=== PATIENT | male | born 1950 | race Caucasian/White ===

== ENCOUNTER 2024-07-24 19:34 | Inpatient (IN) ==
[2024-07-24 21:12] LABS: Albumin Globulin Ratio 2.4 (0.9-2); Albumin Level 4.6 gm/dl (3.4-5.0); Bilirubin,Total 0.5 mg/dl (0.2-1.0); Creatinine Clr Calc Pharmacy 63.1 ml/min; Globulin 1.9 gm/dl (2.5-4.0); Potassium 4.2 mmol/L (3.5-5.1); Total Protein 6.5 gm/dl (6.0-8.3)
[2024-07-24 21:30] LABS: INR 0.9 (0.9-1.1); Partial Thromboplastin Ratio 0.8; Partial Thromboplastin Time 21 Seconds (21-31); Prothrombin Time 10.2 Seconds (9.0-12.0)
[2024-07-24 21:31] LABS: Hematocrit (blood only) 45.1 % (42.0-52.0); White Blood Count 13.13 K/ul (4.8-10.8)
[2024-07-24 21:32] LABS: Mean Corpuscular Hemoglobin 30.2 pg (25.0-34.0); Mean Corpuscular Hgb Conc 33.3 g/dL (32.0-36.0); Mean Corpuscular Volume 90.7 fL (80.0-100.0); RDW Coefficient of Variation 14.3 % (11.5-14.5); RDW Standard Deviation 47.5 fL (36.4-46.3); Red Blood Count 4.97 M/uL (4.70-6.10)
[2024-07-24 21:56] LABS: Basophils # (auto) 0.04 K/uL (0.00-0.20); Basophils % (auto) 0.3 %; Eosinophils # (auto) 0.38 K/uL (0.00-0.50); Eosinophils % (auto) 2.9 %; Immature Granulocytes # (auto) 0.04 K/uL (0.01-0.20); Immature Granulocytes % (auto) 0.3 %; Lymphocytes # (auto) 2.86 K/uL (1.20-3.40); Lymphocytes % (auto) 21.8 %; Monocytes # (auto) 1.56 K/uL (0.11-0.59); Monocytes % (auto) 11.9 %; Neutrophils # (auto) 8.25 K/uL (1.40-6.50); Neutrophils % (auto) 62.8 %; Platelet Estimate Signific. Decreased (Normal)
[2024-07-24 21:57] LABS: Platelet Count 0 K/uL (130-400)
--- NOTE | 2024-07-24 22:58 | Emergency Department Note ---
Impression & Plan Severe thrombocytopenia, Acute ITP, Petechiae ED Provider Note HISTORY OF PRESENT ILLNESS: Patient is a 73-year-old male presenting with petechiae and epistaxis. Patient reports that he developed a nosebleed yesterday evening. Reports that his nose has been spontaneously bleeding throughout the last 24 hours. He states that for the last few hours it seems like he cannot get the bleeding to stop. He states that today he woke up and had petechiae on his bilateral lower extremities. He has now developed petechia diffusely across his body. He states that he also noticed a "lump" on the inside of his left cheek and noticed blood on the gums of his lower teeth earlier this evening. He had a splenectomy in 2013 after having "an issue with my platelets." He states after his splenectomy his platelet count went back to normal and he is never had an issue since. He reports he had lab work done at the [facility] 3 weeks ago and his platelet count was in the 180s. He denies any recent steroids. Denies any recent fevers. Denies any chest pain or shortness of breath. ROS: as above PHYSICAL EXAM: Constitutional: Patient appears in no acute distress. HENT: Head: Normocephalic and atraumatic. Eyes: EOMI, PERRL Nose: Patient has no active epistaxis. He does have some dried blood in the left nare. Mouth/Throat: Mucous membranes moist. Uvula midline. No blood or clot noted in the posterior oropharynx. Patient noted to have some scant bleeding of the gums at the base of his front lower teeth. He is also noted to have a hematoma in the inside of his left cheek. Neck: Trachea midline. Neck supple. Cardiovascular: RRR, No murmurs, rubs or gallops. Intact distal pulses. Pulmonary/Chest: No respiratory distress. Breath sounds clear and equal bilaterally. No wheezes or rales. Abdominal: Abdomen soft, no tenderness, rebound or guarding. Musculoskeletal: No edema, tenderness or deformity noted. Skin: Warm and dry. Diffuse petechia noted on the bilateral lower extremities, trunk and bilateral upper extremities. Psychiatric: Appropriate mood and affect for situation. Neurological: Alert and keenly responsive. CN II-XII grossly intact, moving all extremities equally and fully. MDM: - Vitals signs showed hypertension - History obtained via patient. History as above. - Chronic conditions affecting care: HTN; HLD - Differential diagnoses include, but are not limited to: leukemia; ITP; coagulopathy - Order placed for continuous cardiac monitoring. At this time, monitor showed rate of 69 bpm with normal sinus rhythm, per my interpretation. - External medical records reviewed. - Laboratory workup interpreted by myself showed leukocytosis (WBC 13.13); thrombocytopenia (plt 0); normal PT/INR; stable electrolytes - Type and screen obtained - Discussed patient's case with metal mine inspector division plant engineer, Dr. Gutierrez, at 23:21. She recommended that the patient get a transfusion of platelets, be started on IVIG 1 g/kg now and continued for the next 2 days, and be given a dose of methylprednisolone 1 g now and continue daily. Reports that the patient can be admitted to medicine service here with hematology/oncology on his consult. - Methylprednisolone 1g IV, IVIG 1 g/kg, 20 mg IV pepcid and a transfusion of platelets ordered. - Discussion was had with family service caseworker about patient's case and need for admission - Hospitalist, Dr. Conway, consulted for admission - [facility]. I have personally spent 41 minutes of critical care time in the direct management of this patient. This includes bedside care, interpretation of diagnostic studies, and testing, discussion with consultants, patient, and family members, and other required patient management activities. This 41 minutes is in excess of all separately billable procedures. ASSESSMENT AND PLAN: Diagnosis: severe thrombocytopenia; ITP; petechiae Plan: admit Past Med/Surg History Problem List (Updated 07/24/24 @ 23:37 by Tricia Mike MD) Petechiae (Acute) Acute ITP (Acute) Severe thrombocytopenia (Acute) Social History Smoking Status: Never smoker Feels Safe at Home: Yes Allergies Allergies Allergy/AdvReac Type Severity Reaction Status Date / Time No Known Allergies Allergy Unverified 07/24/24 23:45 Results & Data (ED) Vital Signs Vital Signs - 24 hr 07/24/24 19:46 07/24/24 21:43 07/24/24 21:43 Temperature 36.6 C Temperature Source Temporal Artery Scan Pulse Rate 85 Pulse Rate [Apical] 72 Respiratory Rate 18 19 Respiratory Effort / Characteristics Non-Labored Spontaneous Non-Labored Spontaneous Respiratory Depth Normal Normal Respiratory Pattern Regular Blood Pressure 157/82 H Blood Pressure [Right Arm] 174/97 H Blood Pressure Mean 107 Blood Pressure Mean [Right Arm] 122 Blood Pressure Position [Right Arm] Semi-fowlers Pulse Oximetry 96 97 97 Oxygen Delivery Method Room Air Room Air Room Air Sepsis Recent Fever Within 48 Hours No Sepsis New/Unexplained Change in Mental Status No Sepsis Action Taken by Nursing No Action Required 07/24/24 21:45 07/24/24 22:47 Temperature Temperature Source Pulse Rate 66 Pulse Rate [Apical] 69 Respiratory Rate 20 Respiratory Effort / Characteristics Respiratory Depth Respiratory Pattern Blood Pressure Blood Pressure [Right Arm] 187/97 H Blood Pressure Mean Blood Pressure Mean [Right Arm] 127 Blood Pressure Position [Right Arm] Semi-fowlers Pulse Oximetry 98 Oxygen Delivery Method Room Air Sepsis Recent Fever Within 48 Hours Sepsis New/Unexplained Change in Mental Status Sepsis Action Taken by Nursing Laboratory Data 07/24/24 20:32 07/24/24 20:32 Lab Results 07/24/24 07/24/24 Range/Units 20:32 21:43 WBC 13.13 H (4.8-10.8) K/ul RBC 4.97 (4.70-6.10) M/uL Hgb 15.0 (14.0-18.0) g/dl Hct 45.1 (42.0-52.0) % MCV 90.7 (80.0-100.0) fL MCH 30.2 (25.0-34.0) pg MCHC 33.3 (32.0-36.0) g/dL RDW Std Deviation 47.5 H (36.4-46.3) fL RDW Coeff of Debbie 14.3 (11.5-14.5) % Plt Count 0 L* (130-400) K/uL Immature Gran % (Auto) 0.3 % Neut % (Auto) 62.8 % Lymph % (Auto) 21.8 % [place] % (Auto) 11.9 % Eos % (Auto) 2.9 % Baso % (Auto) 0.3 % Neut # (Auto) 8.25 H (1.40-6.50) K/uL Lymph # (Auto) 2.86 (1.20-3.40) K/uL [place] # (Auto) 1.56 H (0.11-0.59) K/uL Eos # (Auto) 0.38 (0.00-0.50) K/uL Baso # (Auto) 0.04 (0.00-0.20) K/uL Immature Gran # (Auto) 0.04 (0.01-0.20) K/uL Platelet Estimate Signific. Decreased L (Normal) PT 10.2 (9.0-12.0) Seconds INR 0.9 (0.9-1.1) APTT 21 (21-31) Seconds PTT Ratio 0.8 Sodium 140 (136-145) mmol/L Potassium 4.2 (3.5-5.1) mmol/L Chloride 109 H (98-107) mmol/L Carbon Dioxide 24 (21-32) mmol/L Anion Gap 7 (3-11) BUN 18 (6-23) mg/dl Creatinine 1.29 (0.6-1.4) mg/dl Est Cr Clr Drug Dosing 63.1 ml/min eGFR 58.55 BUN/Creatinine Ratio 14.0 (10-20) Glucose 113 H (70-99(Fasting)) mg/dl Calcium 9.0 (8.6-10.3) mg/dl Total Bilirubin 0.5 (0.2-1.0) mg/dl AST 14 (13-39) U/L ALT 15 (7-52) U/L Alkaline Phosphatase 87 (34-104) U/L Total Protein 6.5 (6.0-8.3) gm/dl Albumin 4.6 (3.4-5.0) gm/dl Globulin 1.9 L (2.5-4.0) gm/dl Albumin/Globulin Ratio 2.4 H (0.9-2) Blood Type A Positive Antibody Screen NEGATIVE Administered Medications Discontinued Medications Famotidine (Pepcid 20mg Iv Push) 20 mg in 5 mls @ 2.5 mls/min IV NOW STA Stop: 07/24/24 23:25 Last Admin: 07/24/24 23:46 Dose: 2.5 mls/min Documented By: LEANDRO Miscellaneous Information (Patient's Allergy Info Needs Entered) 1 each N/A NOW STA Stop: 07/24/24 23:36 Last Admin: 07/24/24 23:47 Dose: 1 each Documented By: LEANDRO Discharge Plan Visit Data Chief Complaint: Bleeding Stated Complaint: BLOOD PLATLETS LOW ED Provider: Tricia Mike Discharge Problem: Severe thrombocytopenia, Acute ITP, Petechiae Forms Stand Alone Forms: [facility] Referrals Referrals: Akbar JORDAN [Primary Care Provider] -
[2024-07-24] MEDS ORDERED: methylPREDNISolone 1000 MG/16 ML IV STA (23:24)
[2024-07-24] MEDS ORDERED: SODIUM CHLORIDE 0.9% 50 ML IV PRN ×3 (23:27→23:46)
[2024-07-24] MEDS ORDERED: SODIUM CHLORIDE 0.9% 100 ML IV PRN ×3 (23:27→23:46)
[2024-07-24] MEDS: FAMOTIDINE 20MG IV PUSH 20 MG/5 ML SYR IV STA (23:46)
[2024-07-24] MEDS: Patient's ALLERGY Info needs ENTERED STA (23:47)
[2024-07-25] MEDS: cloNIDine HCL 0.1 MG TAB PO ONE (00:13)
[2024-07-25 00:15] LABS: Adenovirus PCR Not Detected (NotDetected); Bordetella parapertussis PCR Not Detected (NotDetected); Bordetella pertussis PCR Not Detected (NotDetected); Chlamydia pneumoniae PCR Not Detected (NotDetected); Coronavirus 229E PCR Not Detected (NotDetected); Coronavirus CoV-2 (COVID19)PCR Not Detected (NotDetected); Coronavirus HKU1 PCR Not Detected (NotDetected); Coronavirus NL63 PCR Not Detected (NotDetected); Coronavirus OC43PCR Not Detected (NotDetected); Human Metapneumovirus PCR Not Detected (NotDetected); Influenza A PCR Not Detected (NotDetected); Influenza B PCR Not Detected (NotDetected); Mycoplasma pneumoniae PCR Not Detected (NotDetected); Parainfluenza Virus 1 PCR Not Detected (NotDetected); Parainfluenza Virus 2 PCR Not Detected (NotDetected); Parainfluenza Virus 3 PCR Not Detected (NotDetected); Parainfluenza Virus 4 PCR Not Detected (NotDetected); Respiratory Syncytial VirusPCR Not Detected (NotDetected); Rhinovirus/Enterovirus PCR DETECTED (NotDetected)
[2024-07-25] MEDS: methylPREDNISolone 1,000 MG in NSS 250 ML IV STA (00:29)
--- NOTE | 2024-07-25 00:46 | History & Physical Report ---
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 Gutierrez who recommends platelet transfusion, IVIG for 3 days, daily Solu-Medrol 1 g, and Pepcid for GI prophylaxis given high-dose steroids.) Retrieve records from [facility] [place], [place], [place]. Clonidine 1 dose now for hypertensive urgency Titrate home lisinopril as needed Supportive management for URTI DVT prophylaxis. SCDs re: thrombocytopenia resulting in bleeding Full code Text document was generated using Access [employer] voice recognition software. It may contain grammatical or spelling errors. Kindly contact undersigned for clarification of any documentation item in question. History of Present Illness Chief Complaint: Epistaxis, petechiae Primary Care Provider: [facility] History obtained from patient and records. Medical history significant for hypertension, hyperlipidemia, hypothyroidism, ITP status post splenectomy. Patient has history of ITP presenting as petechiae in 2013. Subsequent splenectomy following adverse reaction to unrecalled ITP medication when he was a resident of [place], [place].. 2 days ago, patient noted right-sided epistaxis and nasal congestion. Patient also noted sore throat symptoms and a blood blister on the left inner cheek. No headache. No chest pain, no SOB. No abdominal pain. No black no bloody stools. Patient later noted petechiae all over his body. Patient brought to ER for evaluation. IVIG, Solu-Medrol,, Pepcid, and platelet transfusion administered at the ER following Hematology recommendations. Highest SBP of 170s documented at the ER. 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 Allergies Allergy/AdvReac Type Severity Reaction Status Date / Time Penicillins Allergy Mild Rash Verified 07/25/24 00:47 Home Medications Medication Instructions Recorded Confirmed Type atorvastatin 20 mg tablet 20 mg PO HS 07/25/24 07/25/24 History levothyroxine 200 mcg tablet 50 mcg PO DAILY 07/25/24 07/25/24 History lisinopril 20 mg tablet 20 mg PO DAILY 07/25/24 07/25/24 History Past Med/Surg History Problem List (Updated 07/24/24 @ 23:37 by Tricia Mike MD) Petechiae (Acute) Acute ITP (Acute) Severe thrombocytopenia (Acute) Social History Smoking Status: Never smoker Hx Alcohol Use: No Hx Substance Use: No Preferred Language: Palauan Communication Ability: Effective Principal System Software Engineer Required: No Beliefs That Will Affect Care: None Current Living Situation: Other Current Living Situation Comment: correctional facility Feels Safe at Home: Yes Assistive Devices: None Review of Systems Review of Systems: As per HPI, all other systems reviewed and negative Physical Exam Physical Exam: GENERAL: Comfortable, pleasant, obese, tremulous, no respiratory distress SKIN: Normal color, warm HEENT: [place] palpebral conjunctivae, no ptosis, moist buccal mucosa, hematoma left inner cheek wall NECK : Supple, no tenderness CHEST : Scattered expiratory wheezes, no tenderness HEART : RRR, no obvious murmurs ABDOMEN: Some distention, nontender EXTREMITIES : Petechiae over upper and lower extremities, minimal LE swelling without tenderness, no other conspicuous deformities noted NEUROLOGIC : Coherent, no facial asymmetry, tremulous, no other gross focality Results & Data Results & Data Vital Signs (Past 12 Hours) Vital Signs Temp Pulse Pulse Resp BP BP Pulse Ox 07/25/24 00:08 37.2 C 67 18 153/81 H 97 07/25/24 00:01 64 17 147/85 H 97 07/24/24 23:56 36.5 C 63 17 183/100 H 96 07/24/24 22:47 69 20 187/97 H 98 07/24/24 21:45 66 07/24/24 21:43 72 19 174/97 H 97 07/24/24 21:43 97 07/24/24 19:46 36.6 C 85 18 157/82 H 96 O2 Del Method 07/25/24 00:08 07/25/24 00:01 07/24/24 23:56 07/24/24 22:47 Room Air 07/24/24 21:45 07/24/24 21:43 Room Air 07/24/24 21:43 Room Air 07/24/24 19:46 Room Air Laboratory Results Laboratory Results WBC 13.13 K/ul (4.8-10.8) H 07/24/24 20:32 RBC 4.97 M/uL (4.70-6.10) 07/24/24 20:32 Hgb 15.0 g/dl (14.0-18.0) 07/24/24 20:32 Hct 45.1 % (42.0-52.0) 07/24/24 20:32 MCV 90.7 fL (80.0-100.0) 07/24/24 20: MCH 30.2 pg (25.0-34.0) 07/24/24 20: MCHC 33.3 g/dL (32.0-36.0) 07/24/24 20: RDW Std Deviation 47.5 fL (36.4-46.3) H 07/24/24: RDW Coeff of Debbie 14.3 % (11.5-14.5) 07/24/24 20:32 Plt Count 0 K/uL (130-400) L* 07/24/24 20:32 Immature Gran % (Auto) 0.3 % 07/24/24 20:32 Neut % (Auto) 62.8 % 07/24/24 20:32 Lymph % (Auto) 21.8 % 07/24/24 20:32 [place] % (Auto) 11.9 % 07/24/24 20:32 Eos % (Auto) 2.9 % 07/24/24 20:32 Baso % (Auto) 0.3 % 07/24/24 20:32 Neut # (Auto) 8.25 K/uL (1.40-6.50) H 07/24/24 20:32 Lymph # (Auto) 2.86 K/uL (1.20-3.40) 07/24/24 20:32 [place] # (Auto) 1.56 K/uL (0.11-0.59) H 07/24/24 20:32 Eos # (Auto) 0.38 K/uL (0.00-0.50) 07/24/24 20:32 Baso # (Auto) 0.04 K/uL (0.00-0.20) 07/24/24 20:32 Immature Gran # (Auto) 0.04 K/uL (0.01-0.20) 07/24/24 20:32 Platelet Estimate Signific. Decreased (Normal) L 07/24/24 20:32 PT 10.2 Seconds (9.0-12.0) 07/24/24 20:32 INR 0.9 (0.9-1.1) 07/24/24 20:32 APTT 21 Seconds (21-31) 07/24/24 20:32 PTT Ratio 0.8 07/24/24 20:32 Sodium 140 mmol/L (136-145) 07/24/24 20:32 Potassium 4.2 mmol/L (3.5-5.1) 07/24/24 20:32 Chloride 109 mmol/L (98-107) H 07/24/24 20:32 Carbon Dioxide 24 mmol/L (21-32) 07/24/24 20:32 Anion Gap 7 (3-11) 07/24/24 20:32 BUN 18 mg/dl (6-23) 07/24/24 20:32 Creatinine 1.29 mg/dl (0.6-1.4) 07/24/24 20:32 Est Cr Clr Drug Dosing 63.1 ml/min 07/24/24 20:32 eGFR 58.55 07/24/24 20:32 BUN/Creatinine Ratio 14.0 (10-20) 07/24/24 20:32 Glucose 113 mg/dl (70-99(Fasting)) H 07/24/24 20:32 Calcium 9.0 mg/dl (8.6-10.3) 07/24/24 20:32 Total Bilirubin 0.5 mg/dl (0.2-1.0) 07/24/24 20:32 AST 14 U/L (13-39) 07/24/24 20:32 ALT 15 U/L (7-52) 07/24/24 20:32 Alkaline Phosphatase 87 U/L (34-104) 07/24/24 20:32 Total Protein 6.5 gm/dl (6.0-8.3) 07/24/24 20:32 Albumin 4.6 gm/dl (3.4-5.0) 07/24/24 20:32 Globulin 1.9 gm/dl (2.5-4.0) L 07/24/24 20:32 Albumin/Globulin Ratio 2.4 (0.9-2) H 07/24/24 20:32 Adenovirus (PCR) Not Detected (NotDetected) 07/24/24 22:53 B. pertussis DNA (PCR) Not Detected (NotDetected) 07/24/24 22:53 B.parapertussis DNA PCR Not Detected (NotDetected) 07/24/24 22:53 C. pneumoniae DNA (PCR) Not Detected (NotDetected) 07/24/24 22:53 Coronavirus OC43 (PCR) Not Detected (NotDetected) 07/24/24 22:53 Coronavirus HKU1 (PCR) Not Detected (NotDetected) 07/24/24 22:53 Coronavirus 229E (PCR) Not Detected (NotDetected) 07/24/24 22:53 SARS-CoV-2 (PCR) Not Detected (NotDetected) 07/24/24 22:53 Coronavirus NL63 (PCR) Not Detected (NotDetected) 07/24/24 22:53 Human Metapneumovir PCR Not Detected (NotDetected) 07/24/24 22:53 Influenza Type A (PCR) Not Detected (NotDetected) 07/24/24 22:53 Influenza Type B (PCR) Not Detected (NotDetected) 07/24/24 22:53 M. pneumoniae (PCR) Not Detected (NotDetected) 07/24/24 22:53 Parainfluenza 1 (PCR) Not Detected (NotDetected) 07/24/24 22:53 Parainfluenza 2 (PCR) Not Detected (NotDetected) 07/24/24 22:53 Parainfluenza 3 (PCR) Not Detected (NotDetected) 07/24/24 22:53 Parainfluenza 4 (PCR) Not Detected (NotDetected) 07/24/24 22:53 RSV (PCR) Not Detected (NotDetected) 07/24/24 22:53 Entero/Rhino (PCR) DETECTED (NotDetected) A 07/24/24 22:53 Blood Type A Positive 07/24/24 21:43 Antibody Screen NEGATIVE 07/24/24 21:43 Diagnostic Findings Chest x-ray as per my interpretation cardiomegaly, atelectasis
[2024-07-25] MEDS ORDERED: LORazepam 0.5 MG TAB PO PRN (00:49)
[2024-07-25] MEDS ORDERED: PROMETHAZINE 6.25 MG/50.25 ML BAG IV PRN (00:49)
[2024-07-25] MEDS: IMMUNE GLOBULIN (HUMAN) SOLN IV STA (00:55)
[2024-07-25 01:29] LABS: Magnesium 2.2 mg/dl (1.7-2.4)
[2024-07-25 01:45] LABS: Thyroid Stimulating Hormone 3.652 uIu/ml (0.300-4.500)
[2024-07-25] MEDS: ALBUT/IPRATROP 3MG/0.5MG NEB 3 ML VIAL NEB STA (01:56)
--- NOTE | 2024-07-25 02:20 | XRay Report ---
EXAM: XR chest 1V portable CLINICAL HISTORY: WHEEZE. TECHNIQUE: An X-ray image of the chest is obtained in AP projection. COMPARISON: No prior studies are available for comparison. FINDINGS: Pulmonary Parenchyma: Prominent central broncho vascular markings. No evidence of consolidation, collapse, or focal opacities. No evidence of pleural effusion or pleural thickening. Heart and Mediastinum: Apparent cardiomegaly. Could be projectional. Prominent hilar shadows. Bony Thorax: Mild degenerative changes of the visualized skeleton. Soft Tissues: Soft tissues overlying the chest wall are unremarkable. IMPRESSION: 1. No consolidation, pneumothorax or pleural effusion. 2. Prominent broncho vascular markings. Clinical correlation is advised to assess for pulmonary congestion/bronchitis. Electronically signed by Dash Chua 07-25-2024 02:19 AM
[2024-07-25] MEDS: Octagam 10% IVIG 20 gram bottle IV SCH ×2 (02:59→20:56)
[2024-07-25 05:02] LABS: BUN Creatinine Ratio 14.4 (10-20); Calcium 8.3 mg/dl (8.6-10.3); Creatinine Clr Calc Pharmacy 61.7 ml/min; Potassium 3.3 mmol/L (3.5-5.1)
[2024-07-25 05:04] LABS: Basophils # (auto) 0.02 K/uL (0.00-0.20); Basophils % (auto) 0.2 %; Eosinophils # (auto) 0.01 K/uL (0.00-0.50); Eosinophils % (auto) 0.1 %; Hematocrit (blood only) 40.9 % (42.0-52.0); Hemoglobin 13.8 g/dl (14.0-18.0); Immature Granulocytes # (auto) 0.04 K/uL (0.01-0.20); Immature Granulocytes % (auto) 0.4 %; Lymphocytes # (auto) 0.91 K/uL (1.20-3.40); Lymphocytes % (auto) 8.7 %; Mean Corpuscular Hemoglobin 30.5 pg (25.0-34.0); Mean Corpuscular Hgb Conc 33.7 g/dL (32.0-36.0); Mean Corpuscular Volume 90.3 fL (80.0-100.0); Monocytes # (auto) 0.07 K/uL (0.11-0.59); Monocytes % (auto) 0.7 %; Neutrophils # (auto) 9.41 K/uL (1.40-6.50); Neutrophils % (auto) 89.9 %; Platelet Estimate Signific. Decreased (Normal); RBC Morphology Unremarkable; RDW Coefficient of Variation 14.2 % (11.5-14.5); RDW Standard Deviation 47.2 fL (36.4-46.3); Red Blood Count 4.53 M/uL (4.70-6.10); White Blood Count 10.46 K/ul (4.8-10.8)
[2024-07-25 05:11] LABS: Platelet Count 0 K/uL (130-400)
--- NOTE | 2024-07-25 08:11 | Oncology Consultation ---
Date of Consultation July 25, 2024 Assessment & Plan (1) Acute ITP: (2) Severe thrombocytopenia: Plan Patient with history of ITP for which he is s/p splenectomy in 2012. Acute ITP likely triggered by viral infection. -Continue with methylprednisolone 1 g daily -IVIG 1 g/kg/day x 2 days. -If he does not respond to IVIG or steroids, we will plan to start him on TPO agonist(Nplate/eltrombopag) -Obtain hepatitis panel, B12, folate level, Peripheral smear review by pathology. Also urinalysis with reflex to culture Thank you for this consult. Will continue following patient while in the hospital. Please feel free to call if you have any other questions. History of Present Illness Reason for Consultation: ITP Attending Physician: Sonu Arnold MD History of Present Illness 73-year-old gentleman with medical history significant for chronic ITP for which he is s/p splenectomy in 2012. Patient presented with petechia and was found to have platelet count of 0. He was started on 1 g IV methylprednisolone daily, IVIG 1 g/kg/day and given platelet transfusion. He states that he was initially diagnosed with ITP in 2012 at which time he was treated with rituximab which he had a significant allergic reaction to necessitating its discontinuation. He subsequently underwent splenectomy with n ormalization of platelet count. States that he had upper respiratory tract infection which he noticed last week. Subsequently developed nosebleeds about 3 days ago and petechia was noted yesterday. He indicates that he self catheterizes and has a prior history of UTIs. Workup obtained in the ED revealed platelet count of 0, mild leukocytosis with white count of 13.13, normal hemoglobin of 15 with hematocrit of 45.1. Respiratory panel was positive for enterovirus infection. Allergies Allergy/AdvReac Type Severity Reaction Status Date / Time Penicillins Allergy Mild Rash Verified 07/25/24 00:47 Home Medications Medication Instructions Recorded Confirmed Type atorvastatin 20 mg tablet 20 mg PO HS 07/25/24 07/25/24 History levothyroxine 200 mcg tablet 50 mcg PO DAILY 07/25/24 07/25/24 History lisinopril 20 mg tablet 20 mg PO DAILY 07/25/24 07/25/24 History Patient History Social History Smoking Status: Never smoker Hx Alcohol Use: No Hx Substance Use: No Preferred Language: Croatian Communication Ability: Effective Senior Administrative Services Officer Required: No Beliefs That Will Affect Care: None Current Living Situation: Other Current Living Situation Comment: correctional facility Feels Safe at Home: Yes Assistive Devices: None Results & Data Vital Signs (Past 12 Hours) Vital Signs Temp Pulse Pulse Resp BP BP Pulse Ox 07/25/24 07:45 72 16 115/73 94 07/25/24 07:30 112/77 07/25/24 07:30 112/77 07/25/24 07:30 75 15 93 07/25/24 07:15 111/71 07/25/24 07:15 111/71 07/25/24 07:06 85 19 94 07/25/24 07:00 142/71 H 07/25/24 07:00 142/71 H 07/25/24 07:00 86 07/25/24 06:57 86 18 94 07/25/24 06:42 90 20 93 07/25/24 06:30 88 18 94 07/25/24 06:30 142/71 H 07/25/24 06:30 142/71 H 07/25/24 06:15 145/72 H 07/25/24 06:15 145/72 H 07/25/24 06:15 145/72 H 07/25/24 06:15 145/72 H 07/25/24 06:12 91 H 17 94 07/25/24 06:03 86 16 94 07/25/24 06:00 142/78 H 07/25/24 05:57 92 H 18 94 07/25/24 05:54 88 16 93 07/25/24 05:45 140/80 07/25/24 05:42 86 17 94 07/25/24 05:36 79 14 92 07/25/24 05:30 138/66 07/25/24 05:30 138/66 07/25/24 03:57 70 07/25/24 03:30 74 19 149/73 H 93 07/25/24 03:15 74 16 148/70 H 93 07/25/24 03:03 79 19 170/88 H 97 07/25/24 03:03 80 16 170/88 H 100 07/25/24 02:30 137/68 07/25/24 02:15 132/73 07/25/24 02:12 16 98 07/25/24 02:12 37.2 C 72 17 135/74 97 07/25/24 01:45 19 130/70 92 07/25/24 01:33 17 95 07/25/24 01:30 141/79 H 07/25/24 01:12 15 94 07/25/24 01:07 07/25/24 01:00 147/77 H 07/25/24 00:45 157/85 H 07/25/24 00:30 153/96 H 07/25/24 00:21 65 15 96 07/25/24 00:08 37.2 C 67 18 153/81 H 97 07/25/24 00:03 147/85 H 07/25/24 00:01 64 17 147/85 H 97 07/24/24 23:56 36.5 C 63 17 183/100 H 96 07/24/24 23:30 63 20 183/100 H 94 07/24/24 23:00 63 18 190/102 H 94 07/24/24 22:47 69 20 187/97 H 98 07/24/24 21:45 66 07/24/24 21:43 72 19 174/97 H 97 07/24/24 21:43 97 Pulse Ox O2 Del Method O2 Del Method 07/25/24 07:45 Room Air 07/25/24 07:30 07/25/24 07:30 07/25/24 07:30 07/25/24 07:15 07/25/24 07:15 07/25/24 07:06 07/25/24 07:00 07/25/24 07:00 07/25/24 07:00 07/25/24 06:57 07/25/24 06:42 07/25/24 06:30 07/25/24 06:30 07/25/24 06:30 07/25/24 06:15 07/25/24 06:15 07/25/24 06:15 07/25/24 06:15 07/25/24 06:12 07/25/24 06:03 07/25/24 06:00 07/25/24 05:57 07/25/24 05:54 07/25/24 05:45 07/25/24 05:42 07/25/24 05:36 07/25/24 05:30 07/25/24 05:30 07/25/24 03:57 07/25/24 03:30 Room Air 07/25/24 03:15 07/25/24 03:03 07/25/24 03:03 Room Air 07/25/24 02:30 07/25/24 02:15 07/25/24 02:12 Room Air 07/25/24 02:12 Room Air 07/25/24 01:45 Room Air 07/25/24 01:33 Room Air 07/25/24 01:30 07/25/24 01:12 Room Air 07/25/24 01:07 95 Room Air 07/25/24 01:00 07/25/24 00:45 07/25/24 00:30 07/25/24 00:21 Room Air 07/25/24 00:08 07/25/24 00:03 07/25/24 00:01 07/24/24 23:56 07/24/24 23:30 Room Air 07/24/24 23:00 Room Air 07/24/24 22:47 Room Air 07/24/24 21:45 07/24/24 21:43 Room Air 07/24/24 21:43 Room Air
[2024-07-25] MEDS ORDERED: lisinopril 20 MG TAB PO SCH (09:00)
[2024-07-25] MEDS ORDERED: LEVOTHYROXINE SODIUM 200 MCG TABLET PO SCH (09:00)
[2024-07-25] MEDS: LEVOTHYROXINE SODIUM 50 MCG TABLET PO SCH (09:53)
[2024-07-25] MEDS: ACETAMINOPHEN 325 MG TAB PO PRN (13:43)
--- NOTE | 2024-07-25 13:49 | Hospitalist Progress Note ---
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 Chronic conditions; Hypertensive urgencycontinue lisinopril Prediabetesdiet controlled Hyperlipidemiacontinue on statin DVT prophylaxis SCDs Full code Please note the above document was generated using voice recognition software. It may contain grammatical, syntax or spelling errors. Any formal questions or concerns about the content, text or information contained within the body of this dictation should be directly addressed to the provider for clarification Admission and Anticipated Discharge Date Admission Date: July 25, 2024 Subjective Patient seen and examined at bedside. Comfortable; not in distress. Denies fever, chills, chest pain, shortness of breath, abdominal pain or urinary symptoms. No significant overnight events Review of Systems Review of Systems: All systems reviewed & are unremarkable except as noted in Subjective Physical Exam Physical Exam: GENERAL: Comfortable, pleasant, tremulous, no respiratory distress SKIN: Normal color, warm HEENT: [place] palpebral conjunctivae, no ptosis, moist buccal mucosa, hematoma left inner cheek wall NECK : Supple, no tenderness CHEST : b/l vesicular breath sounds HEART : RRR, no obvious murmurs ABDOMEN: Some distention, nontender EXTREMITIES : Petechiae over upper and lower extremities, minimal LE swelling without tenderness, no other conspicuous deformities noted NEUROLOGIC : Coherent, no facial asymmetry, tremulous, no other gross focality Results & Data Results & Data Vital Signs (Past 12 Hours) Vital Signs Temp Pulse Pulse Resp BP BP Pulse Ox 07/25/24 11:40 36.5 C 79 18 141/71 H 94 07/25/24 10:30 07/25/24 10:03 88 07/25/24 08:51 36.5 C 18 158/84 H 93 07/25/24 07:45 72 16 115/73 94 07/25/24 07:30 112/77 07/25/24 07:30 112/77 07/25/24 07:30 75 15 93 07/25/24 07:15 111/71 07/25/24 07:15 111/71 07/25/24 07:06 85 19 94 07/25/24 07:00 142/71 H 07/25/24 07:00 142/71 H 07/25/24 07:00 86 07/25/24 06:57 86 18 94 07/25/24 06:42 90 20 93 07/25/24 06:30 88 18 94 07/25/24 06:30 142/71 H 07/25/24 06:30 142/71 H 07/25/24 06:15 145/72 H 07/25/24 06:15 145/72 H 07/25/24 06:15 145/72 H 07/25/24 06:15 145/72 H 07/25/24 06:12 91 H 17 94 07/25/24 06:03 86 16 94 07/25/24 06:00 142/78 H 07/25/24 05:57 92 H 18 94 07/25/24 05:54 88 16 93 07/25/24 05:45 140/80 07/25/24 05:42 86 17 94 07/25/24 05:36 79 14 92 07/25/24 05:30 138/66 07/25/24 05:30 138/66 07/25/24 03:57 70 07/25/24 03:30 74 19 149/73 H 93 07/25/24 03:15 74 16 148/70 H 93 07/25/24 03:03 79 19 170/88 H 97 07/25/24 03:03 80 16 170/88 H 100 07/25/24 02:30 137/68 07/25/24 02:15 132/73 07/25/24 02:12 16 98 07/25/24 02:12 37.2 C 72 17 135/74 97 O2 Del Method 07/25/24 11:40 Room Air 07/25/24 10:30 Room Air 07/25/24 10:03 07/25/24 08:51 Room Air 07/25/24 07:45 Room Air 07/25/24 07:30 07/25/24 07:30 07/25/24 07:30 07/25/24 07:15 07/25/24 07:15 07/25/24 07:06 07/25/24 07:00 07/25/24 07:00 07/25/24 07:00 07/25/24 06:57 07/25/24 06:42 07/25/24 06:30 07/25/24 06:30 07/25/24 06:30 07/25/24 06:15 07/25/24 06:15 07/25/24 06:15 07/25/24 06:15 07/25/24 06:12 07/25/24 06:03 07/25/24 06:00 07/25/24 05:57 07/25/24 05:54 07/25/24 05:45 07/25/24 05:42 07/25/24 05:36 07/25/24 05:30 07/25/24 05:30 07/25/24 03:57 07/25/24 03:30 Room Air 07/25/24 03:15 07/25/24 03:03 07/25/24 03:03 Room Air 07/25/24 02:30 07/25/24 02:15 07/25/24 02:12 Room Air 07/25/24 02:12 Room Air
[2024-07-25 16:38] LABS: Hep B Surface Ag with confirm Negative (Negative)
[2024-07-25 16:44] LABS: Hep C Ab Rflx HepCQuant RNA Negative (Negative)
[2024-07-25 17:42] LABS: Hematocrit (blood only) 38.6 % (42.0-52.0); Mean Corpuscular Hemoglobin 30.2 pg (25.0-34.0); Mean Corpuscular Hgb Conc 33.7 g/dL (32.0-36.0); Mean Corpuscular Volume 89.8 fL (80.0-100.0); Platelet Count 16 K/uL (130-400); RDW Coefficient of Variation 14.3 % (11.5-14.5); RDW Standard Deviation 46.9 fL (36.4-46.3); White Blood Count 12.18 K/ul (4.8-10.8)
[2024-07-25 17:44] LABS: Basophils # (auto) 0.02 K/uL (0.00-0.20); Basophils % (auto) 0.2 %; Immature Granulocytes # (auto) 0.07 K/uL (0.01-0.20); Immature Granulocytes % (auto) 0.6 %; Lymphocytes # (auto) 0.93 K/uL (1.20-3.40); Lymphocytes % (auto) 7.6 %; Monocytes % (auto) 0.8 %; Neutrophils # (auto) 11.06 K/uL (1.40-6.50); Neutrophils % (auto) 90.8 %; Platelet Estimate Signific. Decreased (Normal)
[2024-07-25] MEDS: methylPREDNISolone 1,000 MG in NSS 250 ML IV SCH (20:47)
[2024-07-25] MEDS: ATORVASTATIN 20 MG TAB PO SCH (21:14)
[2024-07-25] MEDS ORDERED: IMMUNE GLOBULIN (HUMAN) SOLN IV SCH (23:30)
[2024-07-26] MEDS ORDERED: methylPREDNISolone 125 MG/2 ML VIAL IV SCH (00:30)
[2024-07-26 01:48] LABS: Appearance Urine Clear (Clear); Bacteria Urine Automated None Seen (None Seen); Bilirubin Urine Negative (Negative); Blood Urine 2+ (Negative); Cast Urine Automated >20 /lpf (0-2); Color Urine Yellow; Epithelial Cell Urine Auto 0-2 /hpf (0-2); Glucose Urine UA 3+ (Negative); Ketones Urine Negative (Negative); Leukocyte Esterase Urine 2+ (Negative); Nitrite Urine Negative (Negative); Protein Urine Negative (Negative); RBC Urine Automated 0-2 /hpf (0-2); Specific Gravity Urine 1.021 (1.000-1.030); Urobilinogen Urine Negative (Negative); WBC Urine Automated 21-50 /hpf (0-5); pH Urine 5.5 (4.5-7.5)
[2024-07-26 06:47] LABS: Hematocrit (blood only) 35.9 % (42.0-52.0); Mean Corpuscular Hemoglobin 30.7 pg (25.0-34.0); Mean Corpuscular Hgb Conc 33.4 g/dL (32.0-36.0); Mean Corpuscular Volume 91.8 fL (80.0-100.0); Platelet Count 15 K/uL (130-400); RDW Coefficient of Variation 14.5 % (11.5-14.5); RDW Standard Deviation 47.7 fL (36.4-46.3); Red Blood Count 3.91 M/uL (4.70-6.10); White Blood Count 21.56 K/ul (4.8-10.8)
[2024-07-26 07:14] LABS: Folate (Folic Acid),Ser orPlas 10.03 ng/ml (>5.38)
[2024-07-26 07:22] LABS: BUN Creatinine Ratio 19.1 (10-20); Calcium 8.2 mg/dl (8.6-10.3); Creatinine Clr Calc Pharmacy 53.7 ml/min; Ferritin 214.1 ng/ml (8-388); Potassium 4.2 mmol/L (3.5-5.1)
[2024-07-26 07:31] LABS: Basophils # (auto) 0.03 K/uL (0.00-0.20); Basophils % (auto) 0.1 %; Immature Granulocytes % (auto) 0.9 %; Lymphocytes # (auto) 1.21 K/uL (1.20-3.40); Lymphocytes % (auto) 5.6 %; Monocytes # (auto) 0.31 K/uL (0.11-0.59); Monocytes % (auto) 1.4 %; Neutrophils # (auto) 19.81 K/uL (1.40-6.50)
[2024-07-26] MEDS: lisinopril 20 MG TAB PO SCH (07:36)
[2024-07-26] MEDS: FAMOTIDINE 20 MG TAB PO SCH (07:36)
--- NOTE | 2024-07-26 09:03 | Hospitalist Progress Note ---
Date of Service July 26, 2024 Assessment & Plan (1) Acute ITP: Plan: Recurrent ITP Secondary to rhinovirus infection History ITP status post splenectomy (2013) Patient with past medical history of ITP s/p splenectomy presented to the hospital with multiple petechiae from shelter Found to have severe thrombocytopenia Discussion Done by ED with hematology; recommended platelet transfusion, IVIG for 3 days, daily Solu-Medrol 1 g and Pepcid for GI prophylaxis. Urinalysis shows pyuria; started on empiric ceftriaxone for now. Platelet count improved to 15,000; continue on IVIG and methylprednisolone Appreciate hematology input. Started on vitamin B-12 supplement for vitamin B12 deficiency Chronic conditions; Hypertensive urgencycontinue lisinopril Prediabetesdiet controlled Hyperlipidemiacontinue on statin DVT prophylaxis SCDs Full code Please note the above document was generated using voice recognition software. It may contain grammatical, syntax or spelling errors. Any formal questions or concerns about the content, text or information contained within the body of this dictation should be directly addressed to the provider for clarification Admission and Anticipated Discharge Date Admission Date: July 25, 2024 Subjective Patient seen and examined at bedside. Comfortable; not in distress. Denies fever, chills, chest pain, shortness of breath, abdominal pain or urinary symptoms. No significant overnight events No any signs or symptoms of significant bleeding. Review of Systems Review of Systems: All systems reviewed & are unremarkable except as noted in Subjective Physical Exam Physical Exam: GENERAL: Comfortable, pleasant, no respiratory distress SKIN: Normal color, warm HEENT: [place] palpebral conjunctivae, no ptosis, moist buccal mucosa, hematoma left inner cheek wall NECK : Supple, no tenderness CHEST : b/l vesicular breath sounds HEART : RRR, no obvious murmurs ABDOMEN: Some distention, nontender EXTREMITIES : Petechiae over upper and lower extremities, minimal LE swelling without tenderness, no other conspicuous deformities noted NEUROLOGIC : Coherent, no facial asymmetry, tremulous, no other gross focality Results & Data Results & Data Vital Signs (Past 12 Hours) Vital Signs Temp Pulse Pulse Resp BP BP Pulse Ox 07/26/24 08:34 36.6 C 68 16 120/70 95 07/26/24 05:45 62 07/26/24 02:32 36.6 C 60 16 129/74 93 07/26/24 02:01 07/25/24 23:52 36.6 C 58 L 18 134/69 92 07/25/24 23:15 61 07/25/24 21:16 36.5 C 66 18 136/72 93 O2 Del Method 07/26/24 08:34 Room Air 07/26/24 05:45 07/26/24 02:32 Room Air 07/26/24 02:01 Room Air 07/25/24 23:52 Room Air 07/25/24 23:15 07/25/24 21:16 Room Air
[2024-07-26] MEDS: CYANOCOBALAMIN (B-12) 500 MCG TABLET PO SCH (09:10)
[2024-07-26] MEDS: cefTRIAXone SODIUM 2,000 MG/50 ML BAG IV SCH (10:11)
[2024-07-26 16:09] VITALS: O2SAT 94
[2024-07-27 06:50] LABS: Hematocrit (blood only) 34.1 % (42.0-52.0); Hemoglobin 11.6 g/dl (14.0-18.0); Mean Corpuscular Hemoglobin 31.7 pg (25.0-34.0); Mean Corpuscular Volume 93.2 fL (80.0-100.0); Platelet Count 27 K/uL (130-400); RDW Coefficient of Variation 14.6 % (11.5-14.5); RDW Standard Deviation 48.9 fL (36.4-46.3); Red Blood Count 3.66 M/uL (4.70-6.10); White Blood Count 20.05 K/ul (4.8-10.8)
[2024-07-27 06:59] LABS: Anisocytosis Present; Basophils # (auto) 0.01 K/uL (0.00-0.20); Giant Platelets 1+; Immature Granulocytes # (auto) 0.19 K/uL (0.01-0.20); Immature Granulocytes % (auto) 0.9 %; Monocytes # (auto) 0.32 K/uL (0.11-0.59); Monocytes % (auto) 1.6 %; Neutrophils # (auto) 18.53 K/uL (1.40-6.50); Neutrophils % (auto) 92.5 %; Platelet Estimate Signific. Decreased (Normal); Polychromasia 1+
[2024-07-27 08:03] VITALS: RESP 18; TEMP 97.7
--- NOTE | 2024-07-27 10:16 | Discharge Summary ---
Date of Service July 27, 2024 Admission HPI Per Admitting Provider History obtained from patient and records. Medical history significant for hypertension, hyperlipidemia, hypothyroidism, ITP status post splenectomy. Patient has history of ITP presenting as petechiae in 2013. Subsequent splenectomy following adverse reaction to unrecalled ITP medication when he was a resident of [place], [place].. 2 days ago, patient noted right-sided epistaxis and nasal congestion. Patient also noted sore throat symptoms and a blood blister on the left inner cheek. No headache. No chest pain, no SOB. No abdominal pain. No black no bloody stools. Patient later noted petechiae all over his body. Patient brought to ER for evaluation. IVIG, Solu-Medrol,, Pepcid, and platelet transfusion administered at the ER following Hematology recommendations. Highest SBP of 170s documented at the ER. 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 Principal Diagnosis Acute Immune thrombocytopenic purpura Discharge Exam GENERAL: Comfortable, pleasant, no respiratory distress SKIN: Normal color, warm HEENT: [place] palpebral conjunctivae, no ptosis, moist buccal mucosa, hematoma left inner cheek wall(stable) NECK : Supple, no tenderness CHEST : b/l vesicular breath sounds HEART : RRR, no obvious murmurs ABDOMEN: Some distention, nontender EXTREMITIES : Petechiae over upper and lower extremities, NEUROLOGIC : Coherent, no facial asymmetry, tremulous, no other gross focality Discharge Data Allergies Allergy/AdvReac Type Severity Reaction Status Date / Time Penicillins Allergy Mild Rash Verified 07/25/24 00:47 Consultations 07/24/24 23:33 Consult Hematology Routine ED Decision to Admit Stat 07/25/24 02:29 HIM [Consult Health Information Management] Routine Hospital Course (1) Acute ITP: 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 Patient was admitted to medical floor; was given IVIG for 3 days along with IV Solu-Medrol 1 mg for 3 days. Platelet count improved to 27,000. Patient was discharged back to nursing home on prednisone 80 mg once a day. Discussion was done with healthcare provider at the present to ensure that patient follows up with hematology in 1 week so that the patient can be started on Promacta. Patient was also started on vitamin B12 supplement for vitamin b12 deficiency Please note the above document was generated using voice recognition software. It may contain grammatical, syntax or spelling errors. Any formal questions or concerns about the content, text or information contained within the body of this dictation should be directly addressed to the provider for clarification Total Time Total Time Spent Total Time Spent (In Minutes): 45 Total Time Includes: Examination of the Patient, Discharge Planning, Medication Reconciliation, Communication With Other Providers and Other Discharge Plan Discharge Items [facility] Reason For Visit: HTN URG, THROBOCYTOPENIA Discharge Diagnosis: Immune thrombocytopenic purpura Activity: Resume your previous activity Non-emergency contact: Primary Care Provider Call non-emergency contact if: you have any medication questions and your symptoms worsen Follow-up/Referrals: Akbar JORDAN [Primary Care Provider] - Diet: Regular Addtl Attending Provider Instructions: You were admitted to the hospital due to low platelet count. You are treated with steroid and IVIG during the hospitalization. Please follow-up with hematology/oncology (Dr. Gutierrez) [facility] in 1 week for long-term management of ITP. You are started on prednisone 80 mg once a day. You are only provided prescription for 10 days. Please follow-up with hematology/oncology to determine the duration of the steroid treatment. You are also prescribed Pepcid 20 mg to be taken once a day. You are also prescribed vitamin B12 1000 mcg to be taken once a day Please repeat cbc in 3 days. Warning: Steroid cannot be stopped abruptly; in need to be tapered off with a gradual decrease in the dose. Pending Studies at Discharge: No Stand-Alone Forms: My [facility] [employer], Smoking Cessation Skilled Items Patient informed of condition?: No Discharge Level of Care: Other Communicable Disease: No Discharge Prognosis: Stable Lines: None Urinary Catheter: No Medications and DC Order Prescriptions: New famotidine 20 mg Tablet 20 mg PO QAM Qty: 30 0RF cyanocobalamin (vitamin B-12) 500 mcg Tablet 1,000 mcg PO QAM 60 Days Qty: 120 0RF prednisone 20 mg tablet 80 mg PO DAILY 10 Days Qty: 40 0RF Continued atorvastatin 20 mg Tablet 20 mg PO HS lisinopril 20 mg Tablet 20 mg PO DAILY levothyroxine 200 mcg Tablet 50 mcg PO DAILY Discharge Orders: Discharge Order (Routine); Ordered 07/27/24 Ordered By: Sonu Arnold Admission Data Admit Date/Time: 07/25/24 00:48 Attending Provider: Sonu Arnold Admit Provider: Jose Conway Primary Care Provider: Akbar JORDAN Other Providers: Jose Conway; Jane Gutierrez Other Interventions: Discharge Summary Assessment (RN) Last Done: 07/27/24 10:19
[2024-07-27 10:20] VITALS: BP 129/74; PULSE 53
[2024-07-27] MEDS: predniSONE 20 MG TAB PO STA (11:01)
[2024-07-27 12:27] LABS: Hepatitis A Antibody IgM NON-REACTIVE (NON-REACTIVE); Hepatitis B Core Antibody IgM NON-REACTIVE (NON-REACTIVE)
== END 2024-07-27 14:36 | DRG 813 ==
LOC: ED 19:34 → EDINP 07-25 00:48 → 2W 07-25 01:01

== ENCOUNTER 2024-08-22 15:46 | Inpatient (IN) ==
--- NOTE | 2024-08-22 15:53 | Emergency Department Note ---
ED Visit Note This patient was briefly evaluated while in triage. An abbreviated physical exam was performed. This patient is a 73-year-old Male who presents to the ED from [facility] [place] [facility] for evaluation of his abnormal labs. Patient states "no platelets again". Patient notes that he was here on 07/24/25 for same issues. Patient denies any shortness of breath, petechiae or complaints at this time. Patient notes that he had routine bloodwork and was told that his platelets were low. RESPIRATORY- Chest rise equal and symmetric, lung sounds clear throughout all tomas. CARDIAC- Regular rate and rhythm, no mumur or gallops noted. ABDOMEN- Soft, non-tender. Bowel sounds present in all four quadrants. No palpable mass. .
--- NOTE | 2024-08-22 16:41 | Emergency Department Note ---
Impression & Plan Thrombocytopenia, H/O splenectomy ED Provider Note NAME: LYLY [id number] SAURAV AGE: 73 SEX: M : 1950 ARRIVES VIA: Walk-In INFORMANT: [Patient] ED PROVIDER(S): [Seng Chu MD] CHIEF COMPLAINT: Abnormal laboratories HISTORY OF PRESENT ILLNESS: The patient is a 73-year-old male who has a history of thrombocytopenia. He is currently incarcerated. He has had a previous splenectomy. He was in our hospital in July for a low platelet count and things rebounded with treatment. Today, he went to the cancer center and was found to have a platelet count that was quite low at 1. He was referred to the ER for hospitalization and further treatment. Of note, he is still on oral prednisone as prescribed with his last hospitalization. The patient states that he has no complaints at the present time. Previously, he noticed petechiae when his platelet count was low, he has not noticed petechiae lately. There has been no easy bleeding, no bleeding when he shaves or brushes his teeth. He has not had cough or congestion or shortness of breath. PMHx/PSHx/Social Hx: See Below PHYSICAL EXAM: GENERAL: Patient is in no acute distress. HEENT: No acute trauma, normocephalic atraumatic, mucous membranes moist, no nasal congestion. NECK: No stridor, no adenopathy, no meningismus, trachea is midline. LUNGS: Clear to auscultation bilaterally, no wheeze, no rhonchi, breath sounds equal. HEART: Without murmurs gallops or rubs, regular rate and rhythm. ABDOMEN: Soft, nontender, no peritonitis. EXTREMITIES: No cyanosis, full range of motion of all the joints without pain or difficulty. NEUROLOGIC: Oriented x 3, no acute motor or sensory deficits, no focal weakness. SKIN: No jaundice, no diaphoresis. DIFFERENTIAL DIAGNOSIS: ITP, thrombocytopenia, marrow insufficiency, among others. EMERGENCY DEPARTMENT PROCEDURES: MEDICAL DECISION MAKING: There is a very subtle leukocytosis with a white count of 11,000, this could be consistent with infection or the stress of his presentation. No worrisome anemia. Platelet count undetectable. No renal failure or significant electrolyte abnormality. No concerning liver enzyme elevation. On exam, the patient was without complaints, he was not actively bleeding. There was no fever. Vital signs were unremarkable. I did speak with hematology. They recommended oral dexamethasone, 40 mg. They recommended a transfusion of platelets. They recommended hospitalization and IVIG during the hospitalization. I spoke with the guards and the patient. I did speak with case management. The on-call hospitalist was consulted. I did order for 40 mg of oral dexamethasone as well as 1 round of platelet plasmapheresis. Prior/Outside records/notes reviewed: Discharge summary note from 07/27/2024 discussing his presentation, care in the hospital and plan at discharge. Imaging/x-ray results per my interpretation: Chronic Medical/Social conditions affecting care: History of splenectomy. Currently incarcerated. Care/Management discussed with: Hematology-Dr. Matson. Case management and the on-call hospitalist. Level of care consideration(s): After review of the information above and other included data: --I believe the patient requires escalation of care to admission DISPOSITION: Admission Past Med/Surg History Problem List (Updated 08/22/24 @ 17:38 by Seng Chu MD) H/O splenectomy (Acute) Thrombocytopenia (Acute) Petechiae (Acute) Acute ITP (Acute) Medical History Severe thrombocytopenia Social History Smoking Status: Never smoker Hx Alcohol Use: No Hx Substance Use: No Preferred Language: Finnish Communication Ability: Effective Stroke Program Coordinator Required: No Beliefs That Will Affect Care: None Current Living Situation: Other Current Living Situation Comment: correctional facility Feels Safe at Home: Yes Assistive Devices: None Allergies Allergies Allergy/AdvReac Type Severity Reaction Status Date / Time Penicillins Allergy Mild Rash Verified 08/22/24 17:20 heparin Allergy Unknown Verified 08/22/24 17:18 Home Meds Home Medications Medication Instructions Recorded Confirmed atorvastatin 20 mg tablet 20 mg PO HS 07/25/24 08/22/24 levothyroxine 200 mcg tablet 50 mcg PO DAILY 07/25/24 07/25/24 lisinopril 20 mg tablet 20 mg PO DAILY 07/25/24 08/22/24 levothyroxine 50 mcg tablet 50 mcg PO DAILY 08/22/24 08/22/24 prednisone 20 mg tablet 20 mg PO UD 08/22/24 08/22/24 Previous Rx's Medication Instructions Recorded cyanocobalamin (vitamin B-12) 500 1,000 mcg (2 x 500 mcg) PO QAM 60 07/27/24 mcg tablet days #120 tabs famotidine 20 mg tablet 20 mg PO QAM #30 tabs 07/27/24 Results & Data (ED) Vital Signs Vital Signs - 24 hr 08/22/24 15:50 08/22/24 17:11 Temperature 36.3 C L Temperature Source Temporal Artery Scan Pulse Rate 73 Pulse Rate [Apical] 67 Pulse Rhythm [Apical] Regular Pulse Strength [Apical] Normal Respiratory Rate 20 24 Respiratory Effort / Characteristics Non-Labored Spontaneous Respiratory Depth Normal Respiratory Pattern Regular Blood Pressure 160/85 H Blood Pressure [Right Arm] 161/88 H Blood Pressure Mean 110 Blood Pressure Mean [Right Arm] 112 Blood Pressure Position [Right Arm] Lying Pulse Oximetry 94 94 Oxygen Delivery Method Room Air Room Air Sepsis Recent Fever Within 48 Hours No Sepsis New/Unexplained Change in Mental Status No Sepsis Action Taken by Nursing No Action Required Home Medications Current Medication List: was personally reviewed by me Laboratory Data Attestation: I reviewed the patient's lab results. 08/22/24 16:15 08/22/24 16:15 Lab Results 08/22/24 Range/Units 16:15 WBC 11.08 H (4.8-10.8) K/ul RBC 4.37 L (4.70-6.10) M/uL Hgb 13.8 L (14.0-18.0) g/dl Hct 41.1 L (42.0-52.0) % MCV 94.1 (80.0-100.0) fL MCH 31.6 (25.0-34.0) pg MCHC 33.6 (32.0-36.0) g/dL RDW Std Deviation 53.6 H (36.4-46.3) fL RDW Coeff of Debbie 15.4 H (11.5-14.5) % Plt Count 0 L* D (130-400) K/uL Immature Gran % (Auto) 0.5 % Neut % (Auto) 94.4 % Lymph % (Auto) 2.7 % [place] % (Auto) 2.3 % Eos % (Auto) 0.0 % Baso % (Auto) 0.1 % Neut # (Auto) 10.46 H (1.40-6.50) K/uL Lymph # (Auto) 0.30 L (1.20-3.40) K/uL [place] # (Auto) 0.25 (0.11-0.59) K/uL Eos # (Auto) 0.00 (0.00-0.50) K/uL Baso # (Auto) 0.01 (0.00-0.20) K/uL Immature Gran # (Auto) 0.06 (0.01-0.20) K/uL Platelet Estimate Signific. Decreased L (Normal) Polychromasia 1+ Pappenheimer Bodies 1+ Sodium 137 (136-145) mmol/L Potassium 4.6 (3.5-5.1) mmol/L Chloride 106 (98-107) mmol/L Carbon Dioxide 23 (21-32) mmol/L Anion Gap 8 (3-11) BUN 23 (6-23) mg/dl Creatinine 1.24 (0.6-1.4) mg/dl Est Cr Clr Drug Dosing 56.5 ml/min eGFR 61.39 BUN/Creatinine Ratio 18.5 (10-20) Glucose 229 H (70-99(Fasting)) mg/dl Calcium 8.9 (8.6-10.3) mg/dl Total Bilirubin 0.4 (0.2-1.0) mg/dl AST 20 (13-39) U/L ALT 49 (7-52) U/L Alkaline Phosphatase 51 (34-104) U/L Total Protein 6.2 (6.0-8.3) gm/dl Albumin 3.9 (3.4-5.0) gm/dl Globulin 2.3 L (2.5-4.0) gm/dl Albumin/Globulin Ratio 1.7 (0.9-2) Blood Type Cancelled Antibody Screen Cancelled Discharge Plan Visit Data Chief Complaint: Abnormal Labs/Diagnostic Testing Stated Complaint: L[facility] PALETTES [facility] Provider: Seng Chu Discharge Problem: Thrombocytopenia, H/O splenectomy Patient Disposition: Admitted As Inpatient Condition: Good Forms Stand Alone Forms: My [facility] [employer] Prescriptions Prescriptions: No Action atorvastatin 20 mg Tablet 20 mg PO HS lisinopril 20 mg Tablet 20 mg PO DAILY levothyroxine 200 mcg Tablet 50 mcg PO DAILY famotidine 20 mg Tablet 20 mg PO QAM Qty: 30 0RF cyanocobalamin (vitamin B-12) 500 mcg Tablet 1,000 mcg PO QAM 60 Days Qty: 120 0RF levothyroxine 50 mcg Tablet 50 mcg PO DAILY prednisone 20 mg Tablet 20 mg PO UD Referrals Referrals: Akbar JORDAN [Primary Care Provider] -
[2024-08-22 16:43] LABS: Albumin Globulin Ratio 1.7 (0.9-2); Albumin Level 3.9 gm/dl (3.4-5.0); BUN Creatinine Ratio 18.5 (10-20); Bilirubin,Total 0.4 mg/dl (0.2-1.0); Calcium 8.9 mg/dl (8.6-10.3); Creatinine Clr Calc Pharmacy 56.5 ml/min; Globulin 2.3 gm/dl (2.5-4.0); Potassium 4.6 mmol/L (3.5-5.1); Total Protein 6.2 gm/dl (6.0-8.3)
[2024-08-22] MEDS ORDERED: SODIUM CHLORIDE 0.9% 100 ML IV PRN (16:47)
[2024-08-22] MEDS ORDERED: SODIUM CHLORIDE 0.9% 50 ML IV PRN (16:47)
[2024-08-22 17:00] LABS: Basophils # (auto) 0.01 K/uL (0.00-0.20); Basophils % (auto) 0.1 %; Hematocrit (blood only) 41.1 % (42.0-52.0); Hemoglobin 13.8 g/dl (14.0-18.0); Immature Granulocytes # (auto) 0.06 K/uL (0.01-0.20); Immature Granulocytes % (auto) 0.5 %; Lymphocytes % (auto) 2.7 %; Mean Corpuscular Hemoglobin 31.6 pg (25.0-34.0); Mean Corpuscular Hgb Conc 33.6 g/dL (32.0-36.0); Mean Corpuscular Volume 94.1 fL (80.0-100.0); Monocytes # (auto) 0.25 K/uL (0.11-0.59); Monocytes % (auto) 2.3 %; Neutrophils # (auto) 10.46 K/uL (1.40-6.50); Neutrophils % (auto) 94.4 %; Pappenheimer Bodies 1+; Platelet Count 0 K/uL (130-400); Platelet Estimate Signific. Decreased (Normal); Polychromasia 1+; RDW Coefficient of Variation 15.4 % (11.5-14.5); RDW Standard Deviation 53.6 fL (36.4-46.3); Red Blood Count 4.37 M/uL (4.70-6.10); White Blood Count 11.08 K/ul (4.8-10.8)
[2024-08-22] MEDS: dexAMETHasone**PF** 10 MG/ML VIAL PO ONE (17:36)
--- NOTE | 2024-08-22 17:55 | History & Physical Report ---
Date of Service August 22, 2024 Assessment & Plan (1) H/O splenectomy: (2) Thrombocytopenia: (3) HTN (hypertension): (4) HLD (hyperlipidemia): (5) Urinary retention: Plan Patient is a 73-year-old male with a past medical history of HTN, HLD, ITP s/p splenectomy presents to the ED on 08/22/2024 with concerns of thrombocytopenia Assessment and plan: Severe thrombocytopenia s/p splenectomy: Received 1 unit of platelets in ER, recheck platelet count in a.m. Discussed with heme-onc, continue 40 mg Decadron and IVIG daily Consult heme-onc for further recommendations, closely monitor platelets Hx HTN/HLD: Continue statin/lisinopril Hx hypothyroidism: Continue levothyroxine Hyperglycemia: Secondary to steroids, check A1c, monitor sugars, consider sliding scale Hx urinary retention: Chronicstraight caths 3 times a day, indwelling Pena catheter while inpatient Full code DVT prophylaxis: SCDs, avoid AC with severe thrombocytopenia History of Present Illness Chief Complaint: Abnormal blood work Primary Care Provider: NIKKI Webber The patient is a 73-year-old male, current inmate, with a past medical history of ITP s/p splenectomy, HTN, GERD, hypothyroidism who presents to the ED on 08/22/2024 with complaints of abnormal blood work outpatient. Patient was recently hospitalized for similar complaints in July 2024 with severe thrombocytopenia. This time he was treated with IVIG and platelet transfusion. He was discharged on 80 mg of prednisone. He reports having outpatient blood work done about 2 weeks after discharge and did not hear anything back. He had blood work done today at the hematology clinic and reports he was told his platelets were 0. He denies any symptoms of thrombocytopenia including GI bleeding/abnormal bruising/nosebleeds/petechiae. He reports feeling okay. No abnormal bleeding while brushing his teeth. On exam, the patient denies any complaints including chest pain/shortness of breath/fever/chills/recent respiratory illness. On arrival to the ED, labs are remarkable for hemoglobin WBC 11, hemoglobin 13.8, platelet 0, neutrophils 10.46, glucose 229 After discussion with hematology it was recommended to give IVIG, platelet transfusion, and 40 mg p.o. Decadron and to admit to the hospital. Allergies Allergy/AdvReac Type Severity Reaction Status Date / Time Penicillins Allergy Mild Rash Verified 08/22/24 17:20 heparin Allergy Unknown Verified 08/22/24 17:18 Home Medications Medication Instructions Recorded Confirmed Type atorvastatin 20 mg tablet 20 mg PO HS 07/25/24 08/22/24 History lisinopril 20 mg tablet 20 mg PO DAILY 07/25/24 08/22/24 History cyanocobalamin (vitamin B-12) 500 1,000 mcg (2 x 500 mcg) PO QAM 60 07/27/24 08/22/24 Rx mcg tablet days #120 tabs famotidine 20 mg tablet 20 mg PO QAM #30 tabs 07/27/24 08/22/24 Rx levothyroxine 50 mcg tablet 50 mcg PO DAILY 08/22/24 08/22/24 History prednisone 20 mg tablet 20 mg PO UD 08/22/24 08/22/24 History Past Med/Surg History Problem List (Updated 08/22/24 @ 18:01 by DAVID Srinivasan) Urinary retention HLD (hyperlipidemia) HTN (hypertension) H/O splenectomy (Acute) Thrombocytopenia (Acute) Petechiae (Acute) Acute ITP (Acute) Medical History Severe thrombocytopenia Social History Smoking Status: Never smoker Hx Alcohol Use: No Hx Substance Use: No Preferred Language: Japanese Communication Ability: Effective Sole Stitcher Hand Required: No Beliefs That Will Affect Care: None Current Living Situation: Other Current Living Situation Comment: correctional facility Feels Safe at Home: Yes Assistive Devices: None Review of Systems Review of Systems: All systems reviewed & are unremarkable except as noted in HPI & below Physical Exam Constitutional: WD/WN, vitals as above Eyes: PERRL, conjunctivae normal, anicteric sclerae ENMT: external ear and nose normal, oropharynx normal Neck: trachea midline, no thyromegaly Respiratory: normal respiratory effort, lungs clear to auscultation Cardiovascular: RRR, no murmur, no edema Gastrointestinal (Abdomen): normal bowel sounds, soft, nontender, no hepa tosplenomegaly Musculoskeletal: no cyanosis or clubbing, extremities motor strength 5/5 Skin: no rashes, warm and dry Neurologic: PERRL, EOMI, accommodation nl, no face palsy, no dysarthria Psychiatric: A+Ox3, euthymic affect Lymphatic: no cervical or axillary lymphadenopathy Results & Data Results & Data Vital Signs (Past 12 Hours) Vital Signs Temp Pulse Pulse Resp BP BP Pulse Ox 08/22/24 17:11 67 24 161/88 H 94 08/22/24 15:50 36.3 C L 73 20 160/85 H 94 O2 Del Method 08/22/24 17:11 Room Air 08/22/24 15:50 Room Air Diagnostic Findings Laboratory Results WBC 11.08 K/ul (4.8-10.8) H 08/22/24 16:15 RBC 4.37 M/uL (4.70-6.10) L 08/22/24 16:15 Hgb 13.8 g/dl (14.0-18.0) L 08/22/24 16:15 Hct 41.1 % (42.0-52.0) L 08/22/24 16:15 MCV 94.1 fL (80.0-100.0) 08/22/24 16:15 MCH 31.6 pg (25.0-34.0) 08/22/24 16:15 MCHC 33.6 g/dL (32.0-36.0) 08/22/24 16:15 RDW Std Deviation 53.6 fL (36.4-46.3) H 08/22/24 16:15 RDW Coeff of Debbie 15.4 % (11.5-14.5) H 08/22/24 16:15 Plt Count 0 K/uL (130-400) L* D 08/22/24 16:15 Immature Gran % (Auto) 0.5 % 08/22/24 16:15 Neut % (Auto) 94.4 % 08/22/24 16:15 Lymph % (Auto) 2.7 % 08/22/24 16:15 Metcalfe % (Auto) 2.3 % 08/22/24 16:15 Eos % (Auto) 0.0 % 08/22/24 16:15 Baso % (Auto) 0.1 % 08/22/24 16:15 Neut # (Auto) 10.46 K/uL (1.40-6.50) H 08/22/24 16:15 Lymph # (Auto) 0.30 K/uL (1.20-3.40) L 08/22/24 16:15 Metcalfe # (Auto) 0.25 K/uL (0.11-0.59) 08/22/24 16:15 Eos # (Auto) 0.00 K/uL (0.00-0.50) 08/22/24 16:15 Baso # (Auto) 0.01 K/uL (0.00-0.20) 08/22/24 16:15 Immature Gran # (Auto) 0.06 K/uL (0.01-0.20) 08/22/24 16:15 Platelet Estimate Signific. Decreased (Normal) L 08/22/24 16:15 Polychromasia 1+ 08/22/24 16:15 Pappenheimer Bodies 1+ 08/22/24 16:15 Sodium 137 mmol/L (136-145) 08/22/24 16:15 Potassium 4.6 mmol/L (3.5-5.1) 08/22/24 16:15 Chloride 106 mmol/L (98-107) 08/22/24 16:15 Carbon Dioxide 23 mmol/L (21-32) 08/22/24 16:15 Anion Gap 8 (3-11) 08/22/24 16:15 BUN 23 mg/dl (6-23) 08/22/24 16:15 Creatinine 1.24 mg/dl (0.6-1.4) 08/22/24 16:15 Est Cr Clr Drug Dosing 56.5 ml/min 08/22/24 16:15 eGFR 61.39 08/22/24 16:15 BUN/Creatinine Ratio 18.5 (10-20) 08/22/24 16:15 Glucose 229 mg/dl (70-99(Fasting)) H 08/22/24 16:15 Calcium 8.9 mg/dl (8.6-10.3) 08/22/24 16:15 Total Bilirubin 0.4 mg/dl (0.2-1.0) 08/22/24 16:15 AST 20 U/L (13-39) 08/22/24 16:15 ALT 49 U/L (7-52) 08/22/24 16:15 Alkaline Phosphatase 51 U/L (34-104) 08/22/24 16:15 Total Protein 6.2 gm/dl (6.0-8.3) 08/22/24 16:15 Albumin 3.9 gm/dl (3.4-5.0) 08/22/24 16:15 Globulin 2.3 gm/dl (2.5-4.0) L 08/22/24 16:15 Albumin/Globulin Ratio 1.7 (0.9-2) 08/22/24 16:15 Supervising Physician Co-Signing Physician Notes Pt seen and examined by me, care coordinated w/ T. DAVID Zhou, pls see her note above for further detail. 73 yo M, current inmate, with a medical history of ITP s/p splenectomy, HTN, GERD, hypothyroidism who presents to the ED on 08/22/2024 with complaints of abnormal blood work outpatient. Patient was recently hospitalized for similar complaints in July 2024 with severe thrombocytopenia. He was treated with IVIG , solumedrol and discharged on 80 mg of prednisone. He had blood work done today at the hematology clinic and reports he was told his platelets were 0. He denies any symptoms of thrombocytopenia including GI bleeding/abnormal bruising/nosebleeds/petechiae. He reports feeling okay. Pt is sitting up in bed in NAD. He is awake, alert, answers appropriately. Lungs CTAB, heart sounds regular. Abdomen soft, nontender, No LE edema. Pt moves extremities. After discussion with hematology it was recommended to give IVIG, platelet transfusion, and 40 mg p.o. Decadron. Hematology will follow. MD Noemi
[2024-08-22] MEDS ORDERED: IMMUNE GLOBULIN (HUMAN) SOLN IV ONE (19:13)
[2024-08-22] MEDS ORDERED: ACETAMINOPHEN 325 MG TAB PO PRN (19:13)
[2024-08-22] MEDS: Octagam 10% IVIG 10 gram bottle IV SCH (21:20)
[2024-08-22] MEDS: ATORVASTATIN 20 MG TAB PO SCH (21:23)
[2024-08-22] MEDS: Octagam 10% IVIG 20 gram bottle IV SCH (23:09)
[2024-08-23] MEDS: LEVOTHYROXINE SODIUM 50 MCG TABLET PO SCH (06:00)
[2024-08-23 06:46] LABS: Howell-Jolly Bodies 1+
[2024-08-23] MEDS: CYANOCOBALAMIN (B-12) 500 MCG TABLET PO SCH (08:34)
[2024-08-23] MEDS: lisinopril 20 MG TAB PO SCH (08:34)
[2024-08-23] MEDS: FAMOTIDINE 20 MG TAB PO SCH (08:34)
[2024-08-23] MEDS: dexAMETHasone 4 MG TAB PO SCH (08:34)
[2024-08-23 08:47] LABS: Calcium 8.5 mg/dl (8.6-10.3); Potassium 4.3 mmol/L (3.5-5.1)
[2024-08-23 08:52] LABS: BUN Creatinine Ratio 18.6 (10-20); Creatinine Clr Calc Pharmacy 80.7 ml/min
[2024-08-23 09:34] LABS: Hemoglobin 12.1 g/dl (14.0-18.0); Mean Corpuscular Hemoglobin 31.2 pg (25.0-34.0); Mean Corpuscular Hgb Conc 33.6 g/dL (32.0-36.0); Mean Corpuscular Volume 92.8 fL (80.0-100.0); Platelet Count 14 K/uL (130-400); RDW Coefficient of Variation 15.5 % (11.5-14.5); RDW Standard Deviation 52.5 fL (36.4-46.3); Red Blood Count 3.88 M/uL (4.70-6.10); White Blood Count 7.64 K/ul (4.8-10.8)
[2024-08-23 09:51] LABS: Basophils # (auto) 0.01 K/uL (0.00-0.20); Basophils % (auto) 0.1 %; Immature Granulocytes # (auto) 0.07 K/uL (0.01-0.20); Immature Granulocytes % (auto) 0.9 %; Lymphocytes # (auto) 0.48 K/uL (1.20-3.40); Lymphocytes % (auto) 6.3 %; Monocytes % (auto) 2.6 %; Neutrophils # (auto) 6.88 K/uL (1.40-6.50); Neutrophils % (auto) 90.1 %; Pappenheimer Bodies 1+
--- NOTE | 2024-08-23 10:26 | Hospitalist Progress Note ---
Date of Service August 23, 2024 Assessment & Plan (1) Acute ITP: Plan: Recurrent ITP History ITP status post splenectomy (2013) Patient with past medical history of ITP s/p splenectomy presented to the hospital with Thrombocytopenia Recent hospitalization in July hemoglobin was treated with IVIG and steroid. Patient was started on prednisone and was recommended to follow-up with hematology as soon as possible. Platelet count of 0 on admission; improved to 14,000 Continue on IVIG 1 g/kg for 2 days. Also on Decadron 40 mg once a day for next 4 days. Continue vitamin B12 supplementation Appreciate hematology input for [facility] management of ITP Chronic conditions; Hypertensive urgencycontinue lisinopril Prediabetesdiet controlled Hyperlipidemiacontinue on statin Neurogenic bladder - history of self cath; currently has Pena. Will discontinue Pena at discharge. Full code DVT prophylaxis SCDs Time spent evaluating patient, direct bedside care, chart review, placing orders, interpretation of diagnostic studies, discussion with consultants, patient, and family members, as well as other required patient management activities is 50 minutes Please note the above document was generated using voice recognition software. It may contain grammatical, syntax or spelling errors. Any formal questions or concerns about the content, text or information contained within the body of this dictation should be directly addressed to the provider for clarification Admission and Anticipated Discharge Date Admission Date: August 22, 2024 Subjective Patient seen and examined at bedside. He is comfortable; not in distress Denies any bleeding/ increase in petechiae Vital signs are stable Review of Systems Review of Systems: All systems reviewed & are unremarkable except as noted in Subjective Physical Exam Physical Exam: Constitutional: WD/WN, vitals as above, NAD, sitting up in bed, pleasant, conversing easily Respiratory: normal respiratory effort, lungs clear to auscultation, no wheeze, rales, rhonchi. Normal insp/exp effort, no accessory muscle use Cardiovascular: RRR, no murmur, no edema Vessels: no JVD or carotid bruit Chest: normal inspection of chest Abdomen: normal bowel sounds, soft, nontender, no hepatosplenomegaly Musculoskeletal: no cyanosis or clubbing, extremities motor strength 5/5 Skin: no rashes, warm and dry normal turgor Neurologic: PERRL, EOMI, accommodation nl, no face palsy, no dysarthria CN's II- XI intact bilaterally and moves all extremities Psychiatric: A+Ox3, euthymic affect Results & Data Results & Data Vital Signs (Past 12 Hours) Vital Signs Temp Pulse Resp BP Pulse Ox O2 Del Method 08/23/24 07:19 36.8 C 77 18 138/75 94 Room Air
[2024-08-23 11:27] LABS: Estimated Average Glucose 146 mg/dl; Hemoglobin A1C 6.7 % (4.5-5.6)
--- NOTE | 2024-08-23 17:54 | Oncology Consultation ---
Date of Consultation August 23, 2024 Assessment & Plan (1) Acute ITP: Post dexamethasone and IVIG, platelet count is improved. Once the patient is discharged we will follow outpatient. Plan Outpatient appointment has been scheduled. The patient will follow-up once discharged in the clinic. He had History of Present Illness Reason for Consultation: ITP Attending Physician: Sonu Arnold MD History of Present Illness patient admitted for ITP from outpatient clinic. Platelet count was 0. Started on IVIG and dexamethasone led to an improvement in platelet count Allergies Allergy/AdvReac Type Severity Reaction Status Date / Time Penicillins Allergy Mild Rash Verified 08/22/24 17:20 heparin Allergy Unknown Verified 08/22/24 17:18 Home Medications Medication Instructions Recorded Confirmed Type atorvastatin 20 mg tablet 20 mg PO HS 07/25/24 08/22/24 History lisinopril 20 mg tablet 20 mg PO DAILY 07/25/24 08/22/24 History cyanocobalamin (vitamin B-12) 500 1,000 mcg (2 x 500 mcg) PO QAM 60 07/27/24 08/22/24 Rx mcg tablet days #120 tabs famotidine 20 mg tablet 20 mg PO QAM #30 tabs 07/27/24 08/22/24 Rx levothyroxine 50 mcg tablet 50 mcg PO DAILY 08/22/24 08/22/24 History prednisone 20 mg tablet See Taper PO DAILY #90 tabs 08/24/24 Rx Patient History Medical History Severe thrombocytopenia Social History Smoking Status: Never smoker Hx Alcohol Use: No Hx Substance Use: No Preferred Language: Sudanese Communication Ability: Effective Retail Coverage Merchandiser Required: No Beliefs That Will Affect Care: None Current Living Situation: Other Current Living Situation Comment: detention Feels Safe at Home: Yes Safety Concerns: Feels Safe At This Time Assistive Devices: None Review of Systems Review of Systems: All systems reviewed & are unremarkable except as noted in HPI & below Constitutional: as per Subjective / HPI Eyes: as per Subjective / HPI Ear, Nose, Mouth, Throat: as per Subjective / HPI Respiratory: as per Subjective / HPI Cardiovascular: as per Subjective / HPI Gastrointestinal: as per Subjective / HPI Genitourinary: + as per Subjective / HPI Musculoskeletal: as per Subjective / HPI Integumentary: as per Subjective / HPI Neurologic: as per Subjective / HPI Physical Exam Constitutional: WD/WN, vitals as above Eyes: PERRL, conjunctivae normal, anicteric sclerae ENMT: external ear and nose normal, oropharynx normal Neck: trachea midline, no thyromegaly Respiratory: normal respiratory effort, lungs clear to auscultation Cardiovascular: RRR, no murmur, no edema Gastrointestinal (Abdomen): normal bowel sounds, soft, nontender, no hepatosplenomegaly Musculoskeletal: no cyanosis or clubbing, extremities motor strength 5/5 Skin: no rashes, warm and dry Results & Data Vital Signs (Past 12 Hours) Vital Signs Temp Pulse Resp BP Pulse Ox O2 Del Method 08/23/24 15:34 36.7 C 94 H 18 158/67 H 95 Room Air 08/23/24 07:19 36.8 C 77 18 138/75 94 Room Air
[2024-08-24 07:15] VITALS: BP 158/83; RESP 16; TEMP 97.5; O2SAT 94
[2024-08-24 09:02] LABS: BUN Creatinine Ratio 21.1 (10-20); Calcium 8.3 mg/dl (8.6-10.3); Creatinine Clr Calc Pharmacy 72.2 ml/min; Potassium 4.2 mmol/L (3.5-5.1)
[2024-08-24 09:36] LABS: Hematocrit (blood only) 38.6 % (42.0-52.0); Hemoglobin 12.8 g/dl (14.0-18.0); Mean Corpuscular Hemoglobin 30.8 pg (25.0-34.0); Mean Corpuscular Hgb Conc 33.2 g/dL (32.0-36.0); Platelet Count 39 K/uL (130-400); RDW Coefficient of Variation 15.4 % (11.5-14.5); RDW Standard Deviation 52.1 fL (36.4-46.3); Red Blood Count 4.15 M/uL (4.70-6.10); White Blood Count 10.55 K/ul (4.8-10.8)
[2024-08-24 09:47] LABS: Basophils # (auto) 0.01 K/uL (0.00-0.20); Basophils % (auto) 0.1 %; Howell-Jolly Bodies 1+; Immature Granulocytes # (auto) 0.23 K/uL (0.01-0.20); Immature Granulocytes % (auto) 2.2 %; Lymphocytes # (auto) 0.71 K/uL (1.20-3.40); Lymphocytes % (auto) 6.7 %; Monocytes # (auto) 0.78 K/uL (0.11-0.59); Monocytes % (auto) 7.4 %; Neutrophils # (auto) 8.82 K/uL (1.40-6.50); Neutrophils % (auto) 83.6 %; Pappenheimer Bodies 1+
[2024-08-24 11:31] VITALS: PULSE 67
--- NOTE | 2024-08-24 15:15 | Discharge Summary ---
Date of Service August 24, 2024 Admission HPI Per Admitting Provider The patient is a 73-year-old male, current inmate, with a past medical history of ITP s/p splenectomy, HTN, GERD, hypothyroidism who presents to the ED on 08/22/2024 with complaints of abnormal blood work outpatient. Patient was recently hospitalized for similar complaints in July 2024 with severe thrombocytopenia. This time he was treated with IVIG and platelet transfusion. He was discharged on 80 mg of prednisone. He reports having outpatient blood work done about 2 weeks after discharge and did not hear anything back. He had blood work done today at the hematology clinic and reports he was told his platelets were 0. He denies any symptoms of thrombocytopenia including GI bleeding/abnormal bruising/nosebleeds/petechiae. He reports feeling okay. No abnormal bleeding while brushing his teeth. On exam, the patient denies any complaints including chest pain/shortness of breath/fever/chills/recent respiratory illness. On arrival to the ED, labs are remarkable for hemoglobin WBC 11, hemoglobin 13.8, platelet 0, neutrophils 10.46, glucose 229 After discussion with hematology it was recommended to give IVIG, platelet transfusion, and 40 mg p.o. Decadron and to admit to the hospital. Admission Exam Per Admitting Provider Constitutional: WD/WN, vitals as above Eyes: PERRL, conjunctivae normal, anicteric sclerae ENMT: external ear and nose normal, oropharynx normal Neck: trachea midline, no thyromegaly Respiratory: normal respiratory effort, lungs clear to auscultation Cardiovascular: RRR, no murmur, no edema Gastrointestinal (Abdomen): normal bowel sounds, soft, nontender, no hepatosplenomegaly Musculoskeletal: no cyanosis or clubbing, extremities motor strength 5/5 Skin: no rashes, warm and dry Neurologic: PERRL, EOMI, accommodation nl, no face palsy, no dysarthria Psychiatric: A+Ox3, euthymic affect Lymphatic: no cervical or axillary lymphadenopathy Principal Diagnosis Acute immune thrombocytopenic purpura Discharge Exam Constitutional: WD/WN, vitals as above, NAD, sitting up in bed, pleasant, conversing easily Respiratory: normal respiratory effort, lungs clear to auscultation, no wheeze, rales, rhonchi. Normal insp/exp effort, no accessory muscle use Cardiovascular: RRR, no murmur, no edema Vessels: no JVD or carotid bruit Chest: normal inspection of chest Abdomen: normal bowel sounds, soft, nontender, no hepatosplenomegaly Musculoskeletal: no cyanosis or clubbing, extremities motor strength 5/5 Skin: no rashes, warm and dry normal turgor Neurologic: PERRL, EOMI, accommodation nl, no face palsy, no dysarthria CN's II- XI intact bilaterally and moves all extremities Psychiatric: A+Ox3, euthymic affect Discharge Data Allergies Allergy/AdvReac Type Severity Reaction Status Date / Time Penicillins Allergy Mild Rash Verified 08/22/24 17:20 heparin Allergy Unknown Verified 08/22/24 17:18 Consultations 08/22/24 17:38 ED Decision to Admit Stat 08/22/24 19:13 Consult Hematology Routine Hospital Course (1) Acute ITP: Recurrent ITP History ITP status post splenectomy (2013) Patient with past medical history of ITP s/p splenectomy presented to the hospital with Thrombocytopenia Recent hospitalization in July hemoglobin was treated with IVIG and steroid. Patient was started on prednisone and was recommended to follow-up with hematology as soon as possible. Patient presented with platelet count of 0. Hematology was consulted; recommended IVIG which was given for 2 days. He was also started on Decadron. Patient showed significant improvement in platelet count. At the time of the discharge, discussion was again done with hematology; recommended tapering dose of prednisone. Hematology to follow-up with patient i n clinic after discharge. Please note the above document was generated using voice recognition software. It may contain grammatical, syntax or spelling errors. Any formal questions or c oncerns about the content, text or information contained within the body of this dictation should be directly addressed to the provider for clarification Total Time Total Time Spent Total Time Spent (In Minutes): 35 Total Time Includes: Examination of the Patient, Discharge Planning, Medication Reconciliation, Communication With Other Providers and Other Discharge Plan Discharge Items Patient Disposition: Home - Self-Care Reason For Visit: THROMBOCYTOPENIA Discharge Diagnosis: ITP Condition on Discharge: Good Activity: Resume your previous activity Non-emergency contact: Primary Care Provider Call non-emergency contact if: you have any medication questions and your symptoms worsen Follow-up/Referrals: Akbar JORDAN [Primary Care Provider] - Diet: Regular Addtl Attending Provider Instructions: You were admitted to the hospital with low platelet count. The cause for the low platelet count is immune thrombocytopenic purpura. You are prescribed prednisone to be taken as follows Take 80 mg once a day for 3 days Take 60 mg once a day for 3 days Take 40 mg once a day for 3 days Take 20 mg once a day for 3 days Take 10 mg once a day for 3 days Hematology will make an appointment for you for follow-up. Pending Studies at Discharge: No Stand-Alone Forms: My [facility], Smoking Cessation Medications and DC Order Prescriptions: New prednisone 20 mg tablet See Taper PO DAILY Qty: 90 0RF Taper: Taper, Blank 80 mg DAILY for 3 Days 60 mg DAILY for 3 Days 40 mg DAILY for 3 Days 20 mg DAILY for 3 Days 10 mg DAILY for 3 Days Continued atorvastatin 20 mg Tablet 20 mg PO HS lisinopril 20 mg Tablet 20 mg PO DAILY famotidine 20 mg Tablet 20 mg PO QAM Qty: 30 0RF cyanocobalamin (vitamin B-12) 500 mcg Tablet 1,000 mcg PO QAM 60 Days Qty: 120 0RF levothyroxine 50 mcg Tablet 50 mcg PO DAILY Discontinued prednisone 20 mg Tablet 20 mg PO UD Discharge Orders: Discharge Order (Routine); Ordered 08/24/24 Ordered By: Sonu Hays/Other Patient Handouts: A1C, 5 Steps for Eating Healthier Admission Data Admit Date/Time: 08/22/24 17:11 Attending Provider: Sonu Arnold Admit Provider: Darian Franklin Primary Care Provider: Akbar JORDAN Other Providers: Darian Franklin; Mohit Matson Other Interventions: Discharge Summary Assessment (RN) Last Done: 08/24/24 11:30
== END 2024-08-24 14:12 | disposition home or self-care (01) | DRG 813 ==
LOC: ED 15:46 → SUATTDRO 17:11 → EDINP 17:11 → 3W 19:13
DX: Z90.81 Acquired absence of spleen; K21.9 Gastro-esophageal reflux disease without esophagitis; E03.9 Hypothyroidism, unspecified; D69.3 Immune thrombocytopenic purpura; Z79.890 Hormone replacement therapy; I10 Essential (primary) hypertension; Z88.0 Allergy status to penicillin

== ENCOUNTER 2024-09-24 09:12 | Inpatient (IN) ==
--- NOTE | 2024-09-24 09:29 | Emergency Department Note ---
Impression & Plan Petechial rash, Thrombocytopenia, Leukocytosis ED Provider Note NAME: LYLY [id number] SAURAV AGE: 73 SEX: M : 1950 ARRIVES VIA: Walk-In INFORMANT: [Patient] ED PROVIDER(S): [Seng Chu MD] CHIEF COMPLAINT: Abnormal laboratories HISTORY OF PRESENT ILLNESS: The patient is a 73-year-old male with a history of splenectomy and ITP. He has been hospitalized at this facility a few times for extremely low platelet counts. He typically responds to IV steroids and IVIG. The patient 6 days ago was at the cancer center. He had a laboratory assessment and his platelet count was low at 13. He has been on prednisone 20 mg daily for 3 days. He took the medication Tuesday, Tuesday and Tuesday--he did not yet take today's prescribed 20 mg prednisone dose. The patient states that he has developed petechiae on his lower extremities and has had some nasal bleeding, primarily from the right. He has also noticed some blisters of blood within his mouth. He has no chest pain or shortness of breath. There has been no fall or trauma. He presents for evaluation. PMHx/PSHx/Social Hx: See Below PHYSICAL EXAM: GENERAL: Patient is in no acute distress. HEENT: No acute trauma, normocephalic atraumatic, mucous membranes moist, no nasal congestion. The patient does have blood blisters within the oral mucosa of his cheeks and also across his tongue. There is older appearing blood in the right naris. NECK: No stridor, no adenopathy, no meningismus, trachea is midline. LUNGS: Clear to auscultation bilaterally, no wheeze, no rhonchi, breath sounds equal. HEART: Without murmurs gallops or rubs, regular rate and rhythm. ABDOMEN: Soft, nontender, no peritonitis. EXTREMITIES: No cyanosis, full range of motion of all the joints without pain or difficulty. Scattered petechiae to the lower extremities noted. NEUROLOGIC: Oriented x 3, no acute motor or sensory deficits, no focal weakness. SKIN: No jaundice, no diaphoresis. DIFFERENTIAL DIAGNOSIS: ITP, thrombocytopenia, anemia, among others. EMERGENCY DEPARTMENT PROCEDURES: MEDICAL DECISION MAKING: There is a moderate leukocytosis, this could be from infection or just his recent steroid use. There was a mild anemia with a hemoglobin of 13. Platelet count was quite low at 1. No coagulopathy. No renal failure or significant electrolyte abnormality. No concerning liver enzyme elevation. Chest x-ray did not show findings of pneumonia. On exam, the patient did have some blisters filled with blood along the oral mucosa. He had evidence for some previous right nasal bleeding. He had lower extremity petechiae. He was not toxic or febrile. I did speak with on-call hematology. They recommended a large dose of IV Decadron, 40 mg. They recommended a platelet transfusion and admission to the hospital for IVIG. The patient did sign consent for the platelet transfusion. The dose of IV Decadron was ordered to be given here in the ED. I did speak with the patient and the long-term guards. I did speak with case management. The on-call hospitalist was consulted. Prior/Outside records/notes reviewed: Discharge summary note from 08/24/2024 discussing his presentation, hospital course and plan at discharge. Imaging/x-ray results per my interpretation: Chest x-ray does not show mediastinal widening, pneumonia or pneumothorax. Chronic Medical/Social conditions affecting care: Splenectomy and ITP Care/Management discussed with: Case management and the on-call hospitalist. Hematology-Dr. Matson. Level of care consideration(s): After review of the information above and other included data: --I believe the patient requires escalation of care to admission DISPOSITION: Admission Past Med/Surg History Problem List (Updated 09/24/24 @ 16:57 by Seng Chu MD) Leukocytosis (Acute) Thrombocytopenia (Acute) Petechial rash (Acute) Petechiae Severe thrombocytopenia Acute ITP (Acute) Medical History Urinary retention HLD (hyperlipidemia) HTN (hypertension) Surgical History (Updated 09/24/24 @ 11:53 by Felicitas Corral PA-C) H/O splenectomy Social History Smoking Status: Never smoker Hx Alcohol Use: No Hx Substance Use: No Preferred Language: Togolese Communication Ability: Effective L Tacker Required: No Beliefs That Will Affect Care: None Current Living Situation: Other Current Living Situation Comment: long-term Feels Safe at Home: Yes Assistive Devices: None Allergies Allergies Allergy/AdvReac Type Severity Reaction Status Date / Time Penicillins Allergy Mild Rash Verified 08/22/24 17:20 heparin Allergy Unknown Verified 08/22/24 17:18 Home Meds Home Medications Medication Instructions Recorded Confirmed atorvastatin 20 mg tablet 20 mg PO HS 07/25/24 09/24/24 lisinopril 20 mg tablet 20 mg PO DAILY 07/25/24 09/24/24 levothyroxine 50 mcg tablet 50 mcg PO DAILY 08/22/24 09/24/24 prednisone 20 mg tablet 20 mg PO DAILY 09/24/24 09/24/24 saliva stimulant comb. no.3 1 spray mucous membrane TID PRN 09/24/24 09/24/24 (Biotene Moisturizing Mouth Dry Mouth mucosal spray) Previous Rx's Medication Instructions Recorded cyanocobalamin (vitamin B-12) 500 1,000 mcg (2 x 500 mcg) PO QAM 60 07/27/24 mcg tablet days #120 tabs Results & Data (ED) Vital Signs Vital Signs - 24 hr 09/24/24 09:12 09/24/24 09:36 09/24/24 09:37 Temperature 36.5 C Temperature Source Temporal Artery Scan Pulse Rate 96 H 84 Pulse Rate [Apical] 85 Pulse Rate from SpO2 Sensor 78 Respiratory Rate 18 21 20 Respiratory Effort / Characteristics Non-Labored Spontaneous Respiratory Depth Normal Blood Pressure 175/90 H Blood Pressure [Left Arm] 143/83 H Blood Pressure Mean 118 Blood Pressure Mean [Left Arm] 103 Blood Pressure Position Sitting Pulse Oximetry 95 94 94 Oxygen Delivery Method Room Air Room Air Sepsis Recent Fever Within 48 Hours No Sepsis New/Unexplained Change in Mental Status No Sepsis Action Taken by Nursing No Action Required 09/24/24 09:39 09/24/24 09:39 09/24/24 09:45 Temperature Temperature Source Pulse Rate 84 79 Pulse Rate [Apical] Pulse Rate from SpO2 Sensor 79 Respiratory Rate 18 Respiratory Effort / Characteristics Respiratory Depth Blood Pressure 143/83 H Blood Pressure [Left Arm] Blood Pressure Mean 134 Blood Pressure Mean [Left Arm] Blood Pressure Position Pulse Oximetry 94 Oxygen Delivery Method Sepsis Recent Fever Within 48 Hours Sepsis New/Unexplained Change in Mental Status Sepsis Action Taken by Nursing 09/24/24 09:51 09/24/24 10:00 09/24/24 10:06 Temperature Temperature Source Pulse Rate 80 74 Pulse Rate [Apical] Pulse Rate from SpO2 Sensor 80 74 Respiratory Rate 18 12 Respiratory Effort / Characteristics Respiratory Depth Blood Pressure 153/92 H Blood Pressure [Left Arm] Blood Pressure Mean 98 Blood Pressure Mean [Left Arm] Blood Pressure Position Pulse Oximetry 93 95 Oxygen Delivery Method Sepsis Recent Fever Within 48 Hours Sepsis New/Unexplained Change in Mental Status Sepsis Action Taken by Nursing 09/24/24 10:15 09/24/24 10:21 09/24/24 10:30 Temperature Temperature Source Pulse Rate 69 70 Pulse Rate [Apical] Pulse Rate from SpO2 Sensor 69 67 Respiratory Rate 13 15 Respiratory Effort / Characteristics Respiratory Depth Blood Pressure 151/85 H Blood Pressure [Left Arm] Blood Pressure Mean 118 Blood Pressure Mean [Left Arm] Blood Pressure Position Pulse Oximetry 93 95 Oxygen Delivery Method Sepsis Recent Fever Within 48 Hours Sepsis New/Unexplained Change in Mental Status Sepsis Action Taken by Nursing 09/24/24 10:36 09/24/24 10:54 09/24/24 11:00 Temperature Temperature Source Pulse Rate 67 75 69 Pulse Rate [Apical] Pulse Rate from SpO2 Sensor 58 L 69 63 Respiratory Rate 12 21 22 Respiratory Effort / Characteristics Respiratory Depth Blood Pressure Blood Pressure [Left Arm] Blood Pressure Mean Blood Pressure Mean [Left Arm] Blood Pressure Position Pulse Oximetry 95 97 97 Oxygen Delivery Method Sepsis Recent Fever Within 48 Hours Sepsis New/Unexplained Change in Mental Status Sepsis Action Taken by Nursing 09/24/24 11:00 09/24/24 11:21 09/24/24 11:30 Temperature Temperature Source Pulse Rate 70 Pulse Rate [Apical] Pulse Rate from SpO2 Sensor 61 Respiratory Rate 17 Respiratory Effort / Characteristics Respiratory Depth Blood Pressure 155/81 H 152/87 H Blood Pressure [Left Arm] Blood Pressure Mean 106 113 Blood Pressure Mean [Left Arm] Blood Pressure Position Pulse Oximetry 96 Oxygen Delivery Method Sepsis Recent Fever Within 48 Hours Sepsis New/Unexplained Change in Mental Status Sepsis Action Taken by Nursing 09/24/24 11:30 09/24/24 11:42 09/24/24 11:57 Temperature Temperature Source Pulse Rate 66 65 Pulse Rate [Apical] Pulse Rate from SpO2 Sensor 59 L 55 L Respiratory Rate 14 14 Respiratory Effort / Characteristics Respiratory Depth Blood Pressure 152/87 H Blood Pressure [Left Arm] Blood Pressure Mean 113 Blood Pressure Mean [Left Arm] Blood Pressure Position Pulse Oximetry 96 97 Oxygen Delivery Method Sepsis Recent Fever Within 48 Hours Sepsis New/Unexplained Change in Mental Status Sepsis Action Taken by Nursing 09/24/24 12:00 09/24/24 12:00 09/24/24 12:02 Temperature Temperature Source Pulse Rate Pulse Rate [Apical] 70 Pulse Rate from SpO2 Sensor Respiratory Rate 20 Respiratory Effort / Characteristics Non-Labored Spontaneous Respiratory Depth Normal Blood Pressure 166/82 H 166/82 H Blood Pressure [Left Arm] 166/82 H Blood Pressure Mean 129 129 Blood Pressure Mean [Left Arm] 110 Blood Pressure Position Pulse Oximetry 96 Oxygen Delivery Method Room Air Sepsis Recent Fever Within 48 Hours Sepsis New/Unexplained Change in Mental Status Sepsis Action Taken by Nursing 09/24/24 12:03 09/24/24 12:12 09/24/24 12:21 Temperature Temperature Source Pulse Rate 70 74 67 Pulse Rate [Apical] Pulse Rate from SpO2 Sensor 63 72 69 Respiratory Rate 19 22 25 H Respiratory Effort / Characteristics Respiratory Depth Blood Pressure Blood Pressure [Left Arm] Blood Pressure Mean Blood Pressure Mean [Left Arm] Blood Pressure Position Pulse Oximetry 97 93 97 Oxygen Delivery Method Sepsis Recent Fever Within 48 Hours Sepsis New/Unexplained Change in Mental Status Sepsis Action Taken by Nursing 09/24/24 12:30 Temperature Temperature Source Pulse Rate Pulse Rate [Apical] Pulse Rate from SpO2 Sensor Respiratory Rate Respiratory Effort / Characteristics Respiratory Depth Blood Pressure 146/98 H Blood Pressure [Left Arm] Blood Pressure Mean 122 Blood Pressure Mean [Left Arm] Blood Pressure Position Pulse Oximetry Oxygen Delivery Method Sepsis Recent Fever Within 48 Hours Sepsis New/Unexplained Change in Mental Status Sepsis Action Taken by Half-Way Medications Current Medication List: was personally reviewed by me Laboratory Data Attestation: I reviewed the patient's lab results. 09/24/24 10:51 09/24/24 09:57 Lab Results 09/24/24 09/24/24 Range/Units 09:57 10:51 WBC Cancelled 16.94 H RBC Cancelled 4.20 L Hgb Cancelled 13.0 L Hct Cancelled 39.1 L MCV Cancelled 93.1 MCH Cancelled 31.0 MCHC Cancelled 33.2 RDW Std Deviation Cancelled 47.4 H RDW Coeff of Debbie Cancelled 14.1 Plt Count Cancelled 1 L* MPV Cancelled Immature Gran % (Auto) Cancelled 0.6 Neut % (Auto) Cancelled 63.6 Lymph % (Auto) Cancelled 22.8 [place] % (Auto) Cancelled 12.2 Eos % (Auto) Cancelled 0.4 Baso % (Auto) Cancelled 0.4 Neut # (Auto) Cancelled 10.78 H Lymph # (Auto) Cancelled 3.87 H [place] # (Auto) Cancelled 2.06 H Eos # (Auto) Cancelled 0.07 Baso # (Auto) Cancelled 0.06 Immature Gran # (Auto) Cancelled 0.10 Absolute Nucleated RBC Cancelled 0.15 H Nucleated RBC % (auto) Cancelled 0.9 Neutrophils % (Manual) Cancelled Band Neutrophils % Cancelled Lymphocytes % (Manual) Cancelled Prolymphocyte % Cancelled Reactive Lymphs % (Man) Cancelled Monocytes % (Manual) Cancelled Eosinophils % (Manual) Cancelled Basophils % (Manual) Cancelled Metamyelocytes % (Man) Cancelled Myelocytes % (Man) Cancelled Promyelocytes % (Man) Cancelled Blast Cells % (Manual) Cancelled Plasma Cell % (Manual) Cancelled Other Cells % Cancelled Nucleated RBC % Cancelled Neutrophils # (Manual) Cancelled Band Neutrophils # Cancelled Total Absolute Neuts Cancelled Lymphocytes # (Manual) Cancelled Prolymphocyte # Cancelled Reactive Lymphs # Cancelled Total Abs Lymphocytes Cancelled Monocytes # (Manual) Cancelled Eosinophils # (Manual) Cancelled Basophils # (Manual) Cancelled Metamyelocytes # (Man) Cancelled Myelocytes # (Manual) Cancelled Promyelocytes # (Man) Cancelled Blast Cells # (Man) Cancelled Plasma Cell # (Manual) Cancelled Other Cells # Cancelled Nucleated RBCs # (Man) Cancelled Hypersegmented Neuts Cancelled Hyposegmented Neuts Cancelled Hypogranular Neuts Cancelled Large Granular Lymphs Cancelled # Lrg Granular Lymphs Cancelled Hairy Cells Cancelled Smudge Cells Cancelled Toxic Granulation Cancelled Toxic Vacuolation Cancelled Dohle Bodies Cancelled Nohemy Rods Cancelled Platelet Estimate Cancelled Hypogranular Platelets Cancelled Giant Platelets Cancelled Platelet Satelliting Cancelled RBC Morphology Cancelled Polychromasia Cancelled 1+ Hypochromasia Cancelled Poikilocytosis Cancelled Basophilic Stippling Cancelled Anisocytosis Cancelled Microcytosis Cancelled Macrocytosis Cancelled Spherocytes Cancelled Pappenheimer Bodies Cancelled 1+ Sickle Cells Cancelled Target Cells Cancelled Tear Drop Cells Cancelled Ovalocytes Cancelled Stomatocytes Cancelled [place] Bodies Cancelled 1+ Echinocytes Cancelled Acanthocytes (Spur) Cancelled Rouleaux Cancelled RBC Agglutinates Cancelled Schistocytes Cancelled Sezary Cell Cancelled PT Cancelled 10.3 INR Cancelled 0.9 APTT Cancelled 22 PTT Ratio Cancelled 0.8 Sodium 142 (136-145) mmol/L Potassium 3.7 (3.5-5.1) mmol/L Chloride 110 H (98-107) mmol/L Carbon Dioxide 24 (21-32) mmol/L Anion Gap 8 (3-11) BUN 19 (6-23) mg/dl Creatinine 1.28 (0.6-1.4) mg/dl Est Cr Clr Drug Dosing 63.0 ml/min eGFR 59.10 BUN/Creatinine Ratio 14.8 (10-20) Glucose 110 H (70-99(Fasting)) mg/dl Calcium 8.7 (8.6-10.3) mg/dl Total Bilirubin 0.4 (0.2-1.0) mg/dl AST 22 (13-39) U/L ALT 30 (7-52) U/L Alkaline Phosphatase 70 (34-104) U/L Total Protein 6.6 (6.0-8.3) gm/dl Albumin 3.8 (3.4-5.0) gm/dl Globulin 2.8 (2.5-4.0) gm/dl Albumin/Globulin Ratio 1.4 (0.9-2) Blood Parasites ID Cancelled Blood Type A Positive Antibody Screen NEGATIVE Administered Medications Immune Globulin ([place] 10%) 200 mls @ 62.28 mls/hr IV Q1H JANIS; Protocol Stop: 09/24/24 17:29 Last Admin: 09/24/24 14:57 Dose: 1 mg/kg/min, 62.3 mls/hr Documented By: NATALIE Immune Globulin ([place]am 10%) 50 mls @ 62.28 mls/hr IV TODAY@1300 JANIS; Protocol Stop: 10/24/24 12:59 Last Titration: 09/24/24 14:55 Dose: Infused Documented By: Admin: 09/24/24 13:57 Dose: 1 mg/kg/min, 62.3 mls/hr Documented By: NATALIE Discontinued Medications Dexamethasone Sodium Phosphate (DexamethasonePf 10 Mg/Ml Vial) 40 mg IV NOW ONE Stop: 09/24/24 11:34 Last Admin: 09/24/24 12:04 Dose: 40 mg Documented By: [facility] Imaging Data Radiologist's Impression: Chest X-Ray 09/24/24 12:26 XR chest 2V PA/lateral CLINICAL HISTORY: leukocytosis COMPARISON STUDY: Chest radiograph August 29, 2024. FINDINGS: Lung volumes are normal. Lungs are clear. There is no pneumothorax or pleural effusion. Cardiac size is normal. Mediastinal contours are normal. There is no evidence for pulmonary edema. IMPRESSION: No acute cardiopulmonary findings. ACT 112: Negative or not required by law. Electronically signed by: Keith Norris M.D. 09/24/2024 2:18 PM Discharge Plan Visit Data Chief Complaint: Abnormal Labs/Diagnostic Testing Stated Complaint: LOW PLATELETS ED Provider: Seng Chu Discharge Problem: Petechial rash, Thrombocytopenia, Leukocytosis Patient Disposition: Admitted As Inpatient Condition: Fair Discharge Instructions Interventions: ED Discharge Assessment Last Done: 09/24/24 15:48 Discharge Problem: Leukocytosis Qualifiers: Leukocytosis type: unspecified Qualified Code(s): D72.829 - Elevated white blood cell count, unspecified
[2024-09-24 10:47] LABS: Potassium 3.7 mmol/L (3.5-5.1)
[2024-09-24 10:48] LABS: Albumin Globulin Ratio 1.4 (0.9-2); Albumin Level 3.8 gm/dl (3.4-5.0); BUN Creatinine Ratio 14.8 (10-20); Bilirubin,Total 0.4 mg/dl (0.2-1.0); Calcium 8.7 mg/dl (8.6-10.3); Globulin 2.8 gm/dl (2.5-4.0); Total Protein 6.6 gm/dl (6.0-8.3)
[2024-09-24 11:25] LABS: INR 0.9 (0.9-1.1); Partial Thromboplastin Ratio 0.8; Partial Thromboplastin Time 22 Seconds (21-31); Prothrombin Time 10.3 Seconds (9.0-12.0)
[2024-09-24 11:31] LABS: Hematocrit (blood only) 39.1 % (42.0-52.0); Mean Corpuscular Hgb Conc 33.2 g/dL (32.0-36.0); Mean Corpuscular Volume 93.1 fL (80.0-100.0); Nucleated RBC # (auto) 0.15 K/uL (0.00-0.12); Nucleated RBC % (auto) 0.9 %; Platelet Count 1 K/uL (130-400); RDW Coefficient of Variation 14.1 % (11.5-14.5); RDW Standard Deviation 47.4 fL (36.4-46.3); White Blood Count 16.94 K/ul (4.8-10.8)
[2024-09-24] MEDS ORDERED: SODIUM CHLORIDE 0.9% 100 ML IV PRN (11:31)
[2024-09-24] MEDS ORDERED: SODIUM CHLORIDE 0.9% 50 ML IV PRN (11:31)
[2024-09-24 11:45] LABS: Basophils # (auto) 0.06 K/uL (0.00-0.20); Basophils % (auto) 0.4 %; Eosinophils # (auto) 0.07 K/uL (0.00-0.50); Eosinophils % (auto) 0.4 %; Howell-Jolly Bodies 1+; Immature Granulocytes % (auto) 0.6 %; Lymphocytes # (auto) 3.87 K/uL (1.20-3.40); Lymphocytes % (auto) 22.8 %; Monocytes # (auto) 2.06 K/uL (0.11-0.59); Monocytes % (auto) 12.2 %; Neutrophils # (auto) 10.78 K/uL (1.40-6.50); Neutrophils % (auto) 63.6 %; Pappenheimer Bodies 1+; Polychromasia 1+
--- NOTE | 2024-09-24 11:54 | History & Physical Report ---
<Statement entered by Gian Ward, DO - 09/24/24 14:21> I have seen and examined the patient and have discussed the case with the advance practice provider. I have reviewed the advanced practitioner's documentation, and I agree with, and take responsibility for that plan of care. Patient seen evaluated with still in the ED. He reports he had a splenectomy in 2012. He said since that time his platelets have been within the normal range. It was just over the last 3 months he started having issues with severe thrombocytopenia. Patient also expressed concern that he was told he had "diabetes" when he was here last time. Suspect he does have some hyperglycemia due to the steroids he has been receiving for his ITP. Recent hemoglobin A1c from August 2024 was 6.5%. Which may be all a reflection of hyperglycemia due to steroids. Will continue to monitor as needed Patient aware of the plan for IVIG and steroids. Hematology consultation. He may be a candidate for evolocumab per previous hematology consultations. On exam, Patient does have some petechia on his lower extremities. Some hemorrhagic blisters on his tongue and cheeks, reported hematuria. This is all consistent with his severe thrombocytopenia. Does not give any history of severe hemorrhage/acute blood loss. Further plan of care as outlined below I spent a total of 20 minutes coordinating, documenting, and providing care for this patient excluding time spent by another provider/QHP. Date of Service September 24, 2024 Assessment & Plan (1) Acute ITP: (2) Severe thrombocytopenia: (3) Petechiae: (4) HTN (hypertension): (5) HLD (hyperlipidemia): (6) Urinary retention: Plan This is a 73 y/o male with ITP s/p splenectomy in 2012, HTN, hyperlipidemia, hypothyroidism, and chronic urinary retention who presents to the ED today from [facility] due to symptomatic low platelet count with petechiae, hematuria, and epistaxis. Prior records reviewed including discharge summaries from July and August, outpatient records from [facility]. #Acute ITP #Severe thrombocytopenia Admit to med surg for additional management ED provider spoke with hematology - recommended Decadron, platelet transfusion which were ordered in the ED. Will also add IVIG at 1 g/kg per their recommendation Consult hematology for additional assistance with management #Hematuria - likely due to severe thrombocytopenia #Urinary retention - reports history of frequent UTIs in the past, currently self-caths at least 2-3x/day Check UA and culture to rule out infection Indwelling Pena while admitted #Leukocytosis - likely related to recent prednisone but will evaluate for potential infection Urine culture, chest x-ray Hold antibiotics for now Daily CBC #Hypertension Continue lisinopril #Hyperlipidemia Continue atorvastatin #Hypothyroidism Continue levothyroxine Pt seen and reviewed with collaborating physician, Dr. Ward. Plan of care discussed and as outlined above. Code status: full code DVT prophylaxis: holding for now in view of severe thrombocytopenia with bleeding risk Aleks Corral PA-C History of Present Illness Chief Complaint: abnormal labs Primary Care Provider: [facility] This is a 73 y/o male with ITP s/p splenectomy in 2012, HTN, hyperlipidemia, hypothyroidism, and chronic urinary retention who presents to the ED today from [facility] due to symptomatic low platelet count with petechiae, hematuria, and epistaxis. Of note, pt was admitted to [facility] 07/25/24-07/27/24 when he presented to the ED with multiple petechiae and was found to have severe thrombocytopenia with a platelet count of 0; he was admitted and given IVIG x 3 days, IV Solu-Medrol x 3 days, and transfused one unit of platelets. He was readmitted on 08/22/24 when his outpatient labs again showed a platelet count of 0 although he denied any overt signs of bleeding at the time. He was given Decadron and IVIG and was transfused one unit of platelets before being discharged on prednisone taper. Since discharge, he reports that was doing okay until last week - saw hematology outpatient six days ago and reports labs showed platelet count of 13k at that time. He was started on oral prednisone for two weeks but has only received three doses of this thus far. Over the last two days, he has again developed petechiae and blood blisters in his mouth on his cheeks and tongue. He also notes bloody nasal discharge with associated sinus pressure. Yesterday, when he self-cathed, he noted hematuria with a few small clots. Urine also noted to have an odor. Pt reports a history of recurrent UTIs but states his last infection was prior to his incarceration in 2020. He denies chest pain, palpitations, dyspnea, syncope, dizziness, blood in stools, gingival bleeding, N/V, change in appetite, fevers. Allergies Allergy/AdvReac Type Severity Reaction Status Date / Time Penicillins Allergy Mild Rash Verified 08/22/24 17:20 heparin Allergy Unknown Verified 08/22/24 17:18 Home Medications Medication Instructions Recorded Confirmed Type atorvastatin 20 mg tablet 20 mg PO HS 07/25/24 09/24/24 History lisinopril 20 mg tablet 20 mg PO DAILY 07/25/24 09/24/24 History cyanocobalamin (vitamin B-12) 500 1,000 mcg (2 x 500 mcg) PO QAM 60 07/27/24 09/24/24 Rx mcg tablet days #120 tabs levothyroxine 50 mcg tablet 50 mcg PO DAILY 08/22/24 09/24/24 History prednisone 20 mg tablet 20 mg PO DAILY 09/24/24 09/24/24 History saliva stimulant comb. no.3 1 spray mucous membrane TID PRN 09/24/24 09/24/24 History (Biotene Moisturizing Mouth Dry Mouth mucosal spray) Past Med/Surg History Problem List (Updated 09/24/24 @ 13:43 by Felicitas Corral PA-C) Petechiae Severe thrombocytopenia Acute ITP (Acute) Medical History (Updated 09/24/24 @ 13:43 by Felicitas Corral PA-C) Urinary retention HLD (hyperlipidemia) HTN (hypertension) Surgical History (Updated 09/24/24 @ 11:53 by Felicitas Corral PA-C) H/O splenectomy Social History Smoking Status: Never smoker Hx Alcohol Use: No Hx Substance Use: No Preferred Language: Estonian Communication Ability: Effective Well Service Floor Worker Required: No Beliefs That Will Affect Care: None Current Living Situation: Other Current Living Situation Comment: [facility] Feels Safe at Home: Yes Assistive Devices: None Review of Systems Review of Systems: All systems reviewed & are unremarkable except as noted in Subjective Physical Exam Physical Exam: General: awake, alert, NAD HEENT: no scleral icterus, no subconjunctival hemorrhage, + blood blisters on tongue and oral mucosa Neck: supple, trachea midline Heart: RRR, no M/G/R Lungs: CTA bilaterally Abdomen: soft, NT, +BS Extremities: no pedal edema, distal pulses intact and equal; scattered petechiae bilateral LE Skin: warm, dry, no jaundice Neurologic: Ox3, no confusion or dysarthria, moving all extremities, no focal deficits Results & Data Results & Data Vital Signs (Past 12 Hours) Vital Signs Temp Pulse Pulse Resp BP BP Pulse Ox 09/24/24 09:39 84 09/24/24 09:37 85 20 143/83 H 94 09/24/24 09:12 36.5 C 96 H 18 175/90 H 95 O2 Del Method 09/24/24 09:39 09/24/24 09:37 Room Air 09/24/24 09:12 Room Air Laboratory Results Lab Results 09/24/24 09/24/24 Range/Units 09:57 10:51 WBC Cancelled 16.94 H RBC Cancelled 4.20 L Hgb Cancelled 13.0 L Hct Cancelled 39.1 L MCV Cancelled 93.1 MCH Cancelled 31.0 MCHC Cancelled 33.2 RDW Std Deviation Cancelled 47.4 H RDW Coeff of Debbie Cancelled 14.1 Plt Count Cancelled 1 L* MPV Cancelled Immature Gran % (Auto) Cancelled 0.6 Neut % (Auto) Cancelled 63.6 Lymph % (Auto) Cancelled 22.8 Metcalfe % (Auto) Cancelled 12.2 Eos % (Auto) Cancelled 0.4 Baso % (Auto) Cancelled 0.4 Neut # (Auto) Cancelled 10.78 H Lymph # (Auto) Cancelled 3.87 H Metcalfe # (Auto) Cancelled 2.06 H Eos # (Auto) Cancelled 0.07 Baso # (Auto) Cancelled 0.06 Immature Gran # (Auto) Cancelled 0.10 Absolute Nucleated RBC Cancelled 0.15 H Nucleated RBC % (auto) Cancelled 0.9 Neutrophils % (Manual) Cancelled Band Neutrophils % Cancelled Lymphocytes % (Manual) Cancelled Prolymphocyte % Cancelled Reactive Lymphs % (Man) Cancelled Monocytes % (Manual) Cancelled Eosinophils % (Manual) Cancelled Basophils % (Manual) Cancelled Metamyelocytes % (Man) Cancelled Myelocytes % (Man) Cancelled Promyelocytes % (Man) Cancelled Blast Cells % (Manual) Cancelled Plasma Cell % (Manual) Cancelled Other Cells % Cancelled Nucleated RBC % Cancelled Neutrophils # (Manual) Cancelled Band Neutrophils # Cancelled Total Absolute Neuts Cancelled Lymphocytes # (Manual) Cancelled Prolymphocyte # Cancelled Reactive Lymphs # Cancelled Total Abs Lymphocytes Cancelled Monocytes # (Manual) Cancelled Eosinophils # (Manual) Cancelled Basophils # (Manual) Cancelled Metamyelocytes # (Man) Cancelled Myelocytes # (Manual) Cancelled Promyelocytes # (Man) Cancelled Blast Cells # (Man) Cancelled Plasma Cell # (Manual) Cancelled Other Cells # Cancelled Nucleated RBCs # (Man) Cancelled Hypersegmented Neuts Cancelled Hyposegmented Neuts Cancelled Hypogranular Neuts Cancelled Large Granular Lymphs Cancelled # Lrg Granular Lymphs Cancelled Hairy Cells Cancelled Smudge Cells Cancelled Toxic Granulation Cancelled Toxic Vacuolation Cancelled Dohle Bodies Cancelled Nohemy Rods Cancelled Platelet Estimate Cancelled Hypogranular Platelets Cancelled Giant Platelets Cancelled Platelet Satelliting Cancelled RBC Morphology Cancelled Polychromasia Cancelled 1+ Hypochromasia Cancelled Poikilocytosis Cancelled Basophilic Stippling Cancelled Anisocytosis Cancelled Microcytosis Cancelled Macrocytosis Cancelled Spherocytes Cancelled Pappenheimer Bodies Cancelled 1+ Sickle Cells Cancelled Target Cells Cancelled Tear Drop Cells Cancelled Ovalocytes Cancelled Stomatocytes Cancelled Sims-[place] Bodies Cancelled 1+ Echinocytes Cancelled Acanthocytes (Spur) Cancelled Rouleaux Cancelled RBC Agglutinates Cancelled Schistocytes Cancelled Sezary Cell Cancelled PT Cancelled 10.3 INR Cancelled 0.9 APTT Cancelled 22 PTT Ratio Cancelled 0.8 Sodium 142 (136-145) mmol/L Potassium 3.7 (3.5-5.1) mmol/L Chloride 110 H (98-107) mmol/L Carbon Dioxide 24 (21-32) mmol/L Anion Gap 8 (3-11) BUN 19 (6-23) mg/dl Creatinine 1.28 (0.6-1.4) mg/dl Est Cr Clr Drug Dosing 63.0 ml/min eGFR 59.10 BUN/Creatinine Ratio 14.8 (10-20) Glucose 110 H (70-99(Fasting)) mg/dl Calcium 8.7 (8.6-10.3) mg/dl Total Bilirubin 0.4 (0.2-1.0) mg/dl AST 22 (13-39) U/L ALT 30 (7-52) U/L Alkaline Phosphatase 70 (34-104) U/L Total Protein 6.6 (6.0-8.3) gm/dl Albumin 3.8 (3.4-5.0) gm/dl Globulin 2.8 (2.5-4.0) gm/dl Albumin/Globulin Ratio 1.4 (0.9-2) Blood Parasites ID Cancelled Blood Type A Positive Antibody Screen NEGATIVE (4) HTN (hypertension) Hypertension type: unspecified Qualified Code(s): I10 - Essential (primary) hypertension (5) HLD (hyperlipidemia) Hyperlipidemia type: unspecified Qualified Code(s): E78.5 - Hyperlipidemia, unspecified
[2024-09-24] MEDS ORDERED: IMMUNE GLOBULIN (HUMAN) SOLN IV ONE (11:55)
[2024-09-24] MEDS: dexAMETHasone**PF** 10 MG/ML VIAL IV ONE (12:04)
[2024-09-24 13:21] LABS: Appearance Urine Cloudy (Clear); Bacteria Urine Automated 4+ (None Seen); Bilirubin Urine Negative (Negative); Blood Urine 2+ (Negative); Color Urine Yellow; Epithelial Cell Urine Auto 0-2 /hpf (0-2); Glucose Urine UA Negative (Negative); Ketones Urine Trace (Negative); Leukocyte Esterase Urine 3+ (Negative); Nitrite Urine Positive (Negative); Protein Urine Trace (Negative); Urobilinogen Urine Negative (Negative); WBC Urine Automated >50 /hpf (0-5); pH Urine 5.5 (4.5-7.5)
[2024-09-24] MEDS: Octagam 10% IVIG 5 gram bottle IV SCH (13:57)
--- NOTE | 2024-09-24 14:19 | XRay Report ---
XR chest 2V PA/lateral CLINICAL HISTORY: leukocytosis COMPARISON STUDY: Chest radiograph August 29, 2024. FINDINGS: Lung volumes are normal. Lungs are clear. There is no pneumothorax or pleural effusion. Car diac size is normal. Mediastinal contours are normal. There is no evidence for pulmonary edema. IMPRESSION: No acute cardiopulmonary findings. ACT 112: Negative or not required by law. Electronically signed by: Keith Norris M.D. 09/24/2024 2:18 PM
[2024-09-24] MEDS: Octagam 10% IVIG 20 gram bottle IV SCH (14:57)
[2024-09-24] MEDS ORDERED: ACETAMINOPHEN 325 MG TAB PO PRN (15:52)
--- NOTE | 2024-09-24 16:08 | Electrocardiogram Report ---
Test Reason : Blood Pressure : */* mmHG Vent. Rate : 71 BPM Atrial Rate : 71 BPM P-R Int : 142 ms QRS Dur : 90 ms QT Int : 384 ms P-R-T Axes : 30 -34 0 degrees QTcB Int : 417 ms Sinus rhythm with frequent Premature ventricular complexes and Fusion complexes Left axis deviation Moderate voltage criteria for LVH, may be normal variant Anteroseptal infarct (cited on or before 29-Aug-2024) When compared with ECG of 29-Aug-2024 09:40, Fusion complexes are now Present Premature atrial complexes are no longer Present T wave inversion now evident in Inferior leads Nonspecific T wave abnormality no longer evident in Lateral leads Confirmed by Gabe Sánchez ([id number]) on 09/24/2024 4:07:35 PM Referred By: [facility] Confirmed By: Gabe Sánchez
[2024-09-24] MEDS: cefTRIAXone SODIUM 2,000 MG/50 ML BAG IV SCH (21:35)
[2024-09-24] MEDS: ATORVASTATIN 20 MG TAB PO SCH (21:39)
[2024-09-25] MEDS: LEVOTHYROXINE SODIUM 50 MCG TABLET PO SCH (06:24)
[2024-09-25 07:13] LABS: Hematocrit (blood only) 38.1 % (42.0-52.0); Hemoglobin 12.8 g/dl (14.0-18.0); Mean Corpuscular Hemoglobin 31.1 pg (25.0-34.0); Mean Corpuscular Hgb Conc 33.6 g/dL (32.0-36.0); Mean Corpuscular Volume 92.5 fL (80.0-100.0); Nucleated RBC # (auto) 0.12 K/uL (0.00-0.12); Nucleated RBC % (auto) 0.7 %; Platelet Count 17 K/uL (130-400); RDW Standard Deviation 46.5 fL (36.4-46.3); Red Blood Count 4.12 M/uL (4.70-6.10); White Blood Count 18.25 K/ul (4.8-10.8)
[2024-09-25 07:32] LABS: Basophils # (auto) 0.02 K/uL (0.00-0.20); Basophils % (auto) 0.1 %; Immature Granulocytes # (auto) 0.16 K/uL (0.01-0.20); Immature Granulocytes % (auto) 0.9 %; Lymphocytes # (auto) 1.56 K/uL (1.20-3.40); Lymphocytes % (auto) 8.5 %; Monocytes # (auto) 0.23 K/uL (0.11-0.59); Monocytes % (auto) 1.3 %; Neutrophils # (auto) 16.28 K/uL (1.40-6.50); Neutrophils % (auto) 89.2 %
--- NOTE | 2024-09-25 07:39 | Oncology Consultation ---
Date of Consultation September 25, 2024 Assessment & Plan (1) Thrombocytopenia: The patient has refractory ITP which relapses while he is on steroids he has had multiple episodes over the last few weeks, Where his platelet count is less than 10,000/mcL. At this point I will give him 1 dose of rituximab while he is in the hospital. This is a complex situation as the patient is incarcerated so we have difficulty coordinating his care with the present. He will most likely be not a candidate for oral TPO mimetic's as he gets his medications through the correctional facility. I would plan to give him rituximab, with hope that that induces remission and his immune thrombocytopenic purpura. The first dose of rituximab will be given while the patient is in the hospital. Subsequent doses can be given outpatient. The patient has already been informed that that was a plan given that he was declining when I evaluated him in the clinic last week. Orders being prepared for inpatient administration of 1 dose of rituximab. Plan Thank you for this interesting hematological consult. Hematology will continue to follow the patient make appropriate recommendations. History of Present Illness Reason for Consultation: ITP, refractory Attending Physician: Rui Frederick MD History of Present Illness the patient is a very pleasant 73-year-old gentleman who is well-known to me, he has refractory ITP and has relapsed multiple times while being on steroids. Most recently, I evaluated him in the clinic on 09/18/2024 and his platelet count was 13, he was tapering off prednisone at that point. I continued prednisone and we planned to treat him with rituximab, how ever he comes to [facility] with increased petechiae, fatigue, bleeding. On admission in the ER his platelet count was 1000/mcL. I was called by the ER doctor and recommended IVIG and high-dose steroids including Decadron. Hematology has been consulted to assist in management of this patient with refractory ITP Allergies Allergy/AdvReac Type Severity Reaction Status Date / Time Penicillins Allergy Mild Rash Verified 08/22/24 17:20 heparin Allergy Unknown Verified 08/22/24 17:18 Home Medications Medication Instructions Recorded Confirmed Type atorvastatin 20 mg tablet 20 mg PO HS 07/25/24 09/24/24 History lisinopril 20 mg tablet 20 mg PO DAILY 07/25/24 09/24/24 History cyanocobalamin (vitamin B-12) 500 1,000 mcg (2 x 500 mcg) PO QAM 60 07/27/24 09/24/24 Rx mcg tablet days #120 tabs levothyroxine 50 mcg tablet 50 mcg PO DAILY 08/22/24 09/24/24 History prednisone 20 mg tablet 20 mg PO DAILY 09/24/24 09/24/24 History saliva stimulant comb. no.3 1 spray mucous membrane TID PRN 09/24/24 09/24/24 History (Biotene Moisturizing Mouth Dry Mouth mucosal spray) Patient History Medical History Urinary retention HLD (hyperlipidemia) HTN (hypertension) Surgical History (Updated 09/24/24 @ 11:53 by Felicitas Corral PA-C) H/O splenectomy Social History Smoking Status: Never smoker Tobacco Type: Declines Second Hand Exposure: No; Do You Dip or Chew Tobacco: No; Tobacco Cessation Education Requested by Patient: No Hx Alcohol Use: No Hx Substance Use: No Preferred Language: Italian Communication Ability: Effective Wide Area Network Engineer Required: No Beliefs That Will Affect Care: None Current Living Situation: Other Current Living Situation Comment: [facility] Feels Safe at Home: Yes Safety Concerns: Feels Safe At This Time Assistive Devices: Glasses Review of Systems Review of Systems: All systems reviewed & are unremarkable except as noted in HPI & below Constitutional: as per Subjective / HPI Eyes: as per Subjective / HPI Ear, Nose, Mouth, Throat: as per Subjective / HPI Respiratory: as per Subjective / HPI Cardiovascular: as per Subjective / HPI Gastrointestinal: as per Subjective / HPI Genitourinary: + as per Subjective / HPI Integumentary: as per Subjective / HPI Neurologic: as per Subjective / HPI Physical Exam Constitutional: WD/WN, vitals as above Eyes: PERRL, conjunctivae normal, anicteric sclerae ENMT: external ear and nose normal, oropharynx normal Neck: trachea midline, no thyromegaly Respiratory: normal respiratory effort, lungs clear to auscultation Cardiovascular: RRR, no murmur, no edema Gastrointestinal (Abdomen): normal bowel sounds, soft, nontender, no hepatosplenomegaly Musculoskeletal: no cyanosis or clubbing, extremities motor strength 5/5 Skin: no rashes, warm and dry Neurologic: patellar DTR's 2+ bilat, sensation intact Results & Data Vital Signs (Past 12 Hours) Vital Signs Temp Pulse Resp BP Pulse Ox O2 Del Method 09/25/24 07:23 36.5 C 68 16 149/76 H 96 Room Air 09/24/24 20:42 36.6 C 76 17 115/75 98 Room Air
[2024-09-25] MEDS: CYANOCOBALAMIN (B-12) 500 MCG TABLET PO SCH (09:24)
[2024-09-25] MEDS: lisinopril 20 MG TAB PO SCH (09:24)
--- NOTE | 2024-09-25 11:22 | Hospitalist Progress Note ---
Date of Service September 25, 2024 Assessment & Plan (1) Acute ITP: (2) Severe thrombocytopenia: (3) Petechiae: (4) HTN (hypertension): (5) HLD (hyperlipidemia): (6) Urinary retention: Plan This is a 73 y/o male with ITP s/p splenectomy in 2012, HTN, hyperlipidemia, hypothyroidism, and chronic urinary retention who presents to the ED today from [facility] due to symptomatic low platelet count with petechiae, hematuria, and epistaxis. Prior records reviewed including discharge summaries from July and August, outpatient records from [facility]. #Acute ITP #Severe thrombocytopenia -appreciate oncology recs -continue decadron, will get rituximab inpatient before discharge, discharge potentially tomorrow #Hematuria - likely due to severe thrombocytopenia #Urinary retention #UTI - reports history of frequent UTIs in the past -Indwelling Pena while admitted -continue ceftriaxone x5 days -of note, it is medically necessary for patient to have 3 straight caths avaliable per day at correction, will create UTIs if not avaliable #Leukocytosis -related to prednisone and UTI #Hypertension -Continue lisinopril #Hyperlipidemia -Continue atorvastatin #Hypothyroidism -Continue levothyroxine Feeding/fluids: regular Analgesia: tylenol Sedation: na Thromboprophylaxis: start SCD Head up position: na Ulcer prophylaxis: start protonix (decadron) Glycemic control: na Spontaneous breathing trial: na Bowel care: start miralax Indwelling catheter removal: straight cath Deescalation of antibiotics: ceftriaxone x5 days I spent a total of 50 minutes in direct patient care, including [id number] time with the patient and/or family, reviewing medical records, ordering and reviewing diagnostic tests, and coordinating care with other healthcare providers. This time includes: history taking, physical examination, medical decision making, counseling, ECG interpretation, imaging interpretation, lab interpretation, orders, and education, excluding time spent in the performance of separately billed services. Admission and Anticipated Discharge Date Admission Date: September 24, 2024 Subjective Patient seen and examined at bedside. Patient doing ok today. He states that he is not bleeding at this time. He states that he is glad he can straight cath here more than twice a day, as the correction does not permit him to straight cath more than twice a day (that is all the catheters he is provided). Discussed plan of care with him at this time, he is appreciative of the update. Review of Systems Review of Systems: CONSTITUTIONAL: Patient denies fevers, chills, sweats and weight changes. EYES: Patient denies any visual symptoms. EARS, NOSE, AND THROAT: No difficulties with hearing. No symptoms of rhinitis or sore throat. CARDIOVASCULAR: Patient denies chest pains, palpitations, orthopnea and paroxysmal nocturnal dyspnea. RESPIRATORY: No dyspnea on exertion, no wheezing or cough. GI: No nausea, vomiting, diarrhea, constipation, abdominal pain, hematochezia or melena. : No urinary hesitancy or dribbling. No nocturia or urinary frequency. No abnormal urethral discharge. MUSCULOSKELETAL: No myalgias or arthralgias. NEUROLOGIC: No chronic headaches, no seizures. Patient denies numbness, tingling or weakness. PSYCHIATRIC: Patient denies problems with mood disturbance. No problems with anxiety. ENDOCRINE: No excessive urination or excessive thirst. DERMATOLOGIC: Patient denies any rashes or skin changes. Physical Exam Physical Exam: Gen: A&O 3 NAD HEENT: NCAT, EOMI, not icteric. External ears normal. No rhinorrhea. Moist mucous membranes. Neck: Supple, full range of motion, no observable masses, No meningeal sign. Lungs: No Respiratory distress. CV: RRR, no edema. Abdomen: Soft, nondistended, No rebound tenderness. MSK: No joint swelling, no redness. Skin: No rashes, petechiae, lesions. Normal color per patient. Neuro: Normal Gait, Grossly intact. Psych: Appropriate for situation. Results & Data Results & Data Vital Signs (Past 12 Hours) Vital Signs Temp Pulse Resp BP Pulse Ox O2 Del Method 09/25/24 07:23 36.5 C 68 16 149/76 H 96 Room Air Laboratory Results -personally reviewed, platlets if 17 up from one and leukocytosis likely react bhavesh vs. UTI related Medications Administered Atorvastatin Calcium (Atorvastatin 20 Mg Tab) 20 mg PO HS JANIS Stop: 10/24/24 20:59 Last Admin: 09/24/24 21:39 Dose: 20 mg Documented By: CALVIN Cyanocobalamin (Cyanocobalamin (B-12) 500 Mcg Tablet) 1,000 mcg PO QAM JANIS Stop: 10/25/24 08:59 Last Admin: 09/25/24 09:24 Dose: 1,000 mcg Documented By: PAUL Immune Globulin (Octagam 10%) 50 mls @ 62.28 mls/hr IV TODAY@1300 JANIS; Protocol Stop: 10/24/24 12:59 Last Titration: 09/24/24 14:55 Dose: Infused Documented By: Admin: 09/24/24 13:57 Dose: 1 mg/kg/min, 62.3 mls/hr Documented By: NATALIE Ceftriaxone Sodium (Rocephin) 2,000 mg in 50 mls @ 100 mls/hr IV Q24H [facility] Stop: 10/04/24 16:59 Last Infusion: 09/24/24 22:31 Dose: Infused Documented By: Admin: 09/24/24 21:35 Dose: 100 mls/hr Documented By: CALVIN Levothyroxine Sodium (Levothyroxine Sodium 50 Mcg Tablet) 50 mcg PO DAILYBB [facility] Stop: 10/25/24 06:29 Last Admin: 09/25/24 06:24 Dose: 50 mcg Documented By: CALVIN Lisinopril (Lisinopril 20 Mg Tab) 20 mg PO DAILY [facility] Stop: 10/25/24 08:59 Last Admin: 09/25/24 09:24 Dose: 20 mg Documented By: PAUL Miscellaneous (*Biotene*Order Awaiting Action) 1 each N/A QS [facility] Stop: 10/24/24 15:59 Last Admin: 09/25/24 09:24 Dose: 1 each Documented By: Admin: 09/25/24 00:02 Dose: Not Given Documented By: Admin: 09/24/24 18:12 Dose: 1 each Documented By: ELIEZER (4) HTN (hypertension) Hypertension type: unspecified Qualified Code(s): I10 - Essential (primary) hypertension (5) HLD (hyperlipidemia) Hyperlipidemia type: unspecified Qualified Code(s): E78.5 - Hyperlipidemia, unspecified
[2024-09-25] MEDS ORDERED: POLYETHYLENE (MIRALAX) 17 GM PACK PO PRN (11:23)
[2024-09-25 11:29] LABS: Hep B Core Total Antibody Positive (Negative)
[2024-09-25 11:38] LABS: Act 87 Hepatitis C IgG Screen Negative (Negative); Hep B Surface Ag with confirm Prelim Positive (Negative)
[2024-09-25] MEDS: PANTOprazole 40 MG TAB PO SCH (12:31)
[2024-09-25] MEDS: Pre-Med ACETAMINOPHEN 325 MG TAB PO SCH (14:31)
[2024-09-25] MEDS: Pre-Med DiphenhydrAMINE 25 MG CAP PO SCH (14:32)
[2024-09-25] MEDS ORDERED: RITUXIMAB IV SCH (15:00)
[2024-09-25] MEDS ORDERED: SODIUM CHLORIDE 0.9% IV SCH (15:00)
[2024-09-25] MEDS: SODIUM CHLORIDE 0.9% IV SCH (15:10)
[2024-09-25] MEDS: RITUXIMAB IV SCH (15:10)
[2024-09-25 15:36] VITALS: TEMP 97.7
[2024-09-25] MEDS ORDERED: Nursing to Pharmacy Communication SCH (18:30)
[2024-09-25 20:43] VITALS: RESP 18
[2024-09-26] MEDS ORDERED: CEFDINIR 300 MG CAP HOME PACK PO SCH
[2024-09-26 07:18] LABS: BUN Creatinine Ratio 20.3 (10-20); Calcium 8.7 mg/dl (8.6-10.3); Creatinine Clr Calc Pharmacy 68.4 ml/min; Potassium 3.9 mmol/L (3.5-5.1)
[2024-09-26 07:20] LABS: Prothrombin Time 10.4 Seconds (9.0-12.0)
[2024-09-26 07:22] LABS: Hematocrit (blood only) 38.7 % (42.0-52.0); Hemoglobin 12.9 g/dl (14.0-18.0); Mean Corpuscular Hemoglobin 30.7 pg (25.0-34.0); Mean Corpuscular Hgb Conc 33.3 g/dL (32.0-36.0); Mean Corpuscular Volume 92.1 fL (80.0-100.0); Nucleated RBC # (auto) 0.16 K/uL (0.00-0.12); Nucleated RBC % (auto) 0.6 %; Platelet Count 34 K/uL (130-400); RDW Coefficient of Variation 14.2 % (11.5-14.5); RDW Standard Deviation 46.3 fL (36.4-46.3); White Blood Count 27.61 K/ul (4.8-10.8)
[2024-09-26 07:28] LABS: Basophils # (auto) 0.04 K/uL (0.00-0.20); Basophils % (auto) 0.1 %; Eosinophils # (auto) 0.04 K/uL (0.00-0.50); Eosinophils % (auto) 0.1 %; Howell-Jolly Bodies 1+; Immature Granulocytes # (auto) 0.32 K/uL (0.01-0.20); Immature Granulocytes % (auto) 1.2 %; Lymphocytes # (auto) 2.42 K/uL (1.20-3.40); Lymphocytes % (auto) 8.8 %; Monocytes # (auto) 1.54 K/uL (0.11-0.59); Monocytes % (auto) 5.6 %; Neutrophils # (auto) 23.25 K/uL (1.40-6.50); Neutrophils % (auto) 84.2 %; Pappenheimer Bodies 1+; Polychromasia 1+
[2024-09-26 08:43] VITALS: BP 159/89; PULSE 76; O2SAT 97
--- NOTE | 2024-09-26 12:38 | Discharge Summary ---
Discharge Summary Date of Service September 26, 2024 Principal Dx & Hospital Course #1 = Principal Diagnosis (1) Acute ITP: (2) Severe thrombocytopenia: (3) Petechiae: (4) HTN (hypertension): (5) HLD (hyperlipidemia): (6) Urinary retention: Plan This is a 73 y/o male with ITP s/p splenectomy in 2012, HTN, hyperlipidemia, hypothyroidism, and chronic urinary retention who presented to the ED from [facility] due to symptomatic low platelet count with petechiae, hematuria, and epistaxis. Prior records reviewed including discharge summaries from July and August, outpatient records from [facility]. Acute ITP Severe thrombocytopenia Pt presented with platelets in 1000 range hematology was consulted, recommended/stated the following: "...The patient has refractory ITP which relapses while he is on steroids he has had multiple episodes over the last few weeks, Where his platelet count is less than 10,000/mcL. At this point I will give him 1 dose of rituximab while he is in the hospital. This is a complex situation as the patient is incarcerated so we have difficulty coordinating his care with the present. He will most likely be not a candidate for oral TPO mimetic's as he gets his medications through the correctional facility. I would plan to give him rituximab, with hope that that induces remission and his immune thrombocytopenic purpura. The first dose of r ituximab will be given while the patient is in the hospital. Subsequent doses can be given outpatient. The patient has already been informed that that was a plan given that he was declining when I evaluated him in the clinic last week. Orders being prepared for inpatient administration of 1 dose of rituximab..." s/p 1 dose of rituximab on 09/26/24 with improvement in platelets to 34K on discharge Close Hematology followup after discharge Closely monitor platelet levels after discharge- CBC in 2 days. Close PCP follow up. Hematuria Urinary retention UTI reports history of frequent UTIs in the past Pt self caths UA suggestive of infection, urine cx grew pansensitive E coli of note, it is medically necessary for patient to have 3 straight caths availa ble per day at [facility], will create UTIs if not available Indwelling Pena while admitted Treated with Rocephin for 2 days Discussion with usp on discharge, has Bactrim on formulary. Continue with Caron trim DS BID x 5 more days after discharge starting evening of 09/26/24. Closely monitor potassium levels and kidney function while on Bactrim Leukocytosis likely related to prednisone and UTI Hypertension Continue lisinopril Hyperlipidemia Continue atorvastatin Hypothyroidism Continue levothyroxine Notes For Next Care Provider Follow platelet levels, closely repeat CBC in 2 days Please ensure close Hematology followup Follow K+ level while on Bactrim Medication Changes From Visit Bactrim DS for 5 more days Admission HPI Per Admitting Provider This is a 73 y/o male with ITP s/p splenectomy in 2012, HTN, hyperlipidemia, hypothyroidism, and chronic urinary retention who presents to the ED today from [facility] due to symptomatic low platelet count with petechiae, hematuria, and epistaxis. Of note, pt was admitted to [facility] 07/25/24-07/27/24 when he presented to the ED with multiple petechiae and was found to have severe thrombocytopenia with a platelet count of 0; he was admitted and given IVIG x 3 days, IV Solu-Medrol x 3 days, and transfused one unit of platelets. He was readmitted on 08/22/24 when his outpatient labs again showed a platelet count of 0 although he denied any overt signs of bleeding at the time. He was given Decadron and IVIG and was transfused one unit of platelets before being discharged on prednisone taper. Since discharge, he reports that was doing okay until last week - saw hematology outpatient six days ago and reports labs showed platelet count of 13k at that time. He was started on oral prednisone for two weeks but has only received three doses of this thus far. Over the last two days, he has again developed petechiae and blood blisters in his mouth on his ch eeks and tongue. He also notes bloody nasal discharge with associated sinus pressure. Yesterday, when he self-cathed, he noted hematuria with a few small clots. Urine also noted to have an odor. Pt reports a history of recurrent UTIs but states his last infection was prior to his incarceration in 2020. He denies chest pain, palpitations, dyspnea, syncope, dizziness, blood in stools, gingival bleeding, N/V, change in appetite, fevers. Admission Exam Per Admitting Provider General: awake, alert, NAD HEENT: no scleral icterus, no subconjunctival hemorrhage, + blood blisters on tongue and oral mucosa Neck: supple, trachea midline Heart: RRR, no M/G/R Lungs: CTA bilaterally Abdomen: soft, NT, +BS Extremities: no pedal edema, distal pulses intact and equal; scattered petechiae bilateral LE Skin: warm, dry, no jaundice Neurologic: Ox3, no confusion or dysarthria, moving all extremities, no focal deficits Discharge Exam General: Alert, oriented. No acute distress Skin: bruises appreciated on extremities HEENT: NC/AT CV: RRR Resp: Breath sounds clear bilaterally, no increased effort of breathing Abdomen: Soft, nontender Extremities: No edema in lower extremities bilaterally. Updated Medication List Medication Instructions Recorded Confirmed Type atorvastatin 20 mg tablet 20 mg PO HS 07/25/24 09/24/24 History lisinopril 20 mg tablet 20 mg PO DAILY 07/25/24 09/24/24 History cyanocobalamin (vitamin B-12) 500 1,000 mcg (2 x 500 mcg) PO QAM 60 07/27/24 09/24/24 Rx mcg tablet days #120 tabs levothyroxine 50 mcg tablet 50 mcg PO DAILY 08/22/24 09/24/24 History saliva stimulant comb. no.3 1 spray mucous membrane TID PRN 09/24/24 09/24/24 History (Biotene Moisturizing Mouth Dry Mouth mucosal spray) sulfamethoxazole 800 1 tab PO BID #10 tabs 09/26/24 Rx mg-trimethoprim 160 mg tablet (Bactrim DS) Hospital Stay Data Consultations 09/24/24 11:45 ED Decision to Admit Stat 09/24/24 12:32 Consult Hematology Routine Diagnostic Imagining Performed Chest X-Ray 09/24/24 12:26 XR chest 2V PA/lateral CLINICAL HISTORY: leukocytosis COMPARISON STUDY: Chest radiograph August 29, 2024. FINDINGS: Lung volumes are normal. Lungs are clear. There is no pneumothorax or pleural effusion. Cardiac size is normal. Mediastinal contours are normal. There is no evidence for pulmonary edema. IMPRESSION: No acute cardiopulmonary findings. ACT 112: Negative or not required by law. Electronically signed by: Keith Norrsi M.D. 09/24/2024 2:18 PM Discharge Instructions Given to Patient (Per Discharging Provider) Wicho Tramaine were admitted and treated for very low platelet levels. You were seen by the Tool And Machine Maintainer and your numbers improved. Hematology recommends discharge with close followup with Hematology as an outpatient. You were also treated for a urinary tract infection and we are discharging you with an additional 5 days of the antibiotic Bactrim to help. Please keep close follow up with your primary care provider and Hematology after discharge. Please do not hesitate to come back to the emergency room if your symptoms worsen or return. It was a pleasure taking care of you while you were here. Total Time Total Time Spent Total Time Spent (In Minutes): 60
== END 2024-09-26 15:13 | DRG 813 ==
LOC: ED 09:12 → SUATTDRO 12:32 → 3E 12:32

== ENCOUNTER 2024-09-28 10:38 | Inpatient (IN) ==
--- NOTE | 2024-09-28 11:19 | Emergency Department Note ---
Impression & Plan Acute ITP, Severe thrombocytopenia ED Provider Note NAME: LYLY [id number] SAURAV AGE: 73 SEX: M : 1950 ARRIVES VIA: Walk-In INFORMANT: Patient, ED PROVIDER(S): Washington Biswas MD CHIEF COMPLAINT: Low platelet count MEDICAL DECISION MAKING: Patient presents to concern for low platelet count. The patient did have blood work that was completed prior to arrival which showed a platelet count of 5. I did speak with the livestock inspector given the patient's prior history of ITP Rubik and IVIG at 1 g/kg and also to give dexamethasone 40 mg. These were both ordered. Blood work shows a white count of 12 with a hemoglobin 13.3 platelet count of 3. The patient's kidney function with creatinine 1.6. This is slightly worse compared to his baseline. Patient was ordered IV fluids. I did speak the on-call hospitalist service. DEONTE Jaiver and the patient was admitted by Dr. Franklin. Critical Care: I have personally spent 41 minutes of critical care time in direct management of this patient. This includes bedside care, interpretation of diagnostic studies, and testing, discussion with consultants, patient, and family members, and other require inpatient management activities. This 41 minutes is in excess of all separately billable procedures. Discussion w/ other healthcare providers: Dr. Matson hematology Radha Javier PA-C and Dr. Franklin inpatient medicine service Prior /Outside records reviewed: I reviewed the patient's most recent discharge summary from Dr. Schaefer show the patient did have ITP Differential diagnosis: ITP, infection, dehydration, metabolic abnormality, hypo/hyperglycemia, electrolyte imbalance, anemia, UTI, pneumonia, thyroid dysfunction among others were considered. Diagnostics, as interpreted by me: ECG: None Cardiac monitoring: An order was placed for continuous cardiac monitoring. The monitor shows a rate of 76 with sinus rhythm. Patient was placed on pulse oximetry Medical decision rules: None Imaging studies: None HPI: Patient presents due to concern for low platelet count. The patient did have a recent admission and subsequent discharge due to concern for ITP and thrombocytopenia. The patient does return as his outpatient numbers were low and seen by Dr. Matson in clinic and referred here for further evaluation and treatment. Patient reportedly has had a prior history of ITP states that he had low platelet count back in the but had his spleen removed in 2012 and that because of that he was doing quite well and his numbers were up. Patient states he did have a recent inpatient stay and subsequently was taken off of steroids back at the intermediate and believes that this is why this recurred. Patient states that he has no symptoms but he has had some easy bruising although he does have low platelets. Patient was seen in the outpatient setting today was told that his most recent platelet count was normal but had labs drawn today which were shown to be abnormal and thus he was referred here for further evaluation and treatment by the patient's primary livestock inspector Dr. Matson. PAST MEDICAL HISTORY: See Below PAST SURGICAL HISTORY: See Below SOCIAL HISTORY: See Below HOME MEDICATIONS: See Below ALLERGIES: See Below VITALS: See Below PHYSICAL EXAMINATION: GENERAL: NAD, non-toxic. Wearing glasses. EYE EXAM: Normal conjunctiva. PERRL, no anisocoria and EOM's grossly intact w/o pain. OROPHARYNX: Moist mucus membranes, grossly normal dentition. NECK: Trachea midline, no stridor. Supple, no nuchal rigidity, no adenopathy, non-tender. No signs of meningismus. FROM of the neck with good chin to chest and neck extension. LUNGS: Clear to auscultation. Normal chest wall mechanics. HEART: NSR, no MRG. ABDOMEN: Abdomen soft, non-tender, reducible umbilical hernia, no masses, no rebound or guarding. BACK: No CVA TTP. SKIN: No scattered bruising on the upper extremities. UPPER EXTREMITIES: Upper extremities are grossly normal. Scant bruise noted at the back of the base of the left thumb. Bruising also noted to the right forearm. LOWER EXTREMITIES: Grossly normal, no edema. NEURO EXAM: A&O x3, cranial nerves II-XII grossly intact, normal speech, moves all 4 extremities. Past Med/Surg History Problem List KATELYNN (acute kidney injury) Hypothyroidism Urinary tract infection associated with catheterization of urinary tract Leukocytosis (Acute) Thrombocytopenia (Acute) Petechial rash (Acute) Petechiae Severe thrombocytopenia (Acute) Acute ITP (Acute) Medical History Urinary retention HLD (hyperlipidemia) HTN (hypertension) Surgical History H/O splenectomy Social History Smoking Status: Never smoker Tobacco Type: Declines Second Hand Exposure: No; Do You Dip or Chew Tobacco: No; Hx Alcohol Use: No Hx Substance Use: No Preferred Language: Argentine Communication Ability: Effective Hydraulic And Plumbing Installer Required: No Beliefs That Will Affect Care: None Current Living Situation: Other Current Living Situation Comment: [facility] Feels Safe at Home: Yes Assistive Devices: Glasses Allergies Allergies Allergy/AdvReac Type Severity Reaction Status Date / Time Penicillins Allergy Mild Rash Verified 08/22/24 17:20 heparin Allergy Unknown Verified 08/22/24 17:18 Home Meds Home Medications Medication Instructions Recorded Confirmed atorvastatin 20 mg tablet 20 mg PO DAILY 07/25/24 09/28/24 lisinopril 20 mg tablet 20 mg PO DAILY 07/25/24 09/28/24 levothyroxine 50 mcg tablet 50 mcg PO DAILY 08/22/24 09/28/24 saliva stimulant comb. no.3 2 spray mucous membrane TID PRN 09/24/24 09/28/24 (Biotene Moisturizing Mouth Dry Mouth mucosal spray) cyanocobalamin (vitamin B-12) 1,000 mcg PO DAILY 09/28/24 09/28/24 1,000 mcg tablet (Vitamin B-12) Previous Rx's Medication Instructions Recorded sulfamethoxazole 800 1 tab PO BID #10 tabs 09/26/24 mg-trimethoprim 160 mg tablet (Bactrim DS) Results & Data (ED) Vital Signs Vital Signs - 24 hr 09/28/24 10:48 09/28/24 12:40 09/28/24 12:47 Temperature 36.6 C Temperature Source Temporal Artery Scan Pulse Rate 96 H 66 Pulse Rate [Apical] 76 Respiratory Rate 16 20 Respiratory Effort / Characteristics Non-Labored Respiratory Depth Normal Respiratory Pattern Regular Blood Pressure 135/83 Blood Pressure [Right Arm] 148/89 H Blood Pressure Mean 100 Blood Pressure Mean [Right Arm] 108 Blood Pressure Position [Right Arm] Semi-fowlers Pulse Oximetry 96 98 Oxygen Delivery Method Room Air Room Air Sepsis Recent Fever Within 48 Hours No Sepsis New/Unexplained Change in Mental Status N/A Sepsis Action Taken by Nursing No Action Required 09/28/24 12:51 Temperature Temperature Source Pulse Rate 69 Pulse Rate [Apical] Respiratory Rate 16 Respiratory Effort / Characteristics Respiratory Depth Respiratory Pattern Blood Pressure Blood Pressure [Right Arm] Blood Pressure Mean Blood Pressure Mean [Right Arm] Blood Pressure Position [Right Arm] Pulse Oximetry 100 Oxygen Delivery Method Room Air Sepsis Recent Fever Within 48 Hours Sepsis New/Unexplained Change in Mental Status Sepsis Action Taken by [facility] Medications Current Medication List: was personally reviewed by me Laboratory Data Attestation: I reviewed the patient's lab results. 09/29/24 05:47 09/29/24 05:47 Lab Results 09/28/24 Range/Units 11:15 WBC 12.88 H (4.8-10.8) K/ul RBC 4.34 L (4.70-6.10) M/uL Hgb 13.3 L (14.0-18.0) g/dl Hct 40.4 L (42.0-52.0) % MCV 93.1 (80.0-100.0) fL MCH 30.6 (25.0-34.0) pg MCHC 32.9 (32.0-36.0) g/dL RDW Std Deviation 49.1 H (36.4-46.3) fL RDW Coeff of Debbie 14.7 H (11.5-14.5) % Plt Count 3 L* (130-400) K/uL Absolute Nucleated RBC 0.52 H (0.00-0.12) K/uL Nucleated RBC % (auto) 4.0 % Platelet Estimate Signific. Decreased L (Normal) PT 10.4 (9.0-12.0) Seconds INR 1.0 (0.9-1.1) APTT 22 (21-31) Seconds PTT Ratio 0.8 Sodium 139 (136-145) mmol/L Potassium 4.0 (3.5-5.1) mmol/L Chloride 107 (98-107) mmol/L Carbon Dioxide 26 (21-32) mmol/L Anion Gap 6 (3-11) BUN 23 (6-23) mg/dl Creatinine 1.60 H (0.6-1.4) mg/dl Est Cr Clr Drug Dosing 50.3 ml/min eGFR 45.21 BUN/Creatinine Ratio 14.4 (10-20) Glucose 107 H (70-99(Fasting)) mg/dl Calcium 8.9 (8.6-10.3) mg/dl Total Bilirubin 0.6 (0.2-1.0) mg/dl AST 26 (13-39) U/L ALT 41 (7-52) U/L Alkaline Phosphatase 68 (34-104) U/L Troponin I High Sens 7.6 (0-20) pg/ml Total Protein 7.5 (6.0-8.3) gm/dl Albumin 3.9 (3.4-5.0) gm/dl Globulin 3.6 (2.5-4.0) gm/dl Albumin/Globulin Ratio 1.1 (0.9-2) Blood Type A Positive Antibody Screen NEGATIVE Administered Medications Pantoprazole Sodium (Pantoprazole 40 Mg Tab) 40 mg PO BID JANIS Stop: 10/28/24 20:59 Last Admin: 09/28/24 22:15 Dose: 40 mg Documented By: [facility] [place]continued Medications Dexamethasone Sodium Phosphate (DexamethasonePf 10 Mg/Ml Vial) 40 mg IV NOW ONE Stop: 09/28/24 12:15 Last Admin: 09/28/24 13:22 Dose: 40 mg Documented By: MORTEZA Immune Globulin (Octagam 10%) 200 mls @ 51.876 mls/hr IV TODAY@1500,1600,1700,1800 JANIS; Protocol Stop: 09/28/24 21:52 Last Titration: 09/28/24 23:35 Dose: Infused Documented By: [facility] [place] Admin: 09/28/24 22:25 Dose: 3.86 mg/kg/min, 200 mls/hr Documented By: [facility] [place] Titration: 09/28/24 22:17 Dose: Infused Documented By: [facility] [place] Admin: 09/28/24 21:11 Dose: 3.86 mg/kg/min, 200 mls/hr Documented By: [facility] [place] Titration: 09/28/24 21:08 Dose: Infused Documented By: [facility] [place] Admin: 09/28/24 19:43 Dose: 3.86 mg/kg/min, 200 mls/hr Documented By: [facility] [place] Titration: 09/28/24 19:23 Dose: Infused Documented By: [facility] [place] Admin: 09/28/24 15:31 Dose: 1 mg/kg/min, 51.9 mls/hr Documented By: LEON Immune Globulin (Octagam 10%) 50 mls @ 51.876 mls/hr IV TODAY@1400 JANIS; Protocol Stop: 09/28/24 14:58 Last Titration: 09/28/24 15:54 Dose: Infused Documented By: Admin: 09/28/24 14:52 Dose: 1 mg/kg/min, 51.9 mls/hr Documented By: LEON Sodium Chloride (Nss) 1,000 mls @ 80 mls/hr IV .[id number] JANIS Stop: 09/29/24 05:29 Last Infusion: 09/29/24 06:15 Dose: Infused Documented By: Admin: 09/28/24 17:30 Dose: 80 mls/hr Documented By: LEON Discharge Plan Visit Data Chief Complaint: Abnormal Labs/Diagnostic Testing Stated Complaint: CRITICAL PLATELET COUNT OF 5 ED Provider: Washington Biswas Discharge Problem: Acute ITP, Severe thrombocytopenia Patient Disposition: Admitted As Inpatient Discharge Instructions Interventions: ED Discharge Assessment Last Done: 09/28/24 14:13
[2024-09-28 11:53] LABS: Albumin Globulin Ratio 1.1 (0.9-2); Albumin Level 3.9 gm/dl (3.4-5.0); BUN Creatinine Ratio 14.4 (10-20); Bilirubin,Total 0.6 mg/dl (0.2-1.0); Calcium 8.9 mg/dl (8.6-10.3); Creatinine Clr Calc Pharmacy 50.3 ml/min; Globulin 3.6 gm/dl (2.5-4.0); Total Protein 7.5 gm/dl (6.0-8.3)
[2024-09-28 11:59] LABS: Troponin I High Sensitivity 7.6 pg/ml (0-20)
[2024-09-28 12:01] LABS: Hematocrit (blood only) 40.4 % (42.0-52.0); Hemoglobin 13.3 g/dl (14.0-18.0); Mean Corpuscular Hemoglobin 30.6 pg (25.0-34.0); Mean Corpuscular Hgb Conc 32.9 g/dL (32.0-36.0); Mean Corpuscular Volume 93.1 fL (80.0-100.0); Nucleated RBC # (auto) 0.52 K/uL (0.00-0.12); Partial Thromboplastin Ratio 0.8; Partial Thromboplastin Time 22 Seconds (21-31); Platelet Count 3 K/uL (130-400); Prothrombin Time 10.4 Seconds (9.0-12.0); RDW Coefficient of Variation 14.7 % (11.5-14.5); RDW Standard Deviation 49.1 fL (36.4-46.3); Red Blood Count 4.34 M/uL (4.70-6.10); White Blood Count 12.88 K/ul (4.8-10.8)
[2024-09-28 12:12] LABS: Platelet Estimate Signific. Decreased (Normal)
--- NOTE | 2024-09-28 12:52 | History & Physical Report ---
Date of Service September 28, 2024 Assessment & Plan (1) Acute ITP: (2) Severe thrombocytopenia: Plan: Wicho Patel is a 73y/o M with PMHx significant for refractory ITP s/p splenectomy in 2012, HTN, HLD, hypothyroidism and chronic urinary retention who presented to the ED from [facility] after routine lab work performed at the [facility] today revealed a critical platelet count of 5k. Known refractory ITP with prior admissions under our service for inpatient management. Patient recently admitted under our service from 09/24/24 to 09/26/24 with acute ITP and severe thrombocytopenia. Required 1U platelets. Received IV Decadron in addition to IVIG as well per the recommendation and guidance of the patient's primary die cast supervisor, Dr. Matson. Also received 1 dose of rituximab. ED labs personally reviewed. Platelet count 3k. Hgb stable. Complete bedrest. Fall precautions. ED provider, Dr. Biswas, spoke directly with Dr. Matson for his recommendations. Need to start IVIG at 1 mg/kg and 40mg IV Decadron daily. Continue IVIG and Decadron as guided by hematology. Formal hematology consult pending. Closely monitor platelet count and signs/symptoms of bleeding. (3) KATELYNN (acute kidney injury): Plan: Cr 1.60 on admission. Appears baseline Cr around 1.1-1.4 per chart review. Will give 1L NSS for now. Avoid nephrotoxic agents when able. Monitor renal function closely and renally dose medications when able. (4) Urinary retention: Plan: Noted chronic urinary retention issues requiring self catheterization EAR NOSE AND THROAT SPECIALIST. Place Pena catheter while admitted. UA negative. Bladder scan PRN. Of note, it is medically necessary for patient to have 3 straight caths available per day at [facility] - will create UTIs if not available. (5) Leukocytosis: Plan: WBC 12.8k on admission. UA negative. Procalcitonin negative. Will check respiratory BioFire panel. Likely still elevated from recent Decadron use last admission. Low suspicion for underlying bacterial infection. (6) HTN (hypertension): Plan: Stable on admission. Continue lisinopril and monitor BP closely. (7) HLD (hyperlipidemia): Plan: Chronic, stable. Continue atorvastatin. (8) Hypothyroidism: Plan: Check TSH in AM. Continue levothyroxine. DVT Prophylaxis: SCDs/TEDs only. Holding chemical anticoagulation ISO severe thrombocytopenia with spontaneous bleeding risk. Code Status: FULL CODE PCP: NIKKI Webber Disposition: Admit to PCU/Telemetry for further inpatient evaluation and management. Patient seen in collaboration with Dr. Franklin. Please see addendum. I spent a total of 60 minutes coordinating, documenting, and providing care for this patient excluding time spent in the performance of separately billed services or time spent by another provider/QHP. This included personally reviewing all current laboratories and imaging studies, medical reconciliation, outpatient chart review and discussion with specialists. This chart was completed in part utilizing Speech Voice Recognition Software. Grammatical errors, random word insertions, pronoun errors, and incomplete sentences are an occasional consequence of this system due to software limitations, ambient noise, and hardware issues. Any formal questions or concerns about the content, text, or information contained within the body of this dictation should be directly addressed to the provider for clarification. History of Present Illness Chief Complaint: Critical Platelet Count, H/O ITP Primary Care Provider: NIKKI Webber Pt seen and examined by me, care coordinated with DEONTE as above, pls refer to her note for further detail. 73y/o M with med hx significant for refractory ITP s/p splenectomy in 2012, HTN, HLD, hypothyroidism and chronic urinary retention who presents after lab work at the [facility] today revealed a critical platelet count of 5k. Patient recently hospitalized from 09/24/24 to 09/26/24 with acute ITP and severe thrombocytopenia. Pt follows w/die cast supervisor, Dr. Matson. During last admission was also started on rituximab. Pt denies any signs or symptoms of bleeding, also denies any fever, chills, dysuria, cough, chest pain or shortness of breath. Pt is alert oriented, answers appropriately, lungs are clear to auscultation, heart sounds regular, abdomen soft, nontender , + ventral hernia, moves extremities. ED in contact with Dr. Matson for his recommendations. Plan to start IVIG at 1 mg/kg and 40mg IV Decadron daily. Hematology consulted. MD Noemi Allergies Allergy/AdvReac Type Severity Reaction Status Date / Time Penicillins Allergy Mild Rash Verified 08/22/24 17:20 heparin Allergy Unknown Verified 08/22/24 17:18 Home Medications Medication Instructions Recorded Confirmed Type atorvastatin 20 mg tablet 20 mg PO DAILY 07/25/24 09/28/24 History lisinopril 20 mg tablet 20 mg PO DAILY 07/25/24 09/28/24 History levothyroxine 50 mcg tablet 50 mcg PO DAILY 08/22/24 09/28/24 History saliva stimulant comb. no.3 2 spray mucous membrane TID PRN 09/24/24 09/28/24 History (Biotene Moisturizing Mouth Dry Mouth mucosal spray) sulfamethoxazole 800 1 tab PO BID #10 tabs 09/26/24 09/28/24 Rx mg-trimethoprim 160 mg tablet (Bactrim DS) cyanocobalamin (vitamin B-12) 1,000 mcg PO DAILY 09/28/24 09/28/24 History 1,000 mcg tablet (Vitamin B-12) Past Med/Surg History Problem List KATELYNN (acute kidney injury) Hypothyroidism Urinary tract infection associated with catheterization of urinary tract Leukocytosis (Acute) Thrombocytopenia (Acute) Petechial rash (Acute) Petechiae Severe thrombocytopenia (Acute) Acute ITP (Acute) Medical History Urinary retention HLD (hyperlipidemia) HTN (hypertension) Surgical History H/O splenectomy Social History Smoking Status: Never smoker Tobacco Type: Declines Second Hand Exposure: No; Do You Dip or Chew Tobacco: No; Hx Alcohol Use: No Hx Substance Use: No Preferred Language: Upper Sorbian Communication Ability: Effective Air Cargo Specialist Supervisor Required: No Beliefs That Will Affect Care: None Current Living Situation: Other Current Living Situation Comment: [facility] Feels Safe at Home: Yes Assistive Devices: Glasses Review of Systems Review of Systems: At least ten systems reviewed and negative, except as noted in the HPI. Physical Exam Physical Exam: Please refer to Dr. Franklin's addendum for physical examination findings. Results & Data Results & Data Vital Signs (Past 12 Hours) Vital Signs Temp Pulse Resp BP Pulse Ox O2 Del Method 09/28/24 12:40 66 09/28/24 10:48 36.6 C 96 H 16 135/83 96 Room Air Laboratory Results Short CBC 09/28/24 Range/Units 11:15 WBC 12.88 H (4.8-10.8) K/ul Hgb 13.3 L (14.0-18.0) g/dl Hct 40.4 L (42.0-52.0) % Plt Count 3 L* (130-400) K/uL BMP 09/28/24 11:15 Sodium 139 Potassium 4.0 Chloride 107 Carbon Dioxide 26 BUN 23 Creatinine 1.60 H Glucose 107 H Calcium 8.9 Liver Function 09/28/24 Range/Units 11:15 Total Bilirubin 0.6 (0.2-1.0) mg/dl AST 26 (13-39) U/L ALT 41 (7-52) U/L Alkaline Phosphatase 68 (34-104) U/L Albumin 3.9 (3.4-5.0) gm/dl Medications Administered Immune Globulin (Octagam 10%) 200 mls @ 51.876 mls/hr IV TODAY@1500,1600,1700,1800 JANIS; Protocol Stop: 09/28/24 21:52 Last Admin: 09/28/24 15:31 Dose: 1 mg/kg/min, 51.9 mls/hr Documented By: LEON Discontinued Medications Dexamethasone Sodium Phosphate (DexamethasonePf 10 Mg/Ml Vial) 40 mg IV NOW ONE Stop: 09/28/24 12:15 Last Admin: 09/28/24 13:22 Dose: 40 mg Documented By: MORTEZA Immune Globulin (Octagam 10%) 50 mls @ 51.876 mls/hr IV TODAY@1400 JANIS; Protocol Stop: 09/28/24 14:58 Last Titration: 09/28/24 15:54 Dose: Infused Documented By: Admin: 09/28/24 14:52 Dose: 1 mg/kg/min, 51.9 mls/hr Documented By: LEON Code Status & VTE Plan Code Status FULL CODE (5) Leukocytosis Leukocytosis type: unspecified Qualified Code(s): D72.829 - Elevated white blood cell count, unspecified (6) HTN (hypertension) Hypertension type: unspecified Qualified Code(s): I10 - Essential (primary) hypertension (7) HLD (hyperlipidemia) Hyperlipidemia type: unspecified Qualified Code(s): E78.5 - Hyperlipidemia, unspecified (8) Hypothyroidism Hypothyroidism type: unspecified Qualified Code(s): E03.9 - Hypothyroidism, unspecified
[2024-09-28] MEDS: dexAMETHasone**PF** 10 MG/ML VIAL IV ONE (13:22)
[2024-09-28] MEDS ORDERED: POLYETHYLENE (MIRALAX) 17 GM PACK PO PRN (14:28)
[2024-09-28] MEDS ORDERED: ACETAMINOPHEN 325 MG TAB PO PRN (14:28)
[2024-09-28] MEDS ORDERED: ONDANSETRON INJ 2 MG/ML 2 ML VIAL IV PRN (14:28)
[2024-09-28] MEDS ORDERED: MAGNESIUM HYDROXIDE SUSP 30 ML UDC PO PRN (14:28)
[2024-09-28] MEDS: Octagam 10% IVIG 5 gram bottle IV SCH (14:52)
[2024-09-28] MEDS: IMMUN GLOBG(IGG)/MALT/IGA OV50 200 ML IV SCH (15:31)
[2024-09-28 16:49] LABS: Appearance Urine Clear (Clear); Bilirubin Urine Negative (Negative); Blood Urine Negative (Negative); Color Urine Yellow; Glucose Urine UA Negative (Negative); Ketones Urine Negative (Negative); Leukocyte Esterase Urine Negative (Negative); Nitrite Urine Negative (Negative); Protein Urine Negative (Negative); Specific Gravity Urine 1.021 (1.000-1.030); Urobilinogen Urine Negative (Negative); pH Urine 5.5 (4.5-7.5)
[2024-09-28] MEDS: SODIUM CHLORIDE 0.9% 1,000 ML IV SCH (17:30)
[2024-09-28 18:37] LABS: Adenovirus PCR Not Detected (NotDetected); Bordetella parapertussis PCR Not Detected (NotDetected); Bordetella pertussis PCR Not Detected (NotDetected); Chlamydia pneumoniae PCR Not Detected (NotDetected); Coronavirus 229E PCR Not Detected (NotDetected); Coronavirus CoV-2 (COVID19)PCR Not Detected (NotDetected); Coronavirus HKU1 PCR Not Detected (NotDetected); Coronavirus NL63 PCR Not Detected (NotDetected); Coronavirus OC43PCR Not Detected (NotDetected); Human Metapneumovirus PCR Not Detected (NotDetected); Influenza A PCR Not Detected (NotDetected); Influenza B PCR Not Detected (NotDetected); Mycoplasma pneumoniae PCR Not Detected (NotDetected); Parainfluenza Virus 1 PCR Not Detected (NotDetected); Parainfluenza Virus 2 PCR Not Detected (NotDetected); Parainfluenza Virus 3 PCR Not Detected (NotDetected); Parainfluenza Virus 4 PCR Not Detected (NotDetected); Respiratory Syncytial VirusPCR Not Detected (NotDetected); Rhinovirus/Enterovirus PCR Not Detected (NotDetected)
[2024-09-28] MEDS: PANTOprazole 40 MG TAB PO SCH (22:15)
[2024-09-29 06:26] LABS: Hematocrit (blood only) 34.8 % (42.0-52.0); Hemoglobin 11.5 g/dl (14.0-18.0); Mean Corpuscular Hemoglobin 30.5 pg (25.0-34.0); Mean Corpuscular Volume 92.3 fL (80.0-100.0); Nucleated RBC # (auto) 0.36 K/uL (0.00-0.12); Nucleated RBC % (auto) 1.9 %; Platelet Count 26 K/uL (130-400); RDW Coefficient of Variation 14.5 % (11.5-14.5); RDW Standard Deviation 47.1 fL (36.4-46.3); Red Blood Count 3.77 M/uL (4.70-6.10); White Blood Count 18.63 K/ul (4.8-10.8)
[2024-09-29 06:34] LABS: Albumin Globulin Ratio 0.6 (0.9-2); Albumin Level 2.9 gm/dl (3.4-5.0); BUN Creatinine Ratio 19.4 (10-20); Bilirubin,Total 0.5 mg/dl (0.2-1.0); Creatinine Clr Calc Pharmacy 64.6 ml/min; Globulin 5.1 gm/dl (2.5-4.0); Magnesium 2.2 mg/dl (1.7-2.4); Phosphorus 2.9 mg/dl (2.5-4.9); Potassium 4.3 mmol/L (3.5-5.1)
[2024-09-29 07:57] LABS: Basophils # (auto) 0.03 K/uL (0.00-0.20); Basophils % (auto) 0.2 %; Eosinophils # (auto) 0.02 K/uL (0.00-0.50); Eosinophils % (auto) 0.1 %; Immature Granulocytes # (auto) 0.23 K/uL (0.01-0.20); Immature Granulocytes % (auto) 1.2 %; Lymphocytes # (auto) 1.18 K/uL (1.20-3.40); Lymphocytes % (auto) 6.3 %; Monocytes # (auto) 0.12 K/uL (0.11-0.59); Monocytes % (auto) 0.6 %; Neutrophils # (auto) 17.05 K/uL (1.40-6.50); Neutrophils % (auto) 91.6 %; Pappenheimer Bodies 1+; Polychromasia 1+
[2024-09-29] MEDS ORDERED: DEXAMETHASONE SOD INJ 4 MG/ML VIAL IV SCH (09:00)
[2024-09-29] MEDS: CYANOCOBALAMIN (B-12) 500 MCG TABLET PO SCH (09:33)
[2024-09-29] MEDS: lisinopril 20 MG TAB PO SCH (09:33)
[2024-09-29] MEDS: ATORVASTATIN 20 MG TAB PO SCH (09:33)
[2024-09-29] MEDS: LEVOTHYROXINE SODIUM 50 MCG TABLET PO SCH (09:34)
[2024-09-29] MEDS: dexAMETHasone 40 MG in DEXTROSE 5% 25 ML IV SCH (09:41)
--- NOTE | 2024-09-29 15:44 | Oncology Consultation ---
Date of Consultation September 29, 2024 Assessment & Plan (1) Thrombocytopenia: Status post IVIG, rituximab, steroids. At this time the platelet count is again recovered and is greater than 30,000. Recommend discharging the patient on a tapered course of prednisone, 60 mg for 5 days, 50 mg for 5 days, 40 mg for 5 days, 30 mg for 5 days, 20 mg for 5 days then 10 mg for 5 days. Subsequently we will initiate outpatient rituximab therapy and continue to monitor her his platelet counts closely. He can be discharged to the present Plan . Thank you for this interesting hematological consult. Total of 60 minutes were spent counseling, coordination of care, review of prior records. Hematology will continue to follow the patient make appropriate recommendations. 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 He received first dose of rituximab last week in the hospital. Subsequently he went back to the present and was followed up in the clinic for repeat CBC testing and was found to be thrombocytopenic again with a platelet count of 5000/mcL. Reports no active bleeding at this point. No fever or chills. No nausea vomiting. Currently he is not bleeding or bruising. Allergies Allergy/AdvReac Type Severity Reaction Status Date / Time Penicillins Allergy Mild Rash Verified 08/22/24 17:20 heparin Allergy Unknown Verified 08/22/24 17:18 Home Medications Medication Instructions Recorded Confirmed Type atorvastatin 20 mg tablet 20 mg PO DAILY 07/25/24 09/28/24 History lisinopril 20 mg tablet 20 mg PO DAILY 07/25/24 09/28/24 History levothyroxine 50 mcg tablet 50 mcg PO DAILY 08/22/24 09/28/24 History saliva stimulant comb. no.3 2 spray mucous membrane TID PRN 09/24/24 09/28/24 History (Biotene Moisturizing Mouth Dry Mouth mucosal spray) sulfamethoxazole 800 1 tab PO BID #10 tabs 09/26/24 09/28/24 Rx mg-trimethoprim 160 mg tablet (Bactrim DS) cyanocobalamin (vitamin B-12) 1,000 mcg PO DAILY 02/21/25 02/21/25 History 1,000 mcg tablet (Vitamin B-12) Patient History Medical History Urinary retention HLD (hyperlipidemia) HTN (hypertension) Surgical History H/O splenectomy Social History Smoking Status: Never smoker Tobacco Type: Declines Second Hand Exposure: No; Do You Dip or Chew Tobacco: No; Hx Alcohol Use: No Hx Substance Use: No Preferred Language: Yakut Communication Ability: Effective Clinical Account Specialist Required: No Beliefs That Will Affect Care: None Current Living Situation: Other Current Living Situation Comment: [facility] Feels Safe at Home: Yes Assistive Devices: Glasses Review of Systems Review of Systems: A complete review of systems was done and was negative. Constitutional: as per Subjective / HPI Eyes: as per Subjective / HPI Ear, Nose, Mouth, Throat: as per Subjective / HPI Respiratory: as per Subjective / HPI Cardiovascular: as per Subjective / HPI Gastrointestinal: as per Subjective / HPI Genitourinary: + as per Subjective / HPI Musculoskeletal: as per Subjective / HPI Integumentary: as per Subjective / HPI Neurologic: as per Subjective / HPI Psychiatric: as per Subjective / HPI Endocrine: as per Subjective / HPI Hematologic / Lymphatic: as per Subjective / HPI Allergy / Immunological: as per Subjective / HPI Physical Exam Constitutional: WD/WN, vitals as above Eyes: PERRL, conjunctivae normal, anicteric sclerae ENMT: external ear and nose normal, oropharynx normal Neck: trachea midline, no thyromegaly Respiratory: normal respiratory effort, lungs clear to auscultation Cardiovascular: RRR, no murmur, no edema Gastrointestinal (Abdomen): normal bowel sounds, soft, nontender, no hepatosplenomegaly Musculoskeletal: no cyanosis or clubbing, extremities motor strength 5/5 Skin: no rashes, warm and dry Neurologic: patellar DTR's 2+ bilat, sensation intact Psychiatric: A+Ox3, euthymic affect Genitourinary: no testicular masses, no penis abnormality Results & Data Vital Signs (Past 12 Hours) Vital Signs Temp Pulse Pulse Resp BP Pulse Ox O2 Del Method 09/29/24 15:12 36.7 C 80 18 149/76 H 97 Room Air 09/29/24 13:00 75 09/29/24 12:35 36.9 C 88 18 141/82 H 96 Room Air 09/29/24 08:56 36.7 C 74 18 147/82 H 97 Room Air 09/29/24 05:59 76
--- NOTE | 2024-09-29 15:49 | Hospitalist Progress Note ---
Date of Service September 29, 2024 Assessment & Plan (1) KATELYNN (acute kidney injury): (2) Hypothyroidism: (3) Severe thrombocytopenia: (4) Acute ITP: Plan Wicho Patel is a 73y/o M with PMHx significant for refractory ITP s/p splenectomy in 2012, HTN, HLD, hypothyroidism and chronic urinary retention who presented to the ED from [facility] after routine lab work performed at the [facility] on 09/28/24 revealed a critical platelet count of 5k. Acute ITP Severe thrombocytopenia Pt presented with platelets in 5000 range hematology was consulted, recommended/stated the following: - IVIG and Decadron initially -prednisone 60mg taper every 5 days Continue to monitor platelet levels Improving Acute Kidney Injury Cr 1.60 on admission. Appears baseline Cr around 1.1-1.4 per chart review. s/p NSS Avoid nephrotoxic agents when able Continue to monitor Hematuria Urinary retention reports history of frequent UTIs in the past Pt self caths Indwelling Pena while admitted Continue to monitor Leukocytosis UA negative Procalcitonin negative respiratory BioFire negative likely related to steroid use Continue to monitor Hypertension Continue lisinopril Hyperlipidemia Continue atorvastatin Hypothyroidism Continue levothyroxine Diet: regular, safe tray DVT Prophylaxis: SCDs/TEDs due to severe thrombocytopenia Dispo: Back to [facility] once medically stable Admission and Anticipated Discharge Date Admission Date: September 28, 2024 Subjective Pt was seen with guards at bedside Denied any bruising or bleeding Concerned about nasal congestion Review of Systems Review of Systems: All systems reviewed & are unremarkable except as noted in Subjective Physical Exam Physical Exam: General: Alert, oriented. No acute distress HEENT: NC/AT CV: RRR Resp: Breath sounds clear bilaterally, no increased effort of breathing Abdomen: Soft, nontender Extremities: No edema in lower extremities bilaterally. Results & Data Results & Data Vital Signs (Past 12 Hours) Vital Signs Temp Pulse Pulse Resp BP Pulse Ox O2 Del Method 09/29/24 15:12 36.7 C 80 18 149/76 H 97 Room Air 09/29/24 13:00 75 09/29/24 12:35 36.9 C 88 18 141/82 H 96 Room Air 09/29/24 08:56 36.7 C 74 18 147/82 H 97 Room Air 09/29/24 05:59 76 (2) Hypothyroidism Hypothyroidism type: unspecified Qualified Code(s): E03.9 - Hypothyroidism, unspecified
[2024-09-30 06:29] LABS: Hematocrit (blood only) 35.5 % (42.0-52.0); Hemoglobin 11.9 g/dl (14.0-18.0); Mean Corpuscular Hemoglobin 31.2 pg (25.0-34.0); Mean Corpuscular Hgb Conc 33.5 g/dL (32.0-36.0); Mean Corpuscular Volume 92.9 fL (80.0-100.0); Nucleated RBC # (auto) 0.19 K/uL (0.00-0.12); Nucleated RBC % (auto) 0.6 %; Platelet Count 55 K/uL (130-400); RDW Coefficient of Variation 14.6 % (11.5-14.5); RDW Standard Deviation 48.8 fL (36.4-46.3); Red Blood Count 3.82 M/uL (4.70-6.10); White Blood Count 29.56 K/ul (4.8-10.8)
[2024-09-30 06:46] LABS: Basophilic Stippling 1+; Basophils # (auto) 0.04 K/uL (0.00-0.20); Basophils % (auto) 0.1 %; Eosinophils # (auto) 0.01 K/uL (0.00-0.50); Immature Granulocytes # (auto) 0.37 K/uL (0.01-0.20); Immature Granulocytes % (auto) 1.3 %; Lymphocytes # (auto) 1.36 K/uL (1.20-3.40); Lymphocytes % (auto) 4.6 %; Monocytes # (auto) 0.74 K/uL (0.11-0.59); Monocytes % (auto) 2.5 %; Neutrophils # (auto) 27.04 K/uL (1.40-6.50); Neutrophils % (auto) 91.5 %; Polychromasia 1+
[2024-09-30 06:49] LABS: Albumin Globulin Ratio 0.7 (0.9-2); BUN Creatinine Ratio 23.3 (10-20); Bilirubin,Total 0.6 mg/dl (0.2-1.0); Calcium 8.3 mg/dl (8.6-10.3); Creatinine Clr Calc Pharmacy 77.4 ml/min; Globulin 4.6 gm/dl (2.5-4.0); Magnesium 2.3 mg/dl (1.7-2.4); Phosphorus 2.9 mg/dl (2.5-4.9); Potassium 4.4 mmol/L (3.5-5.1); Total Protein 7.6 gm/dl (6.0-8.3)
[2024-09-30] MEDS: predniSONE 20 MG TAB PO SCH (09:08)
--- NOTE | 2024-09-30 10:10 | Electrocardiogram Report ---
Test Reason : Blood Pressure : */* mmHG Vent. Rate : 76 BPM Atrial Rate : 76 BPM P-R Int : 138 ms QRS Dur : 92 ms QT Int : 372 ms P-R-T Axes : 33 -34 43 degrees QTcB Int : 418 ms Normal sinus rhythm Left axis deviation Moderate voltage criteria for LVH, may be normal variant ( R in aVL ) Septal infarct (cited on or before 29-Aug-2024) Abnormal ECG When compared with ECG of 24-Sep-2024 12:50, Fusion complexes are no longer Present Premature ventricular complexes are no longer Present T wave inversion no longer evident in Inferior leads Confirmed by Gerard Alejandre ([id number]) on 09/30/2024 10:10:18 AM Referred By: Mohit Matson Confirmed By: Gerard Alejandre
--- NOTE | 2024-09-30 12:35 | Hospitalist Progress Note ---
Date of Service September 30, 2024 Assessment & Plan (1) KATELYNN (acute kidney injury): (2) Hypothyroidism: (3) Severe thrombocytopenia: (4) Acute ITP: Plan Wicho Patel is a 73y/o M with PMHx significant for refractory ITP s/p splenectomy in 2012, HTN, HLD, hypothyroidism and chronic urinary retention who presented to the ED from [facility] after routine lab work performed at the [facility] on 09/28/24 revealed a critical platelet count of 5k. Acute ITP Severe thrombocytopenia Pt presented with platelets in 5000 range hematology was consulted, recommended/stated the following: - IVIG and Decadron initially -prednisone 60mg taper with decrease in dose every 5 days Continue to monitor platelet levels Improving Acute Kidney Injury Cr 1.60 on admission. Appears baseline Cr around 1.1-1.4 per chart review. s/p NSS Avoid nephrotoxic agents when able Continue to monitor Improving Hematuria Urinary retention reports history of frequent UTIs in the past Pt self caths Indwelling Pena while admitted Continue to monitor Leukocytosis UA negative Procalcitonin negative respiratory BioFire negative likely related to steroid use Continue to monitor Hypertension Continue lisinopril Hyperlipidemia Continue atorvastatin Hypothyroidism Continue levothyroxine Diet: regular, safe tray DVT Prophylaxis: SCDs/TEDs due to severe thrombocytopenia Dispo: Back to [facility] once medically stable Admission and Anticipated Discharge Date Admission Date: September 28, 2024 Subjective Pt was seen with guards at bedside Denied any bruising or bleeding Concerned about nasal congestion once more, would like nasal sprays Conerned about going back to the nursing home and not having his medications available causing return Review of Systems Review of Systems: All systems reviewed & are unremarkable except as noted in Subjective Physical Exam Physical Exam: General: Alert, oriented. No acute distress HEENT: NC/AT CV: RRR Resp: Breath sounds clear bilaterally, no increased effort of breathing Abdomen: Soft, nontender Extremities: No edema in lower extremities bilaterally. Results & Data Results & Data Vital Signs (Past 12 Hours) Vital Signs Temp Pulse Resp BP BP Pulse Ox O2 Del Method 09/30/24 12:20 36.8 C 72 19 157/82 H 98 Room Air 09/30/24 07:56 36.7 C 83 18 143/83 H 97 Room Air 09/30/24 04:33 36.3 C L 75 18 146/74 H 96 Room Air (2) Hypothyroidism Hypothyroidism type: unspecified Qualified Code(s): E03.9 - Hypothyroidism, unspecified
[2024-09-30] MEDS: FLUTICASONE PROPIONATE NA SPR 16 GM BTL SCH (21:05)
[2024-10-01 06:30] LABS: Albumin Globulin Ratio 0.7 (0.9-2); Albumin Level 2.9 gm/dl (3.4-5.0); BUN Creatinine Ratio 23.6 (10-20); Bilirubin,Total 0.5 mg/dl (0.2-1.0); Creatinine Clr Calc Pharmacy 63.1 ml/min; Globulin 4.2 gm/dl (2.5-4.0); Hemoglobin 12.1 g/dl (14.0-18.0); Magnesium 2.4 mg/dl (1.7-2.4); Mean Corpuscular Hemoglobin 31.2 pg (25.0-34.0); Mean Corpuscular Hgb Conc 33.6 g/dL (32.0-36.0); Mean Corpuscular Volume 92.8 fL (80.0-100.0); Nucleated RBC # (auto) 0.11 K/uL (0.00-0.12); Nucleated RBC % (auto) 0.4 %; Phosphorus 3.5 mg/dl (2.5-4.9); Platelet Count 47 K/uL (130-400); Potassium 4.3 mmol/L (3.5-5.1); RDW Coefficient of Variation 14.7 % (11.5-14.5); RDW Standard Deviation 48.8 fL (36.4-46.3); Red Blood Count 3.88 M/uL (4.70-6.10); Total Protein 7.1 gm/dl (6.0-8.3); White Blood Count 26.38 K/ul (4.8-10.8)
[2024-10-01 06:31] LABS: Basophils # (auto) 0.04 K/uL (0.00-0.20); Basophils % (auto) 0.2 %; Eosinophils # (auto) 0.07 K/uL (0.00-0.50); Eosinophils % (auto) 0.3 %; Immature Granulocytes % (auto) 1.1 %; Lymphocytes # (auto) 2.13 K/uL (1.20-3.40); Lymphocytes % (auto) 8.1 %; Monocytes # (auto) 1.46 K/uL (0.11-0.59); Monocytes % (auto) 5.5 %; Neutrophils # (auto) 22.38 K/uL (1.40-6.50); Neutrophils % (auto) 84.8 %; Pappenheimer Bodies 1+; Platelet Estimate Decreased (Normal); Polychromasia 1+
--- NOTE | 2024-10-01 13:00 | Hospitalist Progress Note ---
Date of Service October 01, 2024 Assessment & Plan (1) KATELYNN (acute kidney injury): (2) Hypothyroidism: (3) Severe thrombocytopenia: (4) Acute ITP: Plan Wicho Patel is a 73y/o M with PMHx significant for refractory ITP s/p splenectomy in 2012, HTN, HLD, hypothyroidism and chronic urinary retention who presented to the ED from [facility] after routine lab work performed at the [facility] on 09/28/24 revealed a critical platelet count of 5k. Acute ITP Severe thrombocytopenia Pt presented with platelets in 5000 range hematology was consulted, recommended/stated the following: - IVIG and Decadron initially -prednisone 60mg taper with decrease in dose every 5 days Continue to monitor platelet levels Platelets currently decreasing Acute Kidney Injury Cr 1.60 on admission. Appears baseline Cr around 1.1-1.4 per chart review. s/p NSS Avoid nephrotoxic agents when able Continue to monitor Improving Hematuria Urinary retention reports history of frequent UTIs in the past Pt self caths Indwelling Pena while admitted Continue to monitor Leukocytosis UA negative Procalcitonin negative respiratory BioFire negative likely related to steroid use Continue to monitor Hypertension Continue lisinopril Hyperlipidemia Continue atorvastatin Hypothyroidism Continue levothyroxine Diet: regular, safe tray DVT Prophylaxis: SCDs/TEDs due to severe thrombocytopenia Dispo: Back to [facility] once medically stable Admission and Anticipated Discharge Date Admission Date: September 28, 2024 Subjective Pt was seen sitting up in bed. No acute concerns. Platelets once more decreasing. Review of Systems Review of Systems: All systems reviewed & are unremarkable except as noted in Subjective Physical Exam Physical Exam: General: Alert, oriented. No acute distress Skin: bruising noted HEENT: NC/AT CV: RRR Resp: Breath sounds clear bilaterally, no increased effort of breathing Abdomen: Soft, nontender Extremities: No edema in lower extremities bilaterally. Results & Data Results & Data Vital Signs (Past 12 Hours) Vital Signs Temp Pulse Pulse Resp BP Pulse Ox O2 Del Method 10/01/24 12:06 36.7 C 80 18 153/79 H 98 Room Air 10/01/24 08:09 36.8 C 70 18 160/72 H 94 Room Air 10/01/24 06:37 67 10/01/24 03:44 36.5 C 70 18 145/86 H 95 Room Air (2) Hypothyroidism Hypothyroidism type: unspecified Qualified Code(s): E03.9 - Hypothyroidism, unspecified
[2024-10-01] MEDS: IMMUNE GLOBULIN (HUMAN) SOLN IV ONE (17:44)
[2024-10-02 07:24] LABS: Albumin Globulin Ratio 0.7 (0.9-2); Bilirubin,Total 0.7 mg/dl (0.2-1.0); Calcium 7.6 mg/dl (8.6-10.3); Creatinine Clr Calc Pharmacy 63.5 ml/min; Globulin 4.3 gm/dl (2.5-4.0); Magnesium 2.4 mg/dl (1.7-2.4); Phosphorus 2.9 mg/dl (2.5-4.9); Potassium 4.3 mmol/L (3.5-5.1); Total Protein 7.3 gm/dl (6.0-8.3)
[2024-10-02 07:47] LABS: Basophils # (auto) 0.05 K/uL (0.00-0.20); Basophils % (auto) 0.2 %; Eosinophils # (auto) 0.09 K/uL (0.00-0.50); Eosinophils % (auto) 0.4 %; Hematocrit (blood only) 38.1 % (42.0-52.0); Hemoglobin 12.7 g/dl (14.0-18.0); Immature Granulocytes # (auto) 0.43 K/uL (0.01-0.20); Immature Granulocytes % (auto) 1.8 %; Lymphocytes # (auto) 5.38 K/uL (1.20-3.40); Lymphocytes % (auto) 22.5 %; Mean Corpuscular Hemoglobin 31.3 pg (25.0-34.0); Mean Corpuscular Hgb Conc 33.3 g/dL (32.0-36.0); Mean Corpuscular Volume 93.8 fL (80.0-100.0); Monocytes % (auto) 11.7 %; Neutrophils # (auto) 15.15 K/uL (1.40-6.50); Neutrophils % (auto) 63.4 %; Nucleated RBC # (auto) 0.18 K/uL (0.00-0.12); Nucleated RBC % (auto) 0.8 %; Pappenheimer Bodies 1+; Platelet Count 33 K/uL (130-400); Polychromasia 1+; RDW Coefficient of Variation 14.9 % (11.5-14.5); RDW Standard Deviation 50.3 fL (36.4-46.3); Red Blood Count 4.06 M/uL (4.70-6.10)
--- NOTE | 2024-10-02 12:17 | Hospitalist Progress Note ---
Date of Service October 02, 2024 Assessment & Plan (1) KATELYNN (acute kidney injury): (2) Hypothyroidism: (3) Severe thrombocytopenia: (4) Acute ITP: Plan Wicho Patel is a 73y/o M with PMHx significant for refractory ITP s/p splenectomy in 2012, HTN, HLD, hypothyroidism and chronic urinary retention who presented to the ED from [facility] after routine lab work performed at the [facility] on 09/28/24 revealed a critical platelet count of 5k. Acute ITP Severe thrombocytopenia Pt presented with platelets in 5000 range hematology was consulted, recommended/stated the following: - IVIG and Decadron initially -prednisone 60mg taper with decrease in dose every 5 days Continue to monitor platelet levels Platelets currently decreasing 10/02- case discussed with jitterbug operator Dr Matson once more today. he states he will see the pt today and give further recommendations. Acute Kidney Injury Cr 1.60 on admission. Appears baseline Cr around 1.1-1.4 per chart review. s/p NSS Avoid nephrotoxic agents when able Continue to monitor Improving Hematuria Urinary retention reports history of frequent UTIs in the past Pt self caths Indwelling Pena while admitted Continue to monitor Leukocytosis UA negative Procalcitonin negative respiratory BioFire negative likely related to steroid use Continue to monitor Hypertension Continue lisinopril Hyperlipidemia Continue atorvastatin Hypothyroidism Continue levothyroxine Diet: regular, safe tray DVT Prophylaxis: SCDs/TEDs due to severe thrombocytopenia Dispo: Back to [facility] once medically stable Admission and Anticipated Discharge Date Admission Date: September 28, 2024 Subjective Pt was seen sitting up in bed. No acute concerns. Platelets once more decreasing. Anxious for discharge Hematology to reevaluate today Review of Systems Review of Systems: All systems reviewed & are unremarkable except as noted in Subjective Physical Exam Physical Exam: General: Alert, oriented. No acute distress Skin: bruising noted HEENT: NC/AT CV: RRR Resp: Breath sounds clear bilaterally, no increased effort of breathing Abdomen: Soft, nontender Extremities: No edema in lower extremities bilaterally. Results & Data Results & Data Vital Signs (Past 12 Hours) Vital Signs Temp Pulse Resp BP Pulse Ox O2 Del Method 10/02/24 11:53 36.7 C 66 18 143/87 H 95 Room Air 10/02/24 08:00 36.7 C 70 18 146/83 H 97 Room Air 10/02/24 02:56 36.5 C 63 18 131/71 95 Room Air (2) Hypothyroidism Hypothyroidism type: unspecified Qualified Code(s): E03.9 - Hypothyroidism, unspecified
--- NOTE | 2024-10-02 17:33 | Hematology/Oncology Prog Note ---
Date of Service October 02, 2024 Assessment & Plan (1) Acute ITP: Plan: Given the refractoriness of ITP have written orders for avatrombopag to be initiated on an outpatient basis. Will fax the prescription to the [place] [facility] for the medication to be initiated when he is discharged. He needs to be discharged on a prednisone taper as previously outlined. If his platelet count is declining then can give another dose of IVIG to prepare him for discharge. Plan Hematology will continue to follow the patient make appropriate recommendations. Admission and Anticipated Discharge Date Admission Date: September 28, 2024 Subjective Clinically the patient continues to do the same, no active bleeding at this point. However his platelet count is declining while he is in the hospital. Reports no bleeding or bruising. No fever chills or night sweats. Review of Systems Review of Systems: All systems reviewed & are unremarkable except as noted in HPI & below Constitutional: as per Subjective / HPI Eyes: as per Subjective / HPI Ear, Nose, Mouth, Throat: as per Subjective / HPI Respiratory: as per Subjective / HPI Cardiovascular: as per Subjective / HPI Gastrointestinal: as per Subjective / HPI Genitourinary: + as per Subjective / HPI Musculoskeletal: as per Subjective / HPI Integumentary: as per Subjective / HPI Neurologic: as per Subjective / HPI Psychiatric: as per Subjective / HPI Endocrine: as per Subjective / HPI Hematologic / Lymphatic: as per Subjective / HPI Allergy / Immunological: as per Subjective / HPI Physical Exam Constitutional: WD/WN, vitals as above Eyes: PERRL, conjunctivae normal, anicteric sclerae ENMT: external ear and nose normal, oropharynx normal Neck: trachea midline, no thyromegaly Respiratory: normal respiratory effort, lungs clear to auscultation Cardiovascular: RRR, no murmur, no edema Gastrointestinal (Abdomen): normal bowel sounds, soft, nontender, no hepatosplenomegaly Musculoskeletal: no cyanosis or clubbing, extremities motor strength 5/5 Skin: no rashes, warm and dry Neurologic: patellar DTR's 2+ bilat, sensation intact Psychiatric: A+Ox3, euthymic affect Lymphatic: no cervical or axillary lymphadenopathy Results & Data Vital Signs (Past 12 Hours) Vital Signs Temp Pulse Resp BP Pulse Ox O2 Del Method 10/02/24 16:00 36.7 C 69 20 136/76 96 Room Air 10/02/24 11:53 36.7 C 66 18 143/87 H 95 Room Air 10/02/24 08:00 36.7 C 70 18 146/83 H 97 Room Air
[2024-10-03 09:08] LABS: Hematocrit (blood only) 41.9 % (42.0-52.0); Hemoglobin 13.9 g/dl (14.0-18.0); Mean Corpuscular Hemoglobin 30.5 pg (25.0-34.0); Mean Corpuscular Hgb Conc 33.2 g/dL (32.0-36.0); Mean Corpuscular Volume 92.1 fL (80.0-100.0); Platelet Count 32 K/uL (130-400); Red Blood Count 4.55 M/uL (4.70-6.10)
[2024-10-03 09:11] LABS: White Blood Count 23.98 K/ul (4.8-10.8)
[2024-10-03 09:33] LABS: Basophils # (auto) 0.05 K/uL (0.00-0.20); Basophils % (auto) 0.2 %; Howell-Jolly Bodies Occasional; Immature Granulocytes # (auto) 0.53 K/uL (0.01-0.20); Immature Granulocytes % (auto) 2.2 %; Lymphocytes # (auto) 5.67 K/uL (1.20-3.40); Lymphocytes % (auto) 23.6 %; Monocytes # (auto) 1.94 K/uL (0.11-0.59); Monocytes % (auto) 8.1 %; Neutrophils # (auto) 15.79 K/uL (1.40-6.50); Neutrophils % (auto) 65.9 %; Nucleated RBC # (auto) 0.42 K/uL (0.00-0.12); Nucleated RBC % (auto) 1.8 %; Polychromasia 1+
[2024-10-03 10:46] VITALS: PULSE 68; RESP 18; TEMP 97.5; O2SAT 95
--- NOTE | 2024-10-03 12:46 | Discharge Summary ---
Date of Service October 03, 2024 Admission HPI Per Admitting Provider Pt seen and examined by me, care coordinated with DEONTE as above, pls refer to her note for further detail. 73y/o M with med hx significant for refractory ITP s/p splenectomy in 2012, HTN, HLD, hypothyroidism and chronic urinary retention who presents after lab work at the [facility] today revealed a critical platelet count of 5k. Patient recently hospitalized from 09/24/24 to 09/26/24 with acute ITP and severe thrombocytopenia. Pt follows w/learning technologies specialist, Dr. Matson. During last admission was also started on rituximab. Pt denies any signs or symptoms of bleeding, also denies any fever, chills, dysuria, cough, chest pain or shortness of breath. Pt is alert oriented, answers appropriately, lungs are clear to auscultation, heart sounds regular, abdomen soft, nontender , + ventral hernia, moves extremit ies. ED in contact with Dr. Matson for his recommendations. Plan to start IVIG at 1 mg/kg and 40mg IV Decadron daily. Hematology consulted. MD Noemi Admission Exam Per Admitting Provider GENERAL: NAD, non-toxic. Wearing glasses. EYE EXAM: Normal conjunctiva. PERRL, no anisocoria and EOM's grossly intact w/o pain. OROPHARYNX: Moist mucus membranes, grossly normal dentition. NECK: Trachea midline, no stridor. Supple, no nuchal rigidity, no adenopathy, non-tender. No signs of meningismus. FROM of the neck with good chin to chest and neck extension. LUNGS: Clear to auscultation. Normal chest wall mechanics. HEART: NSR, no MRG. ABDOMEN: Abdomen soft, non-tender, reducible umbilical hernia, no masses, no rebound or guarding. BACK: No CVA TTP. SKIN: No scattered bruising on the upper extremities. UPPER EXTREMITIES: Upper extremities are grossly normal. Scant bruise noted at the back of the base of the left thumb. Bruising also noted to the right forearm. LOWER EXTREMITIES: Grossly normal, no edema. NEURO EXAM: A&O x3, cranial nerves II-XII grossly intact, normal speech, moves all 4 extremities. Principal Diagnosis Severe thrombocytopenia Acute ITP Discharge Exam Constitutional: WD/WN, vitals as above, NAD, sitting up in bed, pleasant, conversing easily Respiratory: normal respiratory effort, lungs clear to auscultation, no wheeze, rales, rhonchi. Normal insp/exp effort, no accessory muscle use Cardiovascular: RRR, no murmur, no edema Vessels: no JVD or carotid bruit Chest: normal inspection of chest Abdomen: normal bowel sounds, soft, nontender, no hepatosplenomegaly Musculoskeletal: no cyanosis or clubbing, extremities motor strength 5/5 Skin: no rashes, warm and dry normal turgor Neurologic: PERRL, EOMI, accommodation nl, no face palsy, no dysarthria CN's II- XI intact bilaterally and moves all extremities Psychiatric: A+Ox3, euthymic affect Discharge Data Allergies Allergy/AdvReac Type Severity Reaction Status Date / Time Penicillins Allergy Mild Rash Verified 08/22/24 17:20 heparin Allergy Unknown Verified 08/22/24 17:18 Consultations 09/28/24 12:33 ED Decision to Admit Stat 09/28/24 12:47 Consult Hematology Routine Hospital Course (1) KATELYNN (acute kidney injury): (2) Hypothyroidism: (3) Severe thrombocytopenia: (4) Acute ITP: Rosa Patel is a 73y/o M with PMHx significant for refractory ITP s/p splenectomy in 2012, HTN, HLD, hypothyroidism and chronic urinary retention who presented to the ED from [facility] after routine lab work performed at the [facility] on 09/28/24 revealed a critical platelet count of 5k. Acute ITP Severe thrombocytopenia Pt presented with platelets in 5000 range Hematology was consulted; Was started on IVIG and Decadron with improvement in platelet count. Hematology was consulted; given the refractoriness of ITP; orders for Eltrombopag to be initiated as outpatient. Patient was discharged on tapering dose of steroid. Discussion was done with provider at the present regarding the plan going forward. Acute Kidney Injury Cr 1.60 on admission. Appears baseline Cr around 1.1-1.4 per chart review. Improved with IV hydration Please note the above document was generated using voice recognition software. It may contain grammatical, syntax or spelling errors. Any formal questions or concerns about the content, text or information contained within the body of this dictation should be directly addressed to the provider for clarification Total Time Total Time Spent Total Time Spent (In Minutes): 35 Total Time Includes: Examination of the Patient, Discharge Planning, Medication Reconciliation, Communication With Other Providers and Other Discharge Plan Discharge Items [facility] Disposition: [facility] Reason For Visit: ACUTE ITP, SEVERE THROMBOCYTOSIS Discharge Diagnosis: Acute ITP Severe thrombocytopenia Activity: Resume your previous activity Non-emergency contact: Primary Care Provider Call non-emergency contact if: you have any medication questions and your symptoms worsen Follow-up/Referrals: Akbar JORDAN [Primary Care Provider] - Diet: Regular Addtl Attending Provider Instructions: You were admitted to the hospital due to low platelets. You were evaluated by hematology during the hospitalization who recommended prednisone taper and close follow-up. The prednisone taper is as follows; 60 mg daily for 2 days 50 mg daily for 5 days 40 mg daily for 5 days 30 mg daily for 5 days 20 mg daily for 5 days 10 mg daily for 5 days Pending Studies at Discharge: No Stand-Alone Forms: My [facility] Skilled Items Patient informed of condition?: Yes Discharge Level of Care: Other Communicable Disease: No Discharge Prognosis: Stable Lines: None Urinary Catheter: No Medications and DC Order Prescriptions: New prednisone 10 mg tablet See Taper PO DAILY Qty: 90 0RF Taper: Taper, Blank 60 mg DAILY for 2 Days 50 mg DAILY for 5 Days 40 mg DAILY for 5 Days 30 mg DAILY for 5 Days 20 mg DAILY for 5 Days 10 mg DAILY for 5 Days Continued atorvastatin 20 mg Tablet 20 mg PO DAILY lisinopril 20 mg Tablet 20 mg PO DAILY levothyroxine 50 mcg Tablet 50 mcg PO DAILY Biotene Moisturizing Mouth [place],Non-Aerosol 2 spray MUCOUS MEMBRANE TID PRN (Reason: Dry Mouth) cyanocobalamin (vitamin B-12) [Vitamin B-12] 1,000 mcg Tablet 1,000 mcg PO DAILY Discontinued sulfamethoxazole-trimethoprim [Bactrim DS] 800-160 mg tablet 1 tab PO BID Qty: 10 0RF Rx Instructions: Start Date 09/26/24 - End Date 10/01/24 Discharge Orders: Discharge Order (Routine); Ordered 10/03/24 Ordered By: Sonu Arnold Admission Data Admit Date/Time: 09/28/24 13:11 Attending Provider: Sonu Arnold Admyvette Provider: Darian Franklin Primary Care Provider: Akbar JORDAN Other Providers: Darian Franklin; Mohit Matson
[2024-10-03 12:54] VITALS: BP 146/74
== END 2024-10-03 13:44 | DRG 813 ==
LOC: ED 10:38 → 2E 13:11 → SUATTDRO 13:11 → 2E 14:13

== ENCOUNTER 2024-10-08 12:30 | Inpatient (IN) ==
[2024-10-08 14:26] LABS: Hematocrit (blood only) 37.6 % (42.0-52.0); Hemoglobin 12.4 g/dl (14.0-18.0); Mean Corpuscular Hemoglobin 31.1 pg (25.0-34.0); Mean Corpuscular Volume 94.2 fL (80.0-100.0); RDW Coefficient of Variation 15.5 % (11.5-14.5); RDW Standard Deviation 51.9 fL (36.4-46.3); Red Blood Count 3.99 M/uL (4.70-6.10)
[2024-10-08 14:28] LABS: Albumin Globulin Ratio 1.1 (0.9-2); Albumin Level 3.6 gm/dl (3.4-5.0); BUN Creatinine Ratio 16.8 (10-20); Bilirubin,Total 0.6 mg/dl (0.2-1.0); Calcium 8.8 mg/dl (8.6-10.3); Creatinine Clr Calc Pharmacy 54.5 ml/min; Globulin 3.2 gm/dl (2.5-4.0); Potassium 4.9 mmol/L (3.5-5.1); Total Protein 6.8 gm/dl (6.0-8.3)
[2024-10-08 14:36] LABS: Platelet Count 0 K/uL (130-400)
[2024-10-08 14:47] LABS: Basophils # (auto) 0.03 K/uL (0.00-0.20); Basophils % (auto) 0.2 %; Eosinophils # (auto) 0.01 K/uL (0.00-0.50); Eosinophils % (auto) 0.1 %; Immature Granulocytes % (auto) 1.6 %; Lymphocytes # (auto) 0.79 K/uL (1.20-3.40); Lymphocytes % (auto) 4.3 %; Monocytes % (auto) 1.6 %; Neutrophils # (auto) 16.77 K/uL (1.40-6.50); Neutrophils % (auto) 92.2 %; Nucleated RBC # (auto) 0.63 K/uL (0.00-0.12); Nucleated RBC % (auto) 3.5 %; Polychromasia 1+
--- NOTE | 2024-10-08 16:05 | Emergency Department Note ---
Impression & Plan Severe thrombocytopenia, Acute ITP ED Provider Note Provider: Rodney Rabago MD CHIEF COMPLAINT: Low platelets HISTORY OF PRESENT ILLNESS: Patient is a 73-year-old gentleman history of ITP s/p splenectomy, hypertension, thyroidism, and urine retention presenting today after outpatient blood work showed an outpatient critically low platelet count of 0 then repeated at 1 today. Was admitted twice in the last several weeks here and got IVIG and steroids. Is currently on prednisone taper. Has been started on immunosuppression. Outpatient blood work today showed without significant new anemia and some chronic leukocytosis compared to previous. Has been getting prednisone but no other immunosuppression due to approval process at the present by his report. Denies any headache chest pain or abdominal pain. Does report occasionally a trace amount of bleeding from the right nose but minimal. Denies any significant petechiae or rash. States he does not really have any symptoms but while he is been taking the prednisone just never knows what his platelet count will be. States the steroid is making him eat quite a bit is not having significant bloating or swelling. PAST MEDICAL HISTORY: As noted above MEDICATIONS: Reviewed medications and has been on prednisone SOCIAL HISTORY: Inmate at the [facility] PHYSICAL EXAM: GENERAL: alert and oriented in no acute distress on stretcher guards at bedside, left handcuffed to the stretcher. Head: normocephalic and atraumatic EYES: No injection, discharge or icterus. EOMI. NECK: Trachea midline. Good range of motion ENT: Mucous membranes pink and moist. LUNGS: Airway patent. No retractions or tachypnea HEART: Regular rate and rhythm. No chest wall tenderness ABDOMEN: Soft and non-tender, without guarding or rebound. SKIN: Acyanotic, warm, dry with a few scattered bruises he reports 1 prior blood draws in particular the right upper extremity. No significant petechiae noted EXTREMITIES: Without swelling, tenderness or deformity moving all extremities. NEUROLOGICAL: No focal deficits moving all extremities. No aphasia. No facial droop or slurred speech. EK beats per minute. Normal sinus rhythm left axis. No PVC or PAC. A bit of baseline artifact but no acute ST segment elevation or depression appreciated. QTc 4 2 CONTINUOUS CARDIAC MONITORING: was ordered and showed a heart rate of 60s to 70s bpm in normal sinus rhythm Patient's laboratory studies reviewed. Differential includes Infection, dehydration, metabolic abnormality, hypo/hyperglycemia, electrolyte disturbance, anemia, hypoxia, cardiac sources, intracerebral event, toxicologic, neurologic, as well as other pathologies. IMPRESSION/MEDICAL DECISION MAKING: Repeat blood was obtained here compared to blood work from this morning as well as blood work from this past week. Improving leukocytosis. Minimal anemia but not severely off prior. 0 platelets on repeat here. Chemistries fairly similar to previous had significant abnormality and improving ALT elevation of 78 today. Bilirubin not elevated. He has been following with the cancer center. Has not gone additional immunosuppression beyond the prednisone due to approved p.o. at the [facility] by his report. Maybe a trace nosebleed but no other significant headache or neurological symptoms. Denies any significant chest pain abdominal pain to me. No significant respiratory problems reported to me. Some scattered bruising the right upper extremity from prior blood draws but no evidence compartment syndrome. Did reach out to the oncology/hematology center to discuss the patient has been following with them. Dr. Matson recommends restarting IVIG and dexamethasone at this time. I ordered this. Obviously need to work out the difficulties with him obtaining the appropriate medications at the correctional institution. Patient agreed with this plan and again no evidence of active bleeding at this time. Discussed with the hospitalist team here. DIAGNOSIS: ITP-acute thrombocytopenia DISPOSITION: Hospitalist will evaluate Patient was agreeable with this plan. Critical Care I have personally spent 34 minutes of critical care time in the direct management of this patient. This includes bedside care, interpretation of diagnostic studies, and testing, discussion with consultants, patient, and other required patient management activities. These 34 minutes is in excess of all separately billable procedures. Past Med/Surg History Problem List KATELYNN (acute kidney injury) Hypothyroidism Urinary tract infection associated with catheterization of urinary tract Leukocytosis (Acute) Thrombocytopenia (Acute) Petechial rash (Acute) Petechiae Severe thrombocytopenia (Acute) Acute ITP (Acute) Medical History Urinary retention HLD (hyperlipidemia) HTN (hypertension) Surgical History H/O splenectomy Social History Smoking Status: Never smoker Tobacco Type: Declines Second Hand Exposure: No; Do You Dip or Chew Tobacco: No; Hx Alcohol Use: No Hx Substance Use: No Preferred Language: Cymraes Communication Ability: Unable Gas Charger Required: No Beliefs That Will Affect Care: None Current Living Situation: Other Current Living Situation Comment: [facility] Feels Safe at Home: Yes Assistive Devices: Glasses Allergies Allergies Allergy/AdvReac Type Severity Reaction Status Date / Time Penicillins Allergy Mild Rash Verified 10/08/24 16:48 heparin Allergy Unknown Verified 10/08/24 16:48 Home Meds Home Medications Medication Instructions Recorded Confirmed atorvastatin 20 mg tablet 20 mg PO DAILY 07/25/24 10/08/24 lisinopril 20 mg tablet 20 mg PO DAILY 07/25/24 10/08/24 levothyroxine 50 mcg tablet 50 mcg PO DAILY 08/22/24 10/08/24 saliva stimulant comb. no.3 2 spray mucous membrane TID PRN 09/24/24 10/08/24 (Biotene Moisturizing Mouth Dry Mouth mucosal spray) cyanocobalamin (vitamin B-12) 1,000 mcg PO DAILY 09/28/24 10/08/24 1,000 mcg tablet (Vitamin B-12) eltrombopag olamine 50 mg tablet 50 mg PO DAILY 10/08/24 10/08/24 (Promacta) Previous Rx's Medication Instructions Recorded prednisone 10 mg tablet See Taper PO DAILY #90 tabs 10/03/24 Results & Data (ED) Vital Signs Vital Signs - 24 hr 10/08/24 12:35 10/08/24 16:00 10/08/24 16:18 Temperature 36.7 C Temperature Source Temporal Artery Scan Pulse Rate 92 H 63 Pulse Rate [Apical] 69 Pulse Rate from SpO2 Sensor Pulse Rhythm Regular Pulse Rhythm [Apical] Regular Pulse Strength Normal Respiratory Rate 20 21 Respiratory Effort / Characteristics Non-Labored Spontaneous Non-Labored Respiratory Depth Normal Normal Respiratory Pattern Regular Blood Pressure 152/78 H Blood Pressure [Right Arm] 160/87 H Blood Pressure Mean 102 Blood Pressure Mean [Right Arm] 111 Pulse Oximetry 96 98 Oxygen Delivery Method Room Air Room Air Sepsis Recent Fever Within 48 Hours No Sepsis New/Unexplained Change in Mental Status N/A Sepsis Action Taken by Nursing No Action Required 10/08/24 17:15 Temperature Temperature Source Pulse Rate 68 Pulse Rate [Apical] Pulse Rate from SpO2 Sensor 65 Pulse Rhythm Pulse Rhythm [Apical] Pulse Strength Respiratory Rate 19 Respiratory Effort / Characteristics Respiratory Depth Respiratory Pattern Blood Pressure 145/95 H Blood Pressure [Right Arm] Blood Pressure Mean 111 Blood Pressure Mean [Right Arm] Pulse Oximetry 98 Oxygen Delivery Method Sepsis Recent Fever Within 48 Hours Sepsis New/Unexplained Change in Mental Status Sepsis Action Taken by Nursing Laboratory Data 10/08/24 13:50 10/08/24 13:50 Lab Results 10/08/24 10/08/24 Range/Units 13:50 16:58 WBC 18.20 H (4.8-10.8) K/ul RBC 3.99 L (4.70-6.10) M/uL Hgb 12.4 L (14.0-18.0) g/dl Hct 37.6 L (42.0-52.0) % MCV 94.2 (80.0-100.0) fL MCH 31.1 (25.0-34.0) pg MCHC 33.0 (32.0-36.0) g/dL RDW Std Deviation 51.9 H (36.4-46.3) fL RDW Coeff of Debbie 15.5 H (11.5-14.5) % Plt Count 0 L* D (130-400) K/uL Immature Gran % (Auto) 1.6 % Neut % (Auto) 92.2 % Lymph % (Auto) 4.3 % Pike % (Auto) 1.6 % Eos % (Auto) 0.1 % Baso % (Auto) 0.2 % Neut # (Auto) 16.77 H (1.40-6.50) K/uL Lymph # (Auto) 0.79 L (1.20-3.40) K/uL Pike # (Auto) 0.30 (0.11-0.59) K/uL Eos # (Auto) 0.01 (0.00-0.50) K/uL Baso # (Auto) 0.03 (0.00-0.20) K/uL Immature Gran # (Auto) 0.30 H (0.01-0.20) K/uL Absolute Nucleated RBC 0.63 H (0.00-0.12) K/uL Nucleated RBC % (auto) 3.5 % Polychromasia 1+ Sodium 137 (136-145) mmol/L Potassium 4.9 (3.5-5.1) mmol/L Chloride 105 (98-107) mmol/L Carbon Dioxide 24 (21-32) mmol/L Anion Gap 8 (3-11) BUN 25 H (6-23) mg/dl Creatinine 1.49 H (0.6-1.4) mg/dl Est Cr Clr Drug Dosing 54.5 ml/min eGFR 49.25 BUN/Creatinine Ratio 16.8 (10-20) Glucose 248 H (70-99(Fasting)) mg/dl Calcium 8.8 (8.6-10.3) mg/dl Total Bilirubin 0.6 (0.2-1.0) mg/dl AST 29 (13-39) U/L ALT 78 H (7-52) U/L Alkaline Phosphatase 48 (34-104) U/L Total Protein 6.8 (6.0-8.3) gm/dl Albumin 3.6 (3.4-5.0) gm/dl Globulin 3.2 (2.5-4.0) gm/dl Albumin/Globulin Ratio 1.1 (0.9-2) Urine Color Yellow Urine Appearance Clear (Clear) Urine pH 5.0 (4.5-7.5) Ur Specific [place] 1.025 (1.000-1.030) Urine Protein Trace H (Negative) Urine Glucose (UA) 2+ H (Negative) Urine Ketones Negative (Negative) Urine Blood Trace H (Negative) Urine Nitrite Negative (Negative) Urine Bilirubin Negative (Negative) Urine Urobilinogen Negative (Negative) Ur Leukocyte Esterase Negative (Negative) Urine WBC (Auto) 0-5 (0-5) /hpf Urine RBC (Auto) 0-2 (0-2) /hpf U Hyaline Cast (Auto) 0-2 (0-2) /lpf U Epithel Cells (Auto) 0-2 (0-2) /hpf Urine Bacteria (Auto) None Seen (None Seen) Administered Medications Immune Globulin (Octagam 10%) 200 mls @ 52.332 mls/hr IV TODAY@1800,1900,2000,2100 [facility]; Protocol Stop: 10/09/24 00:50 Last Admin: 10/08/24 20:42 Dose: 1 mg/kg/min, 52.3 mls/hr Documented By: EM Sodium Chloride (Nss) 1,000 mls @ 80 mls/hr IV .[id number] JANIS Stop: 10/09/24 06:44 Last Admin: 10/08/24 21:34 Dose: 80 mls/hr Documented By: JONATHAN Lisinopril (Lisinopril 20 Mg Tab) 20 mg PO DAILY JANIS Stop: 11/07/24 17:44 Last Admin: 10/08/24 20:31 Dose: 20 mg Documented By: JONATHAN Discontinued Medications Dexamethasone 40 mg/ Dextrose 35 mls @ 50 mls/hr IV NOW STA Stop: 10/08/24 17:15 Last Infusion: 10/08/24 18:43 Dose: Infused Documented By: Admin: 10/08/24 18:00 Dose: 50 mls/hr Documented By: AUGUSTA Immune Globulin (Octagam 10%) 50 mls @ 52.332 mls/hr IV TODAY@1700 JANIS; Protocol Stop: 10/08/24 17:58 Last Titration: 10/08/24 19:30 Dose: Infused Documented By: Admin: 10/08/24 18:40 Dose: 1 mg/kg/min, 52.3 mls/hr Documented By: AUGUSTA Immune Globulin (Immune Globulin (Human) Soln ) 1 each IV NOW ONE Stop: 10/08/24 16:31 Last Admin: 10/08/24 19:53 Dose: Not Given Documented By: AZUCENA Discharge Plan Visit Data Chief Complaint: Abnormal Labs/Diagnostic Testing Stated Complaint: CRITICAL LAB PATLET COUNT 1 ED Provider: Rodney Rabago Discharge Problem: Severe thrombocytopenia, Acute ITP Patient Disposition: Admitted As Inpatient Discharge Instructions Interventions: ED Discharge Assessment Last Done: 10/08/24 19:50
[2024-10-08] MEDS ORDERED: dexAMETHasone**PF** 10 MG/ML VIAL IV ONE (16:30)
[2024-10-08 17:13] LABS: Appearance Urine Clear (Clear); Bacteria Urine Automated None Seen (None Seen); Bilirubin Urine Negative (Negative); Blood Urine Trace (Negative); Cast Urine Automated 0-2 /lpf (0-2); Color Urine Yellow; Epithelial Cell Urine Auto 0-2 /hpf (0-2); Glucose Urine UA 2+ (Negative); Ketones Urine Negative (Negative); Leukocyte Esterase Urine Negative (Negative); Nitrite Urine Negative (Negative); Protein Urine Trace (Negative); RBC Urine Automated 0-2 /hpf (0-2); Specific Gravity Urine 1.025 (1.000-1.030); Urobilinogen Urine Negative (Negative); WBC Urine Automated 0-5 /hpf (0-5)
--- NOTE | 2024-10-08 17:35 | History & Physical Report ---
<Statement entered by Gian Ward, - 10/08/24 19:12> I have seen and examined the patient and have discussed the case with the advance practice provider. I have reviewed the advanced practitioner's documentation, and I agree with, and take responsibility for that plan of care. Patient seen with CABRERA in ED. Nontoxic in appearance. Reports that he has been taking the prednisone. Patient is failing oral steroids for management of his thrombocytopenia. At this point have been unable to start Eltrombopag as outpatient as well as plan to manage his severe ITP. Patient has been on rituximab previously. Plan of care with IVIG and dexamethasone here in the hospital. Will need to coordinate a viable plan for treatment of his ITP outpatient prior to discharge. I spent a total of 18 minutes coordinating, documenting, and providing care for this patient excluding time spent by another provider/QHP. Date of Service October 08, 2024 Assessment & Plan (1) Acute ITP: (2) Severe thrombocytopenia: Plan: Wicho Patel is a 73y/o M with PMHx significant for refractory ITP s/p splenectomy in 2012, HTN, HLD, hypothyroidism and chronic urinary retention who presented to the ED from [facility] after routine lab work performed at the alf today revealed a critical platelet count of 1k. Follows with Dr. Matson from [facility]. Patient was recently hospitalized under our service from 09/28/24 to 10/03/24 with severe thrombocytopenia in the setting of refractory ITP. Treated with IVIG and IV Decadron with improvement of his platelet count to 32k on discharge. Was also started on a prednisone taper course. Given the refractoriness of his ITP, Dr. aMtson also gave written orders for eltrombopag (Promacta) to be initiated on an outpatient basis at [facility]. Per discussion with the patient today, he has yet to start the Promacta as the alf could not obtain this medication. He does however endorse taking the prednisone as prescribed. ED labs personally reviewed. Platelet count 0k on admission. Suspect leukocytosis 2/2 steroid use. ED provider discussed case with Dr. Matson. Starting IVIG @ 1mg/kg and IV Decadron 40mg daily for now. Appreciate formal hematology consult. Complete bedrest. Fall precautions. Continue to monitor platelet count and for any signs/symptoms of bleeding. (3) KATELYNN (acute kidney injury): Plan: Cr 1.49 on admission. Appears baseline Cr around 1.1-1.4 per chart review. Will give 1L NSS now. Avoid nephrotoxic agents when able. Monitor renal function closely and renally dose medications when able. 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 Place Pena catheter while admitted. UA reviewed and negative for infection. Bladder scan PRN. Of note, it is medically necessary for patient to have 3 straight caths available per day at [facility] - will create UTIs if not available. (5) HTN (hypertension): Plan: BP slightly elevated on admission. Did not receive dose of lisinopril this morning therefore will give dose now. Continue routine BP checks. (6) HLD (hyperlipidemia): Plan: Chronic, stable. Continue atorvastatin. (7) Hypothyroidism: Plan: Chronic, stable. Continue levothyroxine. DVT Prophylaxis: SCDs/TEDs only. Holding chemical AC due to spontaneous bleeding risk ISO severe thrombocytopenia. Code Status: FULL CODE PCP: NIKKI [place] Disposition: Admit to Med/Surg for further inpatient evaluation and management. Patient seen in collaboration with Dr. Ward. Please see addendum. I spent a total of 50 minutes coordinating, documenting, and providing care for this patient excluding time spent in the performance of separately billed services or time spent by another provider/QHP. This included personally reviewing all current laboratories and imaging studies, medical reconciliation, outpatient chart review and discussion with specialists. This chart was completed in part utilizing Speech Voice Recognition Software. Grammatical errors, random word insertions, pronoun errors, and incomplete sentences are an occasional consequence of this system due to software limitations, ambient noise, and hardware issues. Any formal questions or concerns about the content, text, or information contained within the body of this dictation should be directly addressed to the provider for clarification. History of Present Illness Chief Complaint: Critical Platelet Count, H/O Refractory ITP Primary Care Provider: [facility] Wicho Patel is a 73y/o M with PMHx significant for refractory ITP s/p splenectomy in 2012, HTN, HLD, hypothyroidism and chronic urinary retention who presented to the ED from [facility] after routine lab work performed at the alf today revealed a critical platelet count of 1k. History obtained from the patient, discussion with ED provider, documentation provided by [facility] and associated chart review. Follows with Dr. Matson from [facility]. Patient was recently hospitalized under our service from 09/28/24 to 10/03/24 with severe thrombocytopenia in the setting of refractory ITP. Treated with IVIG and IV Decadron with improvement of his platelet count to 32k on discharge. Was also started on a prednisone taper course. Given the refractoriness of his ITP, Dr. Matson also gave written orders for eltrombopag (Promacta) to be initiated on an outpatient basis at [facility]. Per discussion with the patient today, he has yet to start the Promacta as the alf could not obtain this medication. He does however endorse taking the prednisone as prescribed. He was notified by staff at the alf today that his routine lab work drawn this morning revealed a platelet count of 1k - therefore prompting his arrival to the ED for evaluation. Platelet count 0k in the ED. Did have a very mild nosebleed this morning out of the right nare however he reports this resolved within minutes and has not recurred. No recent trauma or falls. Denies any hematuria or hematochezia/melena. Has issues with chronic urinary retention requiring routine self-catheterization at the alf. He requested a Pena catheter to be placed in the ED. UA reviewed and unremarkable. Leukocytosis noted on ED labs however this is likely related to his tapered steroid use. No reported fever, chills, dysuria, cough, chest pain or SOB. Hgb stable at 12.4. Baseline Cr around 1.1-1.4 per chart review. Cr slightly bumped at 1.49 today, was previously 1.26 on 10/02/24. Patient endorses good appetite and hydration level. Did not take any of his medications today, including the prednisone. ED provider discussed his case with Dr. Matson - recommendation to begin IVIG and IV Decadron at this time. Allergies Allergy/AdvReac Type Severity Reaction Status Date / Time Penicillins Allergy Mild Rash Verified 10/08/24 16:48 heparin Allergy Unknown Verified 10/08/24 16:48 Home Medications Medication Instructions Recorded Confirmed Type atorvastatin 20 mg tablet 20 mg PO DAILY 07/25/24 10/08/24 History lisinopril 20 mg tablet 20 mg PO DAILY 07/25/24 10/08/24 History levothyroxine 50 mcg tablet 50 mcg PO DAILY 08/22/24 10/08/24 History saliva stimulant comb. no.3 2 spray mucous membrane TID PRN 09/24/24 10/08/24 History (Biotene Moisturizing Mouth Dry Mouth mucosal spray) cyanocobalamin (vitamin B-12) 1,000 mcg PO DAILY 09/28/24 10/08/24 History 1,000 mcg tablet (Vitamin B-12) prednisone 10 mg tablet See Taper PO DAILY #90 tabs 10/03/24 10/08/24 Rx eltrombopag olamine 50 mg tablet 50 mg PO DAILY 10/08/24 10/08/24 History (Promacta) Past Med/Surg History Problem List KATELYNN (acute kidney injury) Hypothyroidism Urinary tract infection associated with catheterization of urinary tract Leukocytosis (Acute) Thrombocytopenia (Acute) Petechial rash (Acute) Petechiae Severe thrombocytopenia (Acute) Acute ITP (Acute) Medical History Urinary retention HLD (hyperlipidemia) HTN (hypertension) Surgical History H/O splenectomy Social History Smoking Status: Never smoker Tobacco Type: Declines Second Hand Exposure: No; Do You Dip or Chew Tobacco: No; Hx Alcohol Use: No Hx Substance Use: No Preferred Language: Japanese Communication Ability: Unable 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 Physical Exam Physical Exam: General: WD/WN, NAD, sitting up in bed, pleasant, conversing appropriately. A+Ox3. Half-Way guards at bedside. HEENT: Normocephalic, atraumatic. Conjunctivae normal. External ear and nose normal, oropharynx normal. Respiratory: Normal respiratory effort, lungs clear to auscultation, no wheeze/rales. No accessory muscle use. Cardiovascular: Regular rate/rhythm, normal peripheral pulses, no BLE edema. Abdomen/GI: Normal bowel sounds, soft, nontender to palpation in all quadrants. Extremities/Musculoskeletal: No cyanosis or clubbing, extremities motor strength intact, moves all extremities. Neurologic: No overt focal deficits, CN's II-XI not formally tested but appear grossly intact bilaterally. Results & Data Results & Data Vital Signs (Past 12 Hours) Vital Signs Temp Pulse Pulse Resp BP BP Pulse Ox 10/08/24 16:18 63 10/08/24 16:00 69 21 160/87 H 98 10/08/24 12:35 36.7 C 92 H 20 152/78 H 96 O2 Del Method 10/08/24 16:18 10/08/24 16:00 Room Air 10/08/24 12:35 Room Air Laboratory Results Short CBC 10/08/24 Range/Units 13:50 WBC 18.20 H (4.8-10.8) K/ul Hgb 12.4 L (14.0-18.0) g/dl Hct 37.6 L (42.0-52.0) % Plt Count 0 L* D (130-400) K/uL BMP 10/08/24 13:50 Sodium 137 Potassium 4.9 Chloride 105 Carbon Dioxide 24 BUN 25 H Creatinine 1.49 H Glucose 248 H Calcium 8.8 Liver Function 10/08/24 Range/Units 13:50 Total Bilirubin 0.6 (0.2-1.0) mg/dl AST 29 (13-39) U/L ALT 78 H (7-52) U/L Alkaline Phosphatase 48 (34-104) U/L Albumin 3.6 (3.4-5.0) gm/dl Urine 10/08/24 Range/Units 16:58 Urine Color Yellow Urine Appearance Clear (Clear) Urine pH 5.0 (4.5-7.5) Ur Specific [place] 1.025 (1.000-1.030) Urine Protein Trace H (Negative) Urine Glucose (UA) 2+ H (Negative) Code Status & VTE Plan Code Status FULL CODE VTE Prophylaxis Plan VTE Prophylaxis will be ordered: Yes (5) HTN (hypertension) Hypertension type: unspecified Qualified Code(s): I10 - Essential (primary) hypertension (6) HLD (hyperlipidemia) Hyperlipidemia type: unspecified Qualified Code(s): E78.5 - Hyperlipidemia, unspecified (7) Hypothyroidism Hypothyroidism type: unspecified Qualified Code(s): E03.9 - Hypothyroidism, unspecified
[2024-10-08] MEDS: dexAMETHasone 40 MG in DEXTROSE 5% 25 ML IV STA (18:00)
[2024-10-08] MEDS: Octagam 10% IVIG 5 gram bottle IV SCH (18:40)
[2024-10-08] MEDS: IMMUNE GLOBULIN (HUMAN) SOLN IV ONE (19:53)
[2024-10-08] MEDS ORDERED: POLYETHYLENE (MIRALAX) 17 GM PACK PO PRN (20:23)
[2024-10-08] MEDS: lisinopril 20 MG TAB PO SCH (20:31)
[2024-10-08] MEDS: Octagam 10% IVIG 20 gram bottle IV SCH (20:42)
[2024-10-08] MEDS: SODIUM CHLORIDE 0.9% 1,000 ML IV SCH (21:34)
--- NOTE | 2024-10-09 07:14 | Oncology Consultation ---
Date of Consultation October 09, 2024 Assessment & Plan (1) Acute ITP: Continue IVIG plus dexamethasone. At this point would recommend to discharge him to the correction only when his platelet count is greater than 100,000. For this we would have to continue to give him IVIG 1 g/kg over the next 2 to 3 days. Discharge him on prednisone taper then. Subsequently, will hope that the correction approves this as a trauma bag so that he does not have recurrent admissions to the hospital. Plan Thank you for this interesting hematological consult. Hematology will continue to follow the patient make appropriate recommendations. History of Present Illness Reason for Consultation: Refractory ITP Attending Physician: Gian Ward, DO History of Present Illness patient coming from the correction again because the patient has had refractory ITP. He is a resident of the recent has had multiple admissions into the hospital over the last 1 month. We improve his platelet count with dexamethasone and IVIG and send him on a prednisone taper and he bounces right back in. This time around I had recommended that the patient be started on eltrombopag, however he never got eltrombopag through the correction. Previously he has difficulty getting prednisone taper through the correction as well. He came with a platelet count of 0 through the ER. Allergies Allergy/AdvReac Type Severity Reaction Status Date / Time Penicillins Allergy Mild Rash Verified 10/08/24 16:48 heparin Allergy Unknown Verified 10/08/24 16:48 Home Medications Medication Instructions Recorded Confirmed Type atorvastatin 20 mg tablet 20 mg PO DAILY 07/25/24 10/08/24 History lisinopril 20 mg tablet 20 mg PO DAILY 07/25/24 10/08/24 History levothyroxine 50 mcg tablet 50 mcg PO DAILY 08/22/24 10/08/24 History saliva stimulant comb. no.3 2 spray mucous membrane TID PRN 09/24/24 10/08/24 History (Biotene Moisturizing Mouth Dry Mouth mucosal spray) cyanocobalamin (vitamin B-12) 1,000 mcg PO DAILY 09/28/24 10/08/24 History 1,000 mcg tablet (Vitamin B-12) prednisone 10 mg tablet See Taper PO DAILY #90 tabs 10/03/24 10/08/24 Rx eltrombopag olamine 50 mg tablet 50 mg PO DAILY 10/08/24 10/08/24 History (Promacta) Patient History Medical History Urinary retention HLD (hyperlipidemia) HTN (hypertension) Surgical History H/O splenectomy Social History Smoking Status: Never smoker Tobacco Type: Declines Second Hand Exposure: No; Do You Dip or Chew Tobacco: No; Hx Alcohol Use: No Hx Substance Use: No Preferred Language: Algerian Communication Ability: Effective Personal Support Worker Required: No Beliefs That Will Affect Care: None Current Living Situation: Other Current Living Situation Comment: [facility] Feels Safe at Home: Yes Assistive Devices: None Review of Systems Review of Systems: All systems reviewed & are unremarkable except as noted in HPI & below Constitutional: as per Subjective / HPI Eyes: as per Subjective / HPI Ear, Nose, Mouth, Throat: as per Subjective / HPI Respiratory: as per Subjective / HPI Cardiovascular: as per Subjective / HPI Gastrointestinal: as per Subjective / HPI Genitourinary: + as per Subjective / HPI Musculoskeletal: as per Subjective / HPI Integumentary: as per Subjective / HPI Neurologic: as per Subjective / HPI Psychiatric: as per Subjective / HPI Endocrine: as per Subjective / HPI Physical Exam Constitutional: WD/WN, vitals as above Eyes: PERRL, conjunctivae normal, anicteric sclerae ENMT: external ear and nose normal, oropharynx normal Neck: trachea midline, no thyromegaly Respiratory: normal respiratory effort, lungs clear to auscultation Cardiovascular: RRR, no murmur, no edema Gastrointestinal (Abdomen): normal bowel sounds, soft, nontender, no hepatosplenomegaly Musculoskeletal: no cyanosis or clubbing, extremities motor strength 5/5 Skin: no rashes, warm and dry Neurologic: patellar DTR's 2+ bilat, sensation intact Psychiatric: A+Ox3, euthymic affect Results & Data Vital Signs (Past 12 Hours) Vital Signs Temp Pulse Pulse Resp BP BP Pulse Ox 10/09/24 07:00 36.7 C 66 18 159/83 H 96 10/09/24 03:23 36.5 C 66 18 160/85 H 97 10/09/24 00:37 36.5 C 66 20 153/74 H 94 10/08/24 20:42 36.4 C L 56 L 18 173/78 H 95 10/08/24 20:15 36.6 C 57 L 18 184/99 H 97 10/08/24 19:30 63 26 H 176/94 H 97 O2 Del Method 10/09/24 07:00 Room Air 10/09/24 03:23 Room Air 10/09/24 00:37 Room Air 10/08/24 20:42 Room Air 10/08/24 20:15 Room Air 10/08/24 19:30 Room Air
--- NOTE | 2024-10-09 07:35 | Hospitalist Progress Note ---
Date of Service October 09, 2024 Assessment & Plan (1) Acute ITP: (2) Severe thrombocytopenia: Plan: Wicho Patel is a 73y/o M with PMHx significant for refractory ITP s/p splenectomy in 2012, HTN, HLD, hypothyroidism and chronic urinary retention who presented to the ED from [facility] after [facility] today revealed a critical platelet count of 1k. Follows with Dr. Matson from [facility]. Patient was recently hospitalized under our service from 09/28/24 to 10/03/24 with severe thrombocytopenia in the setting of refractory ITP. Treated with IVIG and IV Decadron with improvement of his platelet count to 32k on discharge. Was also started on a prednisone taper course. Given the refractoriness of his ITP, Dr. Matson also gave written orders for eltrombopag (Promacta) to be initiated on an outpatient basis at [facility]. Per discussion with the patient today, he has yet to start the Promacta as the penitentiary could not obtain this medication. He does however endorse taking the prednisone as prescribed. Platelet count 0k on admission. Suspect leukocytosis 2/2 steroid use. ED provider discussed case with Dr. Matson. Starting IVIG @ 1mg/kg and IV Decadron 40mg daily for now. Discussed with Dr. Matson who recommends giving additional dose of IVIG Today and continuing decadron for now Appreciate formal hematology consult. Complete bedrest. Fall precautions. Continue to monitor platelet count and for any signs/symptoms of bleeding. (3) KATELYNN (acute kidney injury): Plan: Cr 1.49 on admission. Appears baseline Cr around 1.1-1.4. Additional IVF x 1L repeat bmp today reveals cr 1.12 Avoid nephrotoxic agents when able. Monitor renal function closely and renally dose medications when able. 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 Place Valladares catheter while admitted. UA reviewed and negative for infection. Bladder scan PRN. Of note, it is medically necessary for patient to have 3 straight caths available per day at [facility] - will create UTIs if not available. (5) HTN (hypertension): Plan: BP remain slight elevated continue lisinopril and monitor will consider increasing if remains elevated (6) HLD (hyperlipidemia): Plan: Chronic, stable. Continue atorvastatin. (7) Hypothyroidism: Plan: Chronic, stable. Continue levothyroxine. DVT Prophylaxis: SCDs/TEDs only. Holding chemical AC due to spontaneous bleeding risk ISO severe thrombocytopenia. Code Status: FULL CODE PCP: NIKKI Web[place] Disposition: Admit to Med/Surg, not yet medically stable for discharge Patient seen in collaboration with Dr. Arnold. Please see addendum. I spent a total of42 minutes coordinating, documenting, and providing care for this patient excluding time spent in the performance of separately billed services or time spent by another provider/QHP. This included personally reviewing all current laboratories and imaging studies, medical reconciliation, outpatient chart review and discussion with specialists. Admission and Anticipated Discharge Date Admission Date: October 08, 2024 Subjective Pt seen in room 362 with guards at bedside. He c/o sinus pressure R>L. He denies bleeding or rash. He denies f/c/s, chest pain, sob, n/v/d. He is tolerating diet. He has a valladares cath in. He has bruising to his RUE. Review of Systems Review of Systems: All systems reviewed & are unremarkable except as noted in HPI & below Physical Exam Physical Exam: Gen: WD/WN, elderLY M, NAD, A&O x3 HEENT: Normocephalic, atraumatic, conjunctivae moist, sclerae anicteric, mucous membranes moist. Lung: Clear to Auscultation bilaterally, no wheezes/rales/rhonchi Heart: Regular rate, regular rhythm, no murmurs, rubs, or gallops Abdomen: Soft, NT, ND +BS x 4 Extremities: No edema, LUE bruising Skin: Warm, no rash, negative turgor. Results & Data Results & Data Vital Signs (Past 12 Hours) Vital Signs Temp Pulse Resp BP Pulse Ox O2 Del Method 10/09/24 07:00 36.7 C 66 18 159/83 H 96 Room Air 10/09/24 03:23 36.5 C 66 18 160/85 H 97 Room Air 10/09/24 00:37 36.5 C 66 20 153/74 H 94 Room Air 10/08/24 20:42 36.4 C L 56 L 18 173/78 H 95 Room Air 10/08/24 20:15 36.6 C 57 L 18 184/99 H 97 Room Air Laboratory Results Short CBC 10/08/24 10/09/24 Range/Units 13:50 07:25 WBC 18.20 H 15.64 H (4.8-10.8) K/ul Hgb 12.4 L 11.8 L (14.0-18.0) g/dl Hct 37.6 L 35.2 L (42.0-52.0) % Plt Count 0 L* D 9 L* D (130-400) K/uL BMP 10/08/24 10/09/24 13:50 07:25 Sodium 137 133 L Potassium 4.9 4.4 Chloride 105 103 Carbon Dioxide 24 26 BUN 25 H 21 Creatinine 1.49 H 1.12 D Glucose 248 H 218 H Calcium 8.8 8.4 L Liver Function 10/08/24 10/09/24 Range/Units 13:50 07:25 Total Bilirubin 0.6 0.6 (0.2-1.0) mg/dl AST 29 26 (13-39) U/L ALT 78 H 71 H (7-52) U/L Alkaline Phosphatase 48 45 (34-104) U/L Albumin 3.6 3.2 L (3.4-5.0) gm/dl Urine 10/08/24 Range/Units 16:58 Urine Color Yellow Urine Appearance Clear (Clear) Urine pH 5.0 (4.5-7.5) Ur Specific [place] 1.025 (1.000-1.030) Urine Protein Trace H (Negative) Urine Glucose (UA) 2+ H (Negative) I have independently reviewed and interpreted patient's cbc, bmp Medications Administered Current Inpatient Medications Atorvastatin Calcium (Atorvastatin 20 Mg Tab) 20 mg PO DAILY JANIS Stop: 11/08/24 08:59 Last Admin: 10/09/24 08:16 Dose: 20 mg Cyanocobalamin (Cyanocobalamin (B-12) 500 Mcg Tablet) 1,000 mcg PO DAILY JANIS Stop: 11/08/24 08:59 Last Admin: 10/09/24 08:16 Dose: 1,000 mcg Fluticasone Propionate (Fluticasone Propionate Na Spr 16 Gm Btl) 1 sprays NA DAILY JANIS Stop: 11/09/24 08:59 Dexamethasone 40 mg/ Dextrose 35 mls @ 50 mls/hr IV DAILY JANIS Stop: 11/08/24 08:59 Last Infusion: 10/09/24 10:01 Dose: Infused Sodium Chloride (Nss) 1,000 mls @ 80 mls/hr IV .[id number] [facility] Stop: 10/09/24 20:14 Last Admin: 10/09/24 10:28 Dose: 80 mls/hr Immune Globulin (Immune Globulin (Human) Soln ) 1 each IV NOW ONE Stop: 10/09/24 11:08 Levothyroxine Sodium (Levothyroxine Sodium 50 Mcg Tablet) 50 mcg PO DAILY JANIS Stop: 11/08/24 08:59 Last Admin: 10/09/24 08:16 Dose: 50 mcg Lisinopril (Lisinopril 20 Mg Tab) 20 mg PO DAILY [facility] Stop: 11/07/24 17:44 Last Admin: 10/09/24 08:16 Dose: 20 mg Magnesium Hydroxide (Magnesium Hydroxide Susp 30 Ml Udc) 30 ml PO Q6H PRN PRN Reason: Constipation Stop: 11/07/24 20:22 Ondansetron HCl (Ondansetron Inj 2 Mg/Ml 2 Ml Vial) 4 mg IV Q6H PRN PRN Reason: Nausea Stop: 11/07/24 20:22 Polyethylene Glycol (Polyethylene (Miralax) 17 Gm Pack) 17 gm PO DAILY PRN PRN Reason: Constipation Stop: 11/07/24 20:22 Sodium Chloride (Sodium Chloride 0.65% Na Soln 45 Ml ([place])) 1 sprays NA BID [facility] Stop: 11/08/24 20:59 (5) HTN (hypertension) Hypertension type: unspecified Qualified Code(s): I10 - Essential (primary) hypertension (6) HLD (hyperlipidemia) Hyperlipidemia type: unspecified Qualified Code(s): E78.5 - Hyperlipidemia, unspecified (7) Hypothyroidism Hypothyroidism type: unspecified Qualified Code(s): E03.9 - Hypothyroidism, unspecified
[2024-10-09 08:07] LABS: Hematocrit (blood only) 35.2 % (42.0-52.0); Hemoglobin 11.8 g/dl (14.0-18.0); Mean Corpuscular Hemoglobin 31.5 pg (25.0-34.0); Mean Corpuscular Hgb Conc 33.5 g/dL (32.0-36.0); Mean Corpuscular Volume 93.9 fL (80.0-100.0); Platelet Count 9 K/uL (130-400); RDW Coefficient of Variation 15.4 % (11.5-14.5); RDW Standard Deviation 51.4 fL (36.4-46.3); Red Blood Count 3.75 M/uL (4.70-6.10)
[2024-10-09] MEDS: CYANOCOBALAMIN (B-12) 500 MCG TABLET PO SCH (08:16)
[2024-10-09] MEDS: LEVOTHYROXINE SODIUM 50 MCG TABLET PO SCH (08:16)
[2024-10-09] MEDS: ATORVASTATIN 20 MG TAB PO SCH (08:16)
[2024-10-09 08:20] LABS: Albumin Globulin Ratio 0.7 (0.9-2); Albumin Level 3.2 gm/dl (3.4-5.0); BUN Creatinine Ratio 18.8 (10-20); Bilirubin,Total 0.6 mg/dl (0.2-1.0); Calcium 8.4 mg/dl (8.6-10.3); Creatinine Clr Calc Pharmacy 68.4 ml/min; Globulin 4.7 gm/dl (2.5-4.0); Magnesium 2.2 mg/dl (1.7-2.4); Potassium 4.4 mmol/L (3.5-5.1); Total Protein 7.9 gm/dl (6.0-8.3)
[2024-10-09 08:28] LABS: Nucleated RBC # (auto) 0.43 K/uL (0.00-0.12); Nucleated RBC % (auto) 2.7 %; White Blood Count 15.64 K/ul (4.8-10.8)
[2024-10-09 08:31] LABS: Basophils # (auto) 0.02 K/uL (0.00-0.20); Basophils % (auto) 0.1 %; Eosinophils % (auto) 0.6 %; Immature Granulocytes # (auto) 0.17 K/uL (0.01-0.20); Immature Granulocytes % (auto) 1.1 %; Lymphocytes # (auto) 0.96 K/uL (1.20-3.40); Lymphocytes % (auto) 6.1 %; Monocytes # (auto) 0.19 K/uL (0.11-0.59); Monocytes % (auto) 1.2 %; Neutrophils % (auto) 90.9 %
[2024-10-09] MEDS: dexAMETHasone 40 MG in DEXTROSE 5% 25 ML IV SCH (08:55)
[2024-10-09] MEDS ORDERED: DEXAMETHASONE SOD INJ 4 MG/ML VIAL IV SCH (09:00)
[2024-10-09] MEDS: SODIUM CHLORIDE 0.9% 1,000 ML IV SCH (10:28)
[2024-10-09] MEDS ORDERED: IMMUNE GLOBULIN (HUMAN) SOLN IV ONE (11:07)
[2024-10-09] MEDS: Octagam 10% IVIG 5 gram bottle IV SCH (17:50)
[2024-10-09] MEDS ORDERED: Octagam 10% IVIG 5 gram bottle IV SCH (18:00)
[2024-10-09] MEDS: Octagam 10% IVIG 20 gram bottle IV SCH (18:37)
[2024-10-09] MEDS: SODIUM CHLORIDE 0.65% NA SOLN 45 ML (OCEAN) SCH (21:22)
[2024-10-10 07:31] LABS: Hematocrit (blood only) 32.4 % (42.0-52.0); Hemoglobin 10.8 g/dl (14.0-18.0); Mean Corpuscular Hemoglobin 31.7 pg (25.0-34.0); Mean Corpuscular Hgb Conc 33.3 g/dL (32.0-36.0); Nucleated RBC # (auto) 0.24 K/uL (0.00-0.12); Nucleated RBC % (auto) 1.2 %; Platelet Count 36 K/uL (130-400); RDW Coefficient of Variation 15.6 % (11.5-14.5); RDW Standard Deviation 53.1 fL (36.4-46.3); Red Blood Count 3.41 M/uL (4.70-6.10); White Blood Count 20.54 K/ul (4.8-10.8)
[2024-10-10 07:45] LABS: Albumin Globulin Ratio 0.5 (0.9-2); Albumin Level 2.5 gm/dl (3.4-5.0); BUN Creatinine Ratio 18.2 (10-20); Bilirubin,Total 0.4 mg/dl (0.2-1.0); Creatinine Clr Calc Pharmacy 69.6 ml/min; Globulin 5.5 gm/dl (2.5-4.0); Magnesium 2.3 mg/dl (1.7-2.4); Potassium 4.6 mmol/L (3.5-5.1)
[2024-10-10 07:49] LABS: Basophils # (auto) 0.02 K/uL (0.00-0.20); Basophils % (auto) 0.1 %; Eosinophils # (auto) 0.07 K/uL (0.00-0.50); Eosinophils % (auto) 0.3 %; Howell-Jolly Bodies 1+; Immature Granulocytes # (auto) 0.19 K/uL (0.01-0.20); Immature Granulocytes % (auto) 0.9 %; Lymphocytes # (auto) 1.07 K/uL (1.20-3.40); Lymphocytes % (auto) 5.2 %; Monocytes # (auto) 0.97 K/uL (0.11-0.59); Monocytes % (auto) 4.7 %; Neutrophils # (auto) 18.22 K/uL (1.40-6.50); Neutrophils % (auto) 88.8 %
[2024-10-10] MEDS: Octagam 10% IVIG 5 gram bottle IV SCH (09:27)
[2024-10-10] MEDS: FLUTICASONE PROPIONATE NA SPR 16 GM BTL SCH (09:33)
[2024-10-10] MEDS: Octagam 10% IVIG 20 gram bottle IV SCH (10:19)
[2024-10-10] MEDS ORDERED: IMMUNE GLOBULIN (HUMAN) SOLN IV ONE (11:00)
[2024-10-10] MEDS: ONDANSETRON INJ 2 MG/ML 2 ML VIAL IV PRN (11:03)
--- NOTE | 2024-10-10 12:45 | Hospitalist Progress Note ---
Date of Service October 10, 2024 Assessment & Plan (1) Acute ITP: (2) Severe thrombocytopenia: Plan: Wicho Patel is a 73y/o M with PMHx significant for refractory ITP s/p splenectomy in 2012, HTN, HLD, hypothyroidism and chronic urinary retention who presented to the ED from [facility] after routine lab work performed at the [facility] today revealed a critical platelet count of 1k. Follows with Dr. Matson from [facility]. Patient was recently hospitalized under our service from 09/28/24 to 10/03/24 with severe thrombocytopenia in the setting of refractory ITP. Treated with IVIG and IV Decadron with improvement of his platelet count to 32k on discharge. Was also started on a prednisone taper course. Given the refractoriness of his ITP, Dr. Matson also gave written orders for eltrombopag (Promacta) to be initiated on an outpatient basis at [facility] iew. Per discussion with the patient today, he has yet to start the Promacta as the retirement could not obtain this medication. He does however endorse taking the prednisone as prescribed. Platelet count 0k on admission. Suspect leukocytosis 2/2 steroid use. Per formal Heme/onc consult "(1) Acute ITP: Continue IVIG plus dexamethasone. At this point would recommend to discharge him to the retirement only when his platelet count is greater than 100,000. For this we would have to continue to give him IVIG 1 g/kg over the next 2 to 3 days. Discharge him on prednisone taper then. Subsequently, will hope that the retirement approves this as a trauma bag so that he does not have recurrent admissions to the hospital." [facility] with [facility] Spoke to one of their PA-C's there. She states that Promacta was approved and they have it; therefore he will be able to start it when he returns to the retirement. (3) KATELYNN (acute kidney injury): Plan: Cr 1.49 on admission. Appears baseline Cr around 1.1-1.4. 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 Place Pena catheter while admitted. UA reviewed and negative for infection. Bladder scan PRN. Of note, it is medically necessary for patient to have 3 straight caths available per day at [facility] - will create UTIs if not available. (5) HTN (hypertension): Plan: BP improving today continue lisinopril and monitor will consider increasing if consistently remains elevated (6) HLD (hyperlipidemia): Plan: Chronic, stable. Continue atorvastatin. (7) Hypothyroidism: Plan: Chronic, stable. Continue levothyroxine. DVT Prophylaxis: SCDs/TEDs only. Holding chemical AC due to spontaneous bleeding risk ISO severe thrombocytopenia. Code Status: FULL CODE PCP: NIKKI Webber Disposition: Admit to Med/Surg, not yet medically stable for discharge Patient seen in collaboration with Dr. Byrne. Please see addendum. I spent a total of 45 minutes coordinating, documenting, and providing care for this patient excluding time spent in the performance of separately billed services or time spent by another provider/QHP. This included personally reviewing all current laboratories and imaging studies, medical reconciliation, outpatient chart review and discussion with specialists. Admission and Anticipated Discharge Date Admission Date: October 08, 2024 Supervising Physician Co-Signing Physician Notes Patient is seen and examined at bedside. Denies any bleeding issues. Platelet count improving. Patient denies any chest pain, dyspnea, nausea, vomiting, abdominal pain. Guards at bedside. On exam patient is obese, no apparent distress, normocephalic atraumatic, EOMI, normal breath sounds, clear to auscultation, S1-S2, no murmur, no pedal edema, abdomen soft, nontender, normal bowel sounds, alert, awake, oriented, grossly no focal deficits, left upper extremity ecchymosis noted. Patient is currently being managed for ITP. Continue IVIG's, dexamethasone. Appreciate hematology input. Monitor CBC. I personally interviewed and examined the patient at bedside. I have reviewed the advanced practitioner's documentation on the date of service referred in note and agree with plan. Patient's care is coordinated with Trini Martinez PA-C. Please refer to the documentation above for details of patient's presentation and for discussion of other issues. I spent a total [id number] coordinating, documenting, and providing care for this patient excluding time spent in the performance of separately billed services or time spent by another provider/QHP. Subjective Pt seen in room 362 with guards at bedside. He offers no acute concerns this morning. He wants to try to have a BM. Denies f/c/s, chest pain, sob,n/v. He denies bleeding. He feels his RUE bruising is improving. Review of Systems Review of Systems: All systems reviewed & are unremarkable except as noted in HPI & below Physical Exam Physical Exam: Gen: WD/WN, elderly M, NAD, A&O x3 HEENT: Normocephalic, atraumatic, conjunctivae moist, sclerae anicteric, mucous membranes moist. Lung: Clear to Auscultation bilaterally, no wheezes/rales/rhonchi Heart: Regular rate, regular rhythm, no murmurs, rubs, or gallops Abdomen: Soft, NT, ND +BS x 4 Extremities: No edema, LUE bruising Skin: Warm, no rash, negative turgor. Results & Data Results & Data Vital Signs (Past 12 Hours) Vital Signs Temp Pulse Resp BP Pulse Ox O2 Del Method 10/10/24 07:12 36.5 C 58 L 16 134/61 97 Room Air Laboratory Results I have independently reviewed and interpreted patient's CBC, CMP Short CBC 10/10/24 Range/Units 06:35 WBC 20.54 H (4.8-10.8) K/ul Hgb 10.8 L (14.0-18.0) g/dl Hct 32.4 L (42.0-52.0) % Plt Count 36 L D (130-400) K/uL BMP 10/10/24 06:35 Sodium 133 L Potassium 4.6 Chloride 107 Carbon Dioxide 26 BUN 20 Creatinine 1.10 Glucose 205 H Calcium 8.0 L Liver Function 10/10/24 Range/Units 06:35 Total Bilirubin 0.4 (0.2-1.0) mg/dl AST 18 (13-39) U/L ALT 52 (7-52) U/L Alkaline Phosphatase 35 (34-104) U/L Albumin 2.5 L (3.4-5.0) gm/dl Medications Administered Current Inpatient Medications Atorvastatin Calcium (Atorvastatin 20 Mg Tab) 20 mg PO DAILY JANIS Stop: 11/08/24 08:59 Last Admin: 10/10/24 09:33 Dose: 20 mg Cyanocobalamin (Cyanocobalamin (B-12) 500 Mcg Tablet) 1,000 mcg PO DAILY JANIS Stop: 11/08/24 08:59 Last Admin: 10/10/24 09:33 Dose: 1,000 mcg Fluticasone Propionate (Fluticasone Propionate Na Spr 16 Gm Btl) 1 sprays NA DAILY JANIS Stop: 11/09/24 08:59 Last Admin: 10/10/24 09:33 Dose: 1 sprays Dexamethasone 40 mg/ Dextrose 35 mls @ 50 mls/hr IV DAILY JANIS Stop: 11/08/24 08:59 Last Infusion: 10/10/24 10:17 Dose: Infused Immune Globulin (Octagam 10%) 200 mls @ 55.683 mls/hr IV Q2H JANIS; Protocol Stop: 10/10/24 16:59 Last Admin: 10/10/24 10:19 Dose: 1 mg/kg/min, 55.7 mls/hr Levothyroxine Sodium (Levothyroxine Sodium 50 Mcg Tablet) 50 mcg PO DAILY JANIS Stop: 11/08/24 08:59 Last Admin: 10/10/24 09:33 Dose: 50 mcg Lisinopril (Lisinopril 20 Mg Tab) 20 mg PO DAILY JANIS Stop: 11/07/24 17:44 Last Admin: 10/10/24 09:33 Dose: 20 mg Magnesium Hydroxide (Magnesium Hydroxide Susp 30 Ml Udc) 30 ml PO Q6H PRN PRN Reason: Constipation Stop: 11/07/24 20:22 Ondansetron HCl (Ondansetron Inj 2 Mg/Ml 2 Ml Vial) 4 mg IV Q6H PRN PRN Reason: Nausea Stop: 11/07/24 20:22 Last Admin: 10/10/24 11:03 Dose: 4 mg Polyethylene Glycol (Polyethylene (Miralax) 17 Gm Pack) 17 gm PO DAILY PRN PRN Reason: Constipation Stop: 11/07/24 20:22 Sodium Chloride (Sodium Chloride 0.65% Na Soln 45 Ml ([place])) 1 sprays NA BID JANIS Stop: 11/08/24 20:59 Last Admin: 10/10/24 09:33 Dose: Not Given (5) HTN (hypertension) Hypertension type: unspecified Qualified Code(s): I10 - Essential (primary) hypertension (6) HLD (hyperlipidemia) Hyperlipidemia type: unspecified Qualified Code(s): E78.5 - Hyperlipidemia, unspecified (7) Hypothyroidism Hypothyroidism type: unspecified Qualified Code(s): E03.9 - Hypothyroidism, unspecified
[2024-10-10] MEDS: SIMETHICONE 80 MG CHEW PO ONE (15:57)
[2024-10-10] MEDS: MAGNESIUM HYDROXIDE SUSP 30 ML UDC PO PRN (16:15)
--- NOTE | 2024-10-10 19:19 | Electrocardiogram Report ---
Test Reason : Blood Pressure : */* mmHG Vent. Rate : 72 BPM Atrial Rate : 72 BPM P-R Int : 126 ms QRS Dur : 84 ms QT Int : 368 ms P-R-T Axes : 27 -30 35 degrees QTcB Int : 402 ms Poor data quality, interpretation may be adversely affected Normal sinus rhythm Left axis deviation Minimal voltage criteria for LVH, may be normal variant ( R in aVL ) Septal infarct (cited on or before 29-Aug-2024) Abnormal ECG When compared with ECG of 28-Sep-2024 11:16, No significant change Confirmed by Alfonso Cartagena ([id number]) on 10/10/2024 7:19:08 PM Referred By: Confirmed By: Alfonso Cartagena
[2024-10-10] MEDS ORDERED: SIMETHICONE 80 MG CHEW PO PRN (20:00)
--- NOTE | 2024-10-11 07:02 | Hospitalist Progress Note ---
Date of Service October 11, 2024 Assessment & Plan (1) Acute ITP: (2) Severe thrombocytopenia: Plan: Wicho Patel is a 73y/o M with PMHx significant for refractory ITP s/p splenectomy in 2012, HTN, HLD, hypothyroidism and chronic urinary retention who presented to the ED from [facility] after routine lab work performed at the longterm revealed a critical platelet count of 1k. Follows with Dr. Matson from [facility]. Patient was recently hospitalized under our service from 09/28/24 to 10/03/24 with severe thrombocytopenia in the setting of refractory ITP. Treated with IVIG and IV Decadron with improvement of his platelet count to 32k on discharge. Was also started on a prednisone taper course. Given the refractoriness of his ITP, Dr. Matson also gave written orders for eltrombopag (Promacta) to be initiated on an outpatient basis at [facility]. Patient was not started on the Promacta following his discharge as the longterm could not obtain this medication. He does however endorse taking the prednisone as prescribed. Platelet count 0k on admission. Suspect leukocytosis 2/2 steroid use. Per formal hematology consult on 10/09/24: "Continue IVIG plus dexamethasone. At this point would recommend to discharge him to the longterm only when his platelet count is greater than 100,000. For this we would have to continue to give him IVIG 1 mg/kg over the next 2 to 3 days. Discharge him on prednisone taper then. Subsequently, will hope that the longterm approves this as a trauma bag so that he does not have recurrent admissions to the hospital." Platelet count improving to 54k today; discussed case with Dr. Matson via TT. Can stop IVIG and OK to discharge from Dr. Matson's end on a prednisone taper. Plan to keep him for at least 1 more day to continue close monitoring of his platelet count and to allow for another day of IV dexamethasone. Previous provider discussed case with DEONTE from the [facility]. Promacta was approved and they have it; therefore he will be able to start it when he returns to the longterm. (3) KATELYNN (acute kidney injury): Plan: Cr 1.49 on admission. Now improved s/p IVF. Baseline Cr around 1.1-1.4 per chart review. Avoid nephrotoxic agents when able. Monitor renal function closely and renally dose medications when able. (4) Hyponatremia: Plan: Na 132 today. Encouraged po intake. Recheck BMP tomorrow. May benefit from NSS if not improved. 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 Pena catheter placed in ED at time of admission. UA reviewed and negative for infection. Bladder scan PRN. Of note, it is medically necessary for the patient to have 3 straight caths available per day at [facility] - will create UTIs if not available. (6) HTN (hypertension): Plan: BP improving. Continue lisinopril and monitor. Could consider increasing lisinopril dose if BP were to become consistently elevated again. (7) HLD (hyperlipidemia): Plan: Chronic, stable. Continue atorvastatin. (8) Hypothyroidism: Plan: Chronic, stable. Continue levothyroxine. DVT Prophylaxis: SCDs/TEDs only. Holding chemical AC due to spontaneous bleeding risk ISO severe thrombocytopenia. Code Status: FULL CODE PCP: [facility] Disposition: Admitted in Med/Surg, not yet medically stable for discharge as per above. Patient seen in collaboration with Dr. Byrne. Please see addendum. I spent a total of 45 minutes coordinating, documenting, and providing care for this patient excluding time spent in the performance of separately billed services or time spent by another provider/QHP. This included personally reviewing all current laboratories and imaging studies, medical reconciliation, outpatient chart review and discussion with specialists. This chart was completed in part utilizing Speech Voice Recognition Software. Grammatical errors, random word insertions, pronoun errors, and incomplete sentences are an occasional consequence of this system due to software limi tations, ambient noise, and hardware issues. Any formal questions or concerns about the content, text, or information contained within the body of this dictation should be directly addressed to the provider for clarification. Admission and Anticipated Discharge Date Admission Date: October 08, 2024 Supervising Physician Co-Signing Physician Notes Patient is seen and examined at bedside. Offers no new complaints. Denies any bleeding issues. Platelet count improved to 54K. Patient denies any chest pain, dyspnea, nausea, vomiting, abdominal pain. Guards at bedside. On exam patient is obese, no apparent distress, normocephalic atraumatic, EOMI, normal breath sounds, clear to auscultation, S1-S2, no murmur, no pedal edema, abdomen soft, nontender, normal bowel sounds, alert, awake, oriented, grossly no focal deficits, left upper extremity ecchymosis noted. Patient is currently being managed for ITP. Received IVIG's. Continue dexamethasone. If platelet counts continue to improve, will likely plan to discharge on prednisone tapering course tomorrow. Appreciate hematology input. Monitor CBC. I personally interviewed and examined the patient at bedside. I have reviewed the advanced practitioner's documentation on the date of service referred in note and agree with plan. Patient's care is coordinated with Radha Horner PA-C. Please refer to the documentation above for details of patient's presentation and for discussion of other issues. I spent a total [id number] coordinating, documenting, and providing care for this patient excluding time spent in the performance of separately billed services or time spent by another provider/QHP. Subjective Patient seen in room 362-1 with longterm guards at bedside. Offers no complaints or concerns. Discussed his labs results from this morning. Denies any F/C, chest pain, SOB or N/V. Ate breakfast this morning without any issue. [facility]ed that [facility] confirm ed that they have his Promacta. Review of Systems Review of Systems: At least ten systems reviewed and negative, except as noted in the subjective section. Physical Exam Physical Exam: General: WD/WN, NAD, sitting up in bed, pleasant, conversing appropriately. A+Ox3. Intermediate guards at bedside. HEENT: Normocephalic, atraumatic. Conjunctivae normal. External ear and nose normal, oropharynx normal. Respiratory: Normal respiratory effort, lungs clear to auscultation, no wheeze/rales. No accessory muscle use. Cardiovascular: Regular rate/rhythm, normal peripheral pulses, no BLE edema. Abdomen/GI: Normal bowel sounds, soft, nondistended, nontender to palpation in all quadrants. Extremities/Musculoskeletal: No cyanosis or clubbing, extremities motor strength intact, moves all extremities. Neurologic: No overt focal deficits, CN's II-XI not formally tested but appear grossly intact bilaterally. Results & Data Results & Data Vital Signs (Past 12 Hours) Vital Signs Temp Pulse Resp BP Pulse Ox O2 Del Method 10/10/24 15:47 36.7 C 80 16 154/76 H 94 Room Air 10/10/24 07:12 36.5 C 58 L 16 134/61 97 Room Air Intake and Output 10/10/24 10/10/24 10/11/24 14:59 22:59 06:59 Intake Total 762.175 / 1319.008 356.833 / 1319.008 200 / 1319.008 Output Total 775 / 2875 2100 / 2875 Balance -12.825 / -1555.992 356.833 / -1555.992 -1900 / -1555.992 Intake: IV 522.175 / 1079.008 356.833 / 1079.008 200 / 1079.008 Immun Globg(IgG)/Malt/Iga Ov50 437.175 / 994.008 356.833 / 994.008 200 / 994.008 200 ml @ 1 MG/KG/MIN 55.683 mls /hr IV Q2H [facility] Rx#:[id number] Immun Globg(IgG)/Malt/Iga Ov50 50 / 50 50 ml @ 1 MG/KG/MIN 55.683 mls/ hr IV TODAY@0800 [facility] Rx#: [id number] dexAMETHasone 40 mg In Dextrose 35 / 35 5% 25 ml @ 50 mls/hr IV DAILY [facility] Rx#:[id number] Oral 240 / 240 Output: Urine Amount (Catheter) 775 / 2875 2100 / 2875 Pena/Indwelling 775 / 2875 2099 / 2875 Laboratory Results Short CBC 10/11/24 Range/Units 06:30 WBC 19.37 H (4.8-10.8) K/ul Hgb 10.5 L (14.0-18.0) g/dl Hct 31.9 L (42.0-52.0) % Plt Count 54 L (130-400) K/uL BMP 10/11/24 06:30 Sodium 132 L Potassium 4.6 Chloride 105 Carbon Dioxide 28 BUN 26 H Creatinine 1.16 Glucose 186 H Calcium 7.8 L (6) HTN (hypertension) Hypertension type: unspecified Qualified Code(s): I10 - Essential (primary) hypertension (7) HLD (hyperlipidemia) Hyperlipidemia type: unspecified Qualified Code(s): E78.5 - Hyperlipidemia, unspecified (8) Hypothyroidism Hypothyroidism type: unspecified Qualified Code(s): E03.9 - Hypothyroidism, unspecified
[2024-10-11 07:08] LABS: Hematocrit (blood only) 31.9 % (42.0-52.0); Hemoglobin 10.5 g/dl (14.0-18.0); Mean Corpuscular Hemoglobin 31.4 pg (25.0-34.0); Mean Corpuscular Hgb Conc 32.9 g/dL (32.0-36.0); Mean Corpuscular Volume 95.5 fL (80.0-100.0); Mean Platelet Volume 14.8 fL (9.4-12.4); Nucleated RBC # (auto) 0.13 K/uL (0.00-0.12); Nucleated RBC % (auto) 0.7 %; Platelet Count 54 K/uL (130-400); RDW Coefficient of Variation 15.5 % (11.5-14.5); RDW Standard Deviation 52.7 fL (36.4-46.3); Red Blood Count 3.34 M/uL (4.70-6.10); White Blood Count 19.37 K/ul (4.8-10.8)
[2024-10-11 07:20] LABS: Basophils # (auto) 0.03 K/uL (0.00-0.20); Basophils % (auto) 0.2 %; Eosinophils # (auto) 0.01 K/uL (0.00-0.50); Eosinophils % (auto) 0.1 %; Lymphocytes # (auto) 1.17 K/uL (1.20-3.40); Monocytes # (auto) 1.03 K/uL (0.11-0.59); Monocytes % (auto) 5.3 %; Neutrophils # (auto) 16.93 K/uL (1.40-6.50); Neutrophils % (auto) 87.4 %
[2024-10-11 07:28] LABS: BUN Creatinine Ratio 22.4 (10-20); Calcium 7.8 mg/dl (8.6-10.3); Potassium 4.6 mmol/L (3.5-5.1)
[2024-10-12 09:59] LABS: BUN Creatinine Ratio 26.8 (10-20); Creatinine Clr Calc Pharmacy 60.3 ml/min; Magnesium 2.2 mg/dl (1.7-2.4); Potassium 4.3 mmol/L (3.5-5.1)
[2024-10-12 10:04] LABS: Basophils # (auto) 0.02 K/uL (0.00-0.20); Basophils % (auto) 0.1 %; Eosinophils # (auto) 0.01 K/uL (0.00-0.50); Eosinophils % (auto) 0.1 %; Hematocrit (blood only) 36.2 % (42.0-52.0); Hemoglobin 11.7 g/dl (14.0-18.0); Howell-Jolly Bodies 1+; Immature Granulocytes # (auto) 0.19 K/uL (0.01-0.20); Immature Granulocytes % (auto) 1.1 %; Lymphocytes % (auto) 6.7 %; Mean Corpuscular Hgb Conc 32.3 g/dL (32.0-36.0); Mean Corpuscular Volume 95.8 fL (80.0-100.0); Monocytes % (auto) 6.7 %; Neutrophils # (auto) 15.24 K/uL (1.40-6.50); Neutrophils % (auto) 85.3 %; Nucleated RBC # (auto) 0.11 K/uL (0.00-0.12); Nucleated RBC % (auto) 0.6 %; Pappenheimer Bodies 1+; Platelet Count 80 K/uL (130-400); Polychromasia 1+; RDW Coefficient of Variation 15.3 % (11.5-14.5); RDW Standard Deviation 51.9 fL (36.4-46.3); Red Blood Count 3.78 M/uL (4.70-6.10); White Blood Count 17.86 K/ul (4.8-10.8)
--- NOTE | 2024-10-12 11:43 | Discharge Summary ---
Discharge Summary Date of Service October 12, 2024 Principal Dx & Hospital Course #1 = Principal Diagnosis (1) Acute ITP: (2) Severe thrombocytopenia: Wicho Patel is a 73y/o M with PMHx significant for refractory ITP s/p splenectomy in 2012, HTN, HLD, hypothyroidism and chronic urinary retention who presented to the ED from [facility] after [facility] at [facility] revealed a critical platelet count of 1k. Follows with Dr. Matson from [facility]. Patient was recently hospitalized under our service from 09/28/24 to 10/03/24 with severe thrombocytopenia in the setting of refractory ITP. Treated with IVIG and IV Decadron with improvement of his platelet count to 32k on discharge. Was also started on a prednisone taper course. Given the refractoriness of his ITP, Dr. Matson also gave written orders for eltrombopag (Promacta) to be initiated on an outpatient basis at [facility]. Patient was not started on the Promacta following his discharge as the [facility] could [facility] this medication. He does however endorse taking the prednisone as prescribed. Platelet count 0k on admission. Suspect leukocytosis 2/2 steroid use. Per formal hematology consult on 10/09/24: "Continue IVIG plus dexamethasone. At this point would recommend to discharge him to the [facility] only when his platelet count is greater than 100,000. For this we would have to continue to give him IVIG 1 mg/kg over the next 2 to 3 days. Discharge him on prednisone taper then. Subsequently, will hope that the [facility] approves this as a trauma bag so that he does not have recurrent admissions to the hospital." Platelet count improved to 80k at time of discharge; discussed case with Dr. Matson via TT on 10/11/24. Feels comfortable sending patient home with current platelet count even though it is <100k like initially recommended. Can discharge on the following prednisone taper per Dr. Matson to start tomorrow, 10/13/24: 60mg DAILY for 5 days, then 50mg DAILY for 5 days, then 40mg DAILY for 5 days, then 30mg DAILY for 5 days, then 20mg DAILY for 5 days, and then lastly 10mg DAILY for 5 days. Called over to the infirmary at [facility] again this morning. Sign out given. Confirmed Promacta is available at the facility; prescription to begin as per Dr. Matson. (3) KATELYNN (acute kidney injury): Cr 1.49 on admission. Now improved s/p IVF. Baseline Cr around 1.1-1.4 per chart review. (4) Hyponatremia: Na 132 on discharge. Encouraged po intake. Routine lab monitoring at [facility]. 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 Pena catheter placed in ED at time of admission; catheter removed prior to discharge. UA reviewed and negative for infection. Of note, it is medically necessary for the patient to have 3 straight caths available per day at [facility] - will create UTIs if not available. (6) HTN (hypertension): Continue lisinopril and monitor. Could consider increasing lisinopril dose if BP were to become consistently elevated again. (7) HLD (hyperlipidemia): Chronic, stable. Continue atorvastatin. (8) Hypothyroidism: Chronic, stable. Continue levothyroxine. PCP: [facility] Disposition: Patient is being discharged back to [facility] in stable condition with improved platelet count as per above. Patient seen in collaboration with Dr. Byrne. Please see addendum. I spent a total of 60 minutes coordinating, documenting, and providing care for this patient excluding time spent in the performance of separately billed services or time spent by another provider/QHP. This included personally reviewing all current laboratories and imaging studies, medical reconciliation, outpatient chart review and discussion with specialists. This chart was completed in part utilizing Speech Voice Recognition Software. Grammatical errors, random word insertions, pronoun errors, and incomplete sentences are an occasional consequence of this system due to software limitations, ambient noise, and hardware issues. Any formal questions or concerns about the content, text, or information contained within the body of this dictation should be directly addressed to the provider for clarification. Notes For Next Care Provider Please begin patient's Promacta as directed by his primary home care physical therapist, Dr. Matson. Prednisone taper course x 30 days as outlined above. It is medically necessary for the patient to have 3 straight caths available per day - will create UTIs if not available. Medication Changes From Visit Prednisone taper course as outlined above. Admission HPI Per Admitting Provider Wicho Patel is a 73y/o M with PMHx significant for refractory ITP s/p splenectomy in 2012, HTN, HLD, hypothyroidism and chronic urinary retention who presented to the ED from [facility] after routine lab work performed at the [facility] today revealed a critical platelet count of 1k. History obtained from the patient, discussion with ED provider, documentation provided by [facility] and associated chart review. Follows with Dr. Matson from [facility]. Patient was recently hospitalized under our service from 09/28/24 to 10/03/24 with severe thrombocytopenia in the setting of refractory ITP. Treated with IVIG and IV Decadron with improvement of his platelet count to 32k on discharge. Was also started on a prednisone taper course. Given the refractoriness of his ITP, Dr. Matson also gave written orders for eltrombopag (Promacta) to be initiated on an outpatient basis at [facility]. Per discussion with the patient today, he has yet to start the Promacta as the [facility] could not obtain this medication. He does however endorse taking the prednisone as prescribed. He was notified by staff at the [facility] today that his routine lab work drawn this morning revealed a platelet count of 1k - therefore prompting his arrival to the ED for evaluation. Platelet count 0k in the ED. Did have a very mild nosebleed this morning out of the right nare however he reports this resolved within minutes and has not recurred. No recent trauma or falls. Denies any hematuria or hematochezia/melena. Has issues with chronic urinary retention requiring routine self-catheterization at the [facility]. He requested a Pena catheter to be placed in the ED. UA reviewed and unremarkable. Leukocytosis noted on ED labs however this is likely related to his tapered steroid use. No reported fever, chills, dysuria, cough, chest pain or SOB. Hgb stable at 12.4. Baseline Cr around 1.1-1.4 per chart review. Cr slightly bumped at 1.49 today, was previously 1.26 on 10/02/24. Patient endorses good appetite and hydration level. Did not take any of his medications today, including the prednisone. ED provider discussed his case with Dr. Matson - recommendation to begin IVIG and IV Decadron at this time. Admission Exam Per Admitting Provider General: WD/WN, NAD, sitting up in bed, pleasant, conversing appropriately. A+Ox3. Penitentiary guards at bedside. HEENT: Normocephalic, atraumatic. Conjunctivae normal. External ear and nose normal, oropharynx normal. Respiratory: Normal respiratory effort, lungs clear to auscultation, no wheeze/rales. No accessory muscle use. Cardiovascular: Regular rate/rhythm, normal peripheral pulses, no BLE edema. Abdomen/GI: Normal bowel sounds, soft, nontender to palpation in all quadrants. Extremities/Musculoskeletal: No cyanosis or clubbing, extremities motor strength intact, moves all extremities. Neurologic: No overt focal deficits, CN's II-XI not formally tested but appear grossly intact bilaterally. Discharge Exam General: WD/WN, NAD, sitting up in bed, pleasant, conversing appropriately. A+Ox3. Penitentiary guards at bedside. HEENT: Normocephalic, atraumatic. Conjunctivae normal. External ear and nose normal, oropharynx normal. Respiratory: Normal respiratory effort, lungs clear to auscultation, no wheeze/rales. No accessory muscle use. Cardiovascular: Regular rate/rhythm, normal peripheral pulses, no BLE edema. Abdomen/GI: Normal bowel sounds, soft, nondistended, nontender to palpation in all quadrants. Extremities/Musculoskeletal: No cyanosis or clubbing, extremities motor strength intact, moves all extremities. Neurologic: No overt focal deficits, CN's II-XI not formally tested but appear grossly intact bilaterally. Updated Medication List Medication Instructions Recorded Confirmed Type atorvastatin 20 mg tablet 20 mg PO DAILY 07/25/24 10/08/24 History lisinopril 20 mg tablet 20 mg PO DAILY 07/25/24 10/08/24 History levothyroxine 50 mcg tablet 50 mcg PO DAILY 08/22/24 10/08/24 History saliva stimulant comb. no.3 2 spray mucous membrane TID PRN 09/24/24 10/08/24 History (Biotene Moisturizing Mouth Dry Mouth mucosal spray) cyanocobalamin (vitamin B-12) 1,000 mcg PO DAILY 09/28/24 10/08/24 History 1,000 mcg tablet (Vitamin B-12) eltrombopag olamine 50 mg tablet 50 mg PO DAILY 10/08/24 10/08/24 History (Promacta) prednisone 10 mg tablet See Taper PO DAILY #105 tabs 10/12/24 Rx Hospital Stay Data Consultations 10/08/24 16:59 ED Decision to Admit Stat 10/08/24 20:23 Consult Hematology Routine Discharge Instructions Given to Patient (Per Discharging Provider) Mr. Patel, fercho were admitted to [facility] due to a low platelet count. You were seen and evaluated by hematology during your hospitalization, whom recommended a prednisone taper course and close follow-up. You are also being started on a medication called eltrombopag (Promacta) when you return back to [facility] as guided by Dr. Matson. The prednisone taper is as follows: 60mg DAILY for 5 days, then 50mg DAILY for 5 days, then 40mg DAILY for 5 days, then 30mg DAILY for 5 days, then 20mg DAILY for 5 days, and then lastly 10mg DAILY for 5 days. Please complete the prednisone taper course in its entirety! Please take good care of yourself! It has been a pleasure taking care of you. Total Time Total Time Spent Total Time Spent (In Minutes): 60 Supervising Physician Co-Signing Physician Notes Patient is seen and examined at bedside. States feeling well. Platelet count improved to 80k. Patient denies any chest pain, dyspnea, nausea, vomiting, abdominal pain. Initially plan to be discharged to correctional facility today. While removing Pena catheter today, patient likely had traumatic catheter resulting in bleed. Given chronic bladder issues and low platelets we will hold discharge today. On exam patient is obese, no apparent distress, normocephalic atraumatic, EOMI, normal breath sounds, clear to auscultation, S1-S2, no murmur, no pedal edema, abdomen soft, nontender, normal bowel sounds, alert, awake, oriented, grossly no focal deficits, left upper extremity ecchymosis noted. Patient is currently being managed for ITP. Received IVIG's, dexamethasone. Platelet counts improved. Monitor H&H for traumatic catheter. Monitor platelet count. Plan to discharge on tapering prednisone course likely tomorrow. I personally interviewed and examined the patient at bedside. I have reviewed the advanced practitioner's documentation on the date of service referred in note and agree with plan. Patient's care is coordinated with Radha Horner PA-C. Please refer to the documentation above for details of patient's presentation and for discussion of other issues. I spent a total [id number] coordinating, documenting, and providing care for this patient excluding time spent in the performance of separately billed services or time spent by another provider/QHP.
--- NOTE | 2024-10-12 17:24 | Communication Note ---
Date of Service: October 12, 2024 Discharge got canceled due to traumatic urinary catheter. Will monitor H&H. Will consider to discharge tomorrow if remains stable. If recurrence of bleed ing, will request urology evaluation.
[2024-10-12 20:29] VITALS: O2SAT 96
[2024-10-12 20:29] LABS: Hematocrit (blood only) 34.7 % (42.0-52.0); Hemoglobin 11.5 g/dl (14.0-18.0)
[2024-10-13 06:52] LABS: Basophils # (auto) 0.02 K/uL (0.00-0.20); Basophils % (auto) 0.1 %; Eosinophils # (auto) 0.02 K/uL (0.00-0.50); Eosinophils % (auto) 0.1 %; Hematocrit (blood only) 35.8 % (42.0-52.0); Hemoglobin 11.9 g/dl (14.0-18.0); Immature Granulocytes # (auto) 0.13 K/uL (0.01-0.20); Immature Granulocytes % (auto) 0.7 %; Lymphocytes # (auto) 1.25 K/uL (1.20-3.40); Lymphocytes % (auto) 7.1 %; Mean Corpuscular Hemoglobin 31.1 pg (25.0-34.0); Mean Corpuscular Hgb Conc 33.2 g/dL (32.0-36.0); Mean Corpuscular Volume 93.5 fL (80.0-100.0); Monocytes # (auto) 1.24 K/uL (0.11-0.59); Neutrophils # (auto) 14.93 K/uL (1.40-6.50); Nucleated RBC % (auto) 0.6 %; Platelet Count 97 K/uL (130-400); RDW Standard Deviation 49.8 fL (36.4-46.3); Red Blood Count 3.83 M/uL (4.70-6.10); White Blood Count 17.59 K/ul (4.8-10.8)
[2024-10-13 07:11] LABS: BUN Creatinine Ratio 34.2 (10-20); Calcium 8.2 mg/dl (8.6-10.3); Creatinine Clr Calc Pharmacy 67.2 ml/min; Magnesium 2.2 mg/dl (1.7-2.4); Potassium 4.3 mmol/L (3.5-5.1)
--- NOTE | 2024-10-13 07:40 | Hospitalist Progress Note ---
Date of Service October 12, 2024 Assessment & Plan (1) Acute ITP: (2) Severe thrombocytopenia: Plan: Wicho Patel is a 73y/o M with PMHx significant for refractory ITP s/p splenectomy in 2012, HTN, HLD, hypothyroidism and chronic urinary retention who presented to the ED from [facility] after routine lab work performed at the assisted revealed a critical platelet count of 1k. Follows with Dr. Matson from [facility]. Patient was recently hospitalized under our service from 09/28/24 to 10/03/24 with severe thrombocytopenia in the setting of refractory ITP. Treated with IVIG and IV Decadron with improvement of his platelet count to 32k on discharge. Was also started on a prednisone taper course. Given the refractoriness of his ITP, Dr. Matson also gave written orders for eltrombopag (Promacta) to be initiated on an outpatient basis at [facility]. Patient was not started on the Promacta following his discharge as the assisted could not obtain this medication. He does however endorse taking the prednisone as prescribed. Platelet count 0k on admission. Suspect leukocytosis 2/2 steroid use. Per formal hematology consult on 10/09/24: "Continue IVIG plus dexamethasone. At this point would recommend to discharge him to the assisted only when his platelet count is greater than 100,000. For this we would have to continue to give him IVIG 1 mg/kg over the next 2 to 3 days. Discharge him on prednisone taper then. Subsequently, will hope that the assisted approves this as a trauma bag so that he does not have recurrent admissions to the hospital." Platelet count improved to 80k today; discussed case with Dr. Matson via TT on 10/11/24. Feels comfortable sending patient home with current platelet count even though it is <100k like initially recommended; however patient with penile bleeding s/p traumatic Pena catheter removal today as per below therefore discharge canceled. Continue IV Decadron for now, plan to transition to outlined prednisone taper course below tomorrow: 60mg DAILY for 5 days, then 50mg DAILY for 5 days, then 40mg DAILY for 5 days, then 30mg DAILY for 5 days, then 20mg DAILY for 5 days, and then lastly 10mg DAILY for 5 days. Called over to the infirmary at [facility] again this morning. Confirmed Promacta is available at the facility; prescription to begin as per Dr. Matson. (3) KATELYNN (acute kidney injury): Plan: Cr 1.49 on admission. Now improved s/p IVF. Baseline Cr around 1.1-1.4 per chart review. (4) Hyponatremia: Plan: Na 132 but remains stable. Encouraged po intake. Continue to monitor. 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 UA reviewed and negative for infection. Pena catheter placed in ED at time of admission; catheter removed today. Was initially planning for discharge however patient with penile bleeding s/p traumatic Pena catheter removal. Discharge canceled. Monitor H/H. Of note, it is medically necessary for the patient to have 3 straight caths available per day at [facility] - will create UTIs if not available. (7) HTN (hypertension): Plan: Continue lisinopril and monitor. Could consider increasing lisinopril dose if BP were to become consistently elevated again. (8) HLD (hyperlipidemia): Plan: Chronic, stable. Continue atorvastatin. (9) Hypothyroidism: Plan: Chronic, stable. Continue levothyroxine. PCP: [facility] Disposition: Continue to observe inpatient 2/2 penile bleeding s/p traumatic Pena catheter removal. If H/H remains stable and bleeding fully resolves, can possibly discharge back to [facility] tomorrow. If no resolution of the bleeding, will reach out to urology for assistance. Patient seen in collaboration with Dr. Byrne. Please see addendum. I spent a total of 55 minutes coordinating, documenting, and providing care for this patient excluding time spent in the performance of separately billed services or time spent by another provider/QHP. This included personally reviewing all current laboratories and imaging studies, medical reconciliation, outpatient chart review and discussion with specialists. This chart was completed in part utilizing Speech Voice Recognition Software. Grammatical errors, random word insertions, pronoun errors, and incomplete sentences are an occasional consequence of this system due to software limitations, ambient noise, and hardware issues. Any formal questions or concerns about the content, text, or information contained within the body of this dictation should be directly addressed to the provider for clarification. Admission and Anticipated Discharge Date Admission Date: October 08, 2024 Supervising Physician Co-Signing Physician Notes Patient is seen and examined at bedside. No acute bleeding issues today after patient self catheterized. Platelet count continues to improve. Patient offers no new complaints. Denies any chest pain, dyspnea, nausea, vomiting, abdominal pain. Initially plan to be discharged to correctional facility today. While removing Pena catheter today, patient likely had traumatic catheter resulting in bleed. Given chronic bladder issues and low platelets we will hold discharge today. On exam patient is obese, no apparent distress, normocephalic atraumatic, EOMI, normal breath sounds, clear to auscultation, S1-S2, no murmur, no pedal edema, abdomen soft, nontender, normal bowel sounds, alert, awake, oriented, grossly no focal deficits, left upper extremity ecchymosis noted. Patient is currently being managed for ITP. Received IVIG's, dexamethasone. Platelet counts improved to 97k. Hb stable. Plan to discharge on tapering prednisone course today. I personally interviewed and examined the patient at bedside. I have reviewed the advanced practitioner's documentation on the date of service referred in note and agree with plan. Patient's care is coordinated with Radha Horner PA-C. Please refer to the documentation above for details of patient's presentation and for discussion of other issues. I spent a total of34 minutes coordinating, documenting, and providing care for this patient excluding time spent in the performance of separately billed services or time spent by another provider/QHP. Subjective Patient seen in room 362-1 with assisted guards at bedside. Offers no complaints or concerns. Discussed his labs results from this morning. Denies any F/C, chest pain, SOB or N/V. Review of Systems Review of Systems: At least ten systems reviewed and negative, except as noted in the subjective section. Physical Exam Physical Exam: General: WD/WN, NAD, sitting up in bed, pleasant, conversing appropriately. A+Ox3. Care Home guards at bedside. HEENT: Normocephalic, atraumatic. Conjunctivae normal. External ear and nose normal, oropharynx normal. Respiratory: Normal respiratory effort, lungs clear to auscultation, no wheeze/rales. No accessory muscle use. Cardiovascular: Regular rate/rhythm, normal peripheral pulses, no BLE edema. Abdomen/GI: Normal bowel sounds, soft, nondistended, nontender to palpation in all quadrants. Extremities/Musculoskeletal: No cyanosis or clubbing, extremities motor strength intact, moves all extremities. Neurologic: No overt focal deficits, CN's II-XI not formally tested but appear grossly intact bilaterally. Results & Data Results & Data Vital Signs (Past 12 Hours) Vital Signs Temp Pulse Resp BP Pulse Ox O2 Del Method 10/12/24 20:24 36.4 C L 65 16 169/86 H 96 Room Air Laboratory Results Short CBC 10/12/24 10/12/24 10/13/24 Range/Units 09:20 20:07 06:28 WBC 17.86 H 17.59 H (4.8-10.8) K/ul Hgb 11.7 L 11.5 L 11.9 L (14.0-18.0) g/dl Hct 36.2 L 34.7 L 35.8 L (42.0-52.0) % Plt Count 80 L 97 L (130-400) K/uL BMP 10/12/24 10/13/24 09:20 06:28 Sodium 132 L 133 L Potassium 4.3 4.3 Chloride 103 106 Carbon Dioxide 26 25 BUN 34 H 39 H Creatinine 1.27 1.14 Glucose 224 H 178 H Calcium 8.0 L 8.2 L (7) HTN (hypertension) Hypertension type: unspecified Qualified Code(s): I10 - Essential (primary) hypertension (8) HLD (hyperlipidemia) Hyperlipidemia type: unspecified Qualified Code(s): E78.5 - Hyperlipidemia, unspecified (9) Hypothyroidism Hypothyroidism type: unspecified Qualified Code(s): E03.9 - Hypothyroidism, unspecified
[2024-10-13 08:17] VITALS: BP 169/84; RESP 18; TEMP 97.7
[2024-10-13] MEDS: predniSONE 20 MG TAB PO SCH (08:20)
[2024-10-13 12:56] VITALS: PULSE 69
== END 2024-10-13 15:04 | DRG 813 ==
LOC: ED 12:30 → SUATTDRO 17:28 → INTOOBSV 17:28 → OBSVTOIN 17:28 → 3W 17:28

== ENCOUNTER 2025-01-16 19:05 | Inpatient (IN) ==
[2025-01-16 19:58] LABS: Hemoglobin 13.1 g/dl (14.0-18.0); Mean Corpuscular Hemoglobin 29.8 pg (25.0-34.0); Mean Corpuscular Hgb Conc 33.6 g/dL (32.0-36.0); Mean Corpuscular Volume 88.8 fL (80.0-100.0); Platelet Count 8 K/uL (130-400); RDW Coefficient of Variation 13.6 % (11.5-14.5); RDW Standard Deviation 44.3 fL (36.4-46.3); Red Blood Count 4.39 M/uL (4.70-6.10); White Blood Count 11.08 K/ul (4.8-10.8)
[2025-01-16 20:01] LABS: BUN Creatinine Ratio 14.1 (10-20); Bilirubin,Total 0.4 mg/dl (0.2-1.0); Creatinine Clr Calc Pharmacy 50.6 ml/min; Potassium 3.9 mmol/L (3.5-5.1); Total Protein 6.1 gm/dl (6.0-8.3)
[2025-01-16 20:06] LABS: Basophils # (auto) 0.04 K/uL (0.00-0.20); Basophils % (auto) 0.4 %; Eosinophils # (auto) 0.21 K/uL (0.00-0.50); Eosinophils % (auto) 1.9 %; Immature Granulocytes # (auto) 0.03 K/uL (0.01-0.20); Immature Granulocytes % (auto) 0.3 %; Lymphocytes # (auto) 2.45 K/uL (1.20-3.40); Lymphocytes % (auto) 22.1 %; Monocytes # (auto) 1.48 K/uL (0.11-0.59); Monocytes % (auto) 13.4 %; Neutrophils # (auto) 6.87 K/uL (1.40-6.50); Neutrophils % (auto) 61.9 %; Platelet Estimate Signific. Decreased (Normal)
--- NOTE | 2025-01-16 20:11 | Emergency Department Note ---
Impression & Plan Severe thrombocytopenia, Acute ITP ED Provider Note NAME: LYLY [id number] SAURAV AGE: 74 SEX: M : 1950 ARRIVES VIA: Walk-In INFORMANT: Patient, ED PROVIDER(S): Gerard Scherer DO CHIEF COMPLAINT: Low platelets HPI: The patient is a 74-year-old male who presented to the emergency department because of low platelets. The patient denies having any headache nausea or vomiting. He denies have any rectal bleeding. The patient had routine labs which showed his platelets were low. He has a history of ITP. ROS: See above HPI for pertinent positives & negatives. A total of 10 systems reviewed and were otherwise negative. PAST MEDICAL HISTORY: See Below PAST SURGICAL HISTORY: See Below FAMILY HISTORY: See Below SOCIAL HISTORY: See Below HOME MEDICATIONS: See Below ALLERGIES: See Below VITALS: See Below PHYSICAL EXAMINATION: GENERAL: Patient is awake alert in no acute distress patient is resting comfortably and showing no signs of anxiety EYES: The conjunctivae are clear. The pupils are round and reactive. EARS, NOSE, MOUTH AND THROAT: The nose is without any evidence of any deformity. NECK: The neck is nontender and supple. RESPIRATORY: Normal respiratory effort is noted there is no evidence of wheezing rhonchi or rales CARDIOVASCULAR: Regular rate and rhythm noted there no murmurs rubs or gallops normal S1 normal S2. GASTROINTESTINAL: The abdomen is soft. Abdomen is nontender. MUSCULOSKELETAL/EXTREMITIES: There is no evidence of gross deformity full range of motion is noted in the hips and shoulders. SKIN: Skin was warm and dry. There is no significant pedal edema. Petechia was noted in both lower extremities. NEUROLOGIC: Patient is awake alert and oriented x3 MEDICAL DECISION MAKING: The patient is a 74-year-old male who presented to the emergency department for an evaluation of low platelets and petechial rash. The patient has a history of ITP. I discussed the patient's laboratory results with him. I discussed his condition with the on-call redrawer as well as the on-call [facility] hospitalist. Decadron as well as IVIG were also ordered in the emergency department. The patient was reevaluated multiple times. Triage Nursing notes reviewed. Prior medical records reviewed Vital Signs: reviewed and remarkable for no significant abnormalities Differential diagnosis: Infection, dehydration, metabolic abnormality, hypo/hyperglycemia, electrolyte disturbance, anemia, hypoxia, cardiac sources, intracerebral event, toxicologic, neurologic, as well as other pathologies. ER treatment provided: See below Diagnostics interpreted by me: ECG: none Cardiac Monitoring: An order was placed for continuous cardiac monitoring. The monitor shows a rate of 82 bpm with sinus rhythm. Laboratory studies: As stated above and show below. Imaging studies: See below. Radiographic imaging was reviewed by myself Consultation(s): I discussed this case with Dr. Collazo who is on for hematology. He recommends 40 mg of dexamethasone orally daily. He does recommend IVIG 1 g/kg. He would like to see the patient restarted on his Promacta. Repeat CBC in the morning. I discussed this case with Dr. Lombardo who is on-call for the [facility] hospitalist group. Past Med/Surg History Problem List (Updated 01/16/25 @ 21:50 by Gerard Scherer DO) Penile bleeding Hyponatremia Hypothyroidism Urinary tract infection associated with catheterization of urinary tract Leukocytosis (Acute) Thrombocytopenia (Acute) Petechial rash (Acute) Petechiae Severe thrombocytopenia (Acute) Acute ITP (Acute) Medical History KATELYNN (acute kidney injury) Urinary retention HLD (hyperlipidemia) HTN (hypertension) Surgical History H/O splenectomy Social History Smoking Status: Never smoker Tobacco Type: Declines Second Hand Exposure: No; Do You Dip or Chew Tobacco: No; Hx Alcohol Use: No Hx Substance Use: No Preferred Language: Frisian Communication Ability: Effective 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 Beliefs That Will Affect Care: None Current Living Situation: Other Current Living Situation Comment: [facility] Feels Safe at Home: Yes Assistive Devices: None Allergies Allergies Allergy/AdvReac Type Severity Reaction Status Date / Time Penicillins Allergy Mild Rash Verified 10/08/24 16:48 heparin Allergy Unknown Verified 10/08/24 16:48 Home Meds Home Medications Medication Instructions Recorded Confirmed atorvastatin 20 mg tablet 20 mg PO DAILY 07/25/24 01/16/25 lisinopril 20 mg tablet 20 mg PO DAILY 07/25/24 01/16/25 levothyroxine 50 mcg tablet 50 mcg PO DAILY 08/22/24 01/16/25 saliva stimulant comb. no.3 2 spray mucous membrane TID PRN 09/24/24 01/16/25 (Biotene Moisturizing Mouth Dry Mouth mucosal spray) cyanocobalamin (vitamin B-12) 1,000 mcg PO DAILY 09/28/24 01/16/25 1,000 mcg tablet (Vitamin B-12) eltrombopag olamine 50 mg tablet 50 mg PO DAILY 10/08/24 01/16/25 (Promacta) diphenhydramine HCl 25 mg capsule 25 mg PO BID 01/16/25 01/16/25 (Benadryl) glipizide 5 mg tablet 5 mg PO DAILY 01/16/25 01/16/25 Results & Data (ED) Vital Signs Vital Signs - 24 hr 01/16/25 19:07 01/16/25 19:57 01/16/25 20:38 Temperature 37 C Temperature Source Temporal Artery Scan Pulse Rate 126 H 95 H Pulse Rate [Right Finger] 87 Pulse Rhythm Regular Pulse Strength Normal Respiratory Rate 18 20 Respiratory Effort / Characteristics Non-Labored Spontaneous Non-Labored Spontaneous Respiratory Depth Normal Normal Respiratory Pattern Regular Blood Pressure 131/92 Blood Pressure [Right Arm] 153/91 H Blood Pressure Mean 105 Blood Pressure Mean [Right Arm] 111 Blood Pressure Position Sitting Pulse Oximetry 96 94 Oxygen Delivery Method Room Air Room Air Sepsis Recent Fever Within 48 Hours No Sepsis New/Unexplained Change in Mental Status N/A Sepsis Action Taken by Nursing No Action Required Home Medications Current Medication List: was personally reviewed by me Laboratory Data Attestation: I reviewed the patient's lab results. 01/16/25 19:35 01/16/25 19:35 Lab Results 01/16/25 01/16/25 Range/Units 19:35 19:47 WBC 11.08 H (4.8-10.8) K/ul RBC 4.39 L (4.70-6.10) M/uL Hgb 13.1 L (14.0-18.0) g/dl Hct 39.0 L (42.0-52.0) % MCV 88.8 (80.0-100.0) fL MCH 29.8 (25.0-34.0) pg MCHC 33.6 (32.0-36.0) g/dL RDW Std Deviation 44.3 (36.4-46.3) fL RDW Coeff of Debbie 13.6 (11.5-14.5) % Plt Count 8 L* (130-400) K/uL Immature Gran % (Auto) 0.3 % Neut % (Auto) 61.9 % Lymph % (Auto) 22.1 % [place] % (Auto) 13.4 % Eos % (Auto) 1.9 % Baso % (Auto) 0.4 % Neut # (Auto) 6.87 H (1.40-6.50) K/uL Lymph # (Auto) 2.45 (1.20-3.40) K/uL [place] # (Auto) 1.48 H (0.11-0.59) K/uL Eos # (Auto) 0.21 (0.00-0.50) K/uL Baso # (Auto) 0.04 (0.00-0.20) K/uL Immature Gran # (Auto) 0.03 (0.01-0.20) K/uL Platelet Estimate Signific. Decreased L (Normal) PT 10.8 (9.0-12.0) Seconds INR 1.0 (0.9-1.1) APTT 26 (21-31) Seconds PTT Ratio 1.0 Sodium 138 (136-145) mmol/L Potassium 3.9 (3.5-5.1) mmol/L Chloride 108 H (98-107) mmol/L Carbon Dioxide 20 L (21-32) mmol/L Anion Gap 10 (3-11) BUN 22 (6-23) mg/dl Creatinine 1.56 H (0.6-1.4) mg/dl Est Cr Clr Drug Dosing 50.6 ml/min eGFR 46.32 BUN/Creatinine Ratio 14.1 (10-20) Glucose 127 H (70-99(Fasting)) mg/dl Calcium 9.0 (8.6-10.3) mg/dl Total Bilirubin 0.4 (0.2-1.0) mg/dl AST 22 (13-39) U/L ALT 29 (7-52) U/L Alkaline Phosphatase 86 (34-104) U/L Lactate Dehydrogenase 178 (86-244) U/L Total Protein 6.1 (6.0-8.3) gm/dl Albumin 4.1 (3.4-5.0) gm/dl Globulin 2.0 L (2.5-4.0) gm/dl Albumin/Globulin Ratio 2.0 (0.9-2) Lipase 25 (11-82) U/L Blood Type A Positive Antibody Screen NEGATIVE Administered Medications Discontinued Medications Dexamethasone Sodium Phosphate (DexamethasonePf 10 Mg/Ml Vial) 40 mg PO NOW ONE Stop: 01/16/25 20:33 Last Admin: 01/16/25 21:35 Dose: 40 mg Documented By: CTK Discharge Plan Visit Data Chief Complaint: Abnormal Labs/Diagnostic Testing Stated Complaint: ABNORMAL LABS ED Provider: Gerard Scherer Discharge Problem: Severe thrombocytopenia, Acute ITP Patient Disposition: Being Evaluated by Hospitalist Condition: Fair Forms Stand Alone Forms: [facility] Prescriptions Prescriptions: No Action atorvastatin 20 mg Tablet 20 mg PO DAILY lisinopril 20 mg Tablet 20 mg PO DAILY levothyroxine 50 mcg Tablet 50 mcg PO DAILY Biotene Moisturizing Mouth [place],Non-Aerosol 2 spray MUCOUS MEMBRANE TID PRN (Reason: Dry Mouth) cyanocobalamin (vitamin B-12) [Vitamin B-12] 1,000 mcg Tablet 1,000 mcg PO DAILY eltrombopag olamine [Promacta] 50 mg Tablet 50 mg PO DAILY Rx Instructions: administer on an empty stomach, at least 1 hour before or 2 hours after food/meal(s) diphenhydramine HCl [Benadryl] 25 mg Capsule 25 mg PO BID glipizide 5 mg Tablet 5 mg PO DAILY Referrals Referrals: Akbar JORDAN [Primary Care Provider] -
[2025-01-16 20:26] LABS: Partial Thromboplastin Time 26 Seconds (21-31); Prothrombin Time 10.8 Seconds (9.0-12.0)
[2025-01-16] MEDS ORDERED: IMMUNE GLOBULIN (HUMAN) SOLN IV ONE (20:32)
[2025-01-16] MEDS: dexAMETHasone**PF** 10 MG/ML VIAL PO ONE (21:35)
[2025-01-16] MEDS: Octagam 10% IVIG 20 gram bottle IV SCH (21:45)
--- NOTE | 2025-01-16 22:26 | History & Physical Report ---
Date of Service January 16, 2025 Assessment & Plan (1) Severe thrombocytopenia: Plan: 74-year-old male coming from [facility] with past medical history significant for refractory ITP status post splenectomy in 2012, hypertension, hyperlipidemia, hypothyroidism and chronic urine retention was brought in because of thrombocytopenia. Patient was hospitalized in September and October 2024 with a severe thrombocytopenia. He was treated with steroids and IVIG and discharged on prednisone taper. Currently patient is also taking Promacta. Patient states his platelets improved to 600s in December. And he states he is taking Promacta daily, initially it was was blue pill currently a white pill. And today when platelets were checked were 14 and was brought to the hospital. In the ER the platelets were 8. ER talked with hematology Dr. Matson and was advised for Decadron 40 mg and IVIG which were ordered by ER. Patient denies any headache. No dizziness. No runny nose or sore throat. No epistaxis. No cough. No fever. Appetite is okay. No chest pain or shortness of breath. No nausea. No abdominal pain. Denies any blood in stools or black stools. Denies any hematuria. Hemodynamics okay. Severe thrombocytopenia History of refractory ITP status post splenectomy Currently on Promacta IV IgG and a dose of Decadron 40 mg ordered in the ER Will continue Decadron 40 mg daily Follow repeat labs Close monitor Consult heme-onc in a.m. for further recommendations KATELYNN Presented with creatinine 1.5 Baseline creatinine seems to be around 1.1-1.2 Holding lisinopril Gentle fluids Follow repeat labs Hypertension Holding lisinopril IV hydralazine as needed Close monitor Diabetes Hold glipizide Sliding scale Will monitor Will follow HbA1c levels Hyperlipidemia On statin Hypothyroidism On Synthyroid DVT prophylaxis SCDs Disposition Med/telemetry Full code. History of Present Illness Chief Complaint: Severe thrombocytopenia and ITP Primary Care Provider: NIKKI Webber 74-year-old male coming from [facility] with past medical history significant for refractory ITP status post splenectomy in 2012, hypertension, hyperlipidemia, hypothyroidism and chronic urine retention was brought in because of thrombocytopenia. Patient was hospitalized in September and October 2024 with a severe thrombocytopenia. He was treated with steroids and IVIG and discharged on prednisone taper. Currently patient is also taking Promacta. Patient states his platelets improved to 600s in December. And he states he is taking Promacta daily, initially it was was blue pill currently a white pill. And today when platelets were checked were 14 and was brought to the hospital. In the ER the platelets were 8. ER talked with hematology Dr. Matson and was advised for Decadron 40 mg and IVIG which were ordered by ER. Patient denies any headache. No dizziness. No runny nose or sore throat. No epistaxis. No cough. No fever. Appetite is okay. No chest pain or shortness of breath. No nausea. No abdominal pain. Denies any blood in stools or black stools. Denies any hematuria. Hemodynamics okay. Past medical history. As mentioned above Past surgical history. Splenectomy Social history. No smoking. No alcohol use. No drug use. Allergies Allergy/AdvReac Type Severity Reaction Status Date / Time Penicillins Allergy Mild Rash Verified 10/08/24 16:48 heparin Allergy Unknown Verified 10/08/24 16:48 Home Medications Medication Instructions Recorded Confirmed Type atorvastatin 20 mg tablet 20 mg PO DAILY 07/25/24 01/16/25 History lisinopril 20 mg tablet 20 mg PO DAILY 07/25/24 01/16/25 History levothyroxine 50 mcg tablet 50 mcg PO DAILY 08/22/24 01/16/25 History saliva stimulant comb. no.3 2 spray mucous membrane TID PRN 09/24/24 01/16/25 History (Biotene Moisturizing Mouth Dry Mouth mucosal spray) cyanocobalamin (vitamin B-12) 1,000 mcg PO DAILY 09/28/24 01/16/25 History 1,000 mcg tablet (Vitamin B-12) eltrombopag olamine 50 mg tablet 50 mg PO DAILY 10/08/24 01/16/25 History (Promacta) diphenhydramine HCl 25 mg capsule 25 mg PO BID 01/16/25 01/16/25 History (Benadryl) glipizide 5 mg tablet 5 mg PO DAILY 01/16/25 01/16/25 History Past Med/Surg History Problem List (Updated 01/16/25 @ 21:50 by Gerard Scherer DO) Penile bleeding Hyponatremia Hypothyroidism Urinary tract infection associated with catheterization of urinary tract Leukocytosis (Acute) Thrombocytopenia (Acute) Petechial rash (Acute) Petechiae Severe thrombocytopenia (Acute) Acute ITP (Acute) Medical History KATELYNN (acute kidney injury) Urinary retention HLD (hyperlipidemia) HTN (hypertension) Surgical History H/O splenectomy Social History Smoking Status: Never smoker Tobacco Type: Declines Second Hand Exposure: No; Do You Dip or Chew Tobacco: No; Hx Alcohol Use: No Hx Substance Use: No Preferred Language: Divehi Communication Ability: Effective 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 ENT- oropharynx clear Neck- supple, no JVD. Lungs- clear to auscultation no wheezing or crackles Heart- regular rate and rhythm; no murmur, no gallop. Abdomen- normal bowel sounds, soft, nontender, no distension. Extremities- no pretibial edema, mild petechial rash seen on lower extremities Neuro- alert, oriented PERRL, no facial palsy; no dysarthria; moves extremities Results & Data Results & Data Vital Signs (Past 12 Hours) Vital Signs Temp Pulse Pulse Resp BP BP Pulse Ox 01/16/25 20:38 87 20 153/91 H 94 01/16/25 19:57 95 H 01/16/25 19:07 37 C 126 H 18 131/92 96 O2 Del Method 01/16/25 20:38 Room Air 01/16/25 19:57 01/16/25 19:07 Room Air Diagnostic Findings Laboratory Results WBC 11.08 K/ul (4.8-10.8) H 01/16/25 19:35 RBC 4.39 M/uL (4.70-6.10) L 01/16/25 19:35 Hgb 13.1 g/dl (14.0-18.0) L 01/16/25 19:35 Hct 39.0 % (42.0-52.0) L 01/16/25 19:35 MCV 88.8 fL (80.0-100.0) 01/16/25 19:35 MCH 29.8 pg (25.0-34.0) 01/16/25 19:35 MCHC 33.6 g/dL (32.0-36.0) 01/16/25 19:35 RDW Std Deviation 44.3 fL (36.4-46.3) 01/16/25 19: RDW Coeff of Debbie 13.6 % (11.5-14.5) 01/16/25 19:35 Plt Count 8 K/uL (130-400) L* 01/16/25 19:35 Immature Gran % (Auto) 0.3 % 01/16/25 19:35 Neut % (Auto) 61.9 % 01/16/25 19:35 Lymph % (Auto) 22.1 % 01/16/25 19:35 [place] % (Auto) 13.4 % 01/16/25 19:35 Eos % (Auto) 1.9 % 01/16/25 19:35 Baso % (Auto) 0.4 % 01/16/25 19:35 Neut # (Auto) 6.87 K/uL (1.40-6.50) H 01/16/25 19:35 Lymph # (Auto) 2.45 K/uL (1.20-3.40) 01/16/25 19:35 [place] # (Auto) 1.48 K/uL (0.11-0.59) H 01/16/25 19:35 Eos # (Auto) 0.21 K/uL (0.00-0.50) 01/16/25 19:35 Baso # (Auto) 0.04 K/uL (0.00-0.20) 01/16/25 19:35 Immature Gran # (Auto) 0.03 K/uL (0.01-0.20) 01/16/25 19:35 Platelet Estimate Signific. Decreased (Normal) L 01/16/25 19:35 PT 10.8 Seconds (9.0-12.0) 01/16/25 19:35 INR 1.0 (0.9-1.1) 01/16/25 19:35 APTT 26 Seconds (21-31) 01/16/25 19:35 PTT Ratio 1.0 01/16/25 19:35 Sodium 138 mmol/L (136-145) 01/16/25 19:35 Potassium 3.9 mmol/L (3.5-5.1) 01/16/25 19:35 Chloride 108 mmol/L (98-107) H 01/16/25 19:35 Carbon Dioxide 20 mmol/L (21-32) L 01/16/25 19:35 Anion Gap 10 (3-11) 01/16/25 19:35 BUN 22 mg/dl (6-23) 01/16/25 19:35 Creatinine 1.56 mg/dl (0.6-1.4) H 01/16/25 19:35 Est Cr Clr Drug Dosing 50.6 ml/min 01/16/25 19:35 eGFR 46.32 01/16/25 19:35 BUN/Creatinine Ratio 14.1 (10-20) 01/16/25 19:35 Glucose 127 mg/dl (70-99(Fasting)) H 01/16/25 19:35 Calcium 9.0 mg/dl (8.6-10.3) 01/16/25 19:35 Total Bilirubin 0.4 mg/dl (0.2-1.0) 01/16/25 19:35 AST 22 U/L (13-39) 01/16/25 19:35 ALT 29 U/L (7-52) 01/16/25 19:35 Alkaline Phosphatase 86 U/L (34-104) 01/16/25 19:35 Lactate Dehydrogenase 178 U/L (86-244) 01/16/25 19:35 Total Protein 6.1 gm/dl (6.0-8.3) 01/16/25 19:35 Albumin 4.1 gm/dl (3.4-5.0) 01/16/25 19:35 Globulin 2.0 gm/dl (2.5-4.0) L 01/16/25 19:35 Albumin/Globulin Ratio 2.0 (0.9-2) 01/16/25 19:35 Lipase 25 U/L (11-82) 01/16/25 19:35 Blood Type A Positive 01/16/25 19:47 Antibody Screen NEGATIVE 01/16/25 19:47 Code Status & VTE Plan VTE Prophylaxis Plan VTE Prophylaxis will be ordered: Yes
[2025-01-16] MEDS ORDERED: POLYETHYLENE (MIRALAX) 17 GM PACK PO PRN (23:01)
[2025-01-16] MEDS ORDERED: GLUCAGON FOR INJ 1 MG VIAL SQ PRN (23:01)
[2025-01-16] MEDS ORDERED: NITROGLYCERIN SL 0.4 MG/TAB TAB SL PRN (23:01)
[2025-01-16] MEDS ORDERED: GLUCOSE 40% GEL 15 GM TUBE PO PRN (23:01)
[2025-01-16] MEDS ORDERED: DEXTROSE 50% 50 ML SYRINGE IV PRN (23:01)
[2025-01-16] MEDS ORDERED: CARBOHYDRATES FOR HYPOGLYCEMIA PO PRN (23:01)
[2025-01-16] MEDS ORDERED: hydrALAZINE HCL 20 MG/ML VIAL IV PRN (23:01)
[2025-01-16] MEDS ORDERED: ACETAMINOPHEN 325 MG TAB PO PRN (23:01)
[2025-01-16] MEDS ORDERED: GLUCOSE 10 TAB/TUBE PO PRN (23:01)
[2025-01-16] MEDS: SODIUM CHLORIDE 0.9% 1,000 ML IV SCH (23:41)
[2025-01-17 03:20] LABS: Appearance Urine Clear (Clear); Bilirubin Urine Negative (Negative); Blood Urine Negative (Negative); Color Urine Yellow; Glucose Urine UA 2+ (Negative); Ketones Urine Negative (Negative); Leukocyte Esterase Urine Negative (Negative); Nitrite Urine Negative (Negative); Protein Urine Negative (Negative); Specific Gravity Urine 1.012 (1.000-1.030); Urobilinogen Urine Negative (Negative); pH Urine 5.5 (4.5-7.5)
[2025-01-17] MEDS: LEVOTHYROXINE SODIUM 50 MCG TABLET PO SCH (06:08)
[2025-01-17 06:13] LABS: Hematocrit (blood only) 40.8 % (42.0-52.0); Hemoglobin 13.6 g/dl (14.0-18.0); Mean Corpuscular Hemoglobin 29.7 pg (25.0-34.0); Mean Corpuscular Hgb Conc 33.3 g/dL (32.0-36.0); Mean Corpuscular Volume 89.1 fL (80.0-100.0); Platelet Count 53 K/uL (130-400); RDW Coefficient of Variation 13.6 % (11.5-14.5); RDW Standard Deviation 44.2 fL (36.4-46.3); Red Blood Count 4.58 M/uL (4.70-6.10); White Blood Count 4.11 K/ul (4.8-10.8)
[2025-01-17 06:37] LABS: BUN Creatinine Ratio 14.3 (10-20); Basophils # (auto) 0.01 K/uL (0.00-0.20); Basophils % (auto) 0.2 %; Calcium 8.6 mg/dl (8.6-10.3); Creatinine Clr Calc Pharmacy 59.3 ml/min; Echinocytes 1+; Immature Granulocytes # (auto) 0.01 K/uL (0.01-0.20); Immature Granulocytes % (auto) 0.2 %; Lymphocytes # (auto) 0.48 K/uL (1.20-3.40); Lymphocytes % (auto) 11.7 %; Magnesium 2.1 mg/dl (1.7-2.4); Monocytes # (auto) 0.05 K/uL (0.11-0.59); Monocytes % (auto) 1.2 %; Neutrophils # (auto) 3.56 K/uL (1.40-6.50); Neutrophils % (auto) 86.7 %; Polychromasia 1+; Potassium 4.8 mmol/L (3.5-5.1)
[2025-01-17 07:52] LABS: Estimated Average Glucose 151 mg/dl; Hemoglobin A1C 6.9 % (4.5-5.6)
[2025-01-17] MEDS: CYANOCOBALAMIN (B-12) 500 MCG TABLET PO SCH (08:53)
[2025-01-17] MEDS: diphenhydrAMINE Capsule 25 MG CAP PO SCH (08:53)
[2025-01-17] MEDS: LANTUS PER UNIT CHARGE SQ SCH (08:53)
[2025-01-17] MEDS: INSULIN ASPART PER UNIT CHARGE SC SCH (08:53)
[2025-01-17] MEDS: ATORVASTATIN 20 MG TAB PO SCH (08:54)
--- NOTE | 2025-01-17 13:06 | Hospitalist Progress Note ---
Date of Service January 17, 2025 Assessment & Plan (1) Severe thrombocytopenia: Plan: 74-year-old male [facility] with past medical history significant for refractory ITP status post splenectomy in 2012, hypertension, hyperlipidemia, hypothyroidism and chronic urine retention was brought in because of thrombocytopenia. Patient was hospitalized in September and October 2024 with a severe thrombocytopenia. He was treated with steroids and IVIG and discharged on prednisone taper. Currently patient is also taking Promacta. Patient states his platelets improved to 600s in December. And he states he is taking Promacta daily, initially it was was blue pill currently a white pill. And today when platelets were checked were 14 and was brought to the hospital. In the ER the platelets were 8. ER talked with hematology Dr. Matson and was advised for Decadron 40 mg and IVIG which were ordered by ER. Patient denies any headache. No dizziness. No runny nose or sore throat. No epistaxis. No cough. No fever. Appetite is okay. No chest pain or shortness of breath. No nausea. No abdominal pain. Denies any blood in stools or black stools. Denies any hematuria. Hemodynamics okay. Severe thrombocytopenia H/O ITP S/P Splenectomy Currently on Promacta received IV IgG while in ED Continue Decadron 40 mg daily Currently no acute bleeding issues Hematology consulted Monitor CBC Acute Kidney Injury Cr:1.56>1.33 Continue to hold lisinopril Resume IV fluids Monitor renal function Avoid nephrotoxic agents as able Hypertension Hold lisinopril IV hydralazine as needed Monitor blood pressure DM II HbA1c 6.9 Hold glipizide Continue insulin per protocol Monitor blood glucose levels Hyperlipidemia Continue statin Hypothyroidism Continue levothyroxine DVT Px: SCDs Re: thrombocytopenia CODE STATUS Full code Admission and Anticipated Discharge Date Admission Date: January 16, 2025 Subjective Patient is seen and examined at bedside Denies any bleeding issues Also denies any chest pain, dyspnea, nausea, vomiting, abdominal pain No other complaints Review of Systems Review of Systems: All systems reviewed & are unremarkable except as noted in Subjective Physical Exam Physical Exam: Physical Exam: Vitals signs as noted above General Appearance:Moderately built and nourished, no apparent distress Head: normocephalic, Atraumatic Eyes: normal inspection, EOMI Neck: supple, Trachea midline Respiratory/Chest: Normal breath sounds, CTA, No accessory muscle use Cardiovascular: S1, S2, No murmur Abdomen/GI:Soft, Non tender, Bowel sounds present Extremities/Musculoskeletal:normal inspection, Trace edema Neurologic/Psych:AAOX3, grossly no focal neurological deficits Skin: normal color, warm Results & Data Results & Data Vital Signs (Past 12 Hours) Vital Signs Temp Pulse Pulse Resp BP Pulse Ox O2 Del Method 01/17/25 12:17 82 16 143/76 H 92 Room Air 01/17/25 07:56 36.4 C L 76 16 136/79 94 Room Air 01/17/25 07:19 78 01/17/25 04:46 36.4 C L 78 20 133/78 92 Room Air Laboratory Results Short CBC 01/16/25 01/17/25 Range/Units 19:35 05:45 WBC 11.08 H 4.11 L D (4.8-10.8) K/ul Hgb 13.1 L 13.6 L (14.0-18.0) g/dl Hct 39.0 L 40.8 L (42.0-52.0) % Plt Count 8 L* 53 L D (130-400) K/uL BMP 01/16/25 01/17/25 19:35 05:45 Sodium 138 132 L Potassium 3.9 4.8 D Chloride 108 H 107 Carbon Dioxide 20 L 19 L BUN 22 19 Creatinine 1.56 H 1.33 Glucose 127 H 252 H Calcium 9.0 8.6 Liver Function 01/16/25 Range/Units 19:35 Total Bilirubin 0.4 (0.2-1.0) mg/dl AST 22 (13-39) U/L ALT 29 (7-52) U/L Alkaline Phosphatase 86 (34-104) U/L Albumin 4.1 (3.4-5.0) gm/dl Urine 01/17/25 Range/Units 03:13 Urine Color Yellow Urine Appearance Clear (Clear) Urine pH 5.5 (4.5-7.5) Ur Specific [place] 1.012 (1.000-1.030) Urine Protein Negative (Negative) Urine Glucose (UA) 2+ H (Negative)
[2025-01-17] MEDS: dexAMETHasone 4 MG TAB PO SCH (20:02)
[2025-01-18 03:46] VITALS: TEMP 97.5; O2SAT 95
[2025-01-18 07:12] LABS: Hematocrit (blood only) 41.1 % (42.0-52.0); Hemoglobin 13.5 g/dl (14.0-18.0); Mean Corpuscular Hemoglobin 29.4 pg (25.0-34.0); Mean Corpuscular Hgb Conc 32.8 g/dL (32.0-36.0); Mean Corpuscular Volume 89.5 fL (80.0-100.0); Mean Platelet Volume 13.9 fL (9.4-12.4); Platelet Count 76 K/uL (130-400); RDW Coefficient of Variation 13.9 % (11.5-14.5); RDW Standard Deviation 45.1 fL (36.4-46.3); Red Blood Count 4.59 M/uL (4.70-6.10); White Blood Count 16.89 K/ul (4.8-10.8)
[2025-01-18 07:24] LABS: BUN Creatinine Ratio 19.5 (10-20); Calcium 8.7 mg/dl (8.6-10.3); Creatinine Clr Calc Pharmacy 61.5 ml/min; Potassium 4.5 mmol/L (3.5-5.1)
[2025-01-18 07:26] LABS: Basophils # (auto) 0.01 K/uL (0.00-0.20); Basophils % (auto) 0.1 %; Howell-Jolly Bodies Occasional; Immature Granulocytes # (auto) 0.11 K/uL (0.01-0.20); Immature Granulocytes % (auto) 0.7 %; Lymphocytes # (auto) 0.73 K/uL (1.20-3.40); Lymphocytes % (auto) 4.3 %; Monocytes # (auto) 0.08 K/uL (0.11-0.59); Monocytes % (auto) 0.5 %; Neutrophils # (auto) 15.96 K/uL (1.40-6.50); Neutrophils % (auto) 94.4 %
[2025-01-18 08:01] VITALS: BP 132/70; PULSE 80; RESP 20
--- NOTE | 2025-01-18 11:36 | Hospitalist Progress Note ---
Date of Service January 18, 2025 Assessment & Plan (1) Severe thrombocytopenia: Plan: 74-year-old male coming from [facility] home with past medical history significant for refractory ITP status post splenectomy in 2012, hypertension, hyperlipidemia, hypothyroidism and chronic urine retention was brought in because of thrombocytopenia. Patient was hospitalized in September and October 2024 with a severe thrombocytopenia. He was treated with steroids and IVIG and discharged on prednisone taper. Currently patient is also taking Promacta. Patient states his platelets improved to 600s in December. And he states he is taking Promacta daily, initially it was was blue pill currently a white pill. And today when platelets were checked were 14 and was brought to the hospital. In the ER the platelets were 8. ER talked with hematology Dr. Matson and was advised for Decadron 40 mg and IVIG which were ordered by ER. Patient denies any headache. No dizziness. No runny nose or sore throat. No epistaxis. No cough. No fever. Appetite is okay. No chest pain or shortness of breath. No nausea. No abdominal pain. Denies any blood in stools or black stools. Denies any hematuria. Hemodynamics okay. Severe thrombocytopenia H/O ITP S/P Splenectomy Currently on Promacta received IV IgG while in ED Continue Decadron 40 mg daily>> transition to prednisone tapering course on discharge Currently no acute bleeding issues Discussed with hematology Dr. Matson: Recommends to discharge on prednisone tapering course Prednisone 60 mg daily for 5 days, then 50 for 5 days, tapering down 10 mg every 5 days until complete Monitor CBC Needs follow-up with hematology on discharge Acute Kidney Injury Cr:1.56>1.33>1.2 Continue to hold lisinopril Resume IV fluids Monitor renal function Avoid nephrotoxic agents as able Hypertension Hold lisinopril IV hydralazine as needed Monitor blood pressure DM II HbA1c 6.9 Hold glipizide Continue insulin per protocol Monitor blood glucose levels Hyperlipidemia Continue statin Hypothyroidism Continue levothyroxine DVT Px: SCDs Re: thrombocytopenia CODE STATUS Full code Disposition [facility] Admission and Anticipated Discharge Date Admission Date: January 16, 2025 Subjective Patient is seen and examined at bedside No new complaints today Discussed with oncology today Denies any bleeding issues Platelet count continues to improve Denies any chest pain, dyspnea, nausea, vomiting, abdominal pain Plan to discharge back to correctional facility today Review of Systems Review of Systems: All systems reviewed & are unremarkable except as noted in Subjective Physical Exam Physical Exam: Physical Exam: Vitals signs as noted above General Appearance:Moderately built and nourished, no apparent distress Head: normocephalic, Atraumatic Eyes: normal inspection, EOMI Neck: supple, Trachea midline Respiratory/Chest: Normal breath sounds, CTA, No accessory muscle use Cardiovascular: S1, S2, No murmur Abdomen/GI:Soft, Non tender, Bowel sounds present Extremities/Musculoskeletal:normal inspection, Trace edema Neurologic/Psych:AAOX3, grossly no focal neurological deficits Skin: normal color, warm Results & Data Results & Data Vital Signs (Past 12 Hours) Vital Signs Temp Pulse Pulse Resp BP Pulse Ox O2 Del Method 01/18/25 08:00 36.4 C L 80 20 132/70 95 Room Air 01/18/25 07:19 69 01/18/25 03:25 36.4 C L 89 18 113/62 95 Room Air Laboratory Results Short CBC 01/18/25 Range/Units 06:17 WBC 16.89 H (4.8-10.8) K/ul Hgb 13.5 L (14.0-18.0) g/dl Hct 41.1 L (42.0-52.0) % Plt Count 76 L (130-400) K/uL BMP 01/18/25 06:17 Sodium 137 Potassium 4.5 Chloride 111 H Carbon Dioxide 19 L BUN 25 H Creatinine 1.28 Glucose 215 H Calcium 8.7
--- NOTE | 2025-01-18 11:49 | Discharge Summary ---
Date of Service January 18, 2025 Admission HPI Per Admitting Provider 74-year-old male coming from [facility] with past medical history significant for refractory ITP status post splenectomy in 2012, hypertension, hyperlipidemia, hypothyroidism and chronic urine retention was brought in because of thrombocytopenia. Patient was hospitalized in September and October 2024 with a severe thrombocytopenia. He was treated with steroids and IVIG and discharged on prednisone taper. Currently patient is also taking Promacta. Patient states his platelets improved to 600s in December. And he states he is taking Promacta daily, initially it was was blue pill currently a white pill. And today when platelets were checked were 14 and was brought to the hospital. In the ER the platelets were 8. ER talked with hematology Dr. Matson and was advised for Decadron 40 mg and IVIG which were ordered by ER. Patient denies any headache. No dizziness. No runny nose or sore throat. No epistaxis. No cough. No fever. Appetite is okay. No chest pain or shortness of breath. No nausea. No abdominal pain. Denies any blood in stools or black stools. Denies any hematuria. Hemodynamics okay. Past medical history. As mentioned above Past surgical history. Splenectomy Social history. No smoking. No alcohol use. No drug use. Admission Exam Per Admitting Provider General- Not in distress Head- atraumatic Eyes- PERRL. ENT- oropharynx clear Neck- supple, no JVD. Lungs- clear to auscultation no wheezing or crackles Heart- regular rate and rhythm; no murmur, no gallop. Abdomen- normal bowel sounds, soft, nontender, no distension. Extremities- no pretibial edema, mild petechial rash seen on lower extremities Neuro- alert, oriented PERRL, no facial palsy; no dysarthria; moves extremities Principal Diagnosis Severe thrombocytopenia Acute kidney injury Discharge Data Allergies Allergy/AdvReac Type Severity Reaction Status Date / Time Penicillins Allergy Mild Rash Verified 10/08/24 16:48 heparin Allergy Unknown Verified 10/08/24 16:48 Consultations 01/16/25 20:38 ED Decision to Admit Stat Procedures Performed Laboratory Results WBC 16.89 K/ul (4.8-10.8) H 01/18/25 06:17 RBC 4.59 M/uL (4.70-6.10) L 01/18/25 06:17 Hgb 13.5 g/dl (14.0-18.0) L 01/18/25 06:17 Hct 41.1 % (42.0-52.0) L 01/18/25 06:17 MCV 89.5 fL (80.0-100.0) 01/18/25 06:17 MCH 29.4 pg (25.0-34.0) 01/18/25 06:17 MCHC 32.8 g/dL (32.0-36.0) 01/18/25 06:17 RDW Std Deviation 45.1 fL (36.4-46.3) 01/18/25 06:17 RDW Coeff of Debbie 13.9 % (11.5-14.5) 01/18/25 06:17 Plt Count 76 K/uL (130-400) L 01/18/25 06:17 MPV 13.9 fL (9.4-12.4) H 01/18/25 06:17 Immature Gran % (Auto) 0.7 % 01/18/25 06:17 Neut % (Auto) 94.4 % 01/18/25 06:17 Lymph % (Auto) 4.3 % 01/18/25 06:17 [place] % (Auto) 0.5 % 01/18/25 06:17 Eos % (Auto) 0.0 % 01/18/25 06:17 Baso % (Auto) 0.1 % 01/18/25 06:17 Neut # (Auto) 15.96 K/uL (1.40-6.50) H 01/18/25 06:17 Lymph # (Auto) 0.73 K/uL (1.20-3.40) L 01/18/25 06:17 [place] # (Auto) 0.08 K/uL (0.11-0.59) L 01/18/25 06:17 Eos # (Auto) 0.00 K/uL (0.00-0.50) 01/18/25 06:17 Baso # (Auto) 0.01 K/uL (0.00-0.20) 01/18/25 06:17 Immature Gran # (Auto) 0.11 K/uL (0.01-0.20) 01/18/25 06:17 Platelet Estimate Signific. Decreased (Normal) L 01/16/25 19:35 Polychromasia 1+ 01/17/25 05:45 Sims-[place] Bodies Occasional 01/18/25 06:17 Echinocytes 1+ 01/17/25 05:45 PT 10.8 Seconds (9.0-12.0) 01/16/25 19:35 INR 1.0 (0.9-1.1) 01/16/25 19:35 APTT 26 Seconds (21-31) 01/16/25 19:35 PTT Ratio 1.0 01/16/25 19:35 Sodium 137 mmol/L (136-145) 01/18/25 06:17 Potassium 4.5 mmol/L (3.5-5.1) 01/18/25 06:17 Chloride 111 mmol/L (98-107) H 01/18/25 06:17 Carbon Dioxide 19 mmol/L (21-32) L 01/18/25 06:17 Anion Gap 7 (3-11) 01/18/25 06:17 BUN 25 mg/dl (6-23) H 01/18/25 06:17 Creatinine 1.28 mg/dl (0.6-1.4) 01/18/25 06:17 Est Cr Clr Drug Dosing 61.5 ml/min 01/18/25 06:17 eGFR 58.73 01/18/25 06:17 BUN/Creatinine Ratio 19.5 (10-20) 01/18/25 06:17 Glucose 215 mg/dl (70-99(Fasting)) H 01/18/25 06:17 POC Glucose 180 mg/dl (70-99) H 01/18/25 08:06 Estimat Average Glucose 151 mg/dl 01/17/25 05:45 Hemoglobin A1c 6.9 % (4.5-5.6) H 01/17/25 05:45 Calcium 8.7 mg/dl (8.6-10.3) 01/18/25 06:17 Magnesium 2.1 mg/dl (1.7-2.4) 01/17/25 05:45 Total Bilirubin 0.4 mg/dl (0.2-1.0) 01/16/25 19:35 AST 22 U/L (13-39) 01/16/25 19:35 ALT 29 U/L (7-52) 01/16/25 19:35 Alkaline Phosphatase 86 U/L (34-104) 01/16/25 19:35 Lactate Dehydrogenase 178 U/L (86-244) 01/16/25 19:35 Total Protein 6.1 gm/dl (6.0-8.3) 01/16/25 19:35 Albumin 4.1 gm/dl (3.4-5.0) 01/16/25 19:35 Globulin 2.0 gm/dl (2.5-4.0) L 01/16/25 19:35 Albumin/Globulin Ratio 2.0 (0.9-2) 01/16/25 19:35 Lipase 25 U/L (11-82) 01/16/25 19:35 Urine Color Yellow 01/17/25 03:13 Urine Appearance Clear (Clear) 01/17/25 03:13 Urine pH 5.5 (4.5-7.5) 01/17/25 03:13 Ur Specific [place] 1.012 (1.000-1.030) 01/17/25 03:13 Urine Protein Negative (Negative) 01/17/25 03:13 Urine Glucose (UA) 2+ (Negative) H 01/17/25 03:13 Urine Ketones Negative (Negative) 01/17/25 03:13 Urine Blood Negative (Negative) 01/17/25 03:13 Urine Nitrite Negative (Negative) 01/17/25 03:13 Urine Bilirubin Negative (Negative) 01/17/25 03:13 Urine Urobilinogen Negative (Negative) 01/17/25 03:13 Ur Leukocyte Esterase Negative (Negative) 01/17/25 03:13 Urine Comment 01/17/25 03:13 Nasal Screen MRSA (PCR) Negative (Negative) 01/16/25 23:47 Blood Type A Positive 01/16/25 19:47 Antibody Screen NEGATIVE 01/16/25 19:47 Hospital Course (1) Severe thrombocytopenia: 74-year-old male coming from [facility] with past medical history significant for refractory ITP status post splenectomy in 2012, hypertension, hyperlipidemia, hypothyroidism and chronic urine retention was brought in because of thrombocytopenia. Patient was hospitalized in September and October 2024 with a severe thrombocytopenia. He was treated with steroids and IVIG and discharged on prednisone taper. Currently patient is also taking Promacta. Patient states his platelets improved to 600s in December. And he states he is taking Promacta daily, initially it was was blue pill currently a white pill. And today when platelets were checked were 14 and was brought to the hospital. In the ER the platelets were 8. ER talked with hematology Dr. Matson and was advised for Decadron 40 mg and IVIG which were ordered by ER. Patient denies any headache. No dizziness. No runny nose or sore throat. No epistaxis. No cough. No fever. Appetite is okay. No chest pain or shortness of breath. No nausea. No abdominal pain. Denies any blood in stools or black stools. Denies any hematuria. Hemodynamics okay. Severe thrombocytopenia H/O ITP S/P Splenectomy Currently on Promacta received IV IgG while in ED Continue Decadron 40 mg daily>> transition to prednisone tapering course on discharge Currently no acute bleeding issues Discussed with hematology Dr. Matson: Recommends to discharge on prednisone tapering course Prednisone 60 mg daily for 5 days, then 50 for 5 days, tapering down 10 mg every 5 days until complete Monitor CBC Needs follow-up with hematology on discharge Acute Kidney Injury Cr:1.56>1.33>1.2 Continue to hold lisinopril Resume IV fluids Monitor renal function Avoid nephrotoxic agents as able Hypertension Hold lisinopril IV hydralazine as needed Monitor blood pressure DM II HbA1c 6.9 Hold glipizide Continue insulin per protocol Monitor blood glucose levels Hyperlipidemia Continue statin Hypothyroidism Continue levothyroxine DVT Px: SCDs Re: thrombocytopenia CODE STATUS Full code Disposition [facility] facility Total Time Total Time Spent Total Time Spent (In Minutes): 47 minutes Discharge Plan Discharge Items Patient Disposition: [facility] Reason For Visit: SEVERE THROMBOCYTOPENIA Discharge Diagnosis: Severe thrombocytopenia Acute kidney injury Condition on Discharge: Fair Activity: Per Instructions section Exercise/Sports: Gradually increase as tolerated Non-emergency contact: Primary Care Provider and Oncologist Call non-emergency contact if: you have any medication questions, your symptoms worsen, your pain is concerning for you and you have a fever Follow-up/Referrals: Akbar JORDAN [Primary Care Provider] - Diet: Carb Consistent or DM2 and Heart Healthy Addtl Attending Provider Instructions: Follow-up with your physician at correctional facility in 1 week Follow-up with your costuming supervisor/oncologist Dr. Matson in 2 to 3 weeks -- Get blood work (complete blood count, basic metabolic panel) in 1 week to monitor your platelet count and renal function. --Start taking prednisone tapering course as recommended by your costuming supervisor. Prednisone tapering course Start taking prednisone 60 mg daily for 5 days, then 50 mg daily for 5 days, then 40 mg daily for 5 days, then 30 mg daily for 5 days, then 20 mg daily for 5 days, then 10 mg daily for 5 days then stop. --Your lisinopril was held while you are in the hospital due to acute kidney injury. Continue to hold until evaluation by your physician at correctional facility. --Monitor your blood pressure regularly and discuss with your physician for adjust medications as needed Seek immediate medical attention if your symptoms reoccur or worsen Please review medication list provided on discharge for any medication changes as instructed. Please call if you have any questions or problems. You can reach a [facility] hospitalist on duty at [facility] 24 hours a day by calling [phone] Pending Studies at Discharge: No Stand-Alone Forms: My [facility] Skilled Items Patient informed of condition?: Yes Discharge Level of Care: Other Communicable Disease: No Discharge Prognosis: Stable Lines: None Urinary Catheter: No Medications and DC Order Prescriptions: New prednisone 10 mg tablet 10 mg PO DIRECTED Qty: 95 0RF Rx Instructions: Start taking prednisone 60 mg daily for 5 days, then 50 mg daily for 5 days, then 40 mg daily for 5 days, then 30 mg daily for 5 days, then 20 mg daily for 5 days, then 10 mg daily for 5 days then stop. Continued atorvastatin 20 mg Tablet 20 mg PO DAILY levothyroxine 50 mcg Tablet 50 mcg PO DAILY Biotene Moisturizing Mouth [place],Non-Aerosol 2 spray MUCOUS MEMBRANE TID PRN (Reason: Dry Mouth) cyanocobalamin (vitamin B-12) [Vitamin B-12] 1,000 mcg Tablet 1,000 mcg PO DAILY eltrombopag olamine [Promacta] 50 mg Tablet 50 mg PO DAILY Rx Instructions: administer on an empty stomach, at least 1 hour before or 2 hours after food/meal(s) diphenhydramine HCl [Benadryl] 25 mg Capsule 25 mg PO BID glipizide 5 mg Tablet 5 mg PO DAILY Held lisinopril 20 mg Tablet 20 mg PO DAILY Hold Instructions: Continue to hold until further recommendations from your physician at correctional facility Discharge Orders: Discharge Order (Routine); Ordered 01/18/25 Ordered By: Dilip Byrne Admission Data Admit Date/Time: 01/16/25 21:51 Attending Provider: Dilip Byrne Admit Provider: Andrea Lombardo Primary Care Provider: Akbar JORDAN Other Providers: Andrea Lombardo
== END 2025-01-18 12:41 | DRG 813 ==
LOC: ED 19:05 → 2W 22:39

== ENCOUNTER 2025-01-28 11:40 | Inpatient (IN) ==
--- NOTE | 2025-01-28 12:13 | Emergency Department Note ---
Impression & Plan Severe thrombocytopenia, Leukocytosis, Left hip pain ED Provider Note NAME: LYLY [id number] SAURAV AGE: 74 SEX: M : 1950 ARRIVES VIA: Walk-In INFORMANT: Patient ED PROVIDER(S): Jose Thomas DO CHIEF COMPLAINT: Thrombocytopenia and hip pain HPI: Patient is a 74-year-old male who presents to the ER for left hip pain. He has a history of refractory ITP status post splenectomy in 2012, hypertension, hyperlipidemia, hypothyroidism and chronic urine retention. Patient was hospitalized in September and October 2024 with a severe thrombocytopenia. [facility] today as well as left hip pain. Woke up and was having left lower back pain which radiates into the left hip. Denies any focal weakness or numbness. Pain has improved since sitting on the wheelchair. Able to urinate move his bowels. No other exacerbating or remitting factors. ADDITIONAL HISTORY OBTAINED: Per HPI Chronic Medical/Social Conditions Affecting Care: Per HPI PAST MEDICAL HISTORY:See Below PAST SURGICAL HISTORY:See Below FAMILY HISTORY:See Below SOCIAL HISTORY:See Below HOME MEDICATIONS:See Below ALLERGIES:See Below VITALS:See Below PHYSICAL EXAMINATION: GENERAL: Sitting up in bed, alert, well appearing, well nourished, no distress, non-toxic EYE EXAM: normal conjunctiva. OROPHARYNX: mucous membranes are moist NECK: supple, no nuchal rigidity, no adenopathy, non-tender LUNGS: Clear to auscultation. Normal chest wall mechanics HEART: no murmurs, S1 normal and S2 normal ABDOMEN: abdomen soft, non-tender, normo-active bowel sounds, no masses, no rebound or guarding. BACK: Back is symmetrical on inspection and there is no deformity, no midline tenderness, no CVA tenderness. UPPER EXTREMITIES: upper extremities are grossly normal. LOWER EXTREMITIES: Flexion and extension of the hips, knees, ankles, and EHL 5/5 bilaterally. Gross sensation is intact. DPs are 2/4 bilateral. NEURO EXAM: Normal sensorium, cranial nerves II-XII intact, normal speech. MEDICAL DECISION MAKING: Patient is a 74-year-old male who presents to the ER for thrombocytopenia. IV was established and blood work was obtained. Labs show leukocytosis of 18,000. No significant anemia. Thrombocytopenia at 9. BMP with a slightly elevated glucose of 205. LFTs and bilirubin were normal. UA was clean. X-rays of the lumbar spine showed no acute fracture or dislocation. Discussed the case with hematology oncology Dr. Matson. He recommended 1 mg/kg of IVIG in combination with 40 mg of Decadron. Discussed case with the hospitalist for further evaluation management treatment. Consults/Care Managements Discussions: Per MDM Triage Nursing notes reviewed. Limited review of prior medical records performed Vital Signs: reviewed and remarkable for HTN Differential diagnosis: Infection, dehydration, metabolic abnormality, hypo/hyperglycemia, electrolyte disturbance, anemia, hypoxia, cardiac sources, intracerebral event, toxicologic, neurologic, as well as other pathologies. ER treatment provided: See below Diagnostics interpreted by me include EKG and cardiac monitoring as listed below: -Cardiac Monitoring: An order was placed for continuous cardiac monitoring. The monitor shows a rate of 70 with sinus rhythm. -ECG: none -Laboratory studies:Interpreted by me as stated above in MDM and shown below. Imaging studies: Xrays: As interpreted by me: X-rays of the lumbar spine show no acute fracture or dislocation CTs show: none Procedures:none Critical Care: None Past Med/Surg History Problem List (Updated 01/28/25 @ 17:59 by Jose Thomas DO) Leukocytosis (Acute) Leukocytosis Left hip pain (Acute) Thrombocytopenia (Acute) Severe thrombocytopenia (Acute) Medical History (Updated 01/28/25 @ 17:59 by Jose Thomas DO) Type 2 diabetes mellitus Penile bleeding Hyponatremia Hypothyroidism Urinary tract infection associated with catheterization of urinary tract Petechial rash Petechiae Acute ITP KATELYNN (acute kidney injury) Urinary retention HLD (hyperlipidemia) HTN (hypertension) Surgical History H/O splenectomy Social History Smoking Status: Never smoker Tobacco Type: Declines Second Hand Exposure: No; Do You Dip or Chew Tobacco: No; Hx Alcohol Use: No Hx Substance Use: No Preferred Language: Wolof Communication Ability: Effective 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: No Beliefs That Will Affect Care: None Current Living Situation: Other Current Living Situation Comment: [facility] Feels Safe at Home: Yes Safety Concerns: Feels Safe At This Time Assistive Devices: None Allergies Allergies Allergy/AdvReac Type Severity Reaction Status Date / Time Penicillins Allergy Mild Rash Verified 10/08/24 16:48 heparin Allergy Unknown Verified 10/08/24 16:48 Home Meds Home Medications Medication Instructions Recorded Confirmed atorvastatin 20 mg tablet 20 mg PO DAILY 07/25/24 01/28/25 lisinopril 20 mg tablet 20 mg PO DAILY 07/25/24 01/28/25 levothyroxine 50 mcg tablet 50 mcg PO DAILY 08/22/24 01/28/25 saliva stimulant comb. no.3 2 spray mucous membrane TID PRN 09/24/24 01/28/25 (Biotene Moisturizing Mouth Dry Mouth mucosal spray) cyanocobalamin (vitamin B-12) 1,000 mcg PO DAILY 09/28/24 01/28/25 1,000 mcg tablet (Vitamin B-12) eltrombopag olamine 50 mg tablet 50 mg PO DAILY 10/08/24 01/28/25 (Promacta) diphenhydramine HCl 25 mg capsule 25 mg PO BID 01/16/25 01/28/25 (Benadryl) glipizide 5 mg tablet 5 mg PO DAILY 01/16/25 01/28/25 Previous Rx's Medication Instructions Recorded prednisone 10 mg tablet 10 mg PO DIRECTED #95 tabs 01/18/25 Results & Data (ED) Vital Signs Vital Signs - 24 hr 01/28/25 11:51 01/28/25 13:09 01/28/25 13:09 Temperature 37.1 C Temperature Source Temporal Artery Scan Pulse Rate 90 Pulse Rate [Apical] 74 Pulse Rate from SpO2 Sensor Respiratory Rate 18 18 Respiratory Effort / Characteristics Non-Labored Spontaneous Respiratory Depth Normal Respiratory Pattern Regular Blood Pressure 148/75 H Blood Pressure [Right Arm] 152/72 H Blood Pressure Mean 99 Blood Pressure Mean [Right Arm] 98 Pulse Oximetry 97 99 99 Oxygen Delivery Method Room Air Room Air Room Air Sepsis Recent Fever Within 48 Hours No Sepsis New/Unexplained Change in Mental Status N/A Sepsis Action Taken by Nursing No Action Required 01/28/25 13:15 01/28/25 13:16 01/28/25 13:24 Temperature Temperature Source Pulse Rate 63 71 75 Pulse Rate [Apical] Pulse Rate from SpO2 Sensor 65 76 Respiratory Rate 11 L 17 Respiratory Effort / Characteristics Respiratory Depth Respiratory Pattern Blood Pressure Blood Pressure [Right Arm] Blood Pressure Mean Blood Pressure Mean [Right Arm] Pulse Oximetry 96 95 Oxygen Delivery Method Sepsis Recent Fever Within 48 Hours Sepsis New/Unexplained Change in Mental Status Sepsis Action Taken by Nursing 01/28/25 13:36 01/28/25 13:42 01/28/25 13:48 Temperature Temperature Source Pulse Rate 82 83 62 Pulse Rate [Apical] Pulse Rate from SpO2 Sensor 79 80 62 Respiratory Rate 23 20 14 Respiratory Effort / Characteristics Respiratory Depth Respiratory Pattern Blood Pressure Blood Pressure [Right Arm] Blood Pressure Mean Blood Pressure Mean [Right Arm] Pulse Oximetry 99 100 95 Oxygen Delivery Method Sepsis Recent Fever Within 48 Hours Sepsis New/Unexplained Change in Mental Status Sepsis Action Taken by Nursing 01/28/25 13:53 01/28/25 13:53 01/28/25 13:53 Temperature Temperature Source Pulse Rate Pulse Rate [Apical] Pulse Rate from SpO2 Sensor Respiratory Rate Respiratory Effort / Characteristics Respiratory Depth Respiratory Pattern Blood Pressure 143/84 H 143/84 H 143/84 H Blood Pressure [Right Arm] Blood Pressure Mean 95 95 95 Blood Pressure Mean [Right Arm] Pulse Oximetry Oxygen Delivery Method Sepsis Recent Fever Within 48 Hours Sepsis New/Unexplained Change in Mental Status Sepsis Action Taken by Nursing 01/28/25 13:57 01/28/25 14:00 01/28/25 14:12 Temperature Temperature Source Pulse Rate 72 81 Pulse Rate [Apical] Pulse Rate from SpO2 Sensor 74 80 Respiratory Rate 17 14 Respiratory Effort / Characteristics Respiratory Depth Respiratory Pattern Blood Pressure 153/91 H Blood Pressure [Right Arm] Blood Pressure Mean 113 Blood Pressure Mean [Right Arm] Pulse Oximetry 97 98 Oxygen Delivery Method Sepsis Recent Fever Within 48 Hours Sepsis New/Unexplained Change in Mental Status Sepsis Action Taken by Nursing Laboratory Data 01/28/25 12:30 01/28/25 12:30 Lab Results 01/28/25 Range/Units 12:30 WBC 18.30 H (4.8-10.8) K/ul RBC 4.70 (4.70-6.10) M/uL Hgb 13.9 L (14.0-18.0) g/dl Hct 42.0 (42.0-52.0) % MCV 89.4 (80.0-100.0) fL MCH 29.6 (25.0-34.0) pg MCHC 33.1 (32.0-36.0) g/dL RDW Std Deviation 46.3 (36.4-46.3) fL RDW Coeff of Debbie 14.6 H (11.5-14.5) % Plt Count 9 L* (130-400) K/uL Immature Gran % (Auto) 0.9 % Neut % (Auto) 93.3 % Lymph % (Auto) 4.2 % Dixon % (Auto) 1.4 % Eos % (Auto) 0.0 % Baso % (Auto) 0.2 % Neut # (Auto) 17.09 H (1.40-6.50) K/uL Lymph # (Auto) 0.77 L (1.20-3.40) K/uL Dixon # (Auto) 0.25 (0.11-0.59) K/uL Eos # (Auto) 0.00 (0.00-0.50) K/uL Baso # (Auto) 0.03 (0.00-0.20) K/uL Immature Gran # (Auto) 0.16 (0.01-0.20) K/uL Sodium 138 (136-145) mmol/L Potassium 3.5 (3.5-5.1) mmol/L Chloride 106 (98-107) mmol/L Carbon Dioxide 23 (21-32) mmol/L Anion Gap 9 (3-11) BUN 23 (6-23) mg/dl Creatinine 1.22 (0.6-1.4) mg/dl Est Cr Clr Drug Dosing Not Reportable eGFR 62.21 BUN/Creatinine Ratio 18.9 (10-20) Glucose 205 H (70-99(Fasting)) mg/dl Calcium 8.5 L (8.6-10.3) mg/dl Total Bilirubin 0.6 (0.2-1.0) mg/dl AST 20 (13-39) U/L ALT 40 (7-52) U/L Alkaline Phosphatase 49 (34-104) U/L Total Protein 6.3 (6.0-8.3) gm/dl Albumin 3.8 (3.4-5.0) gm/dl Globulin 2.5 (2.5-4.0) gm/dl Albumin/Globulin Ratio 1.5 (0.9-2) Administered Medications Insulin Aspart (Insulin Aspart Per Unit Charge) 0 units SC ACHS JANIS Stop: 02/27/25 16:46 Last Admin: 01/28/25 17:55 Dose: 4 units Documented By: VU Co-signed By: DANIEL Discontinued Medications Dexamethasone Sodium Phosphate (DexamethasonePf 10 Mg/Ml Vial) 40 mg IV NOW ONE Stop: 01/28/25 12:51 Last Admin: 01/28/25 13:49 Dose: 40 mg Documented By: CEF Immune Globulin (Immune Globulin (Human) Soln ) 1 each IV NOW ONE Stop: 01/28/25 12:51 Last Admin: 01/28/25 17:51 Dose: Not Given Documented By: VU Miscellaneous (Patient's Weight Needed) 1 each N/A NOW STA Stop: 01/28/25 16:08 Last Admin: 01/28/25 17:34 Dose: 1 each Documented By: VU Imaging Data Radiologist's Impression: Lumbar Spine X-Ray 01/28/25 12:12 XR lumbar spine 2-3V CLINICAL HISTORY: lower back pain COMPARISON STUDY: None FINDINGS: IVC filter is present. There is mild diffuse degenerative disc disease and lower lumbar facet degeneration. No fracture or subluxation. IMPRESSION: Degenerative disc disease. ACT 112: Negative or not required by law. Electronically signed by: Vladimir Parikh M.D. 01/28/2025 1:12 PM Discharge Plan Visit Data Chief Complaint: Hip Pain Stated Complaint: PAIN IN R HIP ED Provider: Jose Thomas Discharge Problem: Severe thrombocytopenia, Leukocytosis, Left hip pain Condition: Fair Discharge Instructions Interventions: ED Discharge Assessment Last Done: 01/28/25 16:21 Discharge Problem: Leukocytosis Qualifiers: Leukocytosis type: unspecified Qualified Code(s): D72.829 - Elevated white blood cell count, unspecified
[2025-01-28 13:06] LABS: Alanine Aminotransferase 40 U/L (7-52); Albumin Globulin Ratio 1.5 (0.9-2); Albumin Level 3.8 gm/dl (3.4-5.0); Alkaline Phosphatase 49 U/L (34-104); Anion Gap 9 (3-11); Aspartate Aminotransferase 20 U/L (13-39); BUN Creatinine Ratio 18.9 (10-20); Bilirubin,Total 0.6 mg/dl (0.2-1.0); Blood Urea Nitrogen 23 mg/dl (6-23); Calcium 8.5 mg/dl (8.6-10.3); Carbon Dioxide 23 mmol/L (21-32); Chloride 106 mmol/L (98-107); Globulin 2.5 gm/dl (2.5-4.0); Glucose 205 mg/dl (70-99(Fasting)); Potassium 3.5 mmol/L (3.5-5.1); Sodium 138 mmol/L (136-145); Total Protein 6.3 gm/dl (6.0-8.3)
--- NOTE | 2025-01-28 13:06 | History & Physical Report ---
Date of Service January 28, 2025 Assessment & Plan (1) Severe thrombocytopenia: (2) Leukocytosis: (3) Urinary retention: (4) Left hip pain: (5) Type 2 diabetes mellitus: (6) HTN (hypertension): (7) HLD (hyperlipidemia): (8) Hypothyroidism: Plan 74 year old male inmate from [facility] with PMH significant for refractory ITP status post splenectomy in 2012, DMII, hypertension, hyperlipidemia, hypothyroidism and chronic urine retention who presents to the ED with thrombocytopenia and left hip pain and is being admitted for severe thrombocytopenia. Severe thrombocytopenia Platelets 8 on admission - could be secondary to toradol administration Hemodynamically stable with no signs of bleeding Received IVIG x1 and decadron 40mg in the ED Continue Promacta Consult hematology: appreciate recs Leukocytosis WBCs 18K Patient denies s/s of infection, afebrile, vitals stable Obtain UA and culture if indicated in setting of self catheterization Urinary retention Maintain valladares to minimize trauma/possible bleeding with self catheterization Left hip pain Lumbar spine x-ray revealed mild diffuse degenerative disc disease and lower lumbar facet degeneration Pain control with tylenol, lidocaine patch, oxycodone for severe pain PT consult DMII On glipizide - hold while inpt BSG ACHS and SSI Hypertension Continue lisinopril Hyperlipidemia Continue statin Hypothyroidism Continue levothyroxine DVT Prophylaxis: SCDs Code Status: FULL CODE - As per discussion at bedside with the patient. PCP: NIKKI Webber Disposition: admit to med surg Patient seen in collaboration with Dr Gomez. Please see addendum. I spent a total of 75 minutes coordinating, documenting and providing care for this patient excluding time spent in the performance of separately billed services or time spent by another provider/QHP. Admission and Anticipated Discharge Date Admission Date: 01/28/2025 History of Present Illness Chief Complaint: left hip pain Primary Care Provider: NIKKI Webber 74 year old male inmate from [facility] with PMH significant for refractory ITP status post splenectomy in 2012, DMII, hypertension, hyperlipidemia, hypothyroidism and chronic urine retention who presents to the ED with thrombocytopenia and left hip pain. Patient was recently admitted from 01/16-01/18/2025 for severe thrombocytopenia and received IVIG and decadron and was discharged on a prednisone taper. He reports that he developed debilitating left buttock pain in the middle of the night last night. He describes it as a constant pain with intermittent worsening in severity that radiates down his leg until his knee. He notes his left leg feels weak and the pain is worsened by laying on his left side, standing, and sitting. Current pain is rated 6/10. He denies any injuries, falls, or unusual activity. He went to the [facility] and was given toradol for pain. He was then transferred to us for low platelets. He denies hitting his head, hematuria, hematochezia, nosebleeds, gum bleeding. He reports he has been getting his Promacta and prednisone. He reports he self catheterizes 3-4 times a day and cannot urinate spontaneously. He denies fevers, chills, cloudy or odorous urine. Also denies chest pain, SOB, abdominal pain, N/V/D. Allergies Allergy/AdvReac Type Severity Reaction Status Date / Time Penicillins Allergy Mild Rash Verified 10/08/24 16:48 heparin Allergy Unknown Verified 10/08/24 16:48 Home Medications Medication Instructions Recorded Confirmed Type atorvastatin 20 mg tablet 20 mg PO DAILY 07/25/24 01/28/25 History lisinopril 20 mg tablet 20 mg PO DAILY 07/25/24 01/28/25 History levothyroxine 50 mcg tablet 50 mcg PO DAILY 08/22/24 01/28/25 History saliva stimulant comb. no.3 2 spray mucous membrane TID PRN 09/24/24 01/28/25 History (Biotene Moisturizing Mouth Dry Mouth mucosal spray) cyanocobalamin (vitamin B-12) 1,000 mcg PO DAILY 09/28/24 01/28/25 History 1,000 mcg tablet (Vitamin B-12) eltrombopag olamine 50 mg tablet 50 mg PO DAILY 10/08/24 01/28/25 History (Promacta) diphenhydramine HCl 25 mg capsule 25 mg PO BID 01/16/25 01/28/25 History (Benadryl) glipizide 5 mg tablet 5 mg PO DAILY 01/16/25 01/28/25 History prednisone 10 mg tablet 10 mg PO DIRECTED #95 tabs 01/18/25 01/28/25 Rx Past Med/Surg History Problem List (Updated 01/28/25 @ 14:03 by DAVID Hutchison) Leukocytosis Left hip pain Thrombocytopenia (Acute) Severe thrombocytopenia (Acute) Medical History (Updated 01/28/25 @ 14:03 by DAVID Hutchison) Type 2 diabetes mellitus Penile bleeding Hyponatremia Hypothyroidism Urinary tract infection associated with catheterization of urinary tract Petechial rash Petechiae Acute ITP KATELYNN (acute kidney injury) Urinary retention HLD (hyperlipidemia) HTN (hypertension) Surgical History H/O splenectomy Social History Smoking Status: Never smoker Tobacco Type: Declines Second Hand Exposure: No; Do You Dip or Chew Tobacco: No; Hx Alcohol Use: No Hx Substance Use: No Preferred Language: Palauan Communication Ability: Effective Certified Nursing Assistant Instructor Required: No Beliefs That Will Affect Care: None Current Living Situation: Other Current Living Situation Comment: [facility] Feels Safe at Home: Yes Assistive Devices: None Review of Systems Review of Systems: All systems reviewed & are unremarkable except as noted in HPI & below Physical Exam Physical Exam: General/Psych: WD/WN, laying in bed, NAD, conversing easily Head: normocephalic, atraumatic Eyes: normal inspection, PERRL, conjunctivae pink, anicteric sclerae ENT: external ear and nose normal, oropharynx normal Neck: normal visual inspection, trachea midline Respiratory: normal respiratory effort, lungs clear to auscultation, no wheeze/rales/rhonchi, no accessory muscle use Cardiovascular: regular rate and rhythm, no murmur/rub/gallop, no JVD Extremities: no cyanosis or clubbing, normal peripheral pulses, no BLE edema Abdomen/GI: normal bowel sounds, soft, nontender Neurologic/MSK: A+Ox3, motor strength 5/5, moves all extremities Skin: no rashes, normal color, warm and dry Results & Data Results & Data Vital Signs (Past 12 Hours) Vital Signs Temp Pulse Resp BP Pulse Ox O2 Del Method 01/28/25 11:51 37.1 C 90 18 148/75 H 97 Room Air Laboratory Results Short CBC 01/28/25 Range/Units 12:30 WBC 18.30 H (4.8-10.8) K/ul Hgb 13.9 L (14.0-18.0) g/dl Hct 42.0 (42.0-52.0) % Plt Count 9 L* (130-400) K/uL BMP 01/28/25 12:30 Sodium 138 Potassium 3.5 Chloride 106 Carbon Dioxide 23 BUN 23 Creatinine 1.22 Glucose 205 H Calcium 8.5 L Liver Function 01/28/25 Range/Units 12:30 Total Bilirubin 0.6 (0.2-1.0) mg/dl AST 20 (13-39) U/L ALT 40 (7-52) U/L Alkaline Phosphatase 49 (34-104) U/L Albumin 3.8 (3.4-5.0) gm/dl I have independently reviewed and interpreted patient's admitting labs including CBC and CMP. Diagnostic Findings Lumbar Spine X-Ray 01/28/25 12:12 XR lumbar spine 2-3V CLINICAL HISTORY: lower back pain COMPARISON STUDY: None FINDINGS: IVC filter is present. There is mild diffuse degenerative disc disease and lower lumbar facet degeneration. No fracture or subluxation. IMPRESSION: Degenerative disc disease. ACT 112: Negative or not required by law. Electronically signed by: Vladimir Parikh M.D. 01/28/2025 1:12 PM Code Status & VTE Plan Code Status Full Code Supervising Physician Co-Signing Physician Notes Attending addendum: You the patient was seen and examined in the emergency room He has ITP and was brought in with severe thrombocytopenia of 6 He complains to have some pain in the left hip but otherwise denies any other significant symptoms On examination Minimal distress due to left hip pain Hemodynamically stable with blood pressure on the upper side at 152/72 Chestclear to auscultate bilaterally HeartS1-S2, regular Abdomenhas a small ventral hernia otherwise benign Extremitiesnegative for any edema Left hipmoderate pain with movement General Examination did not show any bruising and/or petechiae His admission labs and imaging studies reviewed Noted to be platelet of 6 that went up to 9 on repeat examination all other labs and imaging studies are unremarkable Assessment and plan ITP with severe thrombocytopenia without any evidence of bleeding Received IV GI and also intravenous Decadron of 40 mg and will continue steroid as per recommendation from the squirt machine operator Will monitor platelet Likely not to be in platelet transfusion without any evidence of bleeding Retanner will be consulted Agree with assessment and plan as outlined above by Melany HERNANDEZ and take the full responsibility of care in the hospital DR Mitchell Gomez (2) Leukocytosis Leukocytosis type: unspecified Qualified Code(s): D72.829 - Elevated white blood cell count, unspecified (6) HTN (hypertension) Hypertension type: unspecified Qualified Code(s): I10 - Essential (primary) hypertension (7) HLD (hyperlipidemia) Hyperlipidemia type: unspecified Qualified Code(s): E78.5 - Hyperlipidemia, unspecified (8) Hypothyroidism Hypothyroidism type: unspecified Qualified Code(s): E03.9 - Hypothyroidism, unspecified
--- NOTE | 2025-01-28 13:13 | XRay Report ---
XR lumbar spine 2-3V CLINICAL HISTORY: lower back pain COMPARISON STUDY: None FINDINGS: IVC filter is present. There is mild diffuse degenerative disc disease and lower lumbar fac et degeneration. No fracture or subluxation. IMPRESSION: Degenerative disc disease. ACT 112: Negative or not required by law. Electronically signed by: Vladimir Parikh M.D. 01/28/2025 1:12 PM
[2025-01-28 13:22] LABS: Hemoglobin 13.9 g/dl (14.0-18.0); Mean Corpuscular Hemoglobin 29.6 pg (25.0-34.0); Mean Corpuscular Hgb Conc 33.1 g/dL (32.0-36.0); Mean Corpuscular Volume 89.4 fL (80.0-100.0); RDW Coefficient of Variation 14.6 % (11.5-14.5); RDW Standard Deviation 46.3 fL (36.4-46.3)
[2025-01-28 13:23] LABS: Platelet Count 9 K/uL (130-400)
[2025-01-28 13:30] LABS: Basophils # (auto) 0.03 K/uL (0.00-0.20); Basophils % (auto) 0.2 %; Immature Granulocytes # (auto) 0.16 K/uL (0.01-0.20); Immature Granulocytes % (auto) 0.9 %; Lymphocytes # (auto) 0.77 K/uL (1.20-3.40); Lymphocytes % (auto) 4.2 %; Monocytes # (auto) 0.25 K/uL (0.11-0.59); Monocytes % (auto) 1.4 %; Neutrophils # (auto) 17.09 K/uL (1.40-6.50); Neutrophils % (auto) 93.3 %
[2025-01-28] MEDS: dexAMETHasone**PF** 10 MG/ML VIAL IV ONE (13:49)
[2025-01-28 15:55] LABS: Appearance Urine Clear (Clear); Bacteria Urine Automated None Seen (None Seen); Bilirubin Urine Negative (Negative); Blood Urine Negative (Negative); Cast Urine Automated 0-2 /lpf (0-2); Color Urine Yellow; Epithelial Cell Urine Auto 0-2 /hpf (0-2); Glucose Urine UA 1+ (Negative); Ketones Urine Negative (Negative); Leukocyte Esterase Urine Trace (Negative); Nitrite Urine Negative (Negative); Protein Urine Negative (Negative); RBC Urine Automated 0-2 /hpf (0-2); Specific Gravity Urine 1.013 (1.000-1.030); Urobilinogen Urine Negative (Negative); WBC Urine Automated 0-5 /hpf (0-5); pH Urine 6.5 (4.5-7.5)
[2025-01-28] MEDS ORDERED: DEXTROSE 50% 50 ML SYRINGE IV PRN (16:47)
[2025-01-28] MEDS ORDERED: GLUCOSE 10 TAB/TUBE PO PRN (16:47)
[2025-01-28] MEDS ORDERED: NON-FORMULARY MEDICATION (Saliva Stimulant Comb. No.3 [Biotene Moisturizing Mouth] Spray,N MUCOUS MEMBRANE PRN (16:47)
[2025-01-28] MEDS ORDERED: ACETAMINOPHEN 325 MG TAB PO PRN (16:47)
[2025-01-28] MEDS ORDERED: CARBOHYDRATES FOR HYPOGLYCEMIA PO PRN (16:47)
[2025-01-28] MEDS ORDERED: GLUCAGON FOR INJ 1 MG VIAL SQ PRN (16:47)
[2025-01-28] MEDS ORDERED: GLUCOSE 40% GEL 15 GM TUBE PO PRN (16:47)
[2025-01-28] MEDS: Patient's WEIGHT Needed STA (17:34)
[2025-01-28] MEDS: IMMUNE GLOBULIN (HUMAN) SOLN IV ONE (17:51)
[2025-01-28] MEDS: INSULIN ASPART PER UNIT CHARGE SC SCH (17:55)
[2025-01-28] MEDS: oxyCODONE HCL IR 5 MG TAB (IMMEDIATE RELEASE) PO PRN (17:56)
[2025-01-28] MEDS: Octagam 10% IVIG 5 gram bottle IV SCH (17:56)
[2025-01-28] MEDS: Octagam 10% IVIG 20 gram bottle IV SCH (18:44)
[2025-01-28] MEDS: LIDOCAINE 5% 1 PATCH TD SCH (19:10)
[2025-01-28] MEDS: diphenhydrAMINE Capsule 25 MG CAP PO SCH (20:28)
[2025-01-29] MEDS: LEVOTHYROXINE SODIUM 50 MCG TABLET PO SCH (06:13)
[2025-01-29 07:24] LABS: Hematocrit (blood only) 42.2 % (42.0-52.0); Hemoglobin 14.1 g/dl (14.0-18.0); Mean Corpuscular Hemoglobin 29.5 pg (25.0-34.0); Mean Corpuscular Hgb Conc 33.4 g/dL (32.0-36.0); Mean Corpuscular Volume 88.3 fL (80.0-100.0); Platelet Count 25 K/uL (130-400); RDW Coefficient of Variation 14.2 % (11.5-14.5); RDW Standard Deviation 45.1 fL (36.4-46.3); Red Blood Count 4.78 M/uL (4.70-6.10); White Blood Count 24.66 K/ul (4.8-10.8)
[2025-01-29 07:27] LABS: Calcium 8.3 mg/dl (8.6-10.3); Potassium 4.4 mmol/L (3.5-5.1)
[2025-01-29] MEDS: ATORVASTATIN 20 MG TAB PO SCH (07:36)
[2025-01-29] MEDS: lisinopril 20 MG TAB PO SCH (07:36)
[2025-01-29 07:37] LABS: BUN Creatinine Ratio 21.4 (10-20); Creatinine Clr Calc Pharmacy 70.6 ml/min
[2025-01-29] MEDS: CYANOCOBALAMIN (B-12) 500 MCG TABLET PO SCH (07:37)
--- NOTE | 2025-01-29 16:12 | Hospitalist Progress Note ---
Date of Service January 29, 2025 Assessment & Plan (1) Severe thrombocytopenia: (2) Leukocytosis: (3) Urinary retention: (4) Left hip pain: (5) Type 2 diabetes mellitus: (6) HTN (hypertension): (7) HLD (hyperlipidemia): (8) Hypothyroidism: Plan 74 year old male inmate from [facility] with PMH significant for refractory ITP status post splenectomy in 2013, DMII, hypertension, hyperlipidemia, hypothyroidism and chronic urine retention who presents to the ED with thrombocytopenia and left hip pain and is being admitted for severe thrombocytopenia. Severe thrombocytopenia -Platelets 8 on admission - could be secondary to toradol administration -Hemodynamically stable with no signs of bleeding -Received IVIG x1 and decadron 40mg in the ED -platlets improving today Plan: -Continue Promacta -Consulted hematology: appreciate recs Leukocytosis -WBCs 18K -Patient denies s/s of infection, afebrile, vitals stable -Obtain UA and culture if indicated in setting of self catheterization Urinary retention -Maintain valladares to minimize trauma/possible bleeding with self catheterization Left hip pain Sacroiliitis -Lumbar spine x-ray revealed mild diffuse degenerative disc disease and lower lumbar facet degeneration -Pain control with tylenol, lidocaine patch, oxycodone for severe pain -PT/OT consulted, recommend PT while in hospital DMII -On glipizide - hold while inpt -BSG ACHS and SSI Hypertension -Continue lisinopril Hyperlipidemia -Continue statin Hypothyroidism -Continue levothyroxine I spent a total of 45 minutes in direct patient care, including [id number] time with the patient and/or family, reviewing medical records, ordering and reviewing diagnostic tests, and coordinating care with other healthcare providers. This time includes: history taking, physical examination, medical decision making, counseling, ECG interpretation, imaging interpretation, lab interpretation, orders, and education, excluding time spent in the performance of separately billed services. Admission and Anticipated Discharge Date Admission Date: January 28, 2025 Subjective Patient seen and examined at bedside. Patient having some left leg pain, that has improved. No bleeding, occasional bruising, noted on ankles bilaterally. Review of Systems Review of Systems: CONSTITUTIONAL: Patient denies fevers, chills, sweats and weight changes. EYES: Patient denies any visual symptoms. EARS, NOSE, AND THROAT: No difficulties with hearing. No symptoms of rhinitis or sore throat. CARDIOVASCULAR: Patient denies chest pains, palpitations, orthopnea and paroxysmal nocturnal dyspnea. RESPIRATORY: No dyspnea on exertion, no wheezing or cough. GI: No nausea, vomiting, diarrhea, constipation, abdominal pain, hematochezia or melena. : No urinary hesitancy or dribbling. No nocturia or urinary frequency. No abnormal urethral discharge. MUSCULOSKELETAL: No myalgias or arthralgias. NEUROLOGIC: No chronic headaches, no seizures. Patient denies numbness, tingling or weakness. PSYCHIATRIC: Patient denies problems with mood disturbance. No problems with anxiety. ENDOCRINE: No excessive urination or excessive thirst. DERMATOLOGIC: Patient denies any rashes or skin changes. Physical Exam Physical Exam: Gen: A&O 3 NAD HEENT: NCAT, EOMI, not icteric. External ears normal. No rhinorrhea. Moist mucous membranes. Neck: Supple, full range of motion, no observable masses, No meningeal sign. Lungs: No Respiratory distress. CV: RRR, no edema. Abdomen: Soft, nondistended, No rebound tenderness. MSK: No joint swelling, no redness. mild tenderness to palpation on left buttock Skin: No rashes, petechiae, lesions. Normal color per patient. Neuro: Normal Gait, Grossly intact. Psych: Appropriate for situation. Results & Data Results & Data Vital Signs (Past 12 Hours) Vital Signs Temp Pulse Pulse Resp BP Pulse Ox O2 Del Method 01/29/25 14:04 72 01/29/25 11:33 36.3 C L 73 20 166/54 H 95 Room Air 01/29/25 07:48 36.5 C 75 18 161/81 H 95 Room Air 01/29/25 06:49 90 01/29/25 04:19 36.4 C L 70 16 131/73 96 Room Air Laboratory Results -personally reviewed, WBC of 25, platlets improved to 25 improved from prior Medications Administered Atorvastatin Calcium (Atorvastatin 20 Mg Tab) 20 mg PO DAILY [facility] Stop: 02/28/25 08:59 Last Admin: 01/29/25 07:36 Dose: 20 mg Documented By: VU Cyanocobalamin (Cyanocobalamin (B-12) 500 Mcg Tablet) 1,000 mcg PO DAILY [facility] Stop: 02/28/25 08:59 Last Admin: 01/29/25 07:37 Dose: 1,000 mcg Documented By: VU Diphenhydramine HCl (Diphenhydramine Capsule 25 Mg Cap) 25 mg PO BID [facility]AN[facility] Stop: 02/27/25 20:59 Last Admin: 01/29/25 07:35 Dose: Not Given Documented By: Admin: 01/28/25 20:28 Dose: Not Given Documented By: NIKHIL Insulin Aspart (Insulin Aspart Per Unit Charge) 0 units SC ACHS [facility] Stop: 02/27/25 16:46 Last Admin: 01/29/25 13:06 Dose: 7 units Documented By: VU Co-signed By: AYLIN Admin: 01/29/25 09:11 Dose: 7 units Documented By: VU Co-signed By: ONELIA Admin: 01/28/25 20:28 Dose: 1 units Documented By: NIKHIL Co-signed By: ELVIE Admin: 01/28/25 17:55 Dose: 4 units Documented By: VU Co-signed By: DANIEL Levothyroxine Sodium (Levothyroxine Sodium 50 Mcg Tablet) 50 mcg PO DAILYBB [facility] Stop: 02/28/25 06:29 Last Admin: 01/29/25 06:13 Dose: 50 mcg Documented By: NIKHIL Lidocaine (Lidocaine 5% 1 Patch) 1 patch TD QAM [facility] Stop: 02/27/25 16:59 Last Admin: 01/29/25 07:37 Dose: Not Given Documented By: Admin: 01/28/25 19:10 Dose: 1 patch Documented By: VU Lisinopril (Lisinopril 20 Mg Tab) 20 mg PO DAILY [facility]AN[facility] Stop: 02/28/25 08:59 Last Admin: 01/29/25 07:36 Dose: 20 mg Documented By: VU Seaman (Eltrombopag: Order Awaiting Action) 1 each N/A QS [facility] Stop: 02/28/25 00:00 Last Admin: 01/29/25 14:59 Dose: Not Given Documented By: Admin: 01/29/25 07:35 Dose: Not Given Documented By: Admin: 01/29/25 00:47 Dose: Not Given Documented By: NIKHIL Seaman (Remove Lidoderm Patch) 1 each N/A DAILY@2100 [facility] Stop: 02/27/25 20:59 Last Admin: 01/28/25 19:51 Dose: Not Given Documented By: NIKHIL Oxycodone HCl (Oxycodone Hcl Ir 5 Mg Tab (Immediate Release)) 5 mg PO Q6 PRN PRN Reason: Severe Pain (Scale 7, 8, 9,10) Stop: 02/11/25 16:46 Last Admin: 01/29/25 07:36 Dose: 5 mg Documented By: Admin: 01/28/25 17:56 Dose: 5 mg Documented By: VU (2) Leukocytosis Leukocytosis type: unspecified Qualified Code(s): D72.829 - Elevated white blood cell count, unspecified (6) HTN (hypertension) Hypertension type: unspecified Qualified Code(s): I10 - Essential (primary) hypertension (7) HLD (hyperlipidemia) Hyperlipidemia type: unspecified Qualified Code(s): E78.5 - Hyperlipidemia, unspecified (8) Hypothyroidism Hypothyroidism type: unspecified Qualified Code(s): E03.9 - Hypothyroidism, unspecified
[2025-01-29] MEDS ORDERED: IMMUNE GLOBULIN (HUMAN) SOLN IV ONE (16:24)
[2025-01-29] MEDS: oxyCODONE HCL IR 5 MG TAB (IMMEDIATE RELEASE) PO PRN (17:00)
[2025-01-29] MEDS: DEXAMETHASONE SOD INJ 4 MG/ML VIAL IV STA (17:43)
[2025-01-29] MEDS: dexAMETHasone 40 MG in DEXTROSE 5% 25 ML IV STA (18:07)
[2025-01-29] MEDS: Octagam 10% IVIG 5 gram bottle IV SCH (19:39)
[2025-01-29] MEDS: Octagam 10% IVIG 20 gram bottle IV SCH (21:06)
[2025-01-29] MEDS: ACETAMINOPHEN 500 MG TAB PO SCH (21:08)
[2025-01-30 05:56] LABS: Hemoglobin 12.9 g/dl (14.0-18.0); Mean Corpuscular Hemoglobin 29.3 pg (25.0-34.0); Mean Corpuscular Hgb Conc 33.1 g/dL (32.0-36.0); Mean Corpuscular Volume 88.6 fL (80.0-100.0); Mean Platelet Volume 13.8 fL (9.4-12.4); Platelet Count 96 K/uL (130-400); RDW Coefficient of Variation 14.4 % (11.5-14.5); RDW Standard Deviation 46.3 fL (36.4-46.3); White Blood Count 20.07 K/ul (4.8-10.8)
[2025-01-30 06:12] LABS: BUN Creatinine Ratio 22.1 (10-20); Potassium 4.4 mmol/L (3.5-5.1)
[2025-01-30 07:29] VITALS: RESP 18
[2025-01-30 11:13] VITALS: BP 181/65; TEMP 97.2; O2SAT 97
--- NOTE | 2025-01-30 11:47 | Discharge Summary ---
Discharge Summary Date of Service January 30, 2025 Principal Dx & Hospital Course #1 = Principal Diagnosis (1) Urinary retention: (2) Severe thrombocytopenia: (3) Leukocytosis: (4) Left hip pain: (5) Type 2 diabetes mellitus: (6) HTN (hypertension): (7) HLD (hyperlipidemia): (8) Hypothyroidism: Plan 74 year old male inmate from [facility] with PMH significant for refractory ITP status post splenectomy in 2012, DMII, hypertension, hyperlipidemia, hypothyroidism and chronic urine retention who presents to the ED with thrombocytopenia and left hip pain and is being admitted for severe thrombocytopenia. Severe thrombocytopenia -Platelets 8 on admission - could be secondary to toradol administration -Hemodynamically stable with no signs of bleeding -Received IVIG and decadron x 2 -platelets improving to 96K/uL today Plan: -Continue Promacta - discussed with Dr. Matson who recommends continuing at current dose, he will follow up with him in clinic -Pt to continue prednisone taper at 40mg daily and decrease by 10mg every 5 days Leukocytosis -WBCs 20k today -Patient denies s/s of infection, afebrile, vitals stable -UA negative, likely in setting of steroids Urinary retention -continue CIC, recommended 4x daily Left hip pain Sacroiliitis -Lumbar spine x-ray revealed mild diffuse degenerative disc disease and lower lumbar facet degeneration -Pain control with tylenol, lidocaine patch, oxycodone for severe pain -PT/OT consulted, recommend PT while in hospital DMII -On glipizide - hold while inpt -BSG ACHS and SSI Hypertension -Continue lisinopril Hyperlipidemia -Continue statin Hypothyroidism -Continue levothyroxine Notes For Next Care Provider Please check CBC once weekly and fwd to Dr. Matson at [facility] hematology/oncology Please have patient self catheterize 3-4x daily. Please ensure pt has close follow up with Dr. Matson as this is help prevent recurrent hospitalizations. Medication Changes From Visit none resume prednisone taper at 40mg Admission HPI Per Admitting Provider 74 year old male inmate from [facility] with PMH significant for refractory ITP status post splenectomy in 2012, DMII, hypertension, hyperlipidemia, hypothyroidism and chronic urine retention who presents to the ED with thrombocytopenia and left hip pain. Patient was recently admitted from 01/16-01/18/2025 for severe thrombocytopenia and received IVIG and decadron and was discharged on a prednisone taper. He reports that he developed debilitating left buttock pain in the middle of the night last night. He describes it as a constant pain with intermittent worsening in severity that radiates down his leg until his knee. He notes his left leg feels weak and the pain is worsened by laying on his left side, standing, and sitting. Current pain is rated 6/10. He denies any injuries, falls, or unusual activity. He went to the [facility] and was given toradol for pain. He was then transferred to us for low platelets. He denies hitting his head, hematuria, hematochezia, nosebleeds, gum bleeding. He reports he has been getting his Promacta and prednisone. He reports he self catheterizes 3-4 times a day and cannot urinate spontaneously. He denies fevers, chills, cloudy or odorous urine. Also denies chest pain, SOB, abdominal pain, N/V/D. Admission Exam Per Admitting Provider General/Psych: WD/WN, laying in bed, NAD, conversing easily Head: normocephalic, atraumatic Eyes: normal inspection, PERRL, conjunctivae pink, anicteric sclerae ENT: external ear and nose normal, oropharynx normal Neck: normal visual inspection, trachea midline Respiratory: normal respiratory effort, lungs clear to auscultation, no wheeze/rales/rhonchi, no accessory muscle use Cardiovascular: regular rate and rhythm, no murmur/rub/gallop, no JVD Extremities: no cyanosis or clubbing, normal peripheral pulses, no BLE edema Abdomen/GI: normal bowel sounds, soft, nontender Neurologic/MSK: A+Ox3, motor strength 5/5, moves all extremities Skin: no rashes, normal color, warm and dry Discharge Exam Gen: WD/WN, NAD, A&O x3 HEENT: Normocephalic, atraumatic, conjunctivae moist, sclerae anicteric, mucous membranes moist. Lung: Clear to Auscultation bilaterally, no wheezes/rales/rhonchi Heart: Regular rate, regular rhythm, no murmurs, rubs, or gallops Abdomen: Soft, NT, ND +BS x 4 Extremities: No edema, L wrist/ankle restrained to bed Skin: Warm, no rash, negative turgor. : valladares, drains yellow urine Updated Medication List Medication Instructions Recorded Confirmed Type atorvastatin 20 mg tablet 20 mg PO DAILY 07/25/24 01/28/25 History lisinopril 20 mg tablet 20 mg PO DAILY 07/25/24 01/28/25 History levothyroxine 50 mcg tablet 50 mcg PO DAILY 08/22/24 01/28/25 History saliva stimulant comb. no.3 2 spray mucous membrane TID PRN 09/24/24 01/28/25 History (Biotene Moisturizing Mouth Dry Mouth mucosal spray) cyanocobalamin (vitamin B-12) 1,000 mcg PO DAILY 09/28/24 01/28/25 History 1,000 mcg tablet (Vitamin B-12) eltrombopag olamine 50 mg tablet 50 mg PO DAILY 10/08/24 01/28/25 History (Promacta) diphenhydramine HCl 25 mg capsule 25 mg PO BID 01/16/25 01/28/25 History (Benadryl) glipizide 5 mg tablet 5 mg PO DAILY 01/16/25 01/28/25 History prednisone 10 mg tablet 10 mg PO DIRECTED #95 tabs 01/30/25 01/28/25 Rx Hospital Stay Data Consultations 01/28/25 13:08 ED Decision to Admit Stat 01/28/25 16:47 Consult Hematology Routine Pending Results Patient Have Any Pending Studies at Discharge: No Discharge Instructions Given to Patient (Per Discharging Provider) MEDICATION CHANGES: Please continue current medication regimen. Please resume your prednisone taper at 40mg daily for 5 days, 30mg daily for 5 days, 20mg daily for 5 days, 20mg daily for 5 days, 10mg daily for 5 days, 5mg daily for 5 days then stop. SUMMARY OF TEST RESULTS: You were admitted to the hospital due to severely low platelets. You initially presented to the hospital due to Left Leg pain/Weakness. XR revealed degenerative changes in your low back. It is felt your symptoms are likely as a result of arthritis vs inflammation of your sciatic nerve. Your platelets were 6 K/uL on admission. You received 2 doses of IVIG and IV steroid. You will resume your home dose promacta and continue your prednisone taper. PENDING TEST RESULTS: none RECOMMENDATIONS FOR FOLLOW-UP: Please follow up with Dr. Matson as scheduled. He will arrange a close follow up visit. For now he wishes you continue your current promacta dose. It is recommended you have your blood counts checked every week. It is recommended you continue to use over the counter Tylenol for your leg pain. Also gentle stretching and heat will likely help your symptoms. Do not use anti inflammatory medications like Aleve, Advil, Naproxen, Ibuprofen, Motrin or Toradol. These can affect your platelet counts. You should be self catheterizing 3-4 x daily. Do not reuse catheter as this will cause infections. OTHER INSTRUCTIONS: Seek medical attention if you have: * temperature above 101 * chest pain or trouble breathing * abdominal pain, nausea, vomiting * diarrhea, dark stools or bloody stools * any unanswered questions or concerns Call 911 if symptoms are severe. Please take good care of yourself. It has been a pleasure taking care of you. Please take care of yourself. If you have any questions regarding your recent hospitalization please contact [facility] and request Albert Babitaist @ [phone]. Total Time Total Time Spent Total Time Spent (In Minutes): 45 minutes Supervising Physician Co-Signing Physician Notes Attending Addendum: Case reviewed with the advanced practitioner. Chart reviewed in detail I have reviewed the advanced practitioner's documentation on the date of service referenced in note, and I agree with, and take responsibility for the plan of care. please refer to her notes for full details unfortunately, patient has already left before I was able to do my own interview and exam ASSESSMENT AND PLAN diagnoses and plan of care as per advanced practitioner's notes I spent a total of 40 minutes coordinating, documenting, and providing care for this patient, excluding time spent in the performance of separately billed services or time spent by another provider/QHP. Nazario Gurrola MD
[2025-01-30 11:54] VITALS: PULSE 76
== END 2025-01-30 12:58 | DRG 813 ==
LOC: ED 11:40 → 2W 14:16 → SUATTDRO 14:16 → 2W 16:21

== ENCOUNTER 2025-02-20 23:05 | Inpatient (IN) ==
--- NOTE | 2025-02-21 00:18 | Emergency Department Note ---
Impression & Plan Thrombocytopenia ED Provider Note ED Provider Note NAME: LYLY [id number] SAURAV AGE:74 SEX: Male : 1950 ARRIVES VIA: EMS INFORMANT: Patient ED PROVIDER(s): Salima Charles DO CHIEF COMPLAINT: Abnormal outpatient lab HPI: This is a 74-year-old male presents emergency department after outpatient labs showed a platelet count of 5. Patient does have a history and has previously had an similar circumstances. He is still finishing steroids as well. He has a another medication he states that was started by Dr. Matson to help prevent any further drops in his platelet count. Patient denies noting any bleeding from any other sources. Patient states that the last platelet count that he knew of he was in the 90s. He denies headache, dizziness, chest pain, abdominal pain, vomiting, or any rash. Patient denies any use of antiplatelet or anticoagulation medications. PAST MEDICAL HISTORY:See Below PAST SURGICAL HISTORY:See Below FAMILY HISTORY:See Below SOCIAL HISTORY:See Below HOME MEDICATIONS:See Below ALLERGIES:See Below VITALS:See Below PHYSICAL EXAMINATION: GENERAL: alert, well appearing, well nourished, no distress, non-toxic EYE EXAM: normal conjunctiva, PERRL and EOM's grossly intact OROPHARYNX: no exudate, no erythema, lips, buccal mucosa, and tongue normal and mucous membranes are moist NECK: supple, no nuchal rigidity, no adenopathy, non-tender LUNGS: Clear to auscultation. Normal chest wall mechanics, no w/r/r HEART: no murmurs, S1 normal and S2 normal ABDOMEN: abdomen soft, non-tender, normo-active bowel sounds, no masses, no rebound or guarding. SKIN: no rashes, petechiae, orbruising UPPER EXTREMITIES: upper extremities are grossly normal. FROM, nml pulses b/l. LOWER EXTREMITIES: No pitting edema. FROM, nml pulses b/l. NEURO EXAM: Normal sensorium, cranial nerves II-XII grossly intact, normal speech, no facial droop,nogross weakness of arms, no gross weakness of legs. Gross sensation intact. No ataxia. Vital Signs: reviewed and remarkable Differential Diagnosis: ITP, lab error, TTP, medication adr, as well as others were considered MEDICAL DECISION MAKING: This is a 74-year-old male presents to the emergency department from a local [facility] facility after being advised that outpatient blood work he had done was abnormal and included platelets of 5. Upon arrival here patient without complaint and states he has had similar prior episodes and does have history of ITP. He denies noting any bleeding from any source. Labs drawn and sent, IV established, patient monitored on telemetry. Patient's platelet count here was 4. I did reach out to Dr. Matson of heme-onc who made recommendations in light of his history and current platelet count. Case discussed with the hospitalist team for further evaluation and management. Consultation(s): 0102: Discussed with Dr. Matson, heme/onc, recommends dexamethasone 40 mg p.o. now as well as IVIG 1 g/kg now and admit to hospitalist team. 0150: Discussed with Dr. Lombardo, [facility] hospitalist team, for additional evaluation and mgmt. ER Treatment Provided: See below Diagnostics Interpreted By Me: -Cardiac Monitoring: An order was placed for continuous cardiac monitoring. The monitor shows a rate of 68 with normal sinus rhythm. -Laboratory studies: As stated above and show below. Triage Nursing Note Reviewed Prior/Outside Records Reviewed Past Med/Surg History Problem List (Updated 02/21/25 @ 00:18 by Salima Charles DO) Leukocytosis (Acute) Leukocytosis Left hip pain (Acute) Thrombocytopenia (Acute) Severe thrombocytopenia (Acute) Medical History (Updated 02/21/25 @ 00:18 by Salima Charles DO) Type 2 diabetes mellitus Penile bleeding Hyponatremia Hypothyroidism Urinary tract infection associated with catheterization of urinary tract Petechial rash Petechiae Acute ITP KATELYNN (acute kidney injury) Urinary retention HLD (hyperlipidemia) HTN (hypertension) Surgical History H/O splenectomy Social History Smoking Status: Never smoker Tobacco Type: Declines Second Hand Exposure: No; Do You Dip or Chew Tobacco: No; Hx Alcohol Use: No Hx Substance Use: No Preferred Language: Citizen Of [place] Communication Ability: Effective Business Ethics Professor Required: No Beliefs That Will Affect Care: None Current Living Situation: Other Current Living Situation Comment: [facility] Feels Safe at Home: Yes Assistive Devices: None Allergies Allergies Allergy/AdvReac Type Severity Reaction Status Date / Time Penicillins Allergy Mild Rash Verified 10/08/24 16:48 heparin Allergy Unknown Verified 10/08/24 16:48 Home Meds Home Medications Medication Instructions Recorded Confirmed atorvastatin 20 mg tablet 20 mg PO DAILY 07/25/24 02/20/25 levothyroxine 50 mcg tablet 50 mcg PO DAILY 08/22/24 02/20/25 saliva stimulant comb. no.3 2 spray mucous membrane TID PRN 09/24/24 02/20/25 (Biotene Moisturizing Mouth Dry Mouth mucosal spray) cyanocobalamin (vitamin B-12) 1,000 mcg PO DAILY 09/28/24 02/20/25 1,000 mcg tablet (Vitamin B-12) eltrombopag olamine 50 mg tablet 50 mg PO DAILY 10/08/24 02/20/25 (Promacta) glipizide 5 mg tablet 5 mg PO DAILY 01/16/25 02/20/25 amlodipine 10 mg tablet 10 mg PO DAILY 02/20/25 02/20/25 meloxicam 15 mg tablet 15 mg PO DAILY 02/20/25 02/20/25 Previous Rx's Medication Instructions Recorded prednisone 10 mg tablet 10 mg PO DIRECTED #95 tabs 01/30/25 Results & Data (ED) Vital Signs Vital Signs - 24 hr 02/20/25 23:08 02/20/25 23:45 02/21/25 00:00 Temperature 36.5 C Temperature Source Temporal Artery Scan Pulse Rate 75 70 60 Pulse Rate from SpO2 Sensor Respiratory Rate 16 16 14 Respiratory Effort / Characteristics Non-Labored Spontaneous Respiratory Depth Normal Blood Pressure 145/83 H 145/79 H 140/84 Blood Pressure Mean 103 113 102 Pulse Oximetry 96 96 94 Oxygen Delivery Method Room Air Sepsis Recent Fever Within 48 Hours No Sepsis New/Unexplained Change in Mental Status N/A Sepsis Action Taken by Nursing No Action Required 02/21/25 00:01 02/21/25 00:36 02/21/25 01:00 Temperature Temperature Source Pulse Rate 65 61 59 L Pulse Rate from SpO2 Sensor 63 Respiratory Rate 14 13 Respiratory Effort / Characteristics Respiratory Depth Blood Pressure 146/84 H 142/89 H Blood Pressure Mean 104 106 Pulse Oximetry 96 95 Oxygen Delivery Method Sepsis Recent Fever Within 48 Hours Sepsis New/Unexplained Change in Mental Status Sepsis Action Taken by Nursing 02/21/25 01:30 02/21/25 02:00 02/21/25 03:00 Temperature Temperature Source Pulse Rate 61 67 66 Pulse Rate from SpO2 Sensor Respiratory Rate 16 17 17 Respiratory Effort / Characteristics Respiratory Depth Blood Pressure 144/80 H 151/88 H 159/82 H Blood Pressure Mean 115 107 127 Pulse Oximetry 96 96 97 Oxygen Delivery Method Sepsis Recent Fever Within 48 Hours Sepsis New/Unexplained Change in Mental Status Sepsis Action Taken by Nursing Laboratory Data 02/20/25 23:31 02/20/25 23:31 Lab Results 02/20/25 02/21/25 Range/Units 23:31 00:41 WBC 12.60 H (4.8-10.8) K/ul RBC 3.89 L (4.70-6.10) M/uL Hgb 11.5 L (14.0-18.0) g/dl Hct 35.2 L (42.0-52.0) % MCV 90.5 (80.0-100.0) fL MCH 29.6 (25.0-34.0) pg MCHC 32.7 (32.0-36.0) g/dL RDW Std Deviation 51.5 H (36.4-46.3) fL RDW Coeff of Debbie 15.8 H (11.5-14.5) % Plt Count 4 L* (130-400) K/uL Immature Gran % (Auto) 0.5 % Neut % (Auto) 64.0 % Lymph % (Auto) 23.3 % [place] % (Auto) 11.6 % Eos % (Auto) 0.4 % Baso % (Auto) 0.2 % Neut # (Auto) 8.08 H (1.40-6.50) K/uL Lymph # (Auto) 2.93 (1.20-3.40) K/uL [place] # (Auto) 1.46 H (0.11-0.59) K/uL Eos # (Auto) 0.05 (0.00-0.50) K/uL Baso # (Auto) 0.02 (0.00-0.20) K/uL Immature Gran # (Auto) 0.06 (0.01-0.20) K/uL Sims-Artois Bodies Occasional PT Cancelled 9.9 INR Cancelled 0.9 Sodium 140 (136-145) mmol/L Potassium 4.0 (3.5-5.1) mmol/L Chloride 111 H (98-107) mmol/L Carbon Dioxide 21 (21-32) mmol/L Anion Gap 8 (3-11) BUN 31 H (6-23) mg/dl Creatinine 1.29 (0.6-1.4) mg/dl Est Cr Clr Drug Dosing Not Reportable eGFR 58.18 BUN/Creatinine Ratio 24.0 H (10-20) Glucose 82 (70-99(Fasting)) mg/dl Calcium 8.3 L (8.6-10.3) mg/dl Total Bilirubin 0.4 (0.2-1.0) mg/dl AST 16 (13-39) U/L ALT 25 (7-52) U/L Alkaline Phosphatase 46 (34-104) U/L Total Protein 6.5 (6.0-8.3) gm/dl Albumin 3.6 (3.4-5.0) gm/dl Globulin 2.9 (2.5-4.0) gm/dl Albumin/Globulin Ratio 1.2 (0.9-2) Blood Type A Positive Antibody Screen NEGATIVE Administered Medications Discontinued Medications Dexamethasone Sodium Phosphate (DexamethasonePf 10 Mg/Ml Vial) 40 mg PO NOW ONE Stop: 02/21/25 01:05 Last Admin: 02/21/25 01:14 Dose: 40 mg Documented By: Discharge Plan Visit Data Chief Complaint: Abnormal Labs/Diagnostic Testing Stated Complaint: LOW PLATELETS ED Provider: Salima Charles Discharge Problem: Thrombocytopenia Patient Disposition: Being Evaluated by Hospitalist Condition: Fair Forms Stand Alone Forms: My [facility] Prescriptions Prescriptions: No Action atorvastatin 20 mg Tablet 20 mg PO DAILY levothyroxine 50 mcg Tablet 50 mcg PO DAILY Biotene Moisturizing Mouth [place],Non-Aerosol 2 spray MUCOUS MEMBRANE TID PRN (Reason: Dry Mouth) cyanocobalamin (vitamin B-12) [Vitamin B-12] 1,000 mcg Tablet 1,000 mcg PO DAILY eltrombopag olamine [Promacta] 50 mg Tablet 50 mg PO DAILY Rx Instructions: administer on an empty stomach, at least 1 hour before or 2 hours after food/meal(s) glipizide 5 mg Tablet 5 mg PO DAILY prednisone 10 mg tablet 10 mg PO DIRECTED Qty: 95 0RF Rx Instructions: TAKE prednisone 60 mg daily for 5 days, then 50 mg for 5 days, then 40 mg for 5 days, then 30 mg for 5 days, then 20 mg for 5 days, then 10 mg for 5 days then stop. STOP DATE 02/24/25 meloxicam 15 mg Tablet 15 mg PO DAILY Rx Instructions: STOP 02/24/25 amlodipine 10 mg Tablet 10 mg PO DAILY Referrals Referrals: Akbar JORDAN [Primary Care Provider] -
[2025-02-21 00:30] LABS: Alanine Aminotransferase 25 U/L (7-52); Albumin Globulin Ratio 1.2 (0.9-2); Alkaline Phosphatase 46 U/L (34-104); Anion Gap 8 (3-11); Bilirubin,Total 0.4 mg/dl (0.2-1.0); Blood Urea Nitrogen 31 mg/dl (6-23); Calcium 8.3 mg/dl (8.6-10.3); Carbon Dioxide 21 mmol/L (21-32); Chloride 111 mmol/L (98-107); Globulin 2.9 gm/dl (2.5-4.0); Glucose 82 mg/dl (70-99(Fasting)); Potassium 4.0 mmol/L (3.5-5.1); Sodium 140 mmol/L (136-145); Total Protein 6.5 gm/dl (6.0-8.3)
[2025-02-21 00:43] LABS: Hematocrit (blood only) 35.2 % (42.0-52.0); Hemoglobin 11.5 g/dl (14.0-18.0); Mean Corpuscular Hemoglobin 29.6 pg (25.0-34.0); Mean Corpuscular Volume 90.5 fL (80.0-100.0); Platelet Count 4 K/uL (130-400); RDW Standard Deviation 51.5 fL (36.4-46.3); Red Blood Count 3.89 M/uL (4.70-6.10); White Blood Count 12.60 K/ul (4.8-10.8)
[2025-02-21 00:44] LABS: Howell-Jolly Bodies Occasional; Immature Granulocytes # (auto) 0.06 K/uL (0.01-0.20); Immature Granulocytes % (auto) 0.5 %
[2025-02-21] MEDS: dexAMETHasone**PF** 10 MG/ML VIAL PO ONE (01:14)
[2025-02-21] MEDS ORDERED: IMMUNE GLOBULIN (HUMAN) SOLN IV ONE (01:46)
[2025-02-21 01:55] LABS: INR 0.9 (0.9-1.1); Prothrombin Time 9.9 Seconds (9.0-12.0)
--- NOTE | 2025-02-21 03:32 | History & Physical Report ---
Date of Service February 21, 2025 Assessment & Plan (1) Severe thrombocytopenia: Plan: 74-year-old male coming from [facility] with past medical history significant for refractory ITP status post splenectomy in 2012, hypertension, hyperlipidemia, hypothyroidism and chronic urine retention was brought in because of thrombocytopenia. Patient was recently in the hospital for thrombocytopenia treated with with IVIG and steroids and currently still on prednisone taper 10 mg daily was brought in because of low platelets. Routine labs showed platelets of 5 and patient was sent to hospital. Here in ER platelets are 4. ER talked with the heme-onc Dr. Matson and was advised for IVIG and Decadron 50 mg. Patient says few days back when he shaved noticed some bruises on the face. He also has bruises on the right upper extremity. Patient states couple of weeks ago he fell in shower and is having pain shooting pain from the left hip down the leg and he is using Mobic. Patient states x-ray was okay and there is a plan for MRI scan . Denies any bloody stools or black stool. Denies any hematuria. Denies any headache. No dizziness, runny nose or sore throat. No cough. No fevers. No chest pain or shortness of breath. No nausea. No abdominal pain. Hemodynamics are okay. Severe thrombocytopenia History of ITP status post splenectomy Currently on Promacta Recurrent Received IVIG and dose of Decadron 40 mg ordered in ER per heme-onc recommendations. Will continue Decadron 40 mg daily for now until further recommendations from Heme-onc Follow labs Anemia hemoglobin 11.5 Will follow stool for Hemoccult Hypertension On amlodipine Monitor Diabetes Hold glipizide Sliding scale Will monitor Hypothyroidism On Synthyroid Sciatica Pain down the left leg Will hold Mobic Oxy for now Hyperlipidemia On statin DVT prophylaxis SCDs Disposition Telemetry Full code. History of Present Illness Chief Complaint: Thrombocytopenia Primary Care Provider: NIKKI Webber 74-year-old male coming from [facility] with past medical history significant for refractory ITP status post splenectomy in 2012, hypertension, hyperlipidemia, hypothyroidism and chronic urine retention was brought in because of thrombocytopenia. Patient was recently in the hospital for thrombocytopenia treated with with IVIG and steroids and currently still on prednisone taper 10 mg daily was brought in because of low platelets. Routine labs showed platelets of 5 and patient was sent to hospital. Here in ER platelets are 4. ER talked with the heme-onc Dr. Matson and was advised for IVIG and Decadron 50 mg. Patient says few days back when he shaved noticed some bruises on the face. He also has bruises on the right upper extremity. Patient states couple of weeks ago he fell in shower and is having pain shooting pain from the left hip down the leg and he is using Mobic. Patient states x-ray was okay and there is a plan for MRI scan . Denies any bloody stools or black stool. Denies any hematuria. Denies any headache. No dizziness, runny nose or sore throat. No cough. No fevers. No chest pain or shortness of breath. No nausea. No abdominal pain. Hemodynamics are okay. Past medical history. As mentioned above. Past surgical history. Splenectomy Social history. No smoking. No alcohol use. No drug use. Allergies Allergy/AdvReac Type Severity Reaction Status Date / Time Penicillins Allergy Mild Rash Verified 10/08/24 16:48 heparin Allergy Unknown Verified 10/08/24 16:48 Home Medications Medication Instructions Recorded Confirmed Type atorvastatin 20 mg tablet 20 mg PO DAILY 07/25/24 02/20/25 History levothyroxine 50 mcg tablet 50 mcg PO DAILY 08/22/24 02/20/25 History saliva stimulant comb. no.3 2 spray mucous membrane TID PRN 09/24/24 02/20/25 History (Biotene Moisturizing Mouth Dry Mouth mucosal spray) cyanocobalamin (vitamin B-12) 1,000 mcg PO DAILY 09/28/24 02/20/25 History 1,000 mcg tablet (Vitamin B-12) eltrombopag olamine 50 mg tablet 50 mg PO DAILY 10/08/24 02/20/25 History (Promacta) glipizide 5 mg tablet 5 mg PO DAILY 01/16/25 02/20/25 History prednisone 10 mg tablet 10 mg PO DIRECTED #95 tabs 01/30/25 02/20/25 Rx amlodipine 10 mg tablet 10 mg PO DAILY 02/20/25 02/20/25 History meloxicam 15 mg tablet 15 mg PO DAILY 02/20/25 02/20/25 History Past Med/Surg History Problem List (Updated 02/21/25 @ 00:18 by Salima Charles DO) Leukocytosis (Acute) Leukocytosis Left hip pain (Acute) Thrombocytopenia (Acute) Severe thrombocytopenia (Acute) Medical History (Updated 02/21/25 @ 00:18 by Salima Charles, ) Type 2 diabetes mellitus Penile bleeding Hyponatremia Hypothyroidism Urinary tract infection associated with catheterization of urinary tract Petechial rash Petechiae Acute ITP KATELYNN (acute kidney injury) Urinary retention HLD (hyperlipidemia) HTN (hypertension) Surgical History H/O splenectomy Social History Smoking Status: Never smoker Tobacco Type: Declines Second Hand Exposure: No; Do You Dip or Chew Tobacco: No; Tobacco Cessation Education Requested by Patient: No Hx Alcohol Use: No Hx Substance Use: No Preferred Language: [place] Communication Ability: Effective Catalyst Unit Operator Required: No Beliefs That Will Affect Care: None Current Living Situation: Other Current Living Situation Comment: inmate at [facility] Other Information That Helps Us Care for You: No Feels Safe at Home: Yes Safety Concerns: Feels Safe At This Time Assistive Devices: None Review of Systems Review of Systems: All systems reviewed & are unremarkable except as noted in HPI & below Physical Exam Physical Exam: General- Not in distress Head- atraumatic Eyes- PERRL. ENT- oropharynx clear Neck- supple, no JVD. Lungs- clear to auscultation no wheezing or crackles Heart- regular rate and rhythm; no murmur, no gallop. Abdomen- normal bowel sounds, soft, nontender, no distension Extremities- no pretibial edema, no erythema seen. Neuro- alert, oriented PERRL, no facial palsy; no dysarthria; moves extremities. Skin- Bruises seen on right upper extremity Musculoskeletal Straight leg raise test negative left lower extremity Results & Data Results & Data Vital Signs (Past 12 Hours) Vital Signs Temp Pulse Resp BP Pulse Ox O2 Del Method 02/21/25 01:00 59 L 13 142/89 H 95 02/21/25 00:36 61 14 146/84 H 96 02/21/25 00:01 65 02/21/25 00:00 60 14 140/84 94 02/20/25 23:45 70 16 145/79 H 96 02/20/25 23:08 36.5 C 75 16 145/83 H 96 Room Air Diagnostic Findings Laboratory Results WBC 12.60 K/ul (4.8-10.8) H 02/20/25 23: RBC 3.89 M/uL (4.70-6.10) L 02/20/25 23: Hgb 11.5 g/dl (14.0-18.0) L 02/20/25 23: Hct 35.2 % (42.0-52.0) L 02/20/25: MCV 90.5 fL (80.0-100.0) 02/20/25 23: MCH 29.6 pg (25.0-34.0) 02/20/25: MCHC 32.7 g/dL (32.0-36.0) 02/20/25: RDW Std Deviation 51.5 fL (36.4-46.3) H 02/20/25: RDW Coeff of Debbie 15.8 % (11.5-14.5) H 02/20/25: Plt Count 4 K/uL (130-400) L* 02/20/25: Immature Gran % (Auto) 0.5 % 02/20/25: Neut % (Auto) 64.0 % 02/20/25 23: Lymph % (Auto) 23.3 % 02/20/25 23: Bartholomew % (Auto) 11.6 % 02/20/25 23: Eos % (Auto) 0.4 % 02/20/25: Baso % (Auto) 0.2 % 02/20/25: Neut # (Auto) 8.08 K/uL (1.40-6.50) H 02/20/25 23: Lymph # (Auto) 2.93 K/uL (1.20-3.40) 02/20/25 23: Bartholomew # (Auto) 1.46 K/uL (0.11-0.59) H 02/20/25 23: Eos # (Auto) 0.05 K/uL (0.00-0.50) 02/20/25: Baso # (Auto) 0.02 K/uL (0.00-0.20) 02/20/25 23: Immature Gran # (Auto) 0.06 K/uL (0.01-0.20) 02/20/25 23:31 Sims-Manderson Bodies Occasional 02/20/25 23:31 PT 9.9 Seconds (9.0-12.0) 02/21/25 00:41 INR 0.9 (0.9-1.1) 02/21/25 00:41 Sodium 140 mmol/L (136-145) 02/20/25 23:31 Potassium 4.0 mmol/L (3.5-5.1) 02/20/25 23:31 Chloride 111 mmol/L (98-107) H 02/20/25 23:31 Carbon Dioxide 21 mmol/L (21-32) 02/20/25 23:31 Anion Gap 8 (3-11) 02/20/25 23:31 BUN 31 mg/dl (6-23) H 02/20/25 23:31 Creatinine 1.29 mg/dl (0.6-1.4) 02/20/25 23:31 Est Cr Clr Drug Dosing Not Reportable 02/20/25 23:31 eGFR 58.18 02/20/25 23:31 BUN/Creatinine Ratio 24.0 (10-20) H 02/20/25 23:31 Glucose 82 mg/dl (70-99(Fasting)) 02/20/25 23:31 Calcium 8.3 mg/dl (8.6-10.3) L 02/20/25 23:31 Total Bilirubin 0.4 mg/dl (0.2-1.0) 02/20/25 23:31 AST 16 U/L (13-39) 02/20/25 23:31 ALT 25 U/L (7-52) 02/20/25 23:31 Alkaline Phosphatase 46 U/L (34-104) 02/20/25 23:31 Total Protein 6.5 gm/dl (6.0-8.3) 02/20/25 23:31 Albumin 3.6 gm/dl (3.4-5.0) 02/20/25 23:31 Globulin 2.9 gm/dl (2.5-4.0) 02/20/25 23:31 Albumin/Globulin Ratio 1.2 (0.9-2) 02/20/25 23:31 Blood Type A Positive 02/20/25 23:31 Antibody Screen NEGATIVE 02/20/25 23:31 Code Status & VTE Plan VTE Prophylaxis Plan VTE Prophylaxis will be ordered: Yes
[2025-02-21] MEDS: Octagam 10% IVIG 5 gram bottle IV SCH (04:10)
[2025-02-21] MEDS: Octagam 10% IVIG 20 gram bottle IV SCH (05:03)
[2025-02-21] MEDS ORDERED: NITROGLYCERIN SL 0.4 MG/TAB TAB SL PRN (05:35)
[2025-02-21] MEDS ORDERED: DEXTROSE 50% 50 ML SYRINGE IV PRN (05:35)
[2025-02-21] MEDS ORDERED: GLUCOSE 10 TAB/TUBE PO PRN (05:35)
[2025-02-21] MEDS ORDERED: GLUCAGON FOR INJ 1 MG VIAL SQ PRN (05:35)
[2025-02-21] MEDS ORDERED: NON-FORMULARY MEDICATION (Saliva Stimulant Comb. No.3 [Biotene Moisturizing Mouth] Spray,N MUCOUS MEMBRANE PRN (05:35)
[2025-02-21] MEDS ORDERED: ACETAMINOPHEN 325 MG TAB PO PRN (05:35)
[2025-02-21] MEDS ORDERED: POLYETHYLENE (MIRALAX) 17 GM PACK PO PRN (05:35)
[2025-02-21] MEDS ORDERED: CARBOHYDRATES FOR HYPOGLYCEMIA PO PRN (05:35)
[2025-02-21] MEDS ORDERED: GLUCOSE 40% GEL 15 GM TUBE PO PRN (05:35)
[2025-02-21] MEDS: LEVOTHYROXINE SODIUM 50 MCG TABLET PO SCH (06:26)
[2025-02-21 07:13] LABS: Hematocrit (blood only) 39.7 % (42.0-52.0); Hemoglobin 13.2 g/dl (14.0-18.0); Mean Corpuscular Hemoglobin 29.9 pg (25.0-34.0); Mean Corpuscular Volume 90.0 fL (80.0-100.0); Platelet Count 9 K/uL (130-400); RDW Standard Deviation 51.8 fL (36.4-46.3); Red Blood Count 4.41 M/uL (4.70-6.10); White Blood Count 10.98 K/ul (4.8-10.8)
[2025-02-21 07:21] LABS: Anion Gap 7.0 (3-11); Blood Urea Nitrogen 25.0 mg/dl (6-23); Calcium 8.5 mg/dl (8.6-10.3); Carbon Dioxide 23.0 mmol/L (21-32); Chloride 107.0 mmol/L (98-107); Creatinine Clr Calc Pharmacy 71.1 ml/min; Glucose 158.0 mg/dl (70-99(Fasting)); Magnesium 2.2 mg/dl (1.7-2.4); Potassium 4.4 mmol/L (3.5-5.1); Sodium 137.0 mmol/L (136-145)
[2025-02-21 07:27] LABS: Howell-Jolly Bodies 1+; Immature Granulocytes # (auto) 0.07 K/uL (0.01-0.20); Immature Granulocytes % (auto) 0.6 %; Polychromasia 1+
[2025-02-21] MEDS: INSULIN ASPART PER UNIT CHARGE SC SCH (07:58)
[2025-02-21] MEDS: CYANOCOBALAMIN (B-12) 500 MCG TABLET PO SCH (08:05)
[2025-02-21] MEDS: ATORVASTATIN 20 MG TAB PO SCH (08:06)
--- NOTE | 2025-02-21 14:46 | Communication Note ---
Patient seen and examined at bedside. Patient sitting comfortably in room. States he has [facility] for [facility]. Of note, correctional facility also prescribed toradol for acute pain prior admission when he came to the hospital. On exam, patient sitting comfortably, bruising noted in bilateral forearms. Patient will continue to receive steroids and IVIG while platlet counts recover from IVIG. Will discuss with correctional facility need to avoid all NSAIDs. Anticipate discharge tomorrow if he continues to improve. Date of Service: February 21, 2025
--- NOTE | 2025-02-21 17:16 | Oncology Consultation ---
Date of Consultation February 21, 2025 Assessment & Plan (1) Severe thrombocytopenia: recommendations: IVIG 1 g per kilogram per day x 3 days dexamethasone 40 mg p.o. daily x 3 days discharge when platelet count is greater than 30,000/mcL outpatient follow-up to initiate treatment with rombiplastin given that he is not responding to Promacta coordination of care with the present has been challenging for this incarcerated patient. Plan thank you for this interesting hematological consult; hematology will continue to follow the patient History of Present Illness Reason for Consultation: ITP Attending Physician: Rui Frederick MD History of Present Illness patient is a 74-year-old man well-known to our service given the history of chronic ITP who lives in [facility]. Recently he was started on meloxicam in the long-term, came with a platelet count of 0. He was again started on IVIG and Decadron. Hematology has been consulted to assist in management of this patient with relapsed refractory ITP who is a prisoner, has seen multiple lines of therapy, most likely recently was on Promacta now has again relapsed ITP. Allergies Allergy/AdvReac Type Severity Reaction Status Date / Time Penicillins Allergy Mild Rash Verified 10/08/24 16:48 heparin Allergy Unknown Verified 10/08/24 16:48 Home Medications Medication Instructions Recorded Confirmed Type atorvastatin 20 mg tablet 20 mg PO DAILY 07/25/24 02/20/25 History levothyroxine 50 mcg tablet 50 mcg PO DAILY 08/22/24 02/20/25 History saliva stimulant comb. no.3 2 spray mucous membrane TID PRN 09/24/24 02/20/25 History (Biotene Moisturizing Mouth Dry Mouth mucosal spray) cyanocobalamin (vitamin B-12) 1,000 mcg PO DAILY 09/28/24 02/20/25 History 1,000 mcg tablet (Vitamin B-12) eltrombopag olamine 50 mg tablet 50 mg PO DAILY 10/08/24 02/20/25 History (Promacta) glipizide 5 mg tablet 5 mg PO DAILY 01/16/25 02/20/25 History prednisone 10 mg tablet 10 mg PO DIRECTED #95 tabs 01/30/25 02/20/25 Rx amlodipine 10 mg tablet 10 mg PO DAILY 02/20/25 02/20/25 History meloxicam 15 mg tablet 15 mg PO DAILY 02/20/25 02/20/25 History Patient History Medical History (Updated 02/21/25 @ 00:18 by Salima Charles DO) Type 2 diabetes mellitus Penile bleeding Hyponatremia Hypothyroidism Urinary tract infection associated with catheterization of urinary tract Petechial rash Petechiae Acute ITP KATELYNN (acute kidney injury) Urinary retention HLD (hyperlipidemia) HTN (hypertension) Surgical History H/O splenectomy Social History Smoking Status: Never smoker Tobacco Type: Declines Second Hand Exposure: No; Do You Dip or Chew Tobacco: No; Tobacco Cessation Education Requested by Patient: No Hx Alcohol Use: No Hx Substance Use: No Preferred Language: [place]olan Communication Ability: Effective Engraver Lettering Required: No Beliefs That Will Affect Care: None Current Living Situation: Other Current Living Situation Comment: inmate at [facility] Other Information That Helps Us Care for You: No Feels Safe at Home: Yes Safety Concerns: Feels Safe At This Time Assistive Devices: None Review of Systems Review of Systems: All systems reviewed & are unremarkable except as noted in HPI & below Constitutional: as per Subjective / HPI Eyes: as per Subjective / HPI Ear, Nose, Mouth, Throat: as per Subjective / HPI Respiratory: as per Subjective / HPI Cardiovascular: as per Subjective / HPI Gastrointestinal: as per Subjective / HPI Genitourinary: + as per Subjective / HPI Musculoskeletal: as per Subjective / HPI Integumentary: as per Subjective / HPI Neurologic: as per Subjective / HPI Physical Exam Constitutional: WD/WN, vitals as above Eyes: PERRL, conjunctivae normal, anicteric sclerae ENMT: external ear and nose normal, oropharynx normal Neck: trachea midline, no thyromegaly Respiratory: normal respiratory effort, lungs clear to auscultation Cardiovascular: RRR, no murmur, no edema Gastrointestinal (Abdomen): normal bowel sounds, soft, nontender, no hepatosplenomegaly Musculoskeletal: no cyanosis or clubbing, extremities motor strength 5/5 Skin: no rashes, warm and dry Results & Data Vital Signs (Past 12 Hours) Vital Signs Temp Pulse Pulse Resp BP Pulse Ox O2 Del Method 02/21/25 15:29 36.5 C 85 16 154/79 H 94 Room Air 02/21/25 14:15 90 02/21/25 11:36 73 02/21/25 10:50 36.4 C L 82 22 147/77 H 94 Room Air 02/21/25 07:16 36.4 C L 72 21 152/73 H 97 Room Air 02/21/25 05:35 36.3 C L 68 16 151/83 H 97 Room Air
[2025-02-22 07:11] LABS: Hematocrit (blood only) 38.9 % (42.0-52.0); Hemoglobin 13.0 g/dl (14.0-18.0); Mean Corpuscular Hemoglobin 30.0 pg (25.0-34.0); Mean Corpuscular Volume 89.8 fL (80.0-100.0); Platelet Count 135 K/uL (130-400); RDW Standard Deviation 50.6 fL (36.4-46.3); Red Blood Count 4.33 M/uL (4.70-6.10); White Blood Count 15.63 K/ul (4.8-10.8)
[2025-02-22 07:20] VITALS: RESP 20
[2025-02-22 07:44] LABS: INR 0.9 (0.9-1.1); Prothrombin Time 10.3 Seconds (9.0-12.0)
[2025-02-22] MEDS ORDERED: IMMUNE GLOBULIN (HUMAN) SOLN IV ONE (08:15)
[2025-02-22 08:32] LABS: Anion Gap 10.0 (3-11); Blood Urea Nitrogen 27.0 mg/dl (6-23); Calcium 8.4 mg/dl (8.6-10.3); Carbon Dioxide 20.0 mmol/L (21-32); Chloride 106.0 mmol/L (98-107); Creatinine Clr Calc Pharmacy 67.9 ml/min; Glucose 192.0 mg/dl (70-99(Fasting)); Potassium 4.4 mmol/L (3.5-5.1); Sodium 136.0 mmol/L (136-145)
[2025-02-22] MEDS: Octagam 10% IVIG 5 gram bottle IV SCH (09:33)
[2025-02-22] MEDS: Octagam 10% IVIG 20 gram bottle IV SCH (11:10)
[2025-02-22 11:17] VITALS: O2SAT 94
[2025-02-22 15:29] VITALS: BP 154/78; PULSE 92; TEMP 97.7
--- NOTE | 2025-02-22 16:38 | Discharge Summary ---
Discharge Summary Date of Service February 22, 2025 Principal Dx & Hospital Course #1 = Principal Diagnosis (1) Severe thrombocytopenia: 74-year-old male coming from long-term with past medical history significant for refractory ITP status post splenectomy in 2012, hypertension, hyperlipidemia, hypothyroidism and chronic urine retention was brought in because of thrombocytopenia. Patient was recently in the hospital for thrombocytopenia treated with with IVIG and steroids and currently still on prednisone taper 10 mg daily was brought in because of low platelets. Routine labs showed platelets of 5 and patient was sent to hospital. Here in ER platelets are 4. ER talked with the heme-onc Dr. Matson and was advised for IVIG and Decadron 50 mg. Patient says few days back when he shaved noticed some bruises on the face. He also has bruises on the right upper extremity. Patient states couple of weeks ago he fell in shower and is having pain shooting pain from the left hip down the leg and he is using Mobic. Patient states x-ray was okay and there is a plan for MRI scan . Denies any bloody stools or black stool. Denies any hematuria. Denies any headache. No dizziness, runny nose or sore throat. No cough. No fevers. No chest pain or shortness of breath. No nausea. No abdominal pain. Hemodynamics are okay. Severe thrombocytopenia History of ITP status post splenectomy Currently on Promacta Recurrent Received IVIG and dose of Decadron 40 mg ordered in ER per heme-onc recommendations. Will continue Decadron 40 mg daily for now until further recommendations from Heme-onc Follow labs Anemia hemoglobin 11.5 Will follow stool for Hemoccult Hypertension On amlodipine Monitor Diabetes Hold glipizide Sliding scale Will monitor Hypothyroidism On Synthyroid Sciatica Pain down the left leg Will hold Mobic Oxy for now Hyperlipidemia On statin DVT prophylaxis SCDs Disposition Telemetry Full code. Notes For Next Care Provider 74-year-old male coming from long-term with past medical history significant for refractory ITP status post splenectomy in 2012, hypertension, hyperlipidemia, hypothyroidism and chronic urine retention was brought in because of thrombocytopenia. Has been being given meloxicam by the correctional facility which is likely cause of worsening platelet counts. Given IVIG and steroids, admitted to medicine. On medicine, heme/onc consulted, recommended IVIG, steroids, and admission until platlets over 30. On 02/22/2025 patient platlets over 100, given another dose of IVIG, report called to correctional facility and stable for discharge. To do: [ ] do not give NSAIDS (meloxicam, toradol, ibuprofen, aleve, celebrex, etc) Medication Changes From Visit -see below Admission HPI Per Admitting Provider 74-year-old male coming from long-term with past medical history significant for refractory ITP status post splenectomy in 2012, hypertension, hyperlipidemia, hypothyroidism and chronic urine retention was brought in because of thrombocytopenia. Patient was recently in the hospital for thrombocytopenia treated with with IVIG and steroids and currently still on prednisone taper 10 mg daily was brought in because of low platelets. Routine labs showed platelets of 5 and patient was sent to hospital. Here in ER platelets are 4. ER talked with the heme-onc Dr. Matson and was advised for IVIG and Decadron 50 mg. Patient says few days back when he shaved noticed some bruises on the face. He also has bruises on the right upper extremity. Patient states couple of weeks ago he fell in shower and is having pain shooting pain from the left hip down the leg and he is using Mobic. Patient states x-ray was okay and there is a plan for MRI scan . Denies any bloody stools or black stool. Denies any hematuria. Denies any headache. No dizziness, runny nose or sore throat. No cough. No fevers. No chest pain or shortness of breath. No nausea. No abdominal pain. Hemodynamics are okay. Past medical history. As mentioned above. Past surgical history. Splenectomy Social history. No smoking. No alcohol use. No drug use. Discharge Exam Gen: A&O 3 NAD HEENT: NCAT, EOMI, not icteric. External ears normal. No rhinorrhea. Moist mucous membranes. Neck: Supple, full range of motion, no observable masses, No meningeal sign. Lungs: No Respiratory distress. CV: RRR, no edema. Abdomen: Soft, nondistended, No rebound tenderness. MSK: No joint swelling, no redness. Skin: some bruising on forearms bilaterally Neuro: Normal Gait, Grossly intact. Psych: Appropriate for situation. Updated Medication List Medication Instructions Recorded Confirmed Type atorvastatin 20 mg tablet 20 mg PO DAILY 07/25/24 02/20/25 History levothyroxine 50 mcg tablet 50 mcg PO DAILY 08/22/24 02/20/25 History saliva stimulant comb. no.3 2 spray mucous membrane TID PRN 09/24/24 02/20/25 History (Biotene Moisturizing Mouth Dry Mouth mucosal spray) cyanocobalamin (vitamin B-12) 1,000 mcg PO DAILY 09/28/24 02/20/25 History 1,000 mcg tablet (Vitamin B-12) eltrombopag olamine 50 mg tablet 50 mg PO DAILY 10/08/24 02/20/25 History (Promacta) glipizide 5 mg tablet 5 mg PO DAILY 01/16/25 02/20/25 History amlodipine 10 mg tablet 10 mg PO DAILY 02/20/25 02/20/25 History dexamethasone 4 mg tablet 40 mg (10 x 4 mg) PO PM 2 days #20 02/22/25 Rx tabs oxycodone 5 mg tablet 5 mg PO Q6H PRN pain #14 tabs 02/22/25 Rx Hospital Stay Data Consultations 02/21/25 03:29 ED Decision to Admit Stat 02/21/25 08:00 Consult Hematology Routine Pending Results Patient Have Any Pending Studies at Discharge: No Discharge Instructions Given to Patient (Per Discharging Provider) 1. Please give no further NSAIDs, including NSAIDS such as toradol and meloxicam. 2. Please follow up with hematology and PCP. Total Time Total Time Spent Total Time Spent (In Minutes): I spent a total of 35 minutes in direct patient care, including [id number] time with the patient and/or family, reviewing medical records, ordering and reviewing diagnostic tests, and coordinating care with other healthcare providers. This time includes: history taking, physical examination, medical decision making, counseling, ECG interpretation, imaging interpretation, lab interpretation, orders, and education, excluding time spent in the performance of separately billed services.
[2025-02-23] MEDS ORDERED: Octagam 10% IVIG 5 gram bottle IV SCH (09:00)
[2025-02-23] MEDS ORDERED: Octagam 10% IVIG 20 gram bottle IV SCH (10:00)
== END 2025-02-22 18:10 | DRG 813 ==
LOC: ED 23:05 → 2S 02-21 02:35

== ENCOUNTER 2025-04-19 10:46 | Inpatient (IN) ==
[2025-04-19] MEDS ORDERED: dexAMETHasone**PF** 10 MG/ML VIAL IV ONE (11:25)
[2025-04-19] MEDS ORDERED: SODIUM CHLORIDE 0.9% 100 ML IV PRN (11:25)
--- NOTE | 2025-04-19 11:49 | History & Physical Report ---
Date of Service April 19, 2025 Assessment & Plan (1) Severe thrombocytopenia: Plan: Patient is a 74 year old M with a past medical history of refractory ITP s/p splenectomy in 2013, hypertension, hyperlipidemia, hypothyroidism and chronic urine retention (self-cath) presenting with abnormal labs from Heme/Onc clinc with Dr. Matson today. Patient has chronic thrombocytopenia with past treatment of IVIG and steroids; completed most recent taper of prednisone yesterday. Platelets 3 today and sent here. ER talked with the heme-onc Dr. Matson and was advised for IVIG, Decadron 40 mg, and PLT infusion. Patient has bruises throughout, but mostly to left hand. Denies any fevers, chills, night sweats, falls/injuries, bloody stools , bloody urine, headache, dizziness, runny nose, cold symptoms, cough, chest pain or shortness of breath, N/V/D, joint pain/swel ling, rashes. Severe thrombocytopenia * Admit to Medical for further management of thrombocytopenia and additional workup if needed * PLT 3 today-> Dr. Matson consulted by ED provider with rec to give Dexamethasone 40 mg daily, IVIG x 3; PLT transfusion given in ED today * Continue Dexamethasone 40 mg daily, IVIG x 3 days-> to start today * Consult Heme/Onc Dr. Matson ordered * Trend labs daily * Bleeding precautions #Leukocytosis * WBC 16K, elevated from last assessment 04/12 of 10.49; patient has been on prednisone on/off for 4 months; Afebrile today * Covid neg * Hx urine retention and self- caths QID, reuses urinary caths w/o sanitation between uses; UTI in 09/2024 + Ecoli * Will collect UA with reflex cx today for R/O infection * Trend CBC with AM labs #Type II DM * Hold home Glipizide * A1C with AM labs * SSI with stress dose 1 d/t steroid use; adjust as needed * Accucheck ACHS #HTN * Continue home amlodipine 10 mg daily * Reportedly, lisinopril stopped recently and changed to amlodipine; mild Creatinine inc noted at 1.38, previously 1.14 * BP stable 137/76 here #Hyperlipidemia * Continue home statin #Hypothyroidism * Continue levothyroxine DVT Ppx: SCDs Code status: Full PCP: NIKKI [facility] Dispo: Admit for further management Patient seen in collaboration with Dr. Gomez. Please see addendum.I spent a total of 50 minutes coordinating, documenting and providing care for this patient excluding time spent in the performance of separately billed services or time spent by another provider/QHP. (2) Leukocytosis: (3) Type 2 diabetes mellitus: (4) HTN (hypertension): (5) HLD (hyperlipidemia): (6) Hypothyroidism: History of Present Illness Primary Care Provider: NIKKI Webber Patient is a 74 year old M with a past medical history of refractory ITP s/p splenectomy in 2013, hypertension, hyperlipidemia, hypothyroidism and chronic urine retention (self-cath) presenting with abnormal labs from Heme/Onc clinic with Dr. Matson today. Patient has chronic thrombocytopenia with past treatment of IVIG and steroids; completed most recent taper of prednisone yesterday. Platelets 3 today and sent here. ER talked with the heme-onc Dr. Matson and was advised for IVIG, Decadron 40 mg, and PLT infusion. Patient has bruises throughout, but mostly to left hand. Denies any fevers, chills, night sweats, falls/injuries, bloody stools , bloody urine, headache, dizziness, runny nose, cold symptoms, cough, chest pain or shortness of breath, N/V/D, joint pain/swelling, rashes. In the emergency department, patient was hemodynamically stable, afebrile with no signs of sepsis. No evidence of active bleeding. Upon review of labs, low platelets noted to be 3. Dr. Matson contacted in the ED with recs to give Dexamethasone 40 mg daily, IVIG x 3 doses, platelet transfusion today. WBC elevated to 16K with no obvious signs of infection, although patient has been on steroids on and off for ~4 months. Last dose of Prednisone yesterday, per patient report. History of urinary retention that started after splenectomy in 2013. Managed with self-catheterization 4x/day; due to limited supply, he re- uses urine caths without sanitization between use. Has been treated with UTI in the past, last 09/2024 + ecoli. History obtained primarily from the patient and via hospitalization record. Allergies Allergy/AdvReac Type Severity Reaction Status Date / Time Penicillins Allergy Mild Rash Verified 10/08/24 16:48 heparin Allergy Unknown Verified 10/08/24 16:48 Home Medications Medication Instructions Recorded Confirmed Type atorvastatin 20 mg tablet 20 mg PO DAILY 07/25/24 04/19/25 History levothyroxine 50 mcg tablet 50 mcg PO DAILY 08/22/24 04/19/25 History saliva stimulant comb. no.3 2 spray mucous membrane TID PRN 09/24/24 02/20/25 History (Biotene Moisturizing Mouth Dry Mouth mucosal spray) cyanocobalamin (vitamin B-12) 1,000 mcg PO DAILY 09/28/24 04/19/25 History 1,000 mcg tablet (Vitamin B-12) eltrombopag olamine 50 mg tablet 50 mg PO DAILY 10/08/24 02/20/25 History (Promacta) glipizide 5 mg tablet 5 mg PO DAILY 01/16/25 04/19/25 History amlodipine 10 mg tablet 10 mg PO DAILY 02/20/25 04/19/25 History oxycodone 5 mg tablet 5 mg PO Q6H PRN pain #14 tabs 02/22/25 Rx Past Med/Surg History Problem List Sciatica Leukocytosis (Acute) Leukocytosis Left hip pain (Acute) Thrombocytopenia (Acute) Severe thrombocytopenia (Acute) Medical History Type 2 diabetes mellitus Penile bleeding Hyponatremia Hypothyroidism Urinary tract infection associated with catheterization of urinary tract Petechial rash Petechiae Acute ITP KATELYNN (acute kidney injury) Urinary retention HLD (hyperlipidemia) HTN (hypertension) Surgical History H/O splenectomy Social History Smoking Status: Never smoker Tobacco Type: Declines Second Hand Exposure: No; Do You Dip or Chew Tobacco: No; Hx Alcohol Use: No Hx Substance Use: No Preferred Language: Danish 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 WEIGHT/BMI reviewed. GEN: Healthy appearing, well-developed, NAD. PSYCH: Good Judgment. AOx4. Normal memory, mood, and affect. HEENT -Head: NC/AT; -Eyes: PERRL, EOMI. No discharge or redn ess; -Ears: External ears are normal. -Nose: Normal nares. No drainage/bleedin g -Mouth and throat: MMM. Normal gums, muc joanna, palate,. Good dentition. No bleeding NECK: Supple, with no masses. CV: RRR, no m/r/g. No peripheral swelling. LUNGS: CTAB, no w/r/c. ABD: Soft, NT/ND, NBS, no masses or organomegaly. : N/A SKIN: Warm, well perfused. Purple bruising noted to left hand. +petechiae to Left hayes MSK: No deformities, Normal gait. EXT: No clubbing, cyanosis, or edema. NEURO: Ambulating with no limitations. Normal muscle strength and tone. No focal deficits. Results & Data Results & Data Vital Signs (Past 12 Hours) Vital Signs Temp Pulse Resp BP Pulse Ox O2 Del Method 04/19/25 11:31 86 04/19/25 10:52 36.8 C 100 H 18 127/78 94 Room Air Laboratory Results BMP 04/19/25 11:21 Sodium 142 Potassium 3.9 Chloride 106 Carbon Dioxide 28 BUN 25 H Creatinine 1.38 Glucose 74 Calcium 9.3 Liver Function 04/19/25 Range/Units 11:21 Total Bilirubin 0.6 (0.2-1.0) mg/dl AST 23 (13-39) U/L ALT 43 (7-52) U/L Alkaline Phosphatase 69 (34-104) U/L Albumin 4.3 (3.4-5.0) gm/dl I have independently reviewed and interpreted patient's admitting labs including CBC, BMP, PTT, PT/INR. Supervising Physician Co-Signing Physician Notes Attending addendum: The patient was seen and examined in the emergency room He was sent in from doctor's office with very low platelet count with history of ITP Has been taking and generalized spontaneous bruising but no history of hematemesis and melena or any other obvious bleeding from anywhere On examination Lying in bed without any acute distress Afebrile and hemodynamically stable Chest was clear to auscultation bilaterally HeartS1-S2, regular Abdomenbenign, bowel sounds present Extremitiestrace edema bilaterally His admission labs reviewed noted to have platelet of 3 with WBC of 16,000 likely secondary to his stress Has ITP and is status post splenectomy The case was discussed with the refueling ramp supervisor and was advised to give On pheresis of platelet, IVIG daily 1 g/kg x 3 doses and dexamethasone 40 mg IV daily for 3 days He remains otherwise stable and is strongly advised to avoid any trauma Agree with assessment plan as outlined above Melany HERNANDEZ and take the full responsibility of care in the hospital Total time spent in talking to the Patient,Examining him ,reviewing labs and medications and reviewing the management plan was [address] Mitchell Gomez (2) Leukocytosis Leukocytosis type: unspecified Qualified Code(s): D72.829 - Elevated white blood cell count, unspecified (4) HTN (hypertension) Hypertension type: unspecified Qualified Code(s): I10 - Essential (primary) hypertension (5) HLD (hyperlipidemia) Hyperlipidemia type: unspecified Qualified Code(s): E78.5 - Hyperlipidemia, unspecified (6) Hypothyroidism Hypothyroidism type: unspecified Qualified Code(s): E03.9 - Hypothyroidism, unspecified
[2025-04-19 11:52] LABS: Alanine Aminotransferase 43.0 U/L (7-52); Albumin Globulin Ratio 1.7 (0.9-2); Albumin Level 4.3 gm/dl (3.4-5.0); Alkaline Phosphatase 69.0 U/L (34-104); Anion Gap 8.0 (3-11); Bilirubin,Total 0.6 mg/dl (0.2-1.0); Blood Urea Nitrogen 25.0 mg/dl (6-23); Calcium 9.3 mg/dl (8.6-10.3); Carbon Dioxide 28.0 mmol/L (21-32); Chloride 106.0 mmol/L (98-107); Creatinine Clr Calc Pharmacy 56.2 ml/min; Globulin 2.5 gm/dl (2.5-4.0); Glucose 74.0 mg/dl (70-99(Fasting)); Potassium 3.9 mmol/L (3.5-5.1); Sodium 142.0 mmol/L (136-145); Total Protein 6.8 gm/dl (6.0-8.3)
[2025-04-19 12:02] LABS: INR 0.9 (0.9-1.1); Partial Thromboplastin Time 22 Seconds (21-31); Prothrombin Time 10.3 Seconds (9.0-12.0)
--- NOTE | 2025-04-19 12:02 | Emergency Department Note ---
Impression & Plan Thrombocytopenia ED Provider Note NAME: LYLY [id number] SAURAV AGE: 74 SEX: M : 1950 ARRIVES VIA: Walk-In INFORMANT: [Patient] ED PROVIDER(S): [Seng Chu MD] CHIEF COMPLAINT: Abnormal laboratories HISTORY OF PRESENT ILLNESS: The patient is a 74-year-old male with a history of thrombocytopenia. The patient was seen today by hematology and the platelet count was recorded at 3. He was sent to the ED for admission. He needs IV Decadron, IVIG, a transfusion of platelets. The patient has been through this process multiple times in the last year. He states that his thrombocytopenia has been an ongoing issue. He did have a splenectomy sometime ago and this seemed to really help the thrombocytopenia but, lately, he is having breakthrough issues. There has been no bleeding from the mouth or nose. No blood in the stool or urine. He has not noticed any petechiae. He did see a bruise in the area of the left hand but thinks he bumped the hand. No cough or congestion. No shortness of breath. PMHx/PSHx/Social Hx: See Below PHYSICAL EXAM: GENERAL: Patient is in no acute distress. HEENT: No acute trauma, normocephalic atraumatic, mucous membranes moist, no nasal congestion. No bleeding or blood filled blisters in the mouth. NECK: No stridor, no adenopathy, no meningismus, trachea is midline. LUNGS: Clear to auscultation bilaterally, no wheeze, no rhonchi, breath sounds equal. HEART: Without murmurs gallops or rubs, regular rate and rhythm. ABDOMEN: Soft, nontender, no peritonitis. EXTREMITIES: No cyanosis, full range of motion of all the joints without pain or difficulty. There is an older appearing contusion to the left hand. NEUROLOGIC: Oriented x 3, no acute motor or sensory deficits, no focal weakness. SKIN: No jaundice, no diaphoresis. No petechiae. DIFFERENTIAL DIAGNOSIS: Thrombocytopenia, spontaneous hemorrhage, among others. EMERGENCY DEPARTMENT PROCEDURES: MEDICAL DECISION MAKING: There is a moderate leukocytosis, the patient has a history of the same. There was a very mild anemia. Platelet count was quite low at 3. No coagulopathy. No renal failure or significant electrolyte abnormality. No concerning liver enzyme elevation. On exam, the patient did not have any evidence for bleeding. There were no petechiae. He was without complaints. I did speak with hematology. They recommended a large dose of IV Decadron, 40 mg. They recommended IVIG, they recommended a transfusion of platelets. The patient was ordered for a bundle of platelets for transfusion, the appropriate paperwork was completed and signed. The patient is in need of a hospital stay as he is going require several days of treatment for his thrombocytopenia. He has been through this same process previously. I did speak with the patient and the guards. I did speak with case management. The on-call hospitalist was consulted. Prior/Outside records/notes reviewed: Today's hematology note describing his presentation, findings and need for the ED referral. Imaging/x-ray results per my interpretation: Chronic Medical/Social conditions affecting care: Advanced age, history of thrombocytopenia. Care/Management discussed with: Hematology-Dr. Matson. Case management and the on-call hospitalist. Level of care consideration(s): After review of the information above and other included data: --I believe the patient requires escalation of care to admission DISPOSITION: Admission Past Med/Surg History Problem List (Updated 04/19/25 @ 14:13 by Seng Chu MD) Thrombocytopenia (Acute) Sciatica Leukocytosis (Acute) Leukocytosis Left hip pain (Acute) Thrombocytopenia (Acute) Severe thrombocytopenia (Acute) Medical History Type 2 diabetes mellitus Penile bleeding Hyponatremia Hypothyroidism Urinary tract infection associated with catheterization of urinary tract Petechial rash Petechiae Acute ITP KATELYNN (acute kidney injury) Urinary retention HLD (hyperlipidemia) HTN (hypertension) Surgical History H/O splenectomy Social History Smoking Status: Never smoker Tobacco Type: Declines Second Hand Exposure: No; Do You Dip or Chew Tobacco: No; Hx Alcohol Use: No Hx Substance Use: No Preferred Language: Ecuadorean Communication Ability: Unable 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 no.3 2 spray mucous membrane TID PRN 09/24/24 02/20/25 (Biotene Moisturizing Mouth Dry Mouth mucosal spray) cyanocobalamin (vitamin B-12) 1,000 mcg PO DAILY 09/28/24 04/19/25 1,000 mcg tablet (Vitamin B-12) eltrombopag olamine 50 mg tablet 50 mg PO DAILY 10/08/24 02/20/25 (Promacta) glipizide 5 mg tablet 5 mg PO DAILY 01/16/25 04/19/25 amlodipine 10 mg tablet 10 mg PO DAILY 02/20/25 04/19/25 Previous Rx's Medication Instructions Recorded oxycodone 5 mg tablet 5 mg PO Q6H PRN pain #14 tabs 02/22/25 Results & Data (ED) Vital Signs Vital Signs - 24 hr 04/19/25 10:52 04/19/25 11:31 04/19/25 11:55 Temperature 36.8 C 36.5 C Temperature Source Temporal Artery Scan Oral Pulse Rate 100 H 86 77 Pulse Rhythm Pulse Strength Respiratory Rate 18 20 Respiratory Effort / Characteristics Non-Labored Spontaneous Respiratory Depth Normal Respiratory Pattern Regular Blood Pressure 127/78 134/81 Blood Pressure Mean 94 98 Blood Pressure Position Sitting Pulse Oximetry 94 94 Oxygen Delivery Method Room Air Sepsis Recent Fever Within 48 Hours No Sepsis New/Unexplained Change in Mental Status No Sepsis Action Taken by Nursing No Action Required 04/19/25 12:10 04/19/25 12:25 Temperature 36.4 C L 36.5 C Temperature Source Oral Oral Pulse Rate 79 85 Pulse Rhythm Regular Pulse Strength Normal Respiratory Rate 22 18 Respiratory Effort / Characteristics Respiratory Depth Respiratory Pattern Blood Pressure 139/78 137/76 Blood Pressure Mean 98 96 Blood Pressure Position Sitting Pulse Oximetry 100 98 Oxygen Delivery Method Sepsis Recent Fever Within 48 Hours Sepsis New/Unexplained Change in Mental Status Sepsis Action Taken by [facility] Medications Current Medication List: was personally reviewed by me Laboratory Data Attestation: I reviewed the patient's lab results. 04/19/25 11:21 Lab Results 04/19/25 04/19/25 Range/Units 11:21 12:18 PT 10.3 (9.0-12.0) Seconds INR 0.9 (0.9-1.1) APTT 22 (21-31) Seconds PTT Ratio 0.8 Sodium 142 (136-145) mmol/L Potassium 3.9 (3.5-5.1) mmol/L Chloride 106 (98-107) mmol/L Carbon Dioxide 28 (21-32) mmol/L Anion Gap 8 (3-11) BUN 25 H (6-23) mg/dl Creatinine 1.38 (0.6-1.4) mg/dl Est Cr Clr Drug Dosing 56.2 ml/min eGFR 53.66 BUN/Creatinine Ratio 18.1 (10-20) Glucose 74 (70-99(Fasting)) mg/dl Calcium 9.3 (8.6-10.3) mg/dl Total Bilirubin 0.6 (0.2-1.0) mg/dl AST 23 (13-39) U/L ALT 43 (7-52) U/L Alkaline Phosphatase 69 (34-104) U/L Total Protein 6.8 (6.0-8.3) gm/dl Albumin 4.3 (3.4-5.0) gm/dl Globulin 2.5 (2.5-4.0) gm/dl Albumin/Globulin Ratio 1.7 (0.9-2) SARS-CoV-2, RNA, NAAT NEGATIVE (NEGATIVE) Blood Type A Positive Antibody Screen NEGATIVE Administered Medications Discontinued Medications Cyanocobalamin (Cyanocobalamin (B-12) 500 Mcg Tablet) 1,000 mcg PO NOW STA Stop: 04/19/25 12:44 Last Admin: 04/19/25 13:08 Dose: 1,000 mcg Documented By: PENELOPE Dexamethasone 40 mg/ Dextrose 35 mls @ 70 mls/hr IV NOW ONE Stop: 04/19/25 12:29 Last Infusion: 04/19/25 12:58 Dose: Infused Documented By: Admin: 04/19/25 12:27 Dose: 70 mls/hr Documented By: BRISEYDA Discharge Plan Visit Data Chief Complaint: Abnormal Labs/Diagnostic Testing Stated Complaint: REF FROM ONC, LOW PLATELETS ED Provider: Seng Chu Discharge Problem: Thrombocytopenia Patient Disposition: Admitted As Inpatient Condition: Fair Forms Stand Alone Forms: My [facility] Prescriptions Prescriptions: No Action atorvastatin 20 mg Tablet 20 mg PO DAILY levothyroxine 50 mcg Tablet 50 mcg PO DAILY Biotene Moisturizing Mouth [place],Non-Aerosol 2 spray MUCOUS MEMBRANE TID PRN (Reason: Dry Mouth) cyanocobalamin (vitamin B-12) [Vitamin B-12] 1,000 mcg Tablet 1,000 mcg PO DAILY eltrombopag olamine [Promacta] 50 mg Tablet 50 mg PO DAILY Rx Instructions: administer on an empty stomach, at least 1 hour before or 2 hours after food/meal(s) glipizide 5 mg Tablet 5 mg PO DAILY amlodipine 10 mg Tablet 10 mg PO DAILY oxycodone 5 mg Tablet 5 mg PO Q6H PRN (Reason: pain) Qty: 14 0RF Referrals Referrals: Akbar JORDAN [Primary Care Provider] -
[2025-04-19] MEDS: dexAMETHasone 40 MG in DEXTROSE 5% 25 ML IV ONE (12:27)
[2025-04-19] MEDS: CYANOCOBALAMIN (B-12) 500 MCG TABLET PO STA (13:08)
[2025-04-19] MEDS ORDERED: POLYETHYLENE (MIRALAX) 17 GM PACK PO PRN (14:50)
[2025-04-19] MEDS ORDERED: MAGNESIUM HYDROXIDE SUSP 30 ML UDC PO PRN (14:50)
[2025-04-19] MEDS ORDERED: DEXTROSE 50% 50 ML SYRINGE IV PRN (14:50)
[2025-04-19] MEDS ORDERED: ONDANSETRON INJ 2 MG/ML 2 ML VIAL IV PRN (14:50)
[2025-04-19] MEDS ORDERED: ALUMINUM/MAGNESIUM SUSP 30 ML UDC PO PRN (14:50)
[2025-04-19] MEDS ORDERED: GLUCOSE 10 TAB/TUBE PO PRN (14:50)
[2025-04-19] MEDS ORDERED: ACETAMINOPHEN 325 MG TAB PO PRN (14:50)
[2025-04-19] MEDS ORDERED: GLUCAGON FOR INJ 1 MG VIAL SQ PRN (14:50)
[2025-04-19] MEDS ORDERED: GLUCOSE 40% GEL 15 GM TUBE PO PRN (14:50)
[2025-04-19] MEDS ORDERED: IMMUNE GLOBULIN IV (HUMAN) SOLN IV SCH (14:50)
[2025-04-19] MEDS ORDERED: CARBOHYDRATES FOR HYPOGLYCEMIA PO PRN (14:50)
[2025-04-19 16:17] LABS: Appearance Urine Clear (Clear); Bacteria Urine Automated None Seen (None Seen); Cast Urine Automated 0-2 /lpf (0-2); Epithelial Cell Urine Auto 0-2 /hpf (0-2); Glucose Urine UA Negative (Negative); WBC Urine Automated 0-5 /hpf (0-5)
[2025-04-19] MEDS: INSULIN ASPART PER UNIT CHARGE SC SCH (16:53)
[2025-04-19] MEDS: Octagam 10% IVIG 20 gram bottle IV SCH (17:15)
[2025-04-20] MEDS: LEVOTHYROXINE SODIUM 50 MCG TABLET PO SCH (05:26)
[2025-04-20 07:11] LABS: Hematocrit (blood only) 37.2 % (42.0-52.0); Hemoglobin 13.1 g/dl (14.0-18.0); Mean Corpuscular Hemoglobin 31.3 pg (25.0-34.0); Mean Corpuscular Volume 89.0 fL (80.0-100.0); Platelet Count 68 K/uL (130-400); RDW Standard Deviation 45.8 fL (36.4-46.3); Red Blood Count 4.18 M/uL (4.70-6.10); White Blood Count 19.83 K/ul (4.8-10.8)
[2025-04-20 07:23] LABS: Hemoglobin A1C 5.5 % (4.5-5.6)
[2025-04-20 07:36] LABS: Anion Gap 6.0 (3-11); Blood Urea Nitrogen 28.0 mg/dl (6-23); Calcium 8.7 mg/dl (8.6-10.3); Carbon Dioxide 23.0 mmol/L (21-32); Chloride 104.0 mmol/L (98-107); Creatinine Clr Calc Pharmacy 63.5 ml/min; Glucose 202.0 mg/dl (70-99(Fasting)); Potassium 4.4 mmol/L (3.5-5.1); Sodium 133.0 mmol/L (136-145)
[2025-04-20] MEDS: CYANOCOBALAMIN (B-12) 500 MCG TABLET PO SCH (08:30)
[2025-04-20] MEDS: ATORVASTATIN 20 MG TAB PO SCH (08:30)
[2025-04-20] MEDS ORDERED: dexAMETHasone 40 MG in SYRINGE 0 ML IV SCH (12:00)
[2025-04-20] MEDS: dexAMETHasone 40 MG in DEXTROSE 5% 25 ML IV SCH (12:14)
--- NOTE | 2025-04-20 14:59 | Hospitalist Progress Note ---
Date of Service April 20, 2025 Assessment & Plan (1) Severe thrombocytopenia: Plan: Patient is a 74 year old M with a past medical history of refractory ITP s/p splenectomy in 2013, hypertension, hyperlipidemia, hypothyroidism and chronic urine retention (self-cath) presenting with abnormal labs from Heme/Onc clinc with Dr. Matson today. Patient has chronic thrombocytopenia with past treatment of IVIG and steroids; completed most recent taper of prednisone yesterday. Platelets 3 today and sent here. ER talked with the heme-onc Dr. Matson and was advised for IVIG, Decadron 40 mg, and PLT infusion. Patient has bruises throughout, but mostly to left hand. Denies any fevers, chills, night sweats, falls/injuries, bloody stools , bloody urine, headache, dizziness, runny nose, cold symptoms, cough, chest pain or shortness of breath, N/V/D, joint pain/swel ling, rashes. 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 Monitor platelets Platelet count 68K today Leukocytosis Likely due to steroids No obvious source of infection Chronic urinary retention Self caths daily UA not suggestive UTI Bladder scan as needed Type II DM Hold glipizide Continue insulin while hospitalized Monitor blood glucose levels HTN Continue amlodipine Previously also on lisinopril Blood pressure slightly elevated likely due to steroids Monitor blood pressure Hyperlipidemia Continue statin Hypothyroidism Continue levothyroxine DVT Px: SCDs Re:Thrombocytopenia Code status: Full Code PCP: NIKKI Webber (2) Leukocytosis: (3) Type 2 diabetes mellitus: (4) HTN (hypertension): (5) HLD (hyperlipidemia): (6) Hypothyroidism: Admission and Anticipated Discharge Date Admission Date: April 19, 2025 Subjective Patient is seen and examined at bedside Reports chronic sciatic pain, unchanged Denies any chest pain, dyspnea, nausea, vomiting, abdominal pain Also denies any bleeding issues Platelet count is improving Review of Systems Review of Systems: All systems reviewed & are unremarkable except as noted in Subjective Physical Exam Physical Exam: Physical Exam: Vitals signs as noted above General Appearance:Moderately built and nourished, no apparent distress Head: normocephalic, Atraumatic Eyes: normal inspection, EOMI Neck: supple, Trachea midline Respiratory/Chest: Normal breath sounds, CTA, No accessory muscle use Cardiovascular: S1, S2, No murmur Abdomen/GI:Soft, Non tender, Bowel sounds present Extremities/Musculoskeletal:normal inspection, no edema Neurologic/Psych:AAOX3, grossly no focal neurological deficits Skin: normal color, warm,+ Multiple Echymosis Results & Data Results & Data Vital Signs (Past 12 Hours) Vital Signs Temp Pulse Resp BP Pulse Ox O2 Del Method 04/20/25 07:14 36.7 C 93 H 18 159/84 H 97 Room Air Laboratory Results Short CBC 04/20/25 Range/Units 06:31 WBC 19.83 H (4.8-10.8) K/ul Hgb 13.1 L (14.0-18.0) g/dl Hct 37.2 L (42.0-52.0) % Plt Count 68 L D (130-400) K/uL BMP 04/20/25 06:31 Sodium 133 L D Potassium 4.4 Chloride 104 Carbon Dioxide 23 BUN 28 H Creatinine 1.22 Glucose 202 H Calcium 8.7 Urine 04/19/25 Range/Units 15:45 Urine Color Yellow Urine Appearance Clear (Clear) Urine pH 7.0 (4.5-7.5) Ur Specific [place] 1.013 (1.000-1.030) Urine Protein Negative (Negative) Urine Glucose (UA) Negative (Negative) (2) Leukocytosis Leukocytosis type: unspecified Qualified Code(s): D72.829 - Elevated white blood cell count, unspecified (4) HTN (hypertension) Hypertension type: unspecified Qualified Code(s): I10 - Essential (primary) hypertension (5) HLD (hyperlipidemia) Hyperlipidemia type: unspecified Qualified Code(s): E78.5 - Hyperlipidemia, unspecified (6) Hypothyroidism Hypothyroidism type: unspecified Qualified Code(s): E03.9 - Hypothyroidism, unspecified
[2025-04-20] MEDS ORDERED: hydrALAZINE 10 MG TAB PO PRN (15:37)
[2025-04-21 07:56] LABS: Hematocrit (blood only) 37.4 % (42.0-52.0); Hemoglobin 12.2 g/dl (14.0-18.0); Mean Corpuscular Hemoglobin 30.0 pg (25.0-34.0); Mean Corpuscular Volume 92.1 fL (80.0-100.0); Platelet Count 136 K/uL (130-400); RDW Standard Deviation 48.4 fL (36.4-46.3); Red Blood Count 4.06 M/uL (4.70-6.10); White Blood Count 25.53 K/ul (4.8-10.8)
[2025-04-21 08:18] LABS: Anion Gap 5.0 (3-11); Blood Urea Nitrogen 31.0 mg/dl (6-23); Calcium 8.6 mg/dl (8.6-10.3); Carbon Dioxide 24.0 mmol/L (21-32); Chloride 105.0 mmol/L (98-107); Creatinine Clr Calc Pharmacy 64.0 ml/min; Glucose 167.0 mg/dl (70-99(Fasting)); Magnesium 2.3 mg/dl (1.7-2.4); Potassium 4.4 mmol/L (3.5-5.1); Sodium 134.0 mmol/L (136-145)
--- NOTE | 2025-04-21 14:48 | Hospitalist Progress Note ---
Date of Service April 21, 2025 Assessment & Plan (1) Severe thrombocytopenia: Plan: Patient is a 74 year old M with a past medical history of refractory ITP s/p splenectomy in 2013, hypertension, hyperlipidemia, hypothyroidism and chronic urine retention (self-cath) presenting with abnormal labs from Heme/Onc clinc with Dr. Matson today. Patient has chronic thrombocytopenia with past treatment of IVIG and steroids; completed most recent taper of prednisone yesterday. Platelets 3 today and sent here. ER talked with the heme-onc Dr. Matson and was advised for IVIG, Decadron 40 mg, and PLT infusion. Patient has bruises throughout, but mostly to left hand. Denies any fevers, chills, night sweats, falls/injuries, bloody stools , bloody urine, headache, dizziness, runny nose, cold symptoms, cough, chest pain or shortness of breath, N/V/D, joint pain/swel ling, rashes. Severe thrombocytopenia Chronic ITP Presented with platelet count 3K Continue IVIG's for 3 days Continue Decadron 40 mg IV daily Discussed with pony rougher Dr. Matson on 04/21/2025: Recommends to complete 3-day course of IVIG send Decadron and transition to prednisone tapering course on discharge (Prednisone 40 mg daily for 4 days and reduce by 10 mg every 4 days until completed.) Monitor platelets Platelet count improved to 136k today Plan to discharge to correctional facility tomorrow if remains stable Needs follow-up with hematology on discharge Leukocytosis Likely due to steroids No obvious source of infection Chronic urinary retention Self caths daily UA not suggestive UTI Bladder scan as needed Type II DM Hold glipizide Continue insulin while hospitalized Monitor blood glucose levels HTN Continue amlodipine Previously also on lisinopril Blood pressure slightly elevated likely due to steroids Monitor blood pressure Hyperlipidemia Continue statin Hypothyroidism Continue levothyroxine DVT Px: SCDs Re:Thrombocytopenia Code status: Full Code PCP: NIKKI Webber (2) Leukocytosis: (3) Type 2 diabetes mellitus: (4) HTN (hypertension): (5) HLD (hyperlipidemia): (6) Hypothyroidism: Admission and Anticipated Discharge Date Admission Date: April 19, 2025 Subjective Patient is seen and examined at bedside No new complaints today Discussed with hematology today Platelet count improving Denies any chest pain, dyspnea, nausea, vomiting, abdominal pain Also denies any bleeding issues Review of Systems Review of Systems: All systems reviewed & are unremarkable except as noted in Subjective Physical Exam Physical Exam: Physical Exam: Vitals signs as noted above General Appearance:Moderately built and nourished, no apparent distress Head: normocephalic, Atraumatic Eyes: normal inspection, EOMI Neck: supple, Trachea midline Respiratory/Chest: Normal breath sounds, CTA, No accessory muscle use Cardiovascular: S1, S2, No murmur Abdomen/GI:Soft, Non tender, Bowel sounds present Extremities/Musculoskeletal:normal inspection, no edema Neurologic/Psych:AAOX3, grossly no focal neurological deficits Skin: normal color, warm,+ Multiple Echymosis Results & Data Results & Data Vital Signs (Past 12 Hours) Vital Signs Temp Pulse Resp BP Pulse Ox O2 Del Method 04/21/25 06:58 36.3 C L 84 18 136/72 95 Room Air Laboratory Results Short CBC 04/21/25 Range/Units 07:03 WBC 25.53 H (4.8-10.8) K/ul Hgb 12.2 L (14.0-18.0) g/dl Hct 37.4 L (42.0-52.0) % Plt Count 136 D (130-400) K/uL BMP 04/21/25 07:03 Sodium 134 L Potassium 4.4 Chloride 105 Carbon Dioxide 24 BUN 31 H Creatinine 1.21 Glucose 167 H Calcium 8.6 (2) Leukocytosis Leukocytosis type: unspecified Qualified Code(s): D72.829 - Elevated white blood cell count, unspecified (4) HTN (hypertension) Hypertension type: unspecified Qualified Code(s): I10 - Essential (primary) hypertension (5) HLD (hyperlipidemia) Hyperlipidemia type: unspecified Qualified Code(s): E78.5 - Hyperlipidemia, unspecified (6) Hypothyroidism Hypothyroidism type: unspecified Qualified Code(s): E03.9 - Hypothyroidism, unspecified
[2025-04-22 07:25] VITALS: BP 138/72; PULSE 75; RESP 16; TEMP 97.7; O2SAT 96
[2025-04-22 08:52] LABS: Anion Gap 5.0 (3-11); Blood Urea Nitrogen 33.0 mg/dl (6-23); Calcium 8.3 mg/dl (8.6-10.3); Carbon Dioxide 23.0 mmol/L (21-32); Chloride 105.0 mmol/L (98-107); Creatinine Clr Calc Pharmacy 59.6 ml/min; Glucose 158.0 mg/dl (70-99(Fasting)); Potassium 4.3 mmol/L (3.5-5.1); Sodium 133.0 mmol/L (136-145)
[2025-04-22 09:08] LABS: Hematocrit (blood only) 36.8 % (42.0-52.0); Hemoglobin 12.5 g/dl (14.0-18.0); Mean Corpuscular Hemoglobin 31.3 pg (25.0-34.0); Mean Corpuscular Volume 92.0 fL (80.0-100.0); Platelet Count 183 K/uL (130-400); RDW Standard Deviation 47.9 fL (36.4-46.3); Red Blood Count 4.00 M/uL (4.70-6.10); White Blood Count 22.21 K/ul (4.8-10.8)
--- NOTE | 2025-04-22 10:18 | Discharge Summary ---
Discharge Summary Date of Service April 22, 2025 Principal Dx & Hospital Course #1 = Principal Diagnosis (1) Severe thrombocytopenia: (2) Leukocytosis: (3) Type 2 diabetes mellitus: (4) HTN (hypertension): (5) HLD (hyperlipidemia): (6) Hypothyroidism: Plan Mr Patel is a 74 year old M with a past medical history of refractory ITP s/p splenectomy in 2013, hypertension, hyperlipidemia, hypothyroidism and chronic urine retention (self-cath) admitted for severe acute on chronic ITP. Platelets were 3k/uL on admission. Care coordinated with Dr. Matson at time of admission for IVIG x 3 days and IV decardon. Patient was overall asymptomatic. Platelets improved to 186 upon discharge. Patient discharged with prednisone taper 40mg x 4 days then reduce by 10mg every 4 days until complete. #Severe thrombocytopenia #Chronic ITP Presented with platelet count 3K Discussed with lokie driver Dr. Matson on 04/21/2025: completed 3-day course of IVIG send Decadron Discharged with planned prednisone tapering course on discharge (Prednisone 40 mg daily for 4 days and reduce by 10 mg every 4 days until completed.) #Leukocytosis Likely due to steroids No obvious source of infection #Chronic urinary retention Self caths daily UA not suggestive UTI #Type II DM resume home meds #HTN Continue amlodipine #Hyperlipidemia Continue statin #Hypothyroidism Continue levothyroxine Notes For Next Care Provider Follow up with Heme/Onc Medication Changes From Visit Prednisone 40 mg daily for 4 days and reduce by 10 mg every 4 days until completed Admission HPI Per Admitting Provider Patient is a 74 year old M with a past medical history of refractory ITP s/p splenectomy in 2013, hypertension, hyperlipidemia, hypothyroidism and chronic urine retention (self-cath) presenting with abnormal labs from Heme/Onc clinic with Dr. Matson today. Patient has chronic thrombocytopenia with past treatment of IVIG and steroids; completed most recent taper of prednisone yesterday. Platelets 3 today and sent here. ER talked with the heme-onc Dr. Matson and was advised for IVIG, Decadron 40 mg, and PLT infusion. Patient has bruises throughout, but mostly to left hand. Denies any fevers, chills, night sweats, falls/injuries, bloody stools , bloody urine, headache, dizziness, runny nose, cold symptoms, cough, chest pain or shortness of breath, N/V/D, joint pain/swelling, rashes. In the emergency department, patient was hemodynamically stable, afebrile with no signs of sepsis. No evidence of active bleeding. Upon review of labs, low platelets noted to be 3. Dr. Matson contacted in the ED with recs to give Dexamethasone 40 mg daily, IVIG x 3 doses, platelet transfusion today. WBC elevated to 16K with no obvious signs of infection, although patient has been on steroids on and off for ~4 months. Last dose of Prednisone yesterday, per patient report. History of urinary retention that started after splenectomy in 2013. Managed with self-catheterization 4x/day; due to limited supply, he re- uses urine caths without sanitization between use. Has been treated with UTI in the past, last 09/2024 + ecoli. History obtained primarily from the patient and via hospitalization record. Admission Exam Per Admitting Provider Constitutional: WD/WN, vitals as above Eyes: PERRL, conjunctivae normal, anicteric sclerae ENMT: external ear and nose normal, oropharynx normal Neck: trachea midline, no thyromegaly Respiratory: normal respiratory effort, lungs clear to auscultation Cardiovascular: RRR, no murmur, no edema Gastrointestinal (Abdomen): normal bowel sounds, soft, nontender, no hepatosplenomegaly Musculoskeletal: no cyanosis or clubbing, extremities motor strength 5/5 Skin: no rashes, warm and dry Discharge Exam Constitutional WD/WN, vitals as above Respiratory normal respiratory effort, lungs clear to auscultation Cardiovascular RRR, no murmur, no edema Gastrointestinal (Abdomen) normal bowel sounds, soft, nontender, no hepatosplenomegaly Updated Medication List Medication Instructions Recorded Confirmed Type atorvastatin 20 mg tablet 20 mg PO DAILY 07/25/24 04/19/25 History levothyroxine 50 mcg tablet 50 mcg PO DAILY 08/22/24 04/19/25 History saliva stimulant comb. no.3 2 spray mucous membrane TID PRN 09/24/24 02/20/25 History (Biotene Moisturizing Mouth Dry Mouth mucosal spray) cyanocobalamin (vitamin B-12) 1,000 mcg PO DAILY 09/28/24 04/19/25 History 1,000 mcg tablet (Vitamin B-12) eltrombopag olamine 50 mg tablet 50 mg PO DAILY 10/08/24 02/20/25 History (Promacta) glipizide 5 mg tablet 5 mg PO DAILY 01/16/25 04/19/25 History amlodipine 10 mg tablet 10 mg PO DAILY 02/20/25 04/19/25 History oxycodone 5 mg tablet 5 mg PO Q6H PRN pain #14 tabs 02/22/25 Rx prednisone 20 mg tablet See Taper PO DAILY #20 tabs 04/22/25 Rx Hospital Stay Data Consultations 04/19/25 11:41 ED Decision to Admit Stat 04/19/25 13:26 Consult Hematology Routine Pending Results Patient Have Any Pending Studies at Discharge: No Discharge Instructions Given to Patient (Per Discharging Provider) You were admitted for low platelets You were treated with IVIG for three days and IV steroids You will transition to prednisone 40mg daily for 4 days, then taper down by 10mg every 4 days until course is completed. Total Time Total Time Spent Total Time Spent (In Minutes): 45
== END 2025-04-22 15:07 | DRG 813 ==
LOC: ED 10:46 → 3W 12:16 → SUATTDRO 12:16 → 3W 14:41

== ENCOUNTER 2025-05-08 16:53 | Inpatient (IN) ==
--- NOTE | 2025-05-08 17:50 | Emergency Department Note ---
Impression & Plan Severe thrombocytopenia, Acute ITP ED Provider Note HISTORY OF PRESENT ILLNESS: Patient is a 74-year-old male presenting with abnormal lab test. Patient has a history of ITP. He states that he had lab work done yesterday at the residential and they were called with results today that his platelet count was 3K. He was referred to the emergency department. Patient reports he has had increasing bruising. Denies any chest pain or shortness of breath. Denies any blood in his stool or blood in his urine. He denies any recent falls or head injury. He states that he follows with Dr. Matson for his history of ITP. He received steroids and Nplate injection last week. He states he been doing well up until his repeat blood count yesterday. ROS: as above PHYSICAL EXAM: Constitutional: Patient appears in no acute distress. HENT: Head: Normocephalic and atraumatic. Eyes: EOMI, PERRL Mouth/Throat: Mucous membranes moist. Neck: Trachea midline. Neck supple. Cardiovascular: RRR, No murmurs, rubs or gallops. Intact distal pulses. Pulmonary/Chest: No respiratory distress. Breath sounds clear and equal bilaterally. No wheezes or rales. Abdominal: Abdomen soft, no tenderness, rebound or guarding. Musculoskeletal: No edema, tenderness or deformity noted. Skin: Warm and dry. No rash, erythema, pallor or cyanosis Psychiatric: Appropriate mood and affect for situation. Neurological: Alert and keenly responsive. CN II-XII grossly intact, moving all extremities equally and fully. MDM: - Vitals signs showed tachycardia - History obtained via patient. History as above. - Chronic conditions affecting care: refractory ITP (s/p splenectomy in 2013); HTN; HLD; hypothyroidism; chronic urinary retention; DM-2 - Differential diagnoses include, but are not limited to: thrombocytopenia; pancytopenia; pneumonia; viral syndrome - Order placed for continuous cardiac monitoring. At this time, monitor showed rate of 100 bpm with normal sinus rhythm, per my interpretation. - External medical records reviewed. Discharge summary dated 04/22/2025 was reviewed. Patient was admitted for severe thrombocytopenia. Platelet count on admission was 3000. - Laboratory workup interpreted by myself showed normal WBC; chronic anemia; severe thrombocytopenia (plt 2K); stable electrolytes; elevated creatinine (Cr 1.43) - Discussed case with oncology/hematology on-call, Dr. Gutierrez, at 18:43. She recommends: - Methylprednisonlone 1g IV now and then daily - IVIG 80g now and then daily for 3 days - Transfuse 1 unit platelets - Recommends admission to hospitalist and will follow as consult. - Methylprednisolone, IVIG and platelet tranfusion ordered. - Discussion was had with briefcase sewer about patient's case and need for admission - Hospitalist consulted for admission - Patient admitted to [facility] service for further evaluation and management. I have personally spent 63 minutes of critical care time in the direct management of this patient. This includes bedside care, interpretation of diagnostic studies, and testing, discussion with consultants, patient, and family members, and other required patient management activities. This 63 minutes is in excess of all separately billable procedures. ASSESSMENT AND PLAN: Diagnosis: Severe thrombocytopenia; acute on chronic ITP Plan: Admit Past Med/Surg History Problem List (Updated 05/08/25 @ 18:56 by Tricia Mike MD) Acute ITP (Acute) Thrombocytopenia (Acute) Sciatica Leukocytosis (Acute) Leukocytosis Left hip pain (Acute) Thrombocytopenia (Acute) Severe thrombocytopenia (Acute) Medical History Type 2 diabetes mellitus Penile bleeding Hyponatremia Hypothyroidism Urinary tract infection associated with catheterization of urinary tract Petechial rash Petechiae Acute ITP KATELYNN (acute kidney injury) Urinary retention HLD (hyperlipidemia) HTN (hypertension) Surgical History H/O splenectomy Social History Smoking Status: Never smoker Tobacco Type: Declines Second Hand Exposure: No; Do You Dip or Chew Tobacco: No; Hx Alcohol Use: No Hx Substance Use: No Preferred Language: Italian Communication Ability: Effective Custom Clothier Required: No Beliefs That Will Affect Care: None Current Living Situation: Other Current Living Situation Comment: inmate at [facility] Feels Safe at Home: Yes Assistive Devices: None Allergies Allergies Allergy/AdvReac Type Severity Reaction Status Date / Time Penicillins Allergy Mild Rash Verified 10/08/24 16:48 heparin Allergy Unknown Verified 10/08/24 16:48 Home Meds Home Medications Medication Instructions Recorded Confirmed atorvastatin 20 mg tablet 20 mg PO DAILY 07/25/24 04/19/25 levothyroxine 50 mcg tablet 50 mcg PO DAILY 08/22/24 04/19/25 saliva stimulant comb. no.3 2 spray mucous membrane TID PRN 09/24/24 02/20/25 (Biotene Moisturizing Mouth Dry Mouth mucosal spray) cyanocobalamin (vitamin B-12) 1,000 mcg PO DAILY 09/28/24 04/19/25 1,000 mcg tablet (Vitamin B-12) eltrombopag olamine 50 mg tablet 50 mg PO DAILY 10/08/24 02/20/25 (Promacta) glipizide 5 mg tablet 5 mg PO DAILY 01/16/25 04/19/25 amlodipine 10 mg tablet 10 mg PO DAILY 02/20/25 04/19/25 Previous Rx's Medication Instructions Recorded oxycodone 5 mg tablet 5 mg PO Q6H PRN pain #14 tabs 02/22/25 prednisone 20 mg tablet See Taper PO DAILY #20 tabs 04/22/25 Results & Data (ED) Vital Signs Vital Signs - 24 hr 05/08/25 17:00 05/08/25 17:37 Temperature 36.8 C Temperature Source Oral Pulse Rate 113 H 102 H Respiratory Rate 16 Respiratory Effort / Characteristics Non-Labored Respiratory Depth Normal Respiratory Pattern Regular Blood Pressure 138/81 Blood Pressure Mean 100 Pulse Oximetry 96 Oxygen Delivery Method Room Air Sepsis Recent Fever Within 48 Hours No Sepsis New/Unexplained Change in Mental Status N/A Sepsis Action Taken by Nursing No Action Required Laboratory Data 05/08/25 17:22 05/08/25 17:22 Lab Results 05/08/25 Range/Units 17:22 WBC 11.30 H (4.8-10.8) K/ul RBC 4.24 L (4.70-6.10) M/uL Hgb 12.8 L (14.0-18.0) g/dl Hct 38.3 L (42.0-52.0) % MCV 90.3 (80.0-100.0) fL MCH 30.2 (25.0-34.0) pg MCHC 33.4 (32.0-36.0) g/dL RDW Std Deviation 49.1 H (36.4-46.3) fL RDW Coeff of Debbie 15.1 H (11.5-14.5) % Plt Count 2 L* (130-400) K/uL Immature Gran % (Auto) 0.4 % Neut % (Auto) 71.0 % Lymph % (Auto) 16.5 % Potter % (Auto) 8.0 % Eos % (Auto) 3.8 % Baso % (Auto) 0.3 % Neut # (Auto) 8.03 H (1.40-6.50) K/uL Lymph # (Auto) 1.87 (1.20-3.40) K/uL Potter # (Auto) 0.90 H (0.11-0.59) K/uL Eos # (Auto) 0.43 (0.00-0.50) K/uL Baso # (Auto) 0.03 (0.00-0.20) K/uL Immature Gran # (Auto) 0.04 (0.01-0.20) K/uL Absolute Nucleated RBC 0.06 (0.00-0.12) K/uL Nucleated RBC % (auto) 0.5 % [place] Bodies 1+ PT 9.7 (9.0-12.0) Seconds INR 0.9 (0.9-1.1) APTT 23 (21-31) Seconds PTT Ratio 0.8 Sodium 138 (136-145) mmol/L Potassium 4.3 (3.5-5.1) mmol/L Chloride 106 (98-107) mmol/L Carbon Dioxide 21 (21-32) mmol/L Anion Gap 11 (3-11) BUN 20 (6-23) mg/dl Creatinine 1.43 H (0.6-1.4) mg/dl Est Cr Clr Drug Dosing 48.3 ml/min eGFR 51.42 BUN/Creatinine Ratio 14.0 (10-20) Glucose 176 H (70-99(Fasting)) mg/dl Calcium 8.7 (8.6-10.3) mg/dl Total Bilirubin 0.3 (0.2-1.0) mg/dl AST 20 (13-39) U/L ALT 30 (7-52) U/L Alkaline Phosphatase 57 (34-104) U/L Total Protein 7.5 (6.0-8.3) gm/dl Albumin 3.7 (3.4-5.0) gm/dl Globulin 3.8 (2.5-4.0) gm/dl Albumin/Globulin Ratio 1.0 (0.9-2) Discharge Plan Visit Data Chief Complaint: Abnormal Labs/Diagnostic Testing Stated Complaint: LOW PLATELETS ED Provider: Tricia Mkie Discharge Problem: Severe thrombocytopenia, Acute ITP Condition: Serious Forms Stand Alone Forms: [facility] Prescriptions Prescriptions: No Action atorvastatin 20 mg Tablet 20 mg PO DAILY levothyroxine 50 mcg Tablet 50 mcg PO DAILY Biotene Moisturizing Mouth [place],Non-Aerosol 2 spray MUCOUS MEMBRANE TID PRN (Reason: Dry Mouth) prednisone 20 mg tablet See Taper PO DAILY Qty: 20 0RF Taper: Taper, Blank 40 mg DAILY for 4 Days 30 mg DAILY for 4 Days 20 mg DAILY for 4 Days 10 mg DAILY for 4 Days cyanocobalamin (vitamin B-12) [Vitamin B-12] 1,000 mcg Tablet 1,000 mcg PO DAILY eltrombopag olamine [Promacta] 50 mg Tablet 50 mg PO DAILY Rx Instructions: administer on an empty stomach, at least 1 hour before or 2 hours after food/meal(s) glipizide 5 mg Tablet 5 mg PO DAILY amlodipine 10 mg Tablet 10 mg PO DAILY oxycodone 5 mg Tablet 5 mg PO Q6H PRN (Reason: pain) Qty: 14 0RF Referrals Referrals: Akbar JORDAN [Primary Care Provider] -
[2025-05-08 17:56] LABS: Alanine Aminotransferase 30.0 U/L (7-52); Albumin Globulin Ratio 1.0 (0.9-2); Albumin Level 3.7 gm/dl (3.4-5.0); Alkaline Phosphatase 57.0 U/L (34-104); Anion Gap 11.0 (3-11); Bilirubin,Total 0.3 mg/dl (0.2-1.0); Blood Urea Nitrogen 20.0 mg/dl (6-23); Calcium 8.7 mg/dl (8.6-10.3); Carbon Dioxide 21.0 mmol/L (21-32); Chloride 106.0 mmol/L (98-107); Creatinine Clr Calc Pharmacy 48.3 ml/min; Globulin 3.8 gm/dl (2.5-4.0); Glucose 176.0 mg/dl (70-99(Fasting)); Potassium 4.3 mmol/L (3.5-5.1); Sodium 138.0 mmol/L (136-145); Total Protein 7.5 gm/dl (6.0-8.3)
[2025-05-08 18:05] LABS: Hematocrit (blood only) 38.3 % (42.0-52.0); Hemoglobin 12.8 g/dl (14.0-18.0); Mean Corpuscular Hemoglobin 30.2 pg (25.0-34.0); Mean Corpuscular Volume 90.3 fL (80.0-100.0); Platelet Count 2 K/uL (130-400); RDW Standard Deviation 49.1 fL (36.4-46.3); Red Blood Count 4.24 M/uL (4.70-6.10); White Blood Count 11.30 K/ul (4.8-10.8)
[2025-05-08] MEDS ORDERED: SODIUM CHLORIDE 0.9% 100 ML IV PRN ×2 (18:08→18:48)
[2025-05-08 18:25] LABS: INR 0.9 (0.9-1.1); Partial Thromboplastin Time 23 Seconds (21-31); Prothrombin Time 9.7 Seconds (9.0-12.0)
[2025-05-08 18:30] LABS: Howell-Jolly Bodies 1+; Immature Granulocytes # (auto) 0.04 K/uL (0.01-0.20); Immature Granulocytes % (auto) 0.4 %
[2025-05-08] MEDS: Octagam 10% IVIG 20 gram bottle IV SCH (19:23)
[2025-05-08 19:54] LABS: Magnesium 2.2 mg/dl (1.7-2.4)
[2025-05-08] MEDS: SODIUM CHLORIDE 0.9% 1,000 ML IV ONE (20:05)
[2025-05-08] MEDS: methylPREDNISolone 1,000 MG in NSS 250 ML IV SCH (20:05)
[2025-05-08] MEDS: IMMUNE GLOBULIN (HUMAN) SOLN IV ONE (20:27)
--- NOTE | 2025-05-08 20:42 | History & Physical Report ---
Date of Service May 08, 2025 Assessment & Plan (1) Acute ITP: (2) Severe thrombocytopenia: Plan: Admit to med/surg Patient presenting from [facility] after outpatient labs showed platelet count 3K. Patient with history of chronic ITP and recurrent admissions for thrombocytopenia. Most recently being admitted to [facility] 04/19 - 04/22. Treated with IVIG and IV Decadron and discharged on a Prednisone taper. Patient gets labs twice weekly and will receive Nplate injections if needed. Patient reports receiving an injection last week. In the ED, labs show platelets 2K, hgb 12.8. ED provider discussed with hematology who recommends IVIG, IV methylprednisolone, and platelet transfusion. IVIG 80gm daily x 3 days, IV methylprednisolone 1gm daily Hematology consult Bleeding precautions Monitor CBC (3) Type 2 diabetes mellitus: Plan: hgb a1c 5.5 04/2025 Hold glipizide, Novolog per protocol while hospitalized - adjust as needed given IV steroids (4) HTN (hypertension): Plan: BP controlled Continue MANDREL PRESS HAND amlodpine (5) HLD (hyperlipidemia): Plan: Continue MANDREL PRESS HAND statin (6) Urinary retention: Plan: Self caths daily (7) Hypothyroidism: Plan: Continue MANDREL PRESS HAND levothyroxine DVT PROPHYLAXIS Deferred due to severe thrombocytopenia Patient seen in collaboration with Dr. Conway. I spent a total of 75 minutes coordinating, documenting, and providing care for this patient excluding time spent in the performance of separately billed services. This included personally reviewing all current laboratories and imaging studies, medication reconciliation, outpatient chart review, and discussion with specialists. History of Present Illness Chief Complaint: Low Platelets Primary Care Provider: [facility] 74 year old male with PMH ITP, splenectomy in 2012, hypothyroidism, IDDM, HTN, HLD, chronic urinary retention requiring straight cath, and other problems listed below who presents from [facility] for thrombocytopenia. Patient has a long standing history of ITP and recurrent admissions, most recently being admitted to [facility] 04/19 - 04/22. Treated with IVIG and IV Decadron and discharged on a Prednisone taper. Patient gets labs twice weekly and will receive Nplate injections if needed. Patient reports receiving an injection last week. Had labs today that showed platelet count 3K. He was referred to the ED. Patient reports some bruising but is otherwise asymptomatic. Denies hematuria, BRBPR, or dark stools. No chest pain or shortness of breath. Denies headache, lightheadedness, dizziness. No other recent illnesses, illnesses, fever, or chills. Denies abdominal pain and nausea. No urinary symptoms. In the ED, labs show platelets 2K, hgb 12.8. ED provider discussed with hematology who recommends IVIG, IV methylprednisone, and platelet transfusion. Allergies Allergy/AdvReac Type Severity Reaction Status Date / Time Penicillins Allergy Mild Rash Verified 05/08/25 19:05 heparin Allergy Unknown ON SCI Verified 05/08/25 19:05 [facility] MED LIST NSAIDS (Non-Steroidal Allergy Unknown ON SCI Verified 05/08/25 19:05 Anti-Inflamma [facility] Home Medications Medication Instructions Recorded Confirmed Type atorvastatin 20 mg tablet 20 mg PO DAILY 07/25/24 05/08/25 History levothyroxine 50 mcg tablet 50 mcg PO DAILY 08/22/24 05/08/25 History saliva stimulant comb. no.3 2 spray mucous membrane TID PRN 09/24/24 05/08/25 History (Biotene Moisturizing Mouth Dry Mouth mucosal spray) cyanocobalamin (vitamin B-12) 1,000 mcg PO DAILY 09/28/24 05/08/25 History 1,000 mcg tablet (Vitamin B-12) glipizide 5 mg tablet 5 mg PO DAILY 01/16/25 05/08/25 History amlodipine 10 mg tablet 10 mg PO DAILY 02/20/25 05/08/25 History insulin regular human 100 unit/mL 1 sliding scale dose subcut 05/08/25 05/08/25 History injection solution (Novolin R USEASDIRECTD PRN Hyperglycemia Regular U-100 Insulin) Past Med/Surg History Problem List (Updated 05/08/25 @ 18:56 by Tricia Mike MD) Acute ITP (Acute) Thrombocytopenia (Acute) Sciatica Leukocytosis (Acute) Leukocytosis Left hip pain (Acute) Thrombocytopenia (Acute) Severe thrombocytopenia (Acute) Medical History Type 2 diabetes mellitus Penile bleeding Hyponatremia Hypothyroidism Urinary tract infection associated with catheterization of urinary tract Petechial rash Petechiae Acute ITP KATELYNN (acute kidney injury) Urinary retention HLD (hyperlipidemia) HTN (hypertension) Surgical History H/O splenectomy Social History Smoking Status: Never smoker Tobacco Type: Declines Second Hand Exposure: No; Do You Dip or Chew Tobacco: No; Hx Alcohol Use: No Hx Substance Use: No Preferred Language: Welsh Communication Ability: Effective Buckshot Swage Operator Required: No Beliefs That Will Affect Care: None Current Living Situation: Other Current Living Situation Comment: [facility] Feels Safe at Home: Yes Assistive Devices: None Physical Exam Constitutional: WD/WN, vitals as above no acute distress Respiratory: normal respiratory effort, lungs clear to auscultation Cardiovascular: Rate/Rhythm: regular rate and regular rhythm Vessels: normal peripheral pulses Extremities: no edema Gastrointestinal (Abdomen): Percussion/Palpation: abdomen soft; abdomen nontender Skin: no rashes, warm and dry Neurologic: no focal motor deficits Psychiatric: A+Ox3, euthymic affect Results & Data Results & Data Vital Signs (Past 12 Hours) Vital Signs Temp Pulse Resp BP Pulse Ox O2 Del Method 05/08/25 20:00 84 15 151/85 H 100 05/08/25 19:30 78 22 143/78 H 99 05/08/25 19:22 140/79 05/08/25 18:30 83 21 97 05/08/25 18:03 89 17 97 05/08/25 17:37 102 H 05/08/25 17:00 36.8 C 113 H 16 138/81 96 Room Air Laboratory Results Short CBC 05/08/25 Range/Units 17:22 WBC 11.30 H (4.8-10.8) K/ul Hgb 12.8 L (14.0-18.0) g/dl Hct 38.3 L (42.0-52.0) % Plt Count 2 L* (130-400) K/uL BMP 05/08/25 17:22 Sodium 138 Potassium 4.3 Chloride 106 Carbon Dioxide 21 BUN 20 Creatinine 1.43 H Glucose 176 H Calcium 8.7 Liver Function 05/08/25 Range/Units 17:22 Total Bilirubin 0.3 (0.2-1.0) mg/dl AST 20 (13-39) U/L ALT 30 (7-52) U/L Alkaline Phosphatase 57 (34-104) U/L Albumin 3.7 (3.4-5.0) gm/dl Supervising Physician Co-Signing Physician Notes IM ATTENDING : Patient seen and examined. History obtained from patient and records. Concur with salient points upon review of preceding documentation by DAVID Wade I take responsibility for plan of care below. FINAL ASSESSMENT AND PLAN as follows : ITP flare up History ITP status post splenectomy (2013) Hypertension, stable ARF DM 2 on oral medications, well-controlled as of recent hemoglobin A1c of 5.5 last month Hyperlipidemia on statin Rx Hypothyroidism, euthyroid as of TSH last year Chronic anemia, hemoglobin at baseline Chronic urinary retention, intermittent self straight cath at facility Admit to medical Hematology consult re: ITP flareup (ER provider already in touch with Dr. Gutierrez who recommends platelet transfusion, IVIG for 3 days, daily Solu-Medrol 1 g.) Pepcid for GI prophylaxis given high-dose steroids Baseline UA, monitor creatinine response to IVF Basal bolus insulin, ISS BG of 110-140, carb count coverage DVT prophylaxis. SCDs re: thrombocytopenia Full code I spent a total of 30 minutes coordinating, documenting, and providing care for this patientexcludingtime spent by another provider/QHP. Text document was generated using [employer] voice recognition software. It may contain grammatical or spelling errors. Kindly contact undersigned for clarification of any documentation item in question. (4) HTN (hypertension) Hypertension type: unspecified Qualified Code(s): I10 - Essential (primary) hypertension (5) HLD (hyperlipidemia) Hyperlipidemia type: unspecified Qualified Code(s): E78.5 - Hyperlipidemia, unspecified (7) Hypothyroidism Hypothyroidism type: unspecified Qualified Code(s): E03.9 - Hypothyroidism, unspecified
[2025-05-08] MEDS ORDERED: GLUCAGON FOR INJ 1 MG VIAL SQ PRN (22:37)
[2025-05-08] MEDS ORDERED: CARBOHYDRATES FOR HYPOGLYCEMIA PO PRN (22:37)
[2025-05-08] MEDS ORDERED: DEXTROSE 50% 50 ML SYRINGE IV PRN (22:37)
[2025-05-08] MEDS ORDERED: GLUCOSE 40% GEL 15 GM TUBE PO PRN (22:37)
[2025-05-08] MEDS ORDERED: GLUCOSE 10 TAB/TUBE PO PRN (22:37)
[2025-05-08] MEDS ORDERED: ACETAMINOPHEN 325 MG TAB PO PRN (22:37)
[2025-05-08] MEDS: INSULIN ASPART PER UNIT CHARGE SC SCH (22:45)
[2025-05-08 23:57] LABS: Appearance Urine Clear (Clear); Bacteria Urine Automated None Seen (None Seen); Cast Urine Automated 0-2 /lpf (0-2); Epithelial Cell Urine Auto 0-2 /hpf (0-2); Glucose Urine UA 3+ (Negative); WBC Urine Automated 21-50 /hpf (0-5)
[2025-05-09] MEDS: FAMOTIDINE 20MG IV PUSH 20 MG/5 ML SYR IV STA (00:16)
[2025-05-09] MEDS: LEVOTHYROXINE SODIUM 50 MCG TABLET PO SCH (06:12)
[2025-05-09 06:46] LABS: Anion Gap 6.0 (3-11); Blood Urea Nitrogen 17.0 mg/dl (6-23); Calcium 8.2 mg/dl (8.6-10.3); Carbon Dioxide 21.0 mmol/L (21-32); Chloride 106.0 mmol/L (98-107); Creatinine Clr Calc Pharmacy 57.0 ml/min; Glucose 226.0 mg/dl (70-99(Fasting)); Potassium 4.3 mmol/L (3.5-5.1); Sodium 133.0 mmol/L (136-145)
[2025-05-09 06:49] LABS: Hematocrit (blood only) 37.0 % (42.0-52.0); Hemoglobin 12.7 g/dl (14.0-18.0); Mean Corpuscular Hemoglobin 31.2 pg (25.0-34.0); Mean Corpuscular Volume 90.9 fL (80.0-100.0); RDW Standard Deviation 48.6 fL (36.4-46.3); Red Blood Count 4.07 M/uL (4.70-6.10); White Blood Count 6.12 K/ul (4.8-10.8)
[2025-05-09 06:53] LABS: Platelet Count 23 K/uL (130-400)
--- NOTE | 2025-05-09 07:53 | Oncology Consultation ---
Date of Consultation May 09, 2025 Assessment & Plan (1) Acute ITP: Plan -Recommend IVIG 1 g/kg daily x 2 days (Can discontinue after today) -Methylprednisolone 1 g daily x 3 days -Please discharge to [facility] with prednisone 0.5mg/kg ( 40 mg p.o. daily) to taper /decrease weekly by 10 mg. -Will increase dose of outpatient romiplostim to 2 mcg/kg. -He will follow-up with Dr. Matson as scheduled on 05/17/2025. History of Present Illness Reason for Consultation: Chronic ITP Attending Physician: Josesito Sotelo DO History of Present Illness 74-year-old gentleman with history of chronic ITP followed by my colleague Dr. Matson. Was most recently admitted to [facility] around February, with platelet count of 3000 and at that time, he received IVIG and steroids with improvement in platelet count. Treatment was switched from Promacta to Romiplostim which was started on 03/22/2025. Was admitted to [facility] yesterday with platelet count of 3000. Started on IVIG and steroids with improvement in platelet count to 23,000 today. Allergies Allergy/AdvReac Type Severity Reaction Status Date / Time Penicillins Allergy Mild Rash Verified 05/08/25 19:05 heparin Allergy Unknown ON SCI Verified 05/08/25 19:05 [facility] NSAIDS (Non-Steroidal Allergy Unknown ON SCI Verified 05/08/25 19:05 Anti-Inflamma [facility] Home Medications Medication Instructions Recorded Confirmed Type atorvastatin 20 mg tablet 20 mg PO DAILY 07/25/24 05/08/25 History levothyroxine 50 mcg tablet 50 mcg PO DAILY 08/22/24 05/08/25 History saliva stimulant comb. no.3 2 spray mucous membrane TID PRN 09/24/24 05/08/25 History (Biotene Moisturizing Mouth Dry Mouth mucosal spray) cyanocobalamin (vitamin B-12) 1,000 mcg PO DAILY 09/28/24 05/08/25 History 1,000 mcg tablet (Vitamin B-12) glipizide 5 mg tablet 5 mg PO DAILY 01/16/25 05/08/25 History amlodipine 10 mg tablet 10 mg PO DAILY 02/20/25 05/08/25 History insulin regular human 100 unit/mL 1 sliding scale dose subcut 05/08/25 05/08/25 History injection solution (Novolin R USEASDIRECTD PRN Hyperglycemia Regular U-100 Insulin) Patient History Medical History Type 2 diabetes mellitus Penile bleeding Hyponatremia Hypothyroidism Urinary tract infection associated with catheterization of urinary tract Petechial rash Petechiae Acute ITP KATELYNN (acute kidney injury) Urinary retention HLD (hyperlipidemia) HTN (hypertension) Surgical History H/O splenectomy Social History Smoking Status: Never smoker Tobacco Type: Declines Second Hand Exposure: No; Do You Dip or Chew Tobacco: No; Hx Alcohol Use: No Hx Substance Use: No Preferred Language: Mohawk Communication Ability: Effective Service Engine Repairer Required: No Beliefs That Will Affect Care: None Current Living Situation: Other Current Living Situation Comment: [facility] Feels Safe at Home: Yes Assistive Devices: None Results & Data Vital Signs (Past 12 Hours) Vital Signs Temp Pulse Pulse Resp BP BP Pulse Ox 05/09/25 06:23 36.4 C L 80 16 144/87 H 97 05/09/25 04:29 36.4 C L 77 16 139/85 98 05/09/25 02:27 36.3 C L 76 16 119/73 96 05/09/25 01:25 36.4 C L 75 18 126/69 96 05/09/25 01:07 36.4 C L 75 16 126/73 96 05/09/25 00:07 36.6 C 77 18 134/73 95 05/08/25 23:37 36.4 C L 77 16 137/76 96 05/08/25 23:22 36.5 C 79 18 152/80 H 97 05/08/25 23:03 36.6 C 80 16 147/78 H 95 05/08/25 22:15 36.7 C 86 18 165/73 H 96 05/08/25 20:00 84 15 151/85 H 100 O2 Del Method 05/09/25 06:23 Room Air 05/09/25 04:29 Room Air 05/09/25 02:27 Room Air 05/09/25 01:25 05/09/25 01:07 05/09/25 00:07 05/08/25 23:37 05/08/25 23:22 05/08/25 23:03 05/08/25 22:15 Room Air 05/08/25 20:00
[2025-05-09] MEDS: Octagam 10% IVIG 20 gram bottle IV SCH (08:34)
[2025-05-09] MEDS: ATORVASTATIN 20 MG TAB PO SCH (08:36)
[2025-05-09] MEDS: methylPREDNISolone 1,000 MG in NSS 250 ML IV SCH (08:54)
[2025-05-09] MEDS ORDERED: methylPREDNISolone 10 mg/mL (For Ped Dose < 7mg) IV SCH (09:00)
[2025-05-09] MEDS ORDERED: IMMUNE GLOBULIN (HUMAN) SOLN IV SCH (09:00)
--- NOTE | 2025-05-09 10:19 | Hospitalist Progress Note ---
Date of Service May 09, 2025 Assessment & Plan (1) Acute ITP: Plan: 74 year old male with PMH ITP, splenectomy in 2013, hypothyroidism, IDDM, HTN, HLD, chronic urinary retention requiring straight cath, and other problems listed below who presents from [facility] for thrombocytopenia. #ITP flare -Plts 2k in ED 05/08 -No s/s acute blood loss -S/p plt transfusion on 05/08 -Plts increased to 23k today Plan -Appreciate hematology input -Continue IVIG and solumedrol 1000mg daily per hematology -Follow counts and transfuse prn -Monitor for bleeding I spent a total of 52 minutes coordinating, documenting, and providing care for this patient excluding time spent in the performance of separately billed services. This included personally reviewing all current laboratories and imaging studies, medical reconciliation, outpatient chart review and discussion with specialists (2) Severe thrombocytopenia: (3) Type 2 diabetes mellitus: Plan: hgb a1c 5.5 04/2025 Hold glipizide, Novolog per protocol while hospitalized - adjust as needed given IV steroids (4) HTN (hypertension): Plan: BP controlled Continue [employer] amlodpine (5) HLD (hyperlipidemia): Plan: Continue [employer] statin (6) Urinary retention: Plan: Self caths daily (7) Hypothyroidism: Plan: Continue [employer] levothyroxine Admission and Anticipated Discharge Date Admission Date: May 08, 2025 Subjective Feeling well today and has no complaints. Patient denies F/C, CP, palpitations, SOB, dyspnea, abd pain, N/V/D Physical Exam Physical Exam: Vitals and labs reviewed General: Well appearing, NAD HEENT: EOMI, PERRLA Neck: Supple Cardiac: RRR no rubs gallops or murmurs Lungs: CTA no rhonchi wheezing or rales Abd: S NT ND BS positive : Deffered MSK: Full ROM. No obvious deformities Ext: No Edema cyanosis Skin: Warm, Dry Neuro: AOx3 No focal deficits. Psych: Normal Mood Results & Data Results & Data Vital Signs (Past 12 Hours) Vital Signs Temp Pulse Pulse Resp BP BP Pulse Ox 05/09/25 06:23 36.4 C L 80 16 144/87 H 97 05/09/25 04:29 36.4 C L 77 16 139/85 98 05/09/25 02:27 36.3 C L 76 16 119/73 96 10/02/25 01:25 36.4 C L 75 18 126/69 96 05/09/25 01:07 36.4 C L 75 16 126/73 96 05/09/25 00:07 36.6 C 77 18 134/73 95 05/08/25 23:37 36.4 C L 77 16 137/76 96 05/08/25 23:22 36.5 C 79 18 152/80 H 97 05/08/25 23:03 36.6 C 80 16 147/78 H 95 O2 Del Method 05/09/25 06:23 Room Air 05/09/25 04:29 Room Air 05/09/25 02:27 Room Air 05/09/25 01:25 05/09/25 01:07 05/09/25 00:07 05/08/25 23:37 05/08/25 23:22 05/08/25 23:03 Laboratory Results Abnormal lab results 05/08/25 05/08/25 05/08/25 Range/Units 17:22 22:17 23:25 WBC 11.30 H (4.8-10.8) K/ul RBC 4.24 L (4.70-6.10) M/uL Hgb 12.8 L (14.0-18.0) g/dl Hct 38.3 L (42.0-52.0) % RDW Std Deviation 49.1 H (36.4-46.3) fL RDW Coeff of Debbie 15.1 H (11.5-14.5) % Plt Count 2 L* (130-400) K/uL Neut # (Auto) 8.03 H (1.40-6.50) K/uL Ada # (Auto) 0.90 H (0.11-0.59) K/uL Platelet Estimate (Normal) Sodium (136-145) mmol/L Creatinine 1.43 H (0.6-1.4) mg/dl Glucose 176 H (70-99(Fasting)) mg/dl POC Glucose 133 H (70-99) mg/dl Calcium (8.6-10.3) mg/dl Urine Protein Trace H (Negative) Urine Glucose (UA) 3+ H (Negative) Urine Blood 1+ H (Negative) Ur Leukocyte Esterase 2+ H (Negative) Urine WBC (Auto) 21-50 H (0-5) /hpf Urine RBC (Auto) 6-10 H (0-2) /hpf 05/09/25 05/09/25 Range/Units 05:47 07:40 WBC (4.8-10.8) K/ul RBC 4.07 L (4.70-6.10) M/uL Hgb 12.7 L (14.0-18.0) g/dl Hct 37.0 L (42.0-52.0) % RDW Std Deviation 48.6 H (36.4-46.3) fL RDW Coeff of Debbie 14.7 H (11.5-14.5) % Plt Count 23 L* D (130-400) K/uL Neut # (Auto) (1.40-6.50) K/uL Ada # (Auto) (0.11-0.59) K/uL Platelet Estimate Signific. Decreased L (Normal) Sodium 133 L (136-145) mmol/L Creatinine (0.6-1.4) mg/dl Glucose 226 H (70-99(Fasting)) mg/dl POC Glucose 239 H (70-99) mg/dl Calcium 8.2 L (8.6-10.3) mg/dl Urine Protein (Negative) Urine Glucose (UA) (Negative) Urine Blood (Negative) Ur Leukocyte Esterase (Negative) Urine WBC (Auto) (0-5) /hpf Urine RBC (Auto) (0-2) /hpf (4) HTN (hypertension) Hypertension type: unspecified Qualified Code(s): I10 - Essential (primary) hypertension (5) HLD (hyperlipidemia) Hyperlipidemia type: unspecified Qualified Code(s): E78.5 - Hyperlipidemia, unspecified (7) Hypothyroidism Hypothyroidism type: unspecified Qualified Code(s): E03.9 - Hypothyroidism, unspecified
--- NOTE | 2025-05-09 20:56 | Communication Note ---
Date of Service: May 09, 2025 Patient complaining of abdominal gas as per RN. No dysuria symptoms. UA WBC est (05/08) AP Complicated UTI ? Possible precipitant of ITP flareup Follow-up urine CS, Cefepime
[2025-05-09] MEDS: CEFEPIME 2000MG 2,000 MG/20 ML SYR IV SCH (22:26)
[2025-05-09] MEDS: SIMETHICONE 80 MG CHEW PO ONE (22:26)
[2025-05-09] MEDS: LANTUS PER UNIT CHARGE SQ SCH (22:26)
[2025-05-10 00:14] VITALS: TEMP 97.9
[2025-05-10 06:49] LABS: Anion Gap 5.0 (3-11); Blood Urea Nitrogen 20.0 mg/dl (6-23); Calcium 8.4 mg/dl (8.6-10.3); Carbon Dioxide 20.0 mmol/L (21-32); Chloride 110.0 mmol/L (98-107); Creatinine Clr Calc Pharmacy 58.5 ml/min; Glucose 193.0 mg/dl (70-99(Fasting)); Potassium 4.0 mmol/L (3.5-5.1); Sodium 135.0 mmol/L (136-145)
[2025-05-10 06:51] LABS: Hematocrit (blood only) 33.3 % (42.0-52.0); Hemoglobin 10.8 g/dl (14.0-18.0); Mean Corpuscular Hemoglobin 29.8 pg (25.0-34.0); Mean Corpuscular Volume 92.0 fL (80.0-100.0); Platelet Count 70 K/uL (130-400); RDW Standard Deviation 50.7 fL (36.4-46.3); Red Blood Count 3.62 M/uL (4.70-6.10); White Blood Count 16.27 K/ul (4.8-10.8)
[2025-05-10 07:25] VITALS: BP 131/78; PULSE 87; RESP 19; O2SAT 95
[2025-05-10] MEDS: FAMOTIDINE 10 MG TABLET PO SCH (08:56)
--- NOTE | 2025-05-10 10:50 | Discharge Summary ---
Discharge Summary Date of Service May 10, 2025 Principal Dx & Hospital Course #1 = Principal Diagnosis (1) Acute ITP: 74 year old male with PMH ITP, splenectomy in 2012, hypothyroidism, IDDM, HTN, HLD, chronic urinary retention requiring straight cath, and other problems listed below who presents from [facility] for thrombocytopenia. Diagnosed with ITP flare. history of same. Hematology was consulted. S/p Plt transfusion and IVIG x 2 days. Started on solumedrol. Plts continued to improve and are at 70k today. Hematology recommends prednisone taper as below. D/w hematology today, ok for discharge. He will f/u with hematology next week. Labs with expected leukocytosis due to high dose solumedrol. vitals are stable. he is agreeable for dc today. D/w [facility] physician today for pending discharge who agreed with plan. #ITP flare -Plts 2k in ED 05/08 -No s/s acute blood loss -S/p plt transfusion on 05/08 -Plts increased to 23k today Plan -Appreciate hematology input -Continue IVIG and solumedrol 1000mg daily per hematology -Follow counts and transfuse prn -Monitor for bleeding #Anemia -Chronic, POA -No s/s acute blood loss -He follows closely with hematology as OP #Abnormal UA -He straight caths daily so this is not a useful/helpful diagnostic test -He is afebrile with no s/s of UTI -Risks of abx far outweigh benefits in this case -Asymptomatic bacteriuria due to straight cathing I spent a total of 58 minutes coordinating, documenting, and providing care for this patient excluding time spent in the performance of separately billed services. This included personally reviewing all current laboratories and imaging studies, medical reconciliation, outpatient chart review and discussion with specialists (2) Severe thrombocytopenia: (3) Type 2 diabetes mellitus: hgb a1c 5.5 04/2025 Hold glipizide, Novolog per protocol while hospitalized - adjust as needed given IV steroids (4) HTN (hypertension): BP controlled Continue [employer] amlodpine (5) HLD (hyperlipidemia): Continue [employer] statin (6) Urinary retention: Self caths daily (7) Hypothyroidism: Continue [employer] levothyroxine Notes For Next Care Provider Medication Changes From Visit pred taper as above Admission HPI Per Admitting Provider 74 year old male with PMH ITP, splenectomy in 2012, hypothyroidism, IDDM, HTN, HLD, chronic urinary retention requiring straight cath, and other problems listed below who presents from [facility] for thrombocytopenia. Patient has a long standing history of ITP and recurrent admissions, most recently being admitted to [facility] 04/19 - 04/22. Treated with IVIG and IV Decadron and discharged on a Prednisone taper. Patient gets labs twice weekly and will receive Nplate injections if needed. Patient reports receiving an injection last week. Had labs today that showed platelet count 3K. He was referred to the ED. Patient reports some bruising but is otherwise asymptomatic. Denies hematuria, BRBPR, or dark stools. No chest pain or shortness of breath. Denies headache, lightheadedness, dizziness. No other recent illnesses, illnesses, fever, or chills. Denies abdominal pain and nausea. No urinary symptoms. In the ED, labs show platelets 2K, hgb 12.8. ED provider discussed with hematology who recommends IVIG, IV methylprednisone, and platelet transfusion. Discharge Exam Vitals and labs reviewed General: Well appearing, NAD HEENT: EOMI, PERRLA Neck: Supple Cardiac: RRR no rubs gallops or murmurs Lungs: CTA no rhonchi wheezing or rales Abd: S NT ND BS positive : Deffered MSK: Full ROM. No obvious deformities Ext: No Edema cyanosis Skin: Warm, Dry Neuro: AOx3 No focal deficits. Psych: Normal Mood Updated Medication List Medication Instructions Recorded Confirmed Type atorvastatin 20 mg tablet 20 mg PO DAILY 07/25/24 05/08/25 History levothyroxine 50 mcg tablet 50 mcg PO DAILY 08/22/24 05/08/25 History saliva stimulant comb. no.3 2 spray mucous membrane TID PRN 09/24/24 05/08/25 History (Biotene Moisturizing Mouth Dry Mouth mucosal spray) cyanocobalamin (vitamin B-12) 1,000 mcg PO DAILY 09/28/24 05/08/25 History 1,000 mcg tablet (Vitamin B-12) glipizide 5 mg tablet 5 mg PO DAILY 01/16/25 05/08/25 History amlodipine 10 mg tablet 10 mg PO DAILY 02/20/25 05/08/25 History insulin regular human 100 unit/mL 1 sliding scale dose subcut 05/08/25 05/08/25 History injection solution (Novolin R USEASDIRECTD PRN Hyperglycemia Regular U-100 Insulin) prednisone 20 mg tablet See Taper PO DAILY 11 days #30 tabs 05/10/25 Rx Hospital Stay Data Consultations 05/08/25 18:54 Consult Hematology Routine 05/08/25 19:00 ED Decision to Admit Stat Pending Results Patient Have Any Pending Studies at Discharge: No Discharge Instructions Given to Patient (Per Discharging Provider) Continue the prednisone taper 40mg daily x 7 days, then 30mg daily x 7 days, then 20mg daily x 7 days then 10mg daily x 7 days, then 5mg daily x 7 days 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
== END 2025-05-10 12:11 | DRG 813 ==
LOC: ED 16:53 → 3E 19:58